=== PATIENT | male | born 1940 | race Caucasian/White ===

== ENCOUNTER 2020-01-03 16:10 | Emergency (ER) | payer MEDICARE, BC ==
[2020-01-03 16:23] VITALS: TEMP 98.8
[2020-01-03] MEDS ORDERED: ONDANSETRON 4 MG/2 ML VIAL IVP STA (17:09)
[2020-01-03] MEDS ORDERED: SODIUM CHLORIDE 0.9% 1,000 ML IV STA (17:09)
[2020-01-03 17:23] LABS: Basophils # (A) 0.1 k/uL (0-0.2); Basophils % (A) 1 %; Eosinophils # (A) 0.1 k/uL (0-0.7); Eosinophils % (A) 1 %; HCT 49.2 % (39.0-53.0); HGB 16.5 gm/dL (13.0-17.5); Lymphocytes # (A) 1.6 k/uL (1.0-4.8); Lymphocytes % (A) 14 %; MCH 30.2 pg (25.0-35.0); MCHC 33.6 g/dL (31.0-37.0); MCV 90.1 fL (80.0-100.0); Monocytes # (A) 0.6 k/uL (0-1.0); Monocytes % (A) 5 %; Neutrophils # (A) 8.5 k/uL (1.3-7.7); Neutrophils % (A) 78 %; Platelet Count 225 k/uL (150-450); RBC 5.46 m/uL (4.30-5.90); RDW 12.3 % (11.5-15.5)
[2020-01-03 17:34] LABS: Albumin 4.5 g/dL (3.5-5.0); Potassium 4.6 mmol/L (3.5-5.1); Total Bilirubin 0.8 mg/dL (0.2-1.3); Total Protein 7.2 g/dL (6.3-8.2)
[2020-01-03 18:02] LABS: Appearance,Urine Clear (Clear); Bilirubin,Urine Negative (Negative); Blood,Urine Large (Negative); Color,Urine Dark Yellow; Glucose,Urine (UA) Negative (Negative); Ketones,Urine Negative (Negative); Leukocyte Esterase,Urine Negative (Negative); Mucus,Urine Occasional /hpf; Nitrite,Urine Negative (Negative); PH, Urine 5.5 (5.0-8.0); Protein,Urine Trace (Negative); RBC,Urine 166 /hpf (0-5); Specific Gravity,Urine 1.029 (1.001-1.035); Squamous Epithelial Cell,Urine <1 /hpf (0-4); Urobilinogen,Urine <2.0 mg/dL (<2.0); WBC,Urine 6 /hpf (0-5)
--- NOTE | 2020-01-03 18:46 | CT ---
EXAMINATION TYPE: CT abdomen pelvis wo con DATE OF EXAM: 01/03/2020 COMPARISON: None HISTORY: Left sided flank pain CT DLP: 795.6 mGycm Automated exposure control for dose reduction was used. The lung bases are clear of infiltrate. There is no pleural effusion. Heart size is normal. There is no pericardial effusion. Liver spleen stomach pancreas gallbladder appear normal. Bile ducts are not dilated. There is no adrenal mass. Kidneys have normal size and contour. There is left-sided hydronephrosis. T here is obstructing 5 mm calculus in the proximal left ureter close to the ureteral pelvic junction. There is 1 cm high density cyst lateral right kidney. There is no retroperitoneal adenopathy. Bladder distends smoothly. There is no inguinal hernia. There is enlarged prostate gland with calcification. Prostate measures 6.3 cm. There is no free fluid in the pelvis. There are multiple sigmoid diverticula. There is no sign of diverticulitis. There are scattered diver ticula in the remainder of the colon. Appendix appears normal. There is no mesenteric edema. There is no ascites or free air. There is no sign of a bowel obstruction. There is a degenerative mild first- degree L4-5 spondylolisthesis. There is no lumbar compression fracture. There is mild lumbar disc spa ce narrowing. The bony pelvis is intact. Hip joints are intact. There are small degenerative cysts in the acetabula. IMPRESSION: Small obstructing calculus at the proximal left ureter. Left-sided hydronephrosis. No other calculus seen. Moderate colonic diverticulosis without diverticulitis.
[2020-01-03] MEDS ORDERED: ACET/COD 300 MG/30 MG STARTER PACK 6 TAB BTL PO STA (18:59)
--- NOTE | 2020-01-03 18:59 | ED ---
General Adult HPI - General Chief complaint: Abdominal Pain Stated complaint: left sided abd pain Time Seen by Provider: 01/03/20 16:26 Source: patient, RN notes reviewed, old records reviewed Mode of arrival: ambulatory Limitations: no limitations - History of Present Illness Initial comments: 79-year-old male patient presents to ED for evaluation of left mid flank pain which began today. Reports a little bit of nausea. No vomiting or diarrhea. No anterior abdominal pain chest pain shortness of breath. No other acute complaints. Systemic: Pt denies fatigue, fever/chills, rash. Pt denies weakness, night sweats, weight loss. Neuro: Pt denies headache, visual disturbances, syncope or pre-syncope. HEENT: Pt denies ocular discharge or irritation, otalgia, rhinorrhea, pharyngitis or notable lymphadenopathy. Cardiopulmonary: Pt denies chest pain, SOB, heart palpitations, dyspnea on exertion. Abdominal/GI: Pt denies abdominal pain, v/d. : Pt denies dysuria, burning w/ urination, frequency/urgency. Denies new onset urinary or bowel incontinence. MSK: Pt denies myalgia, loss of strength or function in extremities. Neuro: Pt denies new onset weakness, paresthesias. - Related Data Allergies Allergy/AdvReac Type Severity Reaction Status Date / Time No Known Allergies Allergy Verified 01/03/20 16:23 Review of Systems ROS Statement: Those systems with pertinent positive or pertinent negative responses have been documented in the HPI. ROS Other: All systems not noted in ROS Statement are negative. Past Medical History Past Medical History: No Reported History History of Any Multi-Drug Resistant Organisms: None Reported Past Surgical History: Orthopedic Surgery Past Psychological History: No Psychological Hx Reported Smoking Status: Former smoker Past Alcohol Use History: Occasional Past Drug Use History: None Reported General Exam - General Exam Comments Initial Comments: Constitutional: NAD, AOX3, Pt has pleasant affect. HEENT: NC/AT, trachea midline, neck supple, no lymphadenopathy. External ears appear normal, without discharge. Mucous membranes moist. Eyes PERRLA, EOM intact. There is no scleral icterus. No pallor noted. Cardiopulmonary: RRR, no murmurs, rubs or gallops, no JVD noted. Lungs CTAB in a nterior and posterior kline. No peripheral edema. Abdominal exam: Abdomen soft and non-distended. Abdomen non-tender to palpation in all 4 quadrants. Bowel sounds active in LLQ. No hepatosplenomegaly. No ecchymosis. Left flank mildly tender to palpation. Neuro: CN II-XII grossly intact. No nuchal rigidity. MSK: Full active ROM in upper and lower extremities, 5/5 stregnth. Limitations: no limitations Course Vital Signs 01/03/20 16:20 Temperature 98.8 F Pulse Rate 70 Respiratory 18 Rate Blood Pressure 168/91 O2 Sat by Pulse 98 Oximetry Medical Decision Making - Medical Decision Making 79-year-old male patient with CVG for left flank pain which began this morning. Patient vital signs stable, afebrile. Very mild tenderness to the left flank area. The investigations are remarkable for hematuria. CT abdomen and pelvis without contrast was obtained which did display a small obstructing left ureteral calculi. Patient's symptoms are well controlled. We'll be discharged with analgesia and outpatient urologic follow-up. Case discussed with Dr. Angelo. - Lab Data Result diagrams: 01/03/20 17:09 01/03/20 17:09 Lab Results 01/03/20 01/03/20 01/03/20 Range/Units 17:09 17:09 17:09 WBC 11.0 H (3.8-10.6) k/uL RBC 5.46 (4.30-5.90) m/uL Hgb 16.5 (13.0-17.5) gm/dL Hct 49.2 (39.0-53.0) % MCV 90.1 (80.0-100.0) fL MCH 30.2 (25.0-35.0) pg MCHC 33.6 (31.0-37.0) g/dL RDW 12.3 (11.5-15.5) % Plt Count 225 (150-450) k/uL Neutrophils % 78 % Lymphocytes % 14 % Monocytes % 5 % Eosinophils % 1 % Basophils % 1 % Neutrophils # 8.5 H (1.3-7.7) k/uL Lymphocytes # 1.6 (1.0-4.8) k/uL Monocytes # 0.6 (0-1.0) k/uL Eosinophils # 0.1 (0-0.7) k/uL Basophils # 0.1 (0-0.2) k/uL Sodium 137 (137-145) mmol/L Potassium 4.6 (3.5-5.1) mmol/L Chloride 106 (98-107) mmol/L Carbon Dioxide 26 (22-30) mmol/L Anion Gap 5 mmol/L BUN 21 H (9-20) mg/dL Creatinine 0.98 (0.66-1.25) mg/dL Est GFR (CKD-EPI)AfAm 86 (>60 ml/min/1.73 sqM) Est GFR (CKD-EPI)NonAf 75 (>60 ml/min/1.73 sqM) Glucose 117 H (74-99) mg/dL Calcium 9.0 (8.4-10.2) mg/dL Total Bilirubin 0.8 (0.2-1.3) mg/dL AST 35 (17-59) U/L ALT 27 (4-49) U/L Alkaline Phosphatase 73 (38-126) U/L Total Protein 7.2 (6.3-8.2) g/dL Albumin 4.5 (3.5-5.0) g/dL Lipase 167 (23-300) U/L Urine Color Dark Yellow Urine Appearance Clear (Clear) Urine pH 5.5 (5.0-8.0) Ur Specific Lee 1.029 (1.001-1.035) Urine Protein Trace H (Negative) Urine Glucose (UA) Negative (Negative) Urine Ketones Negative (Negative) Urine Blood Large H (Negative) Urine Nitrite Negative (Negative) Urine Bilirubin Negative (Negative) Urine Urobilinogen <2.0 (<2.0) mg/dL Ur Leukocyte Esterase Negative (Negative) Urine RBC 166 H (0-5) /hpf Urine WBC 6 H (0-5) /hpf Ur Squamous Epith Cells <1 (0-4) /hpf Urine Mucus Occasional H (None) /hpf Disposition Clinical Impression: Ureteral calculi Disposition: HOME SELF-CARE Condition: Stable Instructions (If sedation given, give patient instructions): Kidney Stones (ED) Additional Instructions: follow-up with primary care provider and urologist tomorrow. Drink a lot of water. Take pain medication as needed. Is patient prescribed a controlled substance at d/c from ED?: No Referrals: Harpreet Means DO [Primary Care Provider] - 1-2 days Jose Taylor MD [STAFF PHYSICIAN] - 1-2 days
[2020-01-03 19:13] VITALS: BP 141/86; PULSE 68; RESP 16
== END 2020-01-03 19:15 | disposition home or self-care (01) ==
LOC: EC 16:10
DX: N20.1 Calculus of ureter (principal); Z87.891 Personal history of nicotine dependence
CPT/HCPCS: 36415; 80053; 83690; 85025; 81001; 74176; 99284; 96374; 96361; J2405

== ENCOUNTER 2021-03-01 11:48 | Inpatient (IN) | payer MEDICARE, BC ==
[2021-03-01] MEDS ORDERED: SODIUM CHLORIDE 0.9% 1,000 ML IV STA (12:13)
[2021-03-01] MEDS ORDERED: guaiFENesin-Coden 100-10MG/5ML 10 ML CUP PO STA ×2 (12:14→23:47)
--- NOTE | 2021-03-01 12:31 | ED ---
General Adult HPI - General Chief complaint: Weakness Stated complaint: dehydration Time Seen by Provider: 03/01/21 12:05 Source: EMS Mode of arrival: EMS Limitations: no limitations - History of Present Illness Initial comments: Patient presents with a cough. 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 He received the IV monoclonal antibody therapy. He states that he was coughing a lot last night and feels like he may be dehydrated. He has no chest or belly or back pain. He is using home oxygen already for his Covid. He has no pain or swelling the legs. He has no palpitations. He has no focal weakness. He has no lightheadedness or dizziness. - Related Data Home Medications Medication Instructions Recorded Confirmed Budesonide/Formoterol Fumarate 2 puff INHALATION RT-BID 03/01/21 03/01/21 [Symbicort 80-4.5 Mcg Inhaler] Levofloxacin [Levaquin] 750 mg PO DAILY 03/01/21 03/01/21 guaiFENesin-Coden 100-10MG/5ML 10 ml PO Q6H PRN 03/01/21 03/01/21 [Robitussin AC] Allergies Allergy/AdvReac Type Severity Reaction Status Date / Time No Known Allergies Allergy Verified 03/01/21 12:50 Review of Systems ROS Statement: Those systems with pertinent positive or pertinent negative responses have been documented in the HPI. ROS Other: All systems not noted in ROS Statement are negative. Past Medical History Past Medical History: No Reported History History of Any Multi-Drug Resistant Organisms: None Reported Past Surgical History: Orthopedic Surgery Past Psychological History: No Psychological Hx Reported Smoking Status: Former smoker Past Alcohol Use History: Occasional Past Drug Use History: None Reported General Exam Limitations: no limitations General appearance: alert, in no apparent distress Head exam: Present: atraumatic, normocephalic, normal inspection Eye exam: Present: normal appearance, PERRL, EOMI. Absent: scleral icterus, conjunctival injection, periorbital swelling ENT exam: Present: normal exam, mucous membranes moist Neck exam: Present: normal inspection. Absent: tenderness, meningismus, lymphadenopathy Respiratory exam: Present: normal lung sounds bilaterally. Absent: respiratory distress, wheezes, rales, rhonchi, stridor Cardiovascular Exam: Present: regular rate, normal rhythm, normal heart sounds. Absent: systolic murmur, diastolic murmur, rubs, gallop, clicks GI/Abdominal exam: Present: soft, normal bowel sounds. Absent: distended, tenderness, guarding, rebound, rigid Extremities exam: Present: normal inspection, full ROM, normal capillary refill. Absent: tenderness, pedal edema, joint swelling, calf tenderness Back exam: Present: normal inspection Neurological exam: Present: alert, oriented X3, CN II-XII intact Psychiatric exam: Present: normal affect, normal mood Skin exam: Present: warm, dry, intact, normal color. Absent: rash Course Vital Signs 03/01/21 03/01/21 03/01/21 11:51 12:57 14:01 Temperature 98.9 F Pulse Rate 89 81 80 Respiratory 20 18 18 Rate Blood Pressure 110/72 123/75 116/66 O2 Sat by Pulse 93 L 95 91 L Oximetry EKG Findings - EKG Comments: EKG Findings:: Twelve-lead EKG shows ventricular rate 84 bpm, normal ME interval and QRS complexes, no ST elevation or depression, interpreted by me as normal sinus rhythm. Medical Decision Making - Medical Decision Making Patient presents with covert pneumonia. His chest x-ray is very bad. His condition has deteriorated slightly in the emerge department despite treatment. He is feeling more short of breath and is becoming more tachypnea. He will be admitted to the hospital. - Lab Data Result diagrams: 03/01/21 12:45 03/01/21 12:45 Lab Results 03/01/21 03/01/21 03/01/21 Range/Units 12:45 12:45 12:45 WBC 7.7 (3.8-10.6) k/uL RBC 5.47 (4.30-5.90) m/uL Hgb 17.0 (13.0-17.5) gm/dL Hct 47.9 (39.0-53.0) % MCV 87.6 (80.0-100.0) fL MCH 31.1 (25.0-35.0) pg MCHC 35.5 (31.0-37.0) g/dL RDW 12.1 (11.5-15.5) % Plt Count 218 (150-450) k/uL MPV 7.3 Neutrophils % 88 % Lymphocytes % 4 % Monocytes % 6 % Eosinophils % 0 % Basophils % 1 % Neutrophils # 6.8 (1.3-7.7) k/uL Lymphocytes # 0.3 L (1.0-4.8) k/uL Monocytes # 0.4 (0-1.0) k/uL Eosinophils # 0.0 (0-0.7) k/uL Basophils # 0.1 (0-0.2) k/uL PT 11.1 (9.0-12.0) sec INR 1.0 (<1.2) APTT 24.2 (22.0-30.0) sec Sodium 130 L (137-145) mmol/L Potassium 4.3 (3.5-5.1) mmol/L Chloride 98 (98-107) mmol/L Carbon Dioxide 24 (22-30) mmol/L Anion Gap 8 mmol/L BUN 25 H (9-20) mg/dL Creatinine 0.70 (0.66-1.25) mg/dL Est GFR (CKD-EPI)AfAm >90 (>60 ml/min/1.73 sqM) Est GFR (CKD-EPI)NonAf >90 (>60 ml/min/1.73 sqM) Glucose 104 H (74-99) mg/dL Plasma Lactic Acid Karan (0.7-2.0) mmol/L Calcium 8.5 (8.4-10.2) mg/dL Magnesium 1.9 (1.6-2.3) mg/dL Total Bilirubin 0.9 (0.2-1.3) mg/dL AST 58 (17-59) U/L ALT 65 H (4-49) U/L Alkaline Phosphatase 63 (38-126) U/L Troponin I (0.000-0.034) ng/mL Total Protein 6.2 L (6.3-8.2) g/dL Albumin 3.3 L (3.5-5.0) g/dL 03/01/21 03/01/21 Range/Units 12:45 12:45 WBC (3.8-10.6) k/uL RBC (4.30-5.90) m/uL Hgb (13.0-17.5) gm/dL Hct (39.0-53.0) % MCV (80.0-100.0) fL MCH (25.0-35.0) pg MCHC (31.0-37.0) g/dL RDW (11.5-15.5) % Plt Count (150-450) k/uL MPV Neutrophils % % Lymphocytes % % Monocytes % % Eosinophils % % Basophils % % Neutrophils # (1.3-7.7) k/uL Lymphocytes # (1.0-4.8) k/uL Monocytes # (0-1.0) k/uL Eosinophils # (0-0.7) k/uL Basophils # (0-0.2) k/uL PT (9.0-12.0) sec INR (<1.2) APTT (22.0-30.0) sec Sodium (137-145) mmol/L Potassium (3.5-5.1) mmol/L Chloride (98-107) mmol/L Carbon Dioxide (22-30) mmol/L Anion Gap mmol/L BUN (9-20) mg/dL Creatinine (0.66-1.25) mg/dL Est GFR (CKD-EPI)AfAm (>60 ml/min/1.73 sqM) Est GFR (CKD-EPI)NonAf (>60 ml/min/1.73 sqM) Glucose (74-99) mg/dL Plasma Lactic Acid Karan 1.1 (0.7-2.0) mmol/L Calcium (8.4-10.2) mg/dL Magnesium (1.6-2.3) mg/dL Total Bilirubin (0.2-1.3) mg/dL AST (17-59) U/L ALT (4-49) U/L Alkaline Phosphatase (38-126) U/L Troponin I <0.012 (0.000-0.034) ng/mL Total Protein (6.3-8.2) g/dL Albumin (3.5-5.0) g/dL Disposition Clinical Impression: COVID-19 Disposition: ADMITTED IP TO THIS HOSP Condition: Fair Is patient prescribed a controlled substance at d/c from ED?: No Referrals: Bonita Pelletier MD [Primary Care Provider] - 1-2 days
[2021-03-01 13:02] LABS: Basophils # (A) 0.1 k/uL (0-0.2); Basophils % (A) 1 %; Eosinophils % (A) 0 %; HCT 47.9 % (39.0-53.0); Lymphocytes # (A) 0.3 k/uL (1.0-4.8); Lymphocytes % (A) 4 %; MCH 31.1 pg (25.0-35.0); MCHC 35.5 g/dL (31.0-37.0); MCV 87.6 fL (80.0-100.0); Mean Platelet Volume 7.3; Monocytes # (A) 0.4 k/uL (0-1.0); Monocytes % (A) 6 %; Neutrophils # (A) 6.8 k/uL (1.3-7.7); Neutrophils % (A) 88 %; Platelet Count 218 k/uL (150-450); RBC 5.47 m/uL (4.30-5.90); RDW 12.1 % (11.5-15.5); WBC 7.7 k/uL (3.8-10.6)
--- NOTE | 2021-03-01 13:20 | XR ---
EXAMINATION TYPE: XR chest 1V portable DATE OF EXAM: 03/01/2021 COMPARISON: 02/27/2021 HISTORY: Shortness of breath TECHNIQUE: Single frontal view of the chest is obtained. FINDINGS: There are diffuse bilateral predominantly midlung and peripheral infiltrates. A tiny effus ion or pleural thickening. No pneumothorax. Heart size normal. Arthropathy of the shoulders. IMPRESSION: Diffuse bilateral multifocal infiltrates correlate for multifocal pneumonia or ARDS.
[2021-03-01 13:26] LABS: ALT 65 U/L (4-49); AST 58 U/L (17-59); African American GFR (CKD) >90 (>60 ml/min/1.73 sqM); Albumin 3.3 g/dL (3.5-5.0); Alkaline Phosphatase 63 U/L (38-126); Anion Gap 8 mmol/L; Blood Urea Nitrogen 25 mg/dL (9-20); Calcium 8.5 mg/dL (8.4-10.2); Carbon Dioxide 24 mmol/L (22-30); Chloride 98 mmol/L (98-107); Glucose 104 mg/dL (74-99); Magnesium 1.9 mg/dL (1.6-2.3); Non-African American GFR(CKD) >90 (>60 ml/min/1.73 sqM); Potassium 4.3 mmol/L (3.5-5.1); Sodium 130 mmol/L (137-145); Total Bilirubin 0.9 mg/dL (0.2-1.3); Total Protein 6.2 g/dL (6.3-8.2)
[2021-03-01 13:32] LABS: Partial Thromboplastin Time 24.2 sec (22.0-30.0); Prothrombin Time 11.1 sec (9.0-12.0)
[2021-03-01 14:28] LABS: Appearance,Urine Clear (Clear); Bacteria,Urine Rare /hpf; Bilirubin,Urine Negative (Negative); Blood,Urine Negative (Negative); Color,Urine Yellow; Glucose,Urine (UA) Negative (Negative); Hyaline Casts,Urine 1 /lpf (0-2); Ketones,Urine 1+ (Negative); Leukocyte Esterase,Urine Negative (Negative); Mucus,Urine Few /hpf; Nitrite,Urine Negative (Negative); Protein,Urine 2+ (Negative); RBC,Urine 1 /hpf (0-5); Specific Gravity,Urine 1.035 (1.001-1.035); Urobilinogen,Urine <2.0 mg/dL (<2.0); WBC,Urine 2 /hpf (0-5)
--- NOTE | 2021-03-01 15:51 | P.HPIM ---
History of Present Illness H&P Date: 03/01/21 History of Presenting Illness: Patient is a very pleasant 80-year-old male with history of COPD and previous tobacco use with no other known reported past medical history, he follows with primary care provider, Dr. Pelletier. Patient reports diagnosis with Covid 19 virus infection at [facility] 10 days ago and received monoclonal antibodies at that time and was prescribed an inhaler, steroids, cough medicine, and an antibiotic. He presented to the ER today with a chief complaint of increased cough, shortness of breath, and fatigue. He was seen and fully evaluated in the emergency department. He was found to be hypoxic with SpO2 in the 80s requiring oxygen supplementation. Patient currently 89-91% on 4 L O2 via nasal cannula. Chest x-ray completed showing diffuse bilateral multifocal infiltrates correlating with multifocal pneumonia vs ARDS. EKG showing normal sinus rhythm 84 beats a minute with no noted T-wave or ST abnormalities showing no signs of acute ischemia. Covid PCR was positive. CBC unremarkable. Troponin normal findings at less than 0.012. Coags unremarkable. BMP revealing mild hyponatremia with sodium of 130 and slight prerenal azotemia with BUN of 25. Urinalysis negative for infection. Patient is being admitted under our services with consultation to pulmonology. Patient seen and fully evaluated at the bedside. He reports shortness of breath, fatigue, and decreased appetite accompanied by dry cough and significant dyspnea with exertion as well as orthopnea. Patient reports due to the increased shortness of breath he has been unable to sleep for the past 2 nights. Patient denies having any fevers, chills, diaphoresis, headache, lightheadedness, dizziness, chest pain, palpitations, abdominal pain or GI complaints, or experiencing any numbness/tingling/weakness/swelling in his extremities. Patient is not vaccinated against Covid. Review of systems: Pertinent positives and negatives as discussed in HPI, a complete review of systems was performed and all other systems are negative. Physical exam: Vital signs reviewed and stable. General: Nontoxic, no distress and appears stated age. Derm: Skin warm and dry, normal coloration for ethnicity. Head: Atraumatic, normocephalic and symmetric. Eyes: EOMs intact, no lid lag, and anicteric sclera Mouth: no lip lesions, mucus membranes moist Cardiovascular: regular rate and rhythm with normal S1S2, no murmur, positive posterior tibial pulses bilaterally, and cap refill < 2 seconds. Lungs: Increased respiratory effort without accessory muscle use, noted conversational dyspnea with 3-4 word sentences, lungs diffuse coarse crackles bilaterally in the mid and lower lungs. Patient currently on 4 L O2 via nasal cannula. Abdominal: soft, nontender to palpation, no guarding, no appreciable organomega ly Ext: ROM intact. No gross muscle atrophy, no edema, no contractures Neuro: Speech clear, face symmetrical and CN II-XII grossly intact with no noted focal neuro deficits Psych: Alert and oriented to person, place, time, and situation. Appropriate and pleasant affect. Assessment and Plan of Care: Acute respiratory failure with hypoxia secondary to COVID 19 pneumonia -Oxygenation to be administered and titrated as needed to maintain SPO2 equal to or greater than 90% -Telemetry monitoring. -Continue trending inflammatory markers -Encourage Incentive Spirometry 10-15x hourly while awake -Steroids: Decadron 6 mg daily, day 1 of steroids -Continue vitamin C, Vitamin D, and Zinc. -Pulmonology following, appreciate further recommendations. -DVT prophylaxis with Lovenox. -Strict Droplet plus Contact precautions -Patient received monoclonal antibodies. Out of window for Remdesivir as patient reports symptoms began approximately 12 days ago. Hyponatremia Patient received 1 L bolus is 0.9% normal saline in the ED. We will reevaluate sodium levels with repeat a.m. labs. Prerenal azotemia with BUN of 25 Patient received 1 L bolus is 0.9% normal saline in the ED. We will reevaluate BMP with repeat a.m. labs. The patient is admitted with an anticipated greater than 2 midnight stay for evaluation of acute respiratory failure with hypoxia secondary to Covid 19 pneumonia. CODE STATUS: Full code DVT prophylaxis: Lovenox Discussed with: Patient and RN Anticipated discharge date: Clinical course to determine Anticipated discharge place: Home A total of 45 minutes was spent on the care of this complex patient more than 50% of the time was spent in counseling and care coordination. Past Medical History Past Medical History: No Reported History History of Any Multi-Drug Resistant Organisms: None Reported Past Surgical History: Orthopedic Surgery Past Psychological History: No Psychological Hx Reported Smoking Status: Former smoker Past Alcohol Use History: Occasional Past Drug Use History: None Reported Medications and Allergies Home Medications Medication Instructions Recorded Confirmed Type Budesonide/Formoterol Fumarate 2 puff INHALATION RT-BID 03/01/21 03/01/21 Histo ry [Symbicort 80-4.5 Mcg Inhaler] Levofloxacin [Levaquin] 750 mg PO DAILY 03/01/21 03/01/21 History guaiFENesin-Coden 100-10MG/5ML 10 ml PO Q6H PRN 03/01/21 03/01/21 History [Robitussin AC] Allergies Allergy/AdvReac Type Severity Reaction Status Date / Time No Known Allergies Allergy Verified 03/01/21 12:50 Physical Exam Vitals: Vital Signs Temp Pulse Resp BP Pulse Ox 03/01/21 14:01 80 18 116/66 91 L 03/01/21 14:00 20 03/01/21 12:57 81 18 123/75 95 03/01/21 11:51 98.9 F 89 20 110/72 93 L Intake and Output 03/01/21 03/01/21 03/01/21 06:59 14:59 22:59 Other: Weight 74.843 kg Results CBC & Chem 7: 03/01/21 12:45 03/01/21 12:45 Labs: Abnormal Lab Results - Last 24 Hours (Table) 03/01/21 03/01/21 03/01/21 Range/Units 12:45 12:45 13:58 Lymphocytes # 0.3 L (1.0-4.8) k/uL Sodium 130 L (137-145) mmol/L BUN 25 H (9-20) mg/dL Glucose 104 H (74-99) mg/dL ALT 65 H (4-49) U/L Total Protein 6.2 L (6.3-8.2) g/dL Albumin 3.3 L (3.5-5.0) g/dL Urine Protein 2+ H (Negative) Urine Ketones 1+ H (Negative) Urine Bacteria Rare H (None) /hpf Urine Mucus Few H (None) /hpf
[2021-03-01] MEDS ORDERED: NALOXONE 0.4 MG/ML 1 ML VIAL IV PRN (16:03)
[2021-03-01] MEDS ORDERED: MELATONIN 3 MG TABLET PO PRN (16:03)
[2021-03-01] MEDS ORDERED: HYDROcodone/APAP 5-325MG 1 EACH TAB PO PRN (16:03)
[2021-03-01] MEDS: ENOXAPARIN 40 MG/0.4 ML SYRINGE SQ SCH (16:52)
--- NOTE | 2021-03-01 18:00 | P.CNPUL ---
History of Present Illness Consult date: 03/01/21 Reason for consult: pneumonia History of present illness: 80-year-old male patient, known history of COPD, diagnosed having COVID 19 approximately 10 days ago and the patient received monoclonal antibodies and the patient was described inhalers, steroids and cough medication. Condition got worse and the patient came into the emergency department today with worsening shortness of breath and hypoxemia. Initial pulse ox was 80%. Currently is on 4 L of oxygen by nasal cannula and the patient developed diffuse bilateral pulmonary infiltrates. He is normally on no oxygen. Note that the patient has not received vaccination for COVID 19. His white cell count is at 7.7 with a hemoglobin of 17. Normal coagulation profile. Sodium level is at 130, LFTs are normal, troponins are negative, UA is essentially negative. Inflammatory markers have not been checked. D-dimer has not been checked. He is currently on Decadron. The chest x-ray showed diffuse breath and pulmonary infiltrates consistent with COVID 19 pneumonia. Review of Systems Constitutional: Reports fatigue, Reports weakness Eyes: denies as per HPI, denies blurred vision, denies bulging eye, denies decreased vision, denies diplopia, denies discharge, denies dry eye, denies irritation, denies itching, denies pain, denies photophobia, denies loss of peripheral vision, denies loss of vision, denies tunnel vision/blind spots Ears: deny: decreased hearing, ear discharge, earache, tinnitus Ears, nose, mouth and throat: Reports as per HPI Breasts: absent: as per HPI, gynecomastia Cardiovascular: Reports decreased exercise tolerance, Reports dyspnea on exertion Respiratory: Reports cough, Reports dyspnea Gastrointestinal: Reports as per HPI Genitourinary: Reports as per HPI Musculoskeletal: Reports as per HPI Musculoskeletal: absent: ankle pain, ankle stiffness, ankle swelling, as per HPI, elbow pain, elbow stiffness, elbow swelling, foot pain, foot stiffness, foot swelling, hand pain, hand stiffness, hand swelling, hip pain, hip stiffness, hip swelling, knee pain, knee stiffness, knee swelling, shoulder pain, shoulder stiffness, shoulder swelling, wrist pain, wrist stiffness, wrist swelling Integumentary: Reports as per HPI Neurological: Reports as per HPI Psychiatric: Reports as per HPI Endocrine: Reports as per HPI Hematologic/Lymphatic: Reports as per HPI Allergic/Immunologic: Reports as per HPI Past Medical History Past Medical History: No Reported History History of Any Multi-Drug Resistant Organisms: None Reported Past Surgical History: Orthopedic Surgery Past Psychological History: No Psychological Hx Reported Smoking Status: Former smoker Past Alcohol Use History: Occasional Past Drug Use History: None Reported Medications and Allergies Home Medications Medication Instructions Recorded Confirmed Type Budesonide/Formoterol Fumarate 2 puff INHALATION RT-BID 03/01/21 03/01/21 History [Symbicort 80-4.5 Mcg Inhaler] Levofloxacin [Levaquin] 750 mg PO DAILY 03/01/21 03/01/21 History guaiFENesin-Coden 100-10MG/5ML 10 ml PO Q6H PRN 03/01/21 03/01/21 History [Robitussin AC] Allergies Allergy/AdvReac Type Severity Reaction Status Date / Time No Known Allergies Allergy Verified 03/01/21 12:50 Physical Exam Vitals: Vital Signs Temp Pulse Resp BP Pulse Ox 03/01/21 14:01 80 18 116/66 91 L 03/01/21 14:00 20 03/01/21 12:57 81 18 123/75 95 03/01/21 11:51 98.9 F 89 20 110/72 93 L Intake and Output 03/01/21 03/01/21 03/01/21 06:59 14:59 22:59 Other: Weight 74.843 kg Vital signs reviewed and stable. Eating is labored and the patient is currently on 4 L by nasal cannula. The patient is also having frequent coughs specially when he takes a deep breath. He feels a bit lethargic and tired and weak. General: Nontoxic, no distress and appears stated age. Derm: Skin warm and dry, normal coloration for ethnicity. Head: Atraumatic, normocephalic and symmetric. Eyes: EOMs intact, no lid lag, and anicteric sclera Mouth: no lip lesions, mucus membranes moist Cardiovascular: regular rate and rhythm with normal S1S2, no murmur, positive posterior tibial pulses bilaterally, and cap refill < 2 seconds. Lungs: Increased respiratory effort without accessory muscle use, noted conversational dyspnea with 3-4 word sentences, lungs diffuse coarse crackles bilaterally in the mid and lower lungs. Patient currently on 4 L O2 via nasal cannula. Abdominal: soft, nontender to palpation, no guarding, no appreciable organomegaly Ext: ROM intact. No gross muscle atrophy, no edema, no contractures Neuro: Speech clear, face symmetrical and CN II-XII grossly intact with no noted focal neuro deficits Psych: Alert and oriented to person, place, time, and situation. Appropriate and pleasant affect. Results - Laboratory Findings CBC and BMP: 03/01/21 12:45 03/01/21 12:45 PT/INR, D-dimer PT 11.1 sec (9.0-12.0) 03/01/21 12:45 INR 1.0 (<1.2) 03/01/21 12:45 Abnormal lab findings: Abnormal Labs 03/01/21 12 12 12:45 12:45 13:58 Lymphocytes # 0.3 L Sodium 130 L BUN 25 H Glucose 104 H ALT 65 H Total Protein 6.2 L Albumin 3.3 L Urine Protein 2+ H Urine Ketones 1+ H Urine Bacteria Rare H Urine Mucus Few H Coronavirus (PCR) 03/01/21 15:55 Lymphocytes # Sodium BUN Glucose ALT Total Protein Albumin Urine Protein Urine Ketones Urine Bacteria Urine Mucus Coronavirus (PCR) Detected A - Diagnostic Findings Chest x-ray: image reviewed Assessment and Plan Plan: 1 acute COVID 19 related pneumonia with secondary shortness of breath. Diagnosis established approximately 10 days ago. The patient received monoclonal antibodies on outpatient basis. The patient was also treated with steroids and antibiotics. His presenting with worsening shortness of breath and a dry cough. 2 acute hypoxic respiratory failure secondary to above, currently on 4 L about 2 by nasal cannula. 3 shortness of breath and cough secondary to above. Plan Check inflammatory markers including LDH, CRP, pro-calcitonin level and d-dimer Put the patient on Decadron 6 L IV every 24 hours The patient is outside the window for Remdesivir Lovenox 40 mg subcu for DVT prophylaxis Cough medication including Robitussin-DM and Tessalon Perles Albuterol HFA 4 times a day as needed We'll continue to follow. We'll monitor electrolytes. He is receiving fluids and currently is on normal saline at the rate of 75 he is an hour and this will be continued He'll be admitted to the hospital I will continue to follow.
[2021-03-01] MEDS: SODIUM CHLORIDE 0.9% 1,000 ML IV SCH (18:51)
[2021-03-01] MEDS: ACETAMINOPHEN TAB 325 MG TAB PO PRN (18:55)
[2021-03-01] MEDS: guaiFENesin-Coden 100-10MG/5ML 10 ML CUP PO PRN (18:56)
[2021-03-01] MEDS: SYMBICORT 80-4.5 MCG INHALER INHALATION SCH (21:09)
[2021-03-02] MEDS: ACETAMINOPHEN TAB 325 MG TAB PO PRN (02:15)
[2021-03-02] MEDS: DEXAMETHASONE SOD PHOSPHATE 10 MG/ML 1 ML VIAL IVP SCH (07:56)
[2021-03-02] MEDS: CHOLECALCIFEROL 125 MCG (5000 IU) TABLET PO SCH (07:56)
[2021-03-02] MEDS: ASCORBIC ACID 500 MG TAB PO SCH (07:56)
[2021-03-02] MEDS: ZINC SULFATE 220 MG CAP PO SCH (07:56)
[2021-03-02] MEDS: guaiFENesin-Coden 100-10MG/5ML 10 ML CUP PO PRN ×3 (07:57→22:10)
[2021-03-02] MEDS: ENOXAPARIN 40 MG/0.4 ML SYRINGE SQ SCH (07:57)
[2021-03-02] MEDS: SYMBICORT 80-4.5 MCG INHALER INHALATION SCH ×2 (08:25→19:21)
[2021-03-02 09:23] LABS: HGB 15.4 g/dL (13.0-17.0); MCH 30.6 pg (27.0-32.0); MCHC 34.2 g/dL (32.0-37.0); MCV 89.5 fL (80.0-97.0); Mean Platelet Volume 8.9 fL (9.5-12.2); Platelet Count 234 X 10*3/uL (140-440); RBC 5.03 X 10*6/uL (4.40-5.60); RDW 12.6 % (11.5-14.5)
[2021-03-02 09:43] LABS: C Reactive Protein 18.6 mg/dL (0.00-0.80)
[2021-03-02 12:09] LABS: Basophils # (A) 0.02 X 10*3/uL (0.00-0.10); Basophils % (A) 0.2 %; Eosinophils # (A) 0.01 X 10*3/uL (0.04-0.35); Eosinophils % (A) 0.1 %; Lymphocytes # (A) 1.31 X 10*3/uL (0.90-5.00); Lymphocytes % (A) 15.8 %; Monocytes # (A) 0.39 X 10*3/uL (0.20-1.00); Monocytes % (A) 4.7 %; Neutrophils # (A) 6.54 X 10*3/uL (1.80-7.70); Neutrophils % (A) 78.8 %
[2021-03-02] MEDS: SODIUM CHLORIDE 0.9% 1,000 ML IV SCH (12:12)
[2021-03-02 12:48] LABS: African American GFR (CKD) 99.2 (60.0-200.0); Albumin 3.1 g/dL (3.8-4.9); Albumin/Globulin Ratio 1.35 (1.60-3.17); Anion Gap 10.2 mmol/L (10.00-18.00); BUN/Creat Ratio 21.5 Ratio (12.00-20.00); Blood Urea Nitrogen 17.2 mg/dL (9.0-27.0); Carbon Dioxide 22.8 mmol/L (20.0-27.5); Globulin 2.3 g/dL (1.6-3.3); Non-African American GFR(CKD) 85.6 (60.0-200.0); Potassium 4.2 mmol/L (3.5-5.5); Total Bilirubin 0.8 mg/dL (0.30-1.20); Total Protein 5.4 g/dL (6.2-8.2)
--- NOTE | 2021-03-02 13:38 | P.PN ---
Subjective Progress Note Date: 03/02/21 80-year-old male patient, known history of COPD, diagnosed having COVID 19 approximately 10 days ago and the patient received monoclonal antibodies and the patient was described inhalers, steroids and cough medication. Condition got worse and the patient came into the emergency department today with worsening shortness of breath and hypoxemia. Initial pulse ox was 80%. Currently is on 4 L of oxygen by nasal cannula and the patient developed diffuse bilateral pulmonary infiltrates. He is normally on no oxygen. Note that the patient has not received vaccination for COVID 19. His white cell count is at 7.7 with a hemoglobin of 17. Normal coagulation profile. Sodium level is at 130, LFTs are normal, troponins are negative, UA is essentially negative. Inflammatory markers have not been checked. D-dimer has not been checked. He is currently on Decadron. The chest x-ray showed diffuse breath and pulmonary infiltrates consistent with COVID 19 pneumonia. 03/02/2021, the patient continues to have episodes of fever. His oxygen requirements have gone up to 9 L per minute nasal cannula. Note that he yesterday was only on 4 L. His pro-calcitonin level is at 0.26, LDH level is at 418, CRP level is 82.6. He is otherwise doing well. Despite worsening in her oxygenation, the patient reports that his breathing is better. He has episodic cough for which is taken cough medication. No other significant events overnight. He is currently on Decadron 6 mg an Lovenox 40 mg subcu for DVT prophylaxis. Objective - Vital Signs Vital signs: Vital Signs Temp 99.8 F H 03/02/21 10:09 Pulse 84 03/02/21 10:09 Resp 18 03/02/21 10:09 BP 128/70 03/02/21 10:09 Pulse Ox 92 L 03/02/21 10:09 Intake & Output 03/01/21 03/02/21 03/02/21 18:59 06:59 18:59 Intake Total 350 Balance 350 Weight 74.843 kg Intake: Oral 350 Other: Voiding Method Urinal - Exam Vital signs reviewed and stable. Eating is labored and the patient is currently on 9 L by nasal cannula. The patient is also having frequent coughs specially when he takes a deep breath. He feels a bit lethargic and tired and weak. General: Nontoxic, no distress and appears stated age. Derm: Skin warm and dry, normal coloration for ethnicity. Head: Atraumatic, normocephalic and symmetric. Eyes: EOMs intact, no lid lag, and anicteric sclera Mouth: no lip lesions, mucus membranes moist Cardiovascular: regular rate and rhythm with normal S1S2, no murmur, positive po sterior tibial pulses bilaterally, and cap refill < 2 seconds. Lungs: Increased respiratory effort without accessory muscle use, noted conversational dyspnea with 3-4 word sentences, lungs diffuse coarse crackles bilaterally in the mid and lower lungs. Patient currently on 4 L O2 via nasal cannula. Abdominal: soft, nontender to palpation, no guarding, no appreciable organomegaly Ext: ROM intact. No gross muscle atrophy, no edema, no contractures Neuro: Speech clear, face symmetrical and CN II-XII grossly intact with no noted focal neuro deficits Psych: Alert and oriented to person, place, time, and situation. Appropriate and pleasant affect. - Labs CBC & Chem 7: 03/02/21 06:47 03/02/21 06:47 Labs: Abnormal Lab Results - Last 24 Hours (Table) 03/01/21 03/01/21 03/01/21 Range/Units 12:45 13:58 15:55 MPV (9.5-12.2) fL Eosinophils # (0.04-0.35) X 10*3/uL D-Dimer (<0.60) mg/L FEU Sodium (135-145) mmol/L BUN/Creatinine Ratio (12.00-20.00) Ratio Calcium (8.7-10.3) mg/dL AST (14-35) U/L ALT (10-49) U/L Lactate Dehydrogenase (120-246) U/L C-Reactive Protein (0.00-0.80) mg/dL Total Protein (6.2-8.2) g/dL Albumin (3.8-4.9) g/dL Albumin/Globulin Ratio (1.60-3.17) g/dL Procalcitonin 0.26 H (0.02-0.09) ng/mL Urine Protein 2+ H (Negative) Urine Ketones 1+ H (Negative) Urine Bacteria Rare H (None) /hpf Urine Mucus Few H (None) /hpf Coronavirus (PCR) Detected A (Not Detectd) 03/02/21 03/02/21 03/02/21 Range/Units 06:47 06:47 06:47 MPV 8.9 L (9.5-12.2) fL Eosinophils # 0.01 L (0.04-0.35) X 10*3/uL D-Dimer 1.09 H (<0.60) mg/L FEU Sodium 131 L (135-145) mmol/L BUN/Creatinine Ratio 21.50 H (12.00-20.00) Ratio Calcium 8.0 L (8.7-10.3) mg/dL AST 51 H (14-35) U/L ALT 51 H (10-49) U/L Lactate Dehydrogenase 418 H (120-246) U/L C-Reactive Protein 18.60 H (0.00-0.80) mg/dL Total Protein 5.4 L (6.2-8.2) g/dL Albumin 3.1 L (3.8-4.9) g/dL Albumin/Globulin Ratio 1.35 L (1.60-3.17) g/dL Procalcitonin (0.02-0.09) ng/mL Urine Protein (Negative) Urine Ketones (Negative) Urine Bacteria (None) /hpf Urine Mucus (None) /hpf Coronavirus (PCR) (Not Detectd) Assessment and Plan Plan: 1 acute COVID 19 related pneumonia with secondary shortness of breath. Diagnosis established approximately 10 days ago. The patient received monoclonal antibodies on outpatient basis. The patient was also treated with steroids and antibiotics. His presenting with worsening shortness of breath and a dry cough. 2 acute hypoxic respiratory failure secondary to above, currently on 9 L by nasal cannula. 3 shortness of breath and cough secondary to above. Plan Oxygen requirements got worse and the patient is currently on 9 L of oxygen by nasal cannula. Clinically feeling better. Put the patient on Decadron 6 L IV every 24 hours The patient is outside the window for Remdesivir Lovenox 40 mg subcu for DVT prophylaxis Cough medication including Robitussin-DM and Tessalon Perles Albuterol HFA 4 times a day as needed We'll continue to follow. We'll monitor electrolytes. He is receiving fluids and currently is on normal saline at the rate of 75 he is an hour and this will be continued We'll continue to follow.
--- NOTE | 2021-03-02 14:56 | P.PN ---
Subjective Progress Note Date: 03/02/21 Hospital course: Patient is a very pleasant 80-year-old male with history of COPD and previous tobacco use with no other known reported past medical history, he follows with primary care provider, Dr. Pelletier. Patient reports diagnosis with Covid 19 virus infection at [facility] 10 days ago and received monoclonal antibodies at that time and was prescribed an inhaler, steroids, cough medicine, and an antibiotic. He presented to the ER 03/01/21 with a chief complaint of increased cough, shortness of breath, and fatigue. He was seen and fully evaluated in the emergency department. He was found to be hypoxic with SpO2 in the 80s requiring oxygen supplementation. Patient currently 89-91% on 4 L O2 via nasal cannula. Chest x-ray completed showing diffuse bilateral multifocal infiltrates correlating with multifocal pneumonia vs ARDS. EKG showing normal sinus rhythm 84 beats a minute with no noted T-wave or ST abnormalities showing no signs of acute ischemia. Covid PCR was positive. CBC unremarkable. Troponin normal findings at less than 0.012. Coags unremarkable. BMP revealing mild hyponatremia with sodium of 130 and slight prerenal azotemia with BUN of 25. Urinalysis negative for infection. Patient was admitted under our services with consultation to pulmonology. Physical exam: Patient was seen and fully evaluated at the bedside. Overnight his oxygen needs continued to increase and he is now on 9 L O2 via nasal cannula. Patient lying left lateral recumbent upon assessment this morning. He reports continued fatigue and shortness of breath but denies having an actual increase in his shortness of breath. Patient also denies having any headache, lightheadedness, dizziness, chest pain, palpitations, nausea, vomiting, or diarrhea. Morning labs reviewed CBC unremarkable and BMP revealing mild hyponatremia with sodium of 131. Inflammatory markers elevated with d-dimer 1.09, LDH of 418, and CRP of 18.60. At this time patient to continue with vitamin C, vitamin D, zinc, Decadron, and Lovenox. Vital signs reviewed and stable. General: Nontoxic, no distress and appears stated age. Derm: Skin warm and dry, normal coloration for ethnicity. Head: Atraumatic, normocephalic and symmetric. Eyes: EOMs intact, no lid lag, and anicteric sclera Mouth: no lip lesions, mucus membranes moist Cardiovascular: regular rate and rhythm with normal S1S2, no murmur, positive posterior tibial pulses bilaterally, and cap refill < 2 seconds. Lungs: Increased respiratory effort without accessory muscle use, noted conversational dyspnea with 3-4 word sentences, lungs diffuse coarse crackles bilaterally in the mid and lower lungs. Patient currently on 9L O2 via nasal cannula. Abdominal: soft, nontender to palpation, no guarding, no appreciable organomegaly Ext: ROM intact. No gross muscle atrophy, no edema, no contractures Neuro: Speech clear, face symmetrical and CN II-XII grossly intact with no noted focal neuro deficits Psych: Alert and oriented to person, place, time, and situation. Appropriate and pleasant affect. Assessment and Plan of Care: Acute respiratory failure with hypoxia secondary to COVID 19 pneumonia -Oxygenation to be administered and titrated as needed to maintain SPO2 equal to or greater than 90% -Telemetry monitoring. -Continue trending inflammatory markers -Encourage Incentive Spirometry 10-15x hourly while awake -Steroids: Decadron 6 mg daily, day 1 of steroids -Continue vitamin C, Vitamin D, and Zinc. -Pulmonology following, appreciate further recommendations. -DVT prophylaxis with Lovenox. -Strict Droplet plus Contact precautions -Patient received monoclonal antibodies. Out of window for Remdesivir as patient reports symptoms began approximately 12 days ago. Hyponatremia We will provide gentle hydration with 0.9% normal saline at 75 mL's per hour. We will reevaluate sodium levels with repeat a.m. labs. Prerenal azotemia with BUN of 25 Patient received 1 L bolus is 0.9% normal saline in the ED. We will reevaluate BMP with repeat a.m. labs. The patient is admitted with an anticipated greater than 2 midnight stay for evaluation of acute respiratory failure with hypoxia secondary to Covid 19 pneumonia. CODE STATUS: Full code DVT prophylaxis: Lovenox Discussed with: Patient and RN Anticipated discharge date: Clinical course to determine Anticipated discharge place: Home A total of 45 minutes was spent on the care of this complex patient more than 50% of the time was spent in counseling and care coordination. Objective - Vital Signs Vital signs: Vital Signs Temp 98.7 F 03/02/21 06:37 Pulse 81 03/02/21 06:37 Resp 19 03/02/21 02:30 BP 128/74 03/02/21 06:37 Pulse Ox 91 L 03/02/21 06:37 Intake & Output 03/01/21 03/02/21 03/02/21 18:59 06:59 18:59 Intake Total 350 Balance 350 Weight 74.843 kg Intake: Oral 350 - Labs CBC & Chem 7: 03/02/21 06:47 03/02/21 06:47 Labs: Abnormal Lab Results - Last 24 Hours (Table) 03/01/21 03/01/21 03/01/21 Range/Units 12:45 12:45 12:45 Lymphocytes # 0.3 L (1.0-4.8) k/uL D-Dimer (<0.60) mg/L FEU Sodium 130 L (137-145) mmol/L BUN 25 H (9-20) mg/dL Glucose 104 H (74-99) mg/dL ALT 65 H (4-49) U/L Total Protein 6.2 L (6.3-8.2) g/dL Albumin 3.3 L (3.5-5.0) g/dL Procalcitonin 0.26 H (0.02-0.09) ng/mL Urine Protein (Negative) Urine Ketones (Negative) Urine Bacteria (None) /hpf Urine Mucus (None) /hpf Coronavirus (PCR) (Not Detectd) 03/01/21 03/01/21 03/02/21 Range/Units 13:58 15:55 06:47 Lymphocytes # (1.0-4.8) k/uL D-Dimer 1.09 H (<0.60) mg/L FEU Sodium (137-145) mmol/L BUN (9-20) mg/dL Glucose (74-99) mg/dL ALT (4-49) U/L Total Protein (6.3-8.2) g/dL Albumin (3.5-5.0) g/dL Procalcitonin (0.02-0.09) ng/mL Urine Protein 2+ H (Negative) Urine Ketones 1+ H (Negative) Urine Bacteria Rare H (None) /hpf Urine Mucus Few H (None) /hpf Coronavirus (PCR) Detected A (Not Detectd)
[2021-03-02] MEDS: BENZONATATE 100 MG CAP PO PRN (17:11)
[2021-03-03] MEDS: SODIUM CHLORIDE 0.9% 1,000 ML IV SCH ×2 (02:08→16:29)
[2021-03-03] MEDS: BENZONATATE 100 MG CAP PO PRN ×2 (02:53→10:55)
[2021-03-03] MEDS: ASCORBIC ACID 500 MG TAB PO SCH (07:02)
[2021-03-03] MEDS: ENOXAPARIN 40 MG/0.4 ML SYRINGE SQ SCH (07:02)
[2021-03-03] MEDS: CHOLECALCIFEROL 125 MCG (5000 IU) TABLET PO SCH (07:02)
[2021-03-03] MEDS: ZINC SULFATE 220 MG CAP PO SCH (07:02)
[2021-03-03] MEDS: guaiFENesin-Coden 100-10MG/5ML 10 ML CUP PO PRN (07:31)
[2021-03-03] MEDS: SYMBICORT 80-4.5 MCG INHALER INHALATION SCH ×2 (07:49→19:21)
[2021-03-03] MEDS: DEXAMETHASONE SOD PHOSPHATE 10 MG/ML 1 ML VIAL IVP SCH (09:19)
[2021-03-03 11:04] LABS: HCT 46.5 % (39.6-50.0); HGB 15.6 g/dL (13.0-17.0); MCH 30.4 pg (27.0-32.0); MCHC 33.5 g/dL (32.0-37.0); MCV 90.5 fL (80.0-97.0); Mean Platelet Volume 9.2 fL (9.5-12.2); Platelet Count 279 X 10*3/uL (140-440); RBC 5.14 X 10*6/uL (4.40-5.60); RDW 12.7 % (11.5-14.5); WBC 13.09 X 10*3/uL (4.50-10.00)
--- NOTE | 2021-03-03 11:07 | P.PN ---
Subjective Progress Note Date: 03/03/21 80-year-old male patient, known history of COPD, diagnosed having COVID 19 approximately 10 days ago and the patient received monoclonal antibodies and the patient was described inhalers, steroids and cough medication. Condition got worse and the patient came into the emergency department today with worsening shortness of breath and hypoxemia. Initial pulse ox was 80%. Currently is on 4 L of oxygen by nasal cannula and the patient developed diffuse bilateral pulmonary infiltrates. He is normally on no oxygen. Note that the patient has not received vaccination for COVID 19. His white cell count is at 7.7 with a hemoglobin of 17. Normal coagulation profile. Sodium level is at 130, LFTs are normal, troponins are negative, UA is essentially negative. Inflammatory markers have not been checked. D-dimer has not been checked. He is currently on Decadron. The chest x-ray showed diffuse breath and pulmonary infiltrates consistent with COVID 19 pneumonia. 03/02/2021, the patient continues to have episodes of fever. His oxygen requirements have gone up to 9 L per minute nasal cannula. Note that he yesterday was only on 4 L. His pro-calcitonin level is at 0.26, LDH level is at 418, CRP level is 82.6. He is otherwise doing well. Despite worsening in her oxygenation, the patient reports that his breathing is better. He has episodic cough for which is taken cough medication. No other significant events overnight. He is currently on Decadron 6 mg an Lovenox 40 mg subcu for DVT prophylaxis. On 03/03/2021 patient seen in follow-up on medical surgical floor. He is doing better, feeling better, however his cough is persistent, frequent, and dry. Currently on 13 L of oxygen pulse ox is 92%, his been afebrile, blood pressure has been stable. No complaints of chest discomfort, lung sounds reveal coarse bilateral coarse crackles. Patient was outside the window for Remdesivir, he is status post monoclonal antibody infusion on an outpatient basis, clinically is stable, with some improvement. He is requesting make his when necessary cough medication schedule. Today's labs are still pending for today, his LDH from yesterday was not significantly elevated at 418, and CT CRP was 18.6. No nausea or vomiting, abdomen is soft, nontender. Objective - Vital Signs Vital signs: Vital Signs Temp 97.0 F L 03/03/21 09:46 Pulse 68 03/03/21 09:46 Resp 19 03/03/21 09:46 BP 119/64 03/03/21 09:46 Pulse Ox 89 L 03/03/21 09:46 Intake & Output 03/02/21 03/03/21 03/03/21 18:59 06:59 18:59 Other: Voiding Method Urinal Urinal # Voids 4 - Exam GENERAL EXAM: Alert, pleasant, 80-year-old white male, currently on 13 L of oxygen pulse ox of 92%, comfortable in no apparent distress. HEAD: Normocephalic/atraumatic. EYES: Normal reaction of pupils, equal size. Conjunctiva pink, sclera white. NOSE: Clear with pink turbinates. THROAT: No erythema or exudates. NECK: No masses, no JVD, no thyroid enlargement, no adenopathy. CHEST: No chest wall deformity. Symmetrical expansion. LUNGS: Equal air entry with bibasilar crackles CVS: Regular rate and rhythm, normal S1 and S2, no gallops, no murmurs, no rubs ABDOMEN: Soft, nontender. No hepatosplenomegaly, normal bowel sounds, no guarding or rigidity. EXTREMITIES: No clubbing, no edema, no cyanosis, 2+ pulses and upper and lower extremities. MUSCULOSKELETAL: Muscle strength and tone normal. SPINE: No scoliosis or deformity SKIN: No rashes CENTRAL NERVOUS SYSTEM: Alert and oriented -3. No focal deficits, tone is normal in all 4 extremities. PSYCHIATRIC: Alert and oriented -3. Appropriate affect. Intact judgment and insight. - Labs CBC & Chem 7: 03/02/21 06:47 03/02/21 06:47 Labs: Abnormal Lab Results - Last 24 Hours (Table) 03/02/21 03/02/21 03/03/21 Range/Units 06:47 06:47 07:15 Eosinophils # 0.01 L (0.04-0.35) X 10*3/uL D-Dimer 1.93 H (<0.60) mg/L FEU Sodium 131 L (135-145) mmol/L BUN/Creatinine Ratio 21.50 H (12.00-20.00) Ratio Calcium 8.0 L (8.7-10.3) mg/dL AST 51 H (14-35) U/L ALT 51 H (10-49) U/L Total Protein 5.4 L (6.2-8.2) g/dL Albumin 3.1 L (3.8-4.9) g/dL Albumin/Globulin Ratio 1.35 L (1.60-3.17) g/dL Assessment and Plan Plan: Assessment: #1. acute COVID 19 related pneumonia with secondary shortness of breath. Diagnosis established approximately 10 days ago. The patient received monoclonal antibodies on outpatient basis. The patient was also treated with steroids and antibiotics. His presenting with worsening shortness of breath and a dry cough. #2. acute hypoxic respiratory failure secondary to above, currently on 13 L by nasal cannula. #3. shortness of breath and cough secondary to above. Plan: Continue current medical treatment On Decadron, prophylactic Lovenox, COVID-19 vitamins We'll obtain follow-up inflammatory markers tomorrow, Still has a dry nagging persistent cough Continue cough medicine, we'll make Tessalon Perlpete scheduled We'll continue to follow his clinical course I performed a history & physical examination of the patient and discussed their management with my nurse practitioner, Ashlie Jorge. I reviewed the nurse practitioner's note and agree with the documented findings and plan of care. Lung sounds are positive for diffuse crackles throughout the lung kline. The findings and the impression was discussed with the patient. I attest to the documentation by the nurse practitioner. Time with Patient: Less than 30
[2021-03-03 11:27] LABS: African American GFR (CKD) 111.7 (60.0-200.0); Albumin 3.1 g/dL (3.8-4.9); Albumin/Globulin Ratio 1.29 (1.60-3.17); Anion Gap 11.6 mmol/L (10.00-18.00); BUN/Creat Ratio 24.21 Ratio (12.00-20.00); Blood Urea Nitrogen 14.5 mg/dL (9.0-27.0); C Reactive Protein 14.8 mg/dL (0.00-0.80); Carbon Dioxide 23.4 mmol/L (20.0-27.5); Globulin 2.4 g/dL (1.6-3.3); Non-African American GFR(CKD) 96.4 (60.0-200.0); Potassium 4.4 mmol/L (3.5-5.5); Total Bilirubin 0.6 mg/dL (0.30-1.20); Total Protein 5.4 g/dL (6.2-8.2)
[2021-03-03 11:55] LABS: Magnesium 2.2 mg/dL (1.5-2.4)
[2021-03-03] MEDS: guaiFENesin-Coden 100-10MG/5ML 10 ML CUP PO SCH ×3 (12:14→23:14)
--- NOTE | 2021-03-03 12:25 | US ---
EXAMINATION TYPE: US venous doppler duplex LE DATE OF EXAM: 03/03/2021 12:19 PM COMPARISON: NONE CLINICAL HISTORY: elevated d-dimer. Elevated D-Dimer, Covid SIDE PERFORMED: Bilateral TECHNIQUE: The lower extremity deep venous system is examined utilizing real time linear array sonog twila with graded compression, doppler sonography and color-flow sonography. VESSELS IMAGED: Common Femoral Vein Deep Femoral Vein Greater Saphenous Vein * Femoral Vein Popliteal Vein Small Saphenous Vein * Proximal Calf Veins (* superficial vessels) Right Leg: Negative for DVT Left Leg: Negative for DVT IMPRESSION: Grayscale, color doppler, spectral doppler imaging performed of the deep veins of the lo wer extremities. There is normal flow, compressibility, vascular waveforms.
--- NOTE | 2021-03-03 13:10 | CT ---
CT CHEST FOR PULMONARY EMBOLISM. EXAMINATION TYPE: CT chest angio for PE DATE OF EXAM: 03/03/2021 INDICATION: COVID 19; Elevated d-dimer CT DLP: 315.5 mGycm, Automated exposure control for dose reduction was used. CONTRAST: Patient injected with 100 ml mL of Isovue 370. COMPARISON: None TECHNIQUE: CT of the chest is performed on a spiral scan at 2 mm thick sections. Study is performed with intravenous contrast timed for evaluation for pulmonary embolism. This will limit additional po rtions of the evaluation. 3-D MIP images reconstructed by the technologist are reviewed on the compu ter in the coronal and sagittal planes. FINDINGS: No persistent filling defects are evident to suggest an acute pulmonary embolism. No mediastinal or hilar adenopathy enlarged by CT criteria is evident. The ascending aorta diameter at the level of the main pulmonary artery is 3.6 cm. The main pulmonary artery diameter at the bifur cation is 2.8 cm. Few scattered infiltrates and groundglass opacities are present in the peripheries of the lungs. Find ings are nonspecific and are compatible with atypical pneumonia. Limited CT section through the upper abdomen a small hiatal hernia is present. IMPRESSIONS: 1. No acute pulmonary. 2. Diffuse scattered infiltrates in the periphery can be compatible with atypical pneumonia.
[2021-03-03] MEDS: BENZONATATE 100 MG CAP PO SCH ×2 (16:29→22:16)
--- NOTE | 2021-03-03 17:52 | P.PN ---
Subjective Progress Note Date: 03/03/21 Hospital course: Patient is a very pleasant 80-year-old male with history of COPD and previous tobacco use with no other known reported past medical history, he follows with primary care provider, Dr. Pelletier. Patient reports diagnosis with Covid 19 virus infection at [facility] 10 days ago and received monoclonal antibodies at that time and was prescribed an inhaler, steroids, cough medicine, and an antibiotic. He presented to the ER 03/01/21 with a chief complaint of increased cough, shortness of breath, and fatigue. He was seen and fully evaluated in the emergency department. He was found to be hypoxic with SpO2 in the 80s requiring oxygen supplementation. Patient currently 89-91% on 4 L O2 via nasal cannula. Chest x-ray completed showing diffuse bilateral multifocal infiltrates correlating with multifocal pneumonia vs ARDS. EKG showing normal sinus rhythm 84 beats a minute with no noted T-wave or ST abnormalities showing no signs of acute ischemia. Covid PCR was positive. CBC unremarkable. Troponin normal findings at less than 0.012. Coags unremarkable. BMP revealing mild hyponatremia with sodium of 130 and slight prerenal azotemia with BUN of 25. Urinalysis negative for infection. Patient was admitted under our services with consultation to pulmonology. Physical exam: Patient was seen and fully evaluated at the bedside. Overnight his oxygen needs continued to increase. He is currently on 15 L high flow nasal cannula with SpO2 of 92%. Patient currently lying left lateral recumbent we have encouraged Proning positioning. Patient does report feeling improved shortness of breath and does report that he is finally coughing up some phlegm. Patient does report decreased appetite, but is drinking ensure. He denies having any headache, lightheadedness, dizziness, chest pain, palpitations, nausea, vomiting, or diarrhea. Morning labs reviewed WBC count 13.9 and inflammatory markers slightly increasing with d-dimer 1.93, CRP 14.8, and LDH of 488. Hyponatremia resolved after gentle fluid hydration. IV fluids discontinued per patient's request at this time. At this time patient to continue with vitamin C, vitamin D, zinc, Decadron, and Lovenox. Vital signs reviewed and stable. General: Nontoxic, no distress and appears stated age. Derm: Skin warm and dry, normal coloration for ethnicity. Head: Atraumatic, normocephalic and symmetric. Eyes: EOMs intact, no lid lag, and anicteric sclera Mouth: no lip lesions, mucus membranes moist Cardiovascular: regular rate and rhythm with normal S1S2, no murmur, positive posterior tibial pulses bilaterally, and cap refill < 2 seconds. Lungs: Increased respiratory effort without accessory muscle use, noted conversational dyspnea with 4-5 word sentences, lungs diffuse coarse crackles bilaterally in the mid and lower lungs. Patient currently on 15L O2 via nasal cannula. Abdominal: soft, nontender to palpation, no guarding, no appreciable organomegaly Ext: ROM intact. No gross muscle atrophy, no edema, no contractures Neuro: Speech clear, face symmetrical and CN II-XII grossly intact with no noted focal neuro deficits Psych: Alert and oriented to person, place, time, and situation. Appropriate and pleasant affect. Assessment and Plan of Care: Acute respiratory failure with hypoxia secondary to COVID 19 pneumonia -Oxygenation to be administered and titrated as needed to maintain SPO2 equal to or greater than 90% -Telemetry monitoring. -Continue trending inflammatory markers -Encourage Incentive Spirometry 10-15x hourly while awake -Steroids: Decadron 6 mg daily, day 2 of steroids -Continue vitamin C, Vitamin D, and Zinc. -Pulmonology following, appreciate further recommendations. -DVT prophylaxis with Lovenox. -Strict Droplet plus Contact precautions -Patient received monoclonal antibodies. Out of window for Remdesivir as patient reports symptoms began approximately 12 days ago. Hyponatremia, resolved with gentle IV hydration Prerenal azotemia, resolved with gentle IV hydration CODE STATUS: Full code DVT prophylaxis: Lovenox Discussed with: Patient and RN and Patient's daughter, Alison Zendejas. Anticipated discharge date: Clinical course to determine Anticipated discharge place: Home A total of 45 minutes was spent on the care of this complex patient more than 50% of the time was spent in counseling and care coordination. Daughter Alison Zendejas: Objective - Vital Signs Vital signs: Vital Signs Temp 97.0 F L 03/03/21 09:46 Pulse 68 03/03/21 09:46 Resp 19 03/03/21 09:46 BP 119/64 03/03/21 09:46 Pulse Ox 89 L 03/03/21 09:46 Intake & Output 03/02/21 03/03/21 03/03/21 18:59 06:59 18:59 Other: Voiding Method Urinal Urinal # Voids 4 - Labs CBC & Chem 7: 03/03/21 07:15 03/03/21 07:15 Labs: Abnormal Lab Results - Last 24 Hours (Table) 03/02/21 03/02/21 03/03/21 Range/Units 06:47 06:47 07:15 WBC 13.09 H (4.50-10.00) X 10*3/uL MPV 9.2 L (9.5-12.2) fL Eosinophils # 0.01 L (0.04-0.35) X 10*3/uL D-Dimer (<0.60) mg/L FEU Sodium 131 L (135-145) mmol/L BUN/Creatinine Ratio 21.50 H (12.00-20.00) Ratio Glucose (70-110) mg/dL Calcium 8.0 L (8.7-10.3) mg/dL AST 51 H (14-35) U/L ALT 51 H (10-49) U/L C-Reactive Protein (0.00-0.80) mg/dL Total Protein 5.4 L (6.2-8.2) g/dL Albumin 3.1 L (3.8-4.9) g/dL Albumin/Globulin Ratio 1.35 L (1.60-3.17) g/dL 03/03/21 03/03/21 Range/Units 07:15 07:15 WBC (4.50-10.00) X 10*3/uL MPV (9.5-12.2) fL Eosinophils # (0.04-0.35) X 10*3/uL D-Dimer 1.93 H (<0.60) mg/L FEU Sodium (135-145) mmol/L BUN/Creatinine Ratio 24.21 H (12.00-20.00) Ratio Glucose 118 H (70-110) mg/dL Calcium 8.0 L (8.7-10.3) mg/dL AST 55 H (14-35) U/L ALT 64 H (10-49) U/L C-Reactive Protein 14.80 H (0.00-0.80) mg/dL Total Protein 5.4 L (6.2-8.2) g/dL Albumin 3.1 L (3.8-4.9) g/dL Albumin/Globulin Ratio 1.29 L (1.60-3.17) g/dL
[2021-03-04] MEDS: guaiFENesin-Coden 100-10MG/5ML 10 ML CUP PO SCH ×4 (05:32→22:36)
[2021-03-04] MEDS: CHOLECALCIFEROL 125 MCG (5000 IU) TABLET PO SCH (07:51)
[2021-03-04] MEDS: ASCORBIC ACID 500 MG TAB PO SCH (07:51)
[2021-03-04] MEDS: ZINC SULFATE 220 MG CAP PO SCH (07:51)
[2021-03-04] MEDS: BENZONATATE 100 MG CAP PO SCH ×3 (07:51→22:36)
[2021-03-04] MEDS: ENOXAPARIN 40 MG/0.4 ML SYRINGE SQ SCH (07:51)
[2021-03-04] MEDS: SYMBICORT 80-4.5 MCG INHALER INHALATION SCH ×2 (08:14→20:16)
[2021-03-04] MEDS: DEXAMETHASONE SOD PHOSPHATE 10 MG/ML 1 ML VIAL IVP SCH (08:44)
--- NOTE | 2021-03-04 11:19 | P.PN ---
Subjective Progress Note Date: 03/04/21 Hospital course: Patient is a very pleasant 80-year-old male with history of COPD and previous tobacco use with no other known reported past medical history, he follows with primary care provider, Dr. Pelletier. Patient reports diagnosis with Covid 19 virus infection at [facility] 10 days ago and received monoclonal antibodies at that time and was prescribed an inhaler, steroids, cough medicine, and an antibiotic. He presented to the ER 03/01/21 with a chief complaint of increased cough, shortness of breath, and fatigue. He was seen and fully evaluated in the emergency department. He was found to be hypoxic with SpO2 in the 80s requiring oxygen supplementation. Patient currently 89-91% on 4 L O2 via nasal cannula. Chest x-ray completed showing diffuse bilateral multifocal infiltrates correlating with multifocal pneumonia vs ARDS. EKG showing normal sinus rhythm 84 beats a minute with no noted T-wave or ST abnormalities showing no signs of acute ischemia. Covid PCR was positive. CBC unremarkable. Troponin normal findings at less than 0.012. Coags unremarkable. BMP revealing mild hyponatremia with sodium of 130 and slight prerenal azotemia with BUN of 25. Urinalysis negative for infection. Patient was admitted under our services with consultation to pulmonology. Physical exam: Patient was seen and fully evaluated at the bedside. Patient remains on 15 L high flow nasal cannula with SpO2 of 95% this morning. D-dimer is significantly elevated at 15.65. CTA negative for acute PE showing diffuse scattered infiltrates compatible with atypical pneumonia. Bilateral lower extremity Dopplers negative for DVTs. Patient appears to be resting comfortably at this time he is lying ready lateral recumbent and states he is unable to prone position at this time. He reports shortness of breath unchanged from yesterday. He continues to deny having any headache, lightheadedness, dizziness, chest pain, palpitations, nausea, vomiting, or diarrhea. Patient continues to have poor appetite. Awaiting morning labs to result, we will continue with vitamin C, vitamin D, zinc, Decadron, and Lovenox. Vital signs reviewed and stable. General: Nontoxic, no distress and appears stated age. Derm: Skin warm and dry, normal coloration for ethnicity. Head: Atraumatic, normocephalic and symmetric. Eyes: EOMs intact, no lid lag, and anicteric sclera Mouth: no lip lesions, mucus membranes moist Cardiovascular: regular rate and rhythm with normal S1S2, no murmur, positive posterior tibial pulses bilaterally, and cap refill < 2 seconds. Lungs: Increased respiratory effort without accessory muscle use, noted conversational dyspnea with 4-5 word sentences, lungs diffuse coarse crackles bilaterally in the mid and lower lungs. Patient currently on 15L O2 via nasal cannula. Abdominal: soft, nontender to palpation, no guarding, no appreciable organomegaly Ext: ROM intact. No gross muscle atrophy, no edema, no contractures Neuro: Speech clear, face symmetrical and CN II-XII grossly intact with no noted focal neuro deficits Psych: Alert and oriented to person, place, time, and situation. Appropriate and pleasant affect. Assessment and Plan of Care: Acute respiratory failure with hypoxia secondary to COVID 19 pneumonia -Oxygenation to be administered and titrated as needed to maintain SPO2 equal to or greater than 90% -Telemetry monitoring. -Continue trending inflammatory markers -Encourage Incentive Spirometry 10-15x hourly while awake -Steroids: Decadron 6 mg daily, day 3 of steroids -Continue vitamin C, Vitamin D, and Zinc. -Pulmonology following, appreciate further recommendations. -DVT prophylaxis with Lovenox. -Strict Droplet plus Contact precautions -Patient received monoclonal antibodies. Out of window for Remdesivir as patient reports symptoms began approximately 12 days ago. Hyponatremia, resolved with gentle IV hydration Prerenal azotemia, resolved with gentle IV hydration CODE STATUS: Full code DVT prophylaxis: Lovenox Discussed with: Patient and RN and Patient's daughter, Alisno Zendejas. Anticipated discharge date: Clinical course to determine Anticipated discharge place: Home A total of 45 minutes was spent on the care of this complex patient more than 50% of the time was spent in counseling and care coordination. Daughter Alison Zendejas: Objective - Vital Signs Vital signs: Vital Signs Temp 98.6 F 03/04/21 08:00 Pulse 79 03/04/21 08:00 Resp 20 03/04/21 08:15 BP 118/67 03/04/21 08:00 Pulse Ox 89 L 03/04/21 08:16 Intake & Output 03/03/21 03/04/21 03/04/21 18:59 06:59 18:59 Intake Total 2680 300 Output Total 250 400 200 Balance 2430 -100 -200 Intake: Intake, IV Titration 900 Amount Sodium Chloride 0.9% 1, 900 000 ml @ 75 mls/hr IV . [id number] [facility] Rx#:[id number] Oral 1780 300 Output: Urine 250 400 200 Other: Voiding Method Urinal # Voids 6 2 1 # Bowel Movements 2 - Labs CBC & Chem 7: 03/03/21 07:15 03/03/21 07:15 Labs: Abnormal Lab Results - Last 24 Hours (Table) 03/03/21 03/04/21 Range/Units 07:15 08:45 D-Dimer 15.65 H (<0.60) mg/L FEU BUN/Creatinine Ratio 24.21 H (12.00-20.00) Ratio Glucose 118 H (70-110) mg/dL Calcium 8.0 L (8.7-10.3) mg/dL AST 55 H (14-35) U/L ALT 64 H (10-49) U/L Lactate Dehydrogenase 488 H (120-246) U/L C-Reactive Protein 14.80 H (0.00-0.80) mg/dL Total Protein 5.4 L (6.2-8.2) g/dL Albumin 3.1 L (3.8-4.9) g/dL Albumin/Globulin Ratio 1.29 L (1.60-3.17) g/dL
[2021-03-04 12:01] LABS: African American GFR (CKD) 104.8 (60.0-200.0); Anion Gap 11.8 mmol/L (10.00-18.00); BUN/Creat Ratio 21.71 Ratio (12.00-20.00); Blood Urea Nitrogen 15.2 mg/dL (9.0-27.0); C Reactive Protein 7.3 mg/dL (0.00-0.80); Calcium 8.3 mg/dL (8.7-10.3); Carbon Dioxide 24.2 mmol/L (20.0-27.5); Non-African American GFR(CKD) 90.4 (60.0-200.0); Potassium 4.1 mmol/L (3.5-5.5)
--- NOTE | 2021-03-04 15:04 | P.PN ---
Subjective Progress Note Date: 03/04/21 03/04/2021, the patient is being seen for a follow-up. Is a 80-year-old male patient with known history of COPD and COVID 19 infection/pneumonia. For now, the patient remains on oxygen and he is currently on oxygen at 11 L per minute nasal cannula. Note that yesterday with an 15 L and he were able to wean it down to 11 L and current pulse ox 93%. He is afebrile. He is hemodynamically stable. He is feeling well. Appetite is good. On the blood work, the patient's LDH level is around 519 with a CPAP level of 7.3. Electrodes are all within normal limits. D-dimer is on the rise at 15.6. Based on this, a CT angiogram was obtained yesterday that showed no evidence of any pulmonary embolism and was consistent with codeine integrated pneumonia. Doppler of the lower extremity was also negative. Meanwhile, the patient remains on Decadron 6 mg IV every 24 hours. The patient on Lovenox 40 mg subcu 40 prophylaxis. He feels well. He is feeling that he is improving. This patient has not received COVID 19 vaccination. Objective - Vital Signs Vital signs: Vital Signs Temp 98.1 F 03/04/21 14:00 Pulse 74 03/04/21 14:00 Resp 20 03/04/21 14:00 BP 151/80 03/04/21 14:00 Pulse Ox 93 L 03/04/21 14:00 Intake & Output 03/03/21 03/04/21 03/04/21 18:59 06:59 18:59 Intake Total 2680 300 Output Total 250 400 200 Balance 2430 -100 -200 Intake: Intake, IV Titration 900 Amount Sodium Chloride 0.9% 1, 900 000 ml @ 75 mls/hr IV . [id number] [facility] Rx#:[id number] Oral 1780 300 Output: Urine 250 400 200 Other: Voiding Method Urinal # Voids 6 2 1 # Bowel Movements 2 - Exam Vital signs reviewed and stable. Eating is labored and the patient is currently on 11 L by nasal cannula. The patient is also having frequent coughs specially when he takes a deep breath. He feels a bit lethargic and tired and weak. General: Nontoxic, no distress and appears stated age. Derm: Skin warm and dry, normal coloration for ethnicity. Head: Atraumatic, normocephalic and symmetric. Eyes: EOMs intact, no lid lag, and anicteric sclera Mouth: no lip lesions, mucus membranes moist Cardiovascular: regular rate and rhythm with normal S1S2, no murmur, positive posterior tibial pulses bilaterally, and cap refill < 2 seconds. Lungs: Increased respiratory effort without accessory muscle use, noted conversational dyspnea with 3-4 word sentences, lungs diffuse coarse crackles bilaterally in the mid and lower lungs. Patient currently on 4 L O2 via nasal cannula. Abdominal: soft, nontender to palpation, no guarding, no appreciable organomegaly Ext: ROM intact. No gross muscle atrophy, no edema, no contractures Neuro: Speech clear, face symmetrical and CN II-XII grossly intact with no noted focal neuro deficits Psych: Alert and oriented to person, place, time, and situation. Appropriate and pleasant affect. - Labs CBC & Chem 7: 03/03/21 07:15 03/04/21 08:45 Labs: Abnormal Lab Results - Last 24 Hours (Table) 03/04/21 03/04/21 Range/Units 08:45 08:45 D-Dimer 15.65 H (<0.60) mg/L FEU BUN/Creatinine Ratio 21.71 H (12.00-20.00) Ratio Glucose 147 H (70-110) mg/dL Calcium 8.3 L (8.7-10.3) mg/dL Lactate Dehydrogenase 519 H (120-246) U/L C-Reactive Protein 7.30 H (0.00-0.80) mg/dL Assessment and Plan Plan: 1 acute COVID 19 related pneumonia with secondary shortness of breath. Diagnosis established approximately 10 days ago. The patient received monoclonal antibodies on outpatient basis. The patient was also treated with steroids and antibiotics. His presenting with worsening shortness of breath and a dry cough. Inflammatory markers on the lower side. Again intervention was no evidence of any pulmonary embolism. Doppler lower extremity has been negative. D-dimer is elevated. 2 acute hypoxic respiratory failure secondary to above, currently on 11L by nasal cannula. 3 shortness of breath and cough secondary to above. Plan Oxygen requirements got worse and the patient is currently on 11 L of oxygen by nasal cannula. Clinically feeling better. D-dimer is elevated. Doppler of lower extremity and a CT angiogram shows no evidence of any DVT and pulmonary embolism respectively. Put the patient on Decadron 6 L IV every 24 hours The patient is outside the window for Remdesivir Lovenox 40 mg subcu for DVT prophylaxis Cough medication including Robitussin-DM and Tessalon Perles Albuterol HFA 4 times a day as needed The patient's cough has subsided. We'll continue to follow. We'll monitor electrolytes. IV fluids to KVO We'll continue to follow.
[2021-03-05] MEDS: guaiFENesin-Coden 100-10MG/5ML 10 ML CUP PO SCH ×3 (04:39→17:13)
[2021-03-05] MEDS: ENOXAPARIN 40 MG/0.4 ML SYRINGE SQ SCH (07:45)
[2021-03-05] MEDS: CHOLECALCIFEROL 125 MCG (5000 IU) TABLET PO SCH (07:45)
[2021-03-05] MEDS: ASCORBIC ACID 500 MG TAB PO SCH (07:45)
[2021-03-05] MEDS: ZINC SULFATE 220 MG CAP PO SCH (07:45)
[2021-03-05] MEDS: BENZONATATE 100 MG CAP PO SCH ×3 (07:45→23:08)
[2021-03-05] MEDS: DEXAMETHASONE SOD PHOSPHATE 10 MG/ML 1 ML VIAL IVP SCH (08:38)
[2021-03-05] MEDS: SYMBICORT 80-4.5 MCG INHALER INHALATION SCH ×2 (08:41→19:50)
--- NOTE | 2021-03-05 13:45 | P.PN ---
Subjective Progress Note Date: 03/05/21 Hospital course: Patient is a very pleasant 80-year-old male with history of COPD and previous tobacco use with no other known reported past medical history, he follows with primary care provider, Dr. Pelletier. Patient reports diagnosis with Covid 19 virus infection at [facility] 10 days ago and received monoclonal antibodies at that time and was prescribed an inhaler, steroids, cough medicine, and an antibiotic. He presented to the ER 03/01/21 with a chief complaint of increased cough, shortness of breath, and fatigue. He was seen and fully evaluated in the emergency department. He was found to be hypoxic with SpO2 in the 80s requiring oxygen supplementation. Patient currently 89-91% on 4 L O2 via nasal cannula. Chest x-ray completed showing diffuse bilateral multifocal infiltrates correlating with multifocal pneumonia vs ARDS. EKG showing normal sinus rhythm 84 beats a minute with no noted T-wave or ST abnormalities showing no signs of acute ischemia. Covid PCR was positive. CBC unremarkable. Troponin normal findings at less than 0.012. Coags unremarkable. BMP revealing mild hyponatremia with sodium of 130 and slight prerenal azotemia with BUN of 25. Urinalysis negative for infection. Patient was admitted under our services with consultation to pulmonology. CTA negative for acute PE showing diffuse scattered infiltrates compatible with atypical pneumonia. Bilateral lower extremity Dopplers negative for DVTs. Physical exam: Patient was seen and fully evaluated at the bedside. Patient's oxygen needs have continued to increase and he is currently on 15 L high flow nasal cannula along with 100% nonrebreather mask and maintaining oxygen saturations at 92-93%. Patient states that upon awakening this morning and sitting up in bed he became significantly short of breath and was unable to catch his breath or get oxygen saturations up and this is when RN placed additional mask on which does seem to help with some of his shortness of breath. Patient does have significant increased work of breathing and tachypnea 26 breaths per minute upon assessment, patient encouraged to take slower deeper breaths and try to relax. We will attempt to wean patient down from oxygen as his condition improves. Patient otherwise continues to deny having any headache, lightheadedness, dizziness, chest pain, palpitations, nausea, vomiting, or diarrhea. He does continue home to have poor appetite, but does report eating an apple and some clementines for breakfast. Awaiting morning labs to result, we will continue with vitamin C, vitamin D, zinc, Decadron, and Lovenox. Vital signs reviewed and stable. General: Nontoxic, no distress and appears stated age. Derm: Skin warm and dry, normal coloration for ethnicity. Head: Atraumatic, normocephalic and symmetric. Eyes: EOMs intact, no lid lag, and anicteric sclera Mouth: no lip lesions, mucus membranes moist Cardiovascular: regular rate and rhythm with normal S1S2, no murmur, positive posterior tibial pulses bilaterally, and cap refill < 2 seconds. Lungs: Increased respiratory effort without accessory muscle use, noted conversational dyspnea with 2-3 word sentences, lungs diffuse coarse crackles bilaterally in the mid and lower lungs. Patient currently on 15L O2 HFNC along with 100% NRB. Abdominal: soft, nontender to palpation, no guarding, no appreciable organ omegaly Ext: ROM intact. No gross muscle atrophy, no edema, no contractures Neuro: Speech clear, face symmetrical and CN II-XII grossly intact with no noted focal neuro deficits Psych: Alert and oriented to person, place, time, and situation. Appropriate and pleasant affect. Assessment and Plan of Care: Acute respiratory failure with hypoxia secondary to COVID 19 pneumonia -Oxygenation to be administered and titrated as needed to maintain SPO2 equal to or greater than 90% -Telemetry monitoring. -Continue trending inflammatory markers -Encourage Incentive Spirometry 10-15x hourly while awake -Steroids: Decadron 6 mg daily, day 4 of steroids -Continue vitamin C, Vitamin D, and Zinc. -Pulmonology following, appreciate further recommendations. -DVT prophylaxis with Lovenox. -Strict Droplet plus Contact precautions -Patient received monoclonal antibodies. Out of window for Remdesivir as patient reports symptoms began approximately 12 days ago. Hyponatremia, resolved with gentle IV hydration Prerenal azotemia, resolved with gentle IV hydration CODE STATUS: Full code DVT prophylaxis: Lovenox Discussed with: Patient and RN and Patient's daughter, Alison Zendejas updated as well. Anticipated discharge date: Clinical course to determine Anticipated discharge place: Home A total of 45 minutes was spent on the care of this complex patient more than 50% of the time was spent in counseling and care coordination. Daughter Alison Zendejas: Objective - Vital Signs Vital signs: Vital Signs Temp 97.4 F L 03/05/21 05:43 Pulse 63 03/05/21 05:43 Resp 18 03/05/21 02:22 BP 118/68 03/05/21 05:43 Pulse Ox 88 L 03/05/21 05:43 Intake & Output 03/04/21 03/05/21 03/05/21 18:59 06:59 18:59 Output Total 200 Balance -200 Output: Urine 200 Other: Voiding Method Urinal # Voids 3 5 - Labs CBC & Chem 7: 03/03/21 07:15 03/04/21 08:45 Labs: Abnormal Lab Results - Last 24 Hours (Table) 03/04/21 03/04/21 Range/Units 08:45 08:45 D-Dimer 15.65 H (<0.60) mg/L FEU BUN/Creatinine Ratio 21.71 H (12.00-20.00) Ratio Glucose 147 H (70-110) mg/dL Calcium 8.3 L (8.7-10.3) mg/dL Lactate Dehydrogenase 519 H (120-246) U/L C-Reactive Protein 7.30 H (0.00-0.80) mg/dL
[2021-03-05 15:08] LABS: ALT 127 U/L (4-49); AST 94 U/L (17-59); African American GFR (CKD) >90 (>60 ml/min/1.73 sqM); Alkaline Phosphatase 87 U/L (38-126); Anion Gap 5 mmol/L; Blood Urea Nitrogen 17 mg/dL (9-20); C Reactive Protein 6.8 mg/dL (<1.0); Calcium 8.1 mg/dL (8.4-10.2); Carbon Dioxide 29 mmol/L (22-30); Chloride 98 mmol/L (98-107); Glucose 126 mg/dL (74-99); LDH 1554 U/L (313-618); Magnesium 2.3 mg/dL (1.6-2.3); Non-African American GFR(CKD) >90 (>60 ml/min/1.73 sqM); Potassium 4.3 mmol/L (3.5-5.1); Sodium 132 mmol/L (137-145); Total Bilirubin 0.9 mg/dL (0.2-1.3)
[2021-03-05 15:25] LABS: HCT 47.8 % (39.0-53.0); HGB 16.2 gm/dL (13.0-17.5); MCH 31.2 pg (25.0-35.0); MCHC 33.8 g/dL (31.0-37.0); MCV 92.4 fL (80.0-100.0); Mean Platelet Volume 7.3; Platelet Count 254 k/uL (150-450); RBC 5.18 m/uL (4.30-5.90); WBC 17.1 k/uL (3.8-10.6)
[2021-03-05] MEDS: BARICITINIB 2 MG TABLET PO SCH (15:42)
--- NOTE | 2021-03-05 16:06 | P.PN ---
Subjective Progress Note Date: 03/05/21 03/05/2031, seeing the patient for a follow-up. He was seen in follow-up yesterday and the patient was on 11 L of oxygen by nasal cannula. Note that his oxygen requirements have been fluctuating from 15 L down to 11 L and subsequently, earlier this morning the patient got more short of breath. The patient became hypoxic. Based on that, the patient was placed on 15 L of oxygen by nasal cannula and 100% nonrebreather facemask we'll also provide to bring the saturation up to 95%. He feels weak. He feel tired and fatigued. He is afebrile for now. His breathing is labored and the patient is having frequent cough and spells. He remains on Decadron 6 mg IV every 24 hours. On today's evaluation, I also decided to start the patient on Baricitinib physical specially with a worsening and oxygenation. Noted the patient had a negative Doppler of the lower extremity. The patient also has a negative CT angiogram for pulmonary embolism. The patient remains on Lovenox 40 mg subcu on a daily basis. The blood work from today shows a white cell, 70.4 with a hemoglobin of 16, d-dimer is above 34, creatinine is at 0.6 with a BUN of 17, LDH level is up to 1554 and CRP level is at 6.8. LFTs are slightly abnormal with an AST of 127, AST of 87. His condition decompensated compared to yesterday. Objective - Vital Signs Vital signs: Vital Signs Temp 97.5 F L 03/05/21 13:41 Pulse 71 03/05/21 13:41 Resp 20 03/05/21 13:41 BP 141/77 03/05/21 13:41 Pulse Ox 95 03/05/21 13:41 Intake & Output 03/04/21 03/05/21 03/05/21 18:59 06:59 18:59 Output Total 200 Balance -200 Output: Urine 200 Other: Voiding Method Urinal Urinal # Voids 3 5 - Exam Vital signs reviewed and stable. Eating is labored and the patient is currently on 15 L of oxygen nasal cannula in addition to 100% nonrebreather facemask. He looks lethargic and weak and short of breath and breathing is labored on today's evaluation. General: Nontoxic, no distress and appears stated age. Derm: Skin warm and dry, normal coloration for ethnicity. Head: Atraumatic, normocephalic and symmetric. Eyes: EOMs intact, no lid lag, and anicteric sclera Mouth: no lip lesions, mucus membranes moist Cardiovascular: regular rate and rhythm with normal S1S2, no murmur, positive posterior tibial pulses bilaterally, and cap refill < 2 seconds. Lungs: Increased respiratory effort without accessory muscle use, noted conversational dyspnea with 3-4 word sentences, lungs diffuse coarse crackles bilaterally in the mid and lower lungs. Abdominal: soft, nontender to palpation, no guarding, no appreciable organomegaly Ext: ROM intact. No gross muscle atrophy, no edema, no contractures Neuro: Speech clear, face symmetrical and CN II-XII grossly intact with no noted focal neuro deficits Psych: Alert and oriented to person, place, time, and situation. Appropriate and pleasant affect. - Labs CBC & Chem 7: 03/05/21 14:24 03/05/21 14:24 Labs: Abnormal Lab Results - Last 24 Hours (Table) 03/05/21 03/05/21 03/05/21 Range/Units 14:24 14:24 14:24 WBC 17.1 H (3.8-10.6) k/uL D-Dimer >34.10 H (<0.60) mg/L FEU Sodium 132 L (137-145) mmol/L Creatinine 0.60 L (0.66-1.25) mg/dL Glucose 126 H (74-99) mg/dL Calcium 8.1 L (8.4-10.2) mg/dL AST 94 H (17-59) U/L ALT 127 H (4-49) U/L Lactate Dehydrogenase 1554 H (313-618) U/L C-Reactive Protein 6.8 H (<1.0) mg/dL Total Protein 6.0 L (6.3-8.2) g/dL Albumin 3.0 L (3.5-5.0) g/dL Assessment and Plan Plan: 1 acute COVID 19 related pneumonia with secondary shortness of breath. Diagnosis established approximately 10 days ago. The patient received monoclonal antibodies on outpatient basis. The patient was also treated with steroids and antibiotics. His presenting with worsening shortness of breath and a dry cough. Inflammatory markers on the lower side. Again intervention was no evidence of any pulmonary embolism. Doppler lower extremity has been negative. D-dimer is elevated. On today's evaluation, the patient's condition has decompensated. The patient became more hypoxic. Noted the previous workup for DVT and pulmonary embolism was negative. Nevertheless, the inflammatory markers including the d-dimer and the LDH are both on the rise. 2 acute hypoxic respiratory failure secondary to above, currently on 15 L nasal cannula along with 100% nonrebreather facemask. 3 shortness of breath and cough secondary to above. Plan Oxygen requirements got worse and the patient is currently on 15 L of oxygen of oxygen by nasal cannula in addition to 100% nonrebreather facemask.. D-dimer is elevated. Doppler of lower extremity and a CT angiogram shows no evidence of any DVT and pulmonary embolism respectively. I would suggest repeating a Doppler of the lower extremity tomorrow. D-dimer is quite elevated above 34. LDH is also quite high at this point in time. Continue Decadron 6 L IV every 24 hours and start the patient on Baricitinib per protocol. Lovenox 40 mg subcu for DVT prophylaxis Cough medication including Robitussin-DM and Tessalon Perles Albuterol HFA 4 times a day as needed The patient's cough has subsided. We'll continue to follow. We'll monitor electrolytes. The chest x-ray and inflammatory markers are to be repeated tomorrow. We'll transfer the patient to the intensive care unit if there is any further worsening his condition.
--- NOTE | 2021-03-05 19:57 | US ---
EXAMINATION TYPE: US venous doppler duplex LE DATE OF EXAM: 03/05/2021 7:10 PM COMPARISON: NONE CLINICAL HISTORY: Increase in d-dimer, rule out DVT. elevated D-Dimer. COVID SIDE PERFORMED: Bilateral TECHNIQUE: The lower extremity deep venous system is examined utilizing real time linear array sonog twila with graded compression, doppler sonography and color-flow sonography. VESSELS IMAGED: Common Femoral Vein Deep Femoral Vein Greater Saphenous Vein * Femoral Vein Popliteal Vein Small Saphenous Vein * Proximal Calf Veins (* superficial vessels) Right Leg: no evidence of DVT Left Leg: no evidence of DVT IMPRESSION: No evidence of deep vein thrombosis in both legs.
[2021-03-06] MEDS: guaiFENesin-Coden 100-10MG/5ML 10 ML CUP PO SCH ×5 (01:11→22:20)
[2021-03-06] MEDS: ENOXAPARIN 40 MG/0.4 ML SYRINGE SQ SCH ×2 (08:50→21:05)
[2021-03-06] MEDS: BARICITINIB 2 MG TABLET PO SCH (08:51)
[2021-03-06] MEDS: ZINC SULFATE 220 MG CAP PO SCH (08:51)
[2021-03-06] MEDS: ASCORBIC ACID 500 MG TAB PO SCH (08:51)
[2021-03-06] MEDS: CHOLECALCIFEROL 125 MCG (5000 IU) TABLET PO SCH (08:51)
[2021-03-06] MEDS: BENZONATATE 100 MG CAP PO SCH ×3 (08:51→21:05)
[2021-03-06] MEDS: DEXAMETHASONE SOD PHOSPHATE 10 MG/ML 1 ML VIAL IVP SCH (08:52)
--- NOTE | 2021-03-06 08:56 | XR ---
EXAMINATION TYPE: XR chest 1V DATE OF EXAM: 03/06/2021 COMPARISON: Chest x-ray 03/01/2021 HISTORY: Covid 19 pneumonia TECHNIQUE: Single frontal view of the chest is obtained. FINDINGS: Bilateral airspace disease is again noted. Lung volumes are low. Right hemidiaphragm is el evated. Cardiomediastinal silhouette is stable. No evident pneumothorax or pleural effusion. There ar e overlying artifacts. IMPRESSION: Correlate for pneumonia, follow-up suggested
[2021-03-06] MEDS: SYMBICORT 80-4.5 MCG INHALER INHALATION SCH ×2 (09:50→19:53)
--- NOTE | 2021-03-06 15:26 | P.PN ---
Subjective Progress Note Date: 03/06/21 Hospital course: Patient is a very pleasant 80-year-old male with history of COPD and previous tobacco use with no other known reported past medical history, he follows with primary care provider, Dr. Pelletier. Patient reports diagnosis with Covid 19 virus infection at [facility] 10 days ago and received monoclonal antibodies at that time and was prescribed an inhaler, steroids, cough medicine, and an antibiotic. He presented to the ER 03/01/21 with a chief complaint of increased cough, shortness of breath, and fatigue. He was seen and fully evaluated in the emergency department. He was found to be hypoxic with SpO2 in the 80s requiring oxygen supplementation. Patient currently 89-91% on 4 L O2 via nasal cannula. Chest x-ray completed showing diffuse bilateral multifocal infiltrates correlating with multifocal pneumonia vs ARDS. EKG showing normal sinus rhythm 84 beats a minute with no noted T-wave or ST abnormalities showing no signs of acute ischemia. Covid PCR was positive. CBC unremarkable. Troponin normal findings at less than 0.012. Coags unremarkable. BMP revealing mild hyponatremia with sodium of 130 and slight prerenal azotemia with BUN of 25. Urinalysis negative for infection. Patient was admitted under our services with consultation to pulmonology. CTA negative for acute PE showing diffuse scattered infiltrates compatible with atypical pneumonia. Bilateral lower extremity Dopplers negative for DVTs. Physical exam: Patient was seen and fully evaluated at the bedside. His oxygen needs remain unchanged from yesterday and patient continues to be on 15 L high flow nasal cannula along with 100% nonrebreather. Patient was lying right lateral recumbent in bed at time of assessment. Reports attempt to wean patient off of mass, however patient desaturated down into the low 80s.. Patient currently reports feeling "much much better than I felt yesterday morning." Patient's respirations were even and unlabored this morning, and he appeared much more comfortable.. Repeat venous Dopplers completed yesterday afternoon were negative for DVT bilaterally. Repeat chest x-ray completed this morning continues to show diffuse bilateral multifocal pneumonia. Inflammatory markers remain elevated with a d-dimer greater than 34.10, LDH 515, and CRP of 8.00. Dietitian was consulted for assistance with nutritional support secondary to decreased oral intake. secondary to increased oxygenation needs patient developed yesterday patient was started on baricitininib by pulmonology, today is day 2. At this time we will continue with vitamin C, vitamin D, zinc, Decadron, Baricitinib and Lovenox. Called and updated pt's daughter, Alison Zendejas via telephone. Pt's primary care provider, Bonita Smith NP called hospital requesting update and was updated on pt's condition and plan of care at this time. Vital signs reviewed and stable. General: Nontoxic, no distress and appears stated age. Derm: Skin warm and dry, normal coloration for ethnicity. Head: Atraumatic, normocephalic and symmetric. Eyes: EOMs intact, no lid lag, and anicteric sclera Mouth: no lip lesions, mucus membranes moist Cardiovascular: regular rate and rhythm with normal S1S2, no murmur, positive posterior tibial pulses bilaterally, and cap refill < 2 seconds. Lungs: Increased respiratory effort without accessory muscle use, noted conversational dyspnea with 2-3 word sentences, lungs diffuse coarse crackles bilaterally in the mid and lower lungs. Patient currently on 15L O2 HFNC along with 100% NRB. Abdominal: soft, nontender to palpation, no guarding, no appreciable organomegaly Ext: ROM intact. No gross muscle atrophy, no edema, no contractures Neuro: Speech clear, face symmetrical and CN II-XII grossly intact with no noted focal neuro deficits Psych: Alert and oriented to person, place, time, and situation. Appropriate and pleasant affect. Assessment and Plan of Care: Acute respiratory failure with hypoxia secondary to COVID 19 pneumonia -Oxygenation to be administered and titrated as needed to maintain SPO2 equal to or greater than 90% -Telemetry monitoring. -Continue trending inflammatory markers -Encourage Incentive Spirometry 10-15x hourly while awake -Steroids: Decadron 6 mg daily, day 4 of steroids -Continue vitamin C, Vitamin D, and Zinc. -Pulmonology following, appreciate further recommendations. -DVT prophylaxis with Lovenox. -Strict Droplet plus Contact precautions -Patient received monoclonal antibodies. Out of window for Remdesivir as patient reports symptoms began approximately 12 days ago. Hyponatremia, resolved with gentle IV hydration Prerenal azotemia, resolved with gentle IV hydration CODE STATUS: Full code DVT prophylaxis: Lovenox Discussed with: Patient and RN as well as Patient's daughter, Alison Zendejas via telephone and pt's PCP Bonita Smith NP. Anticipated discharge date: Clinical course to determine Anticipated discharge place: Home A total of 45 minutes was spent on the care of this complex patient more than 50% of the time was spent in counseling and care coordination. Rashi Zendejas: Objective - Vital Signs Vital signs: Vital Signs Temp 97.8 F 03/06/21 05:34 Pulse 64 03/06/21 05:34 Resp 17 03/06/21 08:00 BP 153/82 03/06/21 05:34 Pulse Ox 93 L 03/06/21 05:34 Intake & Output 03/05/21 03/06/21 03/06/21 18:59 06:59 18:59 Other: Voiding Method Urinal Urinal # Voids 5 4 - Labs CBC & Chem 7: 03/05/21 14:24 03/05/21 14:24 Labs: Abnormal Lab Results - Last 24 Hours (Table) 03/05/21 03/05/21 03/05/21 Range/Units 14:24 14:24 14:24 WBC 17.1 H (3.8-10.6) k/uL D-Dimer >34.10 H (<0.60) mg/L FEU Sodium 132 L (137-145) mmol/L Creatinine 0.60 L (0.66-1.25) mg/dL Glucose 126 H (74-99) mg/dL Calcium 8.1 L (8.4-10.2) mg/dL AST 94 H (17-59) U/L ALT 127 H (4-49) U/L Lactate Dehydrogenase 1554 H (313-618) U/L C-Reactive Protein 6.8 H (<1.0) mg/dL Total Protein 6.0 L (6.3-8.2) g/dL Albumin 3.0 L (3.5-5.0) g/dL 03/06/21 Range/Units 04:59 WBC (3.8-10.6) k/uL D-Dimer >34.10 H (<0.60) mg/L FEU Sodium (137-145) mmol/L Creatinine (0.66-1.25) mg/dL Glucose (74-99) mg/dL Calcium (8.4-10.2) mg/dL AST (17-59) U/L ALT (4-49) U/L Lactate Dehydrogenase (313-618) U/L C-Reactive Protein (<1.0) mg/dL Total Protein (6.3-8.2) g/dL Albumin (3.5-5.0) g/dL
--- NOTE | 2021-03-06 18:39 | P.PN ---
Subjective Progress Note Date: 03/06/21 Principal diagnosis: Acute hypoxic respiratory failure secondary to COVID-19 pneumonia 03/05/2031, seeing the patient for a follow-up. He was seen in follow-up yesterday and the patient was on 11 L of oxygen by nasal cannula. Note that his oxygen requirements have been fluctuating from 15 L down to 11 L and subsequently, earlier this morning the patient got more short of breath. The patient became hypoxic. Based on that, the patient was placed on 15 L of oxygen by nasal cannula and 100% nonrebreather facemask we'll also provide to bring the saturation up to 95%. He feels weak. He feel tired and fatigued. He is afebrile for now. His breathing is labored and the patient is having frequent cough and spells. He remains on Decadron 6 mg IV every 24 hours. On today's evaluation, I also decided to start the patient on Baricitinib physical specially with a worsening and oxygenation. Noted the patient had a negative Doppler of the lower extremity. The patient also has a negative CT angiogram for pulmonary embolism. The patient remains on Lovenox 40 mg subcu on a daily basis. The blood work from today shows a white cell, 70.4 with a hemoglobin of 16, d-dimer is above 34, creatinine is at 0.6 with a BUN of 17, LDH level is up to 1554 and CRP level is at 6.8. LFTs are slightly abnormal with an AST of 127, AST of 87. His condition decompensated compared to yesterday. Reevaluated today on 03/06/2021, and remains on high flow nasal cannula and nonrebreather mask at 15 L/m, O2 saturation is in the low 90s. Continues to have shortness of breath with activity, but overall the patient is doing better than expected. Patient continues stated that he is feeling much better compared to how he felt yesterday. Workup for DVT and from embolic disease/pulmonary embolism was negative. D-dimer is quite elevated over 54. WBC count is 17.1 hemoglobin 16.2. LDH is down to 515 and his C-reactive protein is 8. Objective - Vital Signs Vital signs: Vital Signs Temp 97.9 F 03/06/21 17:48 Pulse 89 03/06/21 17:48 Resp 16 03/06/21 17:48 BP 140/79 03/06/21 17:48 Pulse Ox 90 L 03/06/21 17:48 Intake & Output 03/05/21 03/06/21 03/06/21 18:59 06:59 18:59 Intake Total 354 Output Total 275 Balance 79 Weight 74.843 kg Intake: Oral 354 Output: Urine 275 Other: Voiding Method Urinal Urinal # Voids 5 4 - Exam Physical Exam revealed a 80-year-old white male on 15 L flow and nonrebreather mask, seems generally weak, in no distress. HEENT:[Neck is supple.] [No neck masses.] [No thyromegaly.] [No JVD.] Chest: [Crackles at the bases bilaterally. Cardiac Exam: [Normal S1 and S2, no S3 gallop, no murmur.] Abdomen: [Soft, nontender, no megaly, no rebound, no guarding, normal bowel sounds.] Extremities: [No clubbing, no edema, no cyanosis.] Neurological Exam: [No focal neurologic deficit.] Alert oriented 3 focal deficits. Psychiatric: Normal mood affect and normal mental status examination. Skin: No rashes - Labs CBC & Chem 7: 03/05/21 14:24 03/05/21 14:24 Labs: Abnormal Lab Results - Last 24 Hours (Table) 03/06/21 03/06/21 Range/Units 04:59 04:59 D-Dimer >34.10 H (<0.60) mg/L FEU Lactate Dehydrogenase 515 H (120-246) U/L C-Reactive Protein 8.00 H (0.00-0.80) mg/dL Assessment and Plan Assessment: Impression: Acute hypoxic respiratory failure secondary to COVID-19 pneumonia, patient received monoclonal antibodies on outpatient basis. Presently on the COVID-19 cocktail, workup for pulmonary embolism has been negative. Recommendation: Continue oxygen and titrate accordingly Reviewed the CT angiogram of the chest and reviewed his venous Doppler all negative. Continue Lovenox especially with elevated d-dimer I will increase the Lovenox to 40 mg subcu twice a day Continue bronchodilators. Continue Decadron. And continue baricitinib Continue multivitamins and continue melatonin as well as zinc We will continue to follow. Prognosis remains relatively guarded Time with Patient: Less than 30
[2021-03-07] MEDS: guaiFENesin-Coden 100-10MG/5ML 10 ML CUP PO SCH ×4 (04:42→21:14)
[2021-03-07] MEDS: ENOXAPARIN 40 MG/0.4 ML SYRINGE SQ SCH ×2 (08:09→21:14)
[2021-03-07] MEDS: BARICITINIB 2 MG TABLET PO SCH (08:09)
[2021-03-07] MEDS: CHOLECALCIFEROL 125 MCG (5000 IU) TABLET PO SCH (08:09)
[2021-03-07] MEDS: BENZONATATE 100 MG CAP PO SCH ×3 (08:09→21:14)
[2021-03-07] MEDS: ASCORBIC ACID 500 MG TAB PO SCH (08:09)
[2021-03-07] MEDS: ZINC SULFATE 220 MG CAP PO SCH (08:09)
--- NOTE | 2021-03-07 08:24 | P.PN ---
Subjective Progress Note Date: 03/07/21 80-year-old male patient, known history of COPD, diagnosed having COVID 19 approximately 10 days ago and the patient received monoclonal antibodies and the patient was described inhalers, steroids and cough medication. Condition got worse and the patient came into the emergency department today with worsening shortness of breath and hypoxemia. Initial pulse ox was 80%. Currently is on 4 L of oxygen by nasal cannula and the patient developed diffuse bilateral pulmonary infiltrates. He is normally on no oxygen. Note that the patient has not received vaccination for COVID 19. His white cell count is at 7.7 with a hemoglobin of 17. Normal coagulation profile. Sodium level is at 130, LFTs are normal, troponins are negative, UA is essentially negative. Inflammatory markers have not been checked. D-dimer has not been checked. He is currently on Decadron. The chest x-ray showed diffuse breath and pulmonary infiltrates consistent with COVID 19 pneumonia. 03/02/2021, the patient continues to have episodes of fever. His oxygen requirements have gone up to 9 L per minute nasal cannula. Note that he yesterday was only on 4 L. His pro-calcitonin level is at 0.26, LDH level is at 418, CRP level is 82.6. He is otherwise doing well. Despite worsening in her oxygenation, the patient reports that his breathing is better. He has episodic cough for which is taken cough medication. No other significant events overnight. He is currently on Decadron 6 mg an Lovenox 40 mg subcu for DVT prophylaxis. On 03/03/2021 patient seen in follow-up on medical surgical floor. He is doing better, feeling better, however his cough is persistent, frequent, and dry. Currently on 13 L of oxygen pulse ox is 92%, his been afebrile, blood pressure has been stable. No complaints of chest discomfort, lung sounds reveal coarse bilateral coarse crackles. Patient was outside the window for Remdesivir, he is status post monoclonal antibody infusion on an outpatient basis, clinically is stable, with some improvement. He is requesting make his when necessary cough medication schedule. Today's labs are still pending for today, his LDH from yesterday was not significantly elevated at 418, and CT CRP was 18.6. No nausea or vomiting, abdomen is soft, nontender. On 03/07/2021 patient seen in follow-up on medical surgical floor, he remains on high flow oxygen at 15 L per high flow nasal cannula and 100% nonrebreather mask, patient desaturates with any activity, and it takes him quite a while to recover his pulse ox above 90% range. He has been very compliant with self repositioning, still coughing quite a bit. Patient is afebrile, blood pressure stable. Showing bilateral airspace disease, low lung volumes, no pneumothorax or pleural effusion. Today's labs show persistently elevated d-dimer in the Lovenox dose was increased yesterday to 40 mg twice daily, LDH on yesterday's labs was improving today's level is pending, CRP was 87 yesterday's labs, improved since admission, current treatment consists of Baricitinib, Decadron, Lovenox 40 mg twice daily and COVID-19 vitamins. Objective - Vital Signs Vital signs: Vital Signs Temp 97.5 F L 03/07/21 05:49 Pulse 68 03/07/21 05:49 Resp 19 03/07/21 05:49 BP 134/73 03/07/21 05:49 Pulse Ox 94 L 03/07/21 05:49 Intake & Output 03/06/21 03/07/21 03/07/21 18:59 06:59 18:59 Intake Total 354 Output Total 275 Balance 79 Weight 74.843 kg Intake: Oral 354 Output: Urine 275 Other: # Voids 3 - Exam GENERAL EXAM: Alert, pleasant, 80-year-old white male, currently on 15 L on high flow nasal cannula and 100% nonrebreather mask of oxygen pulse ox of 92%, one dry nonproductive cough HEAD: Normocephalic/atraumatic. EYES: Normal reaction of pupils, equal size. Conjunctiva pink, sclera white. NOSE: Clear with pink turbinates. THROAT: No erythema or exudates. NECK: No masses, no JVD, no thyroid enlargement, no adenopathy. CHEST: No chest wall deformity. Symmetrical expansion. LUNGS: Equal air entry with bibasilar crackles CVS: Regular rate and rhythm, normal S1 and S2, no gallops, no murmurs, no rubs ABDOMEN: Soft, nontender. No hepatosplenomegaly, normal bowel sounds, no guarding or rigidity. EXTREMITIES: No clubbing, no edema, no cyanosis, 2+ pulses and upper and lower extremities. MUSCULOSKELETAL: Muscle strength and tone normal. SPINE: No scoliosis or deformity SKIN: No rashes CENTRAL NERVOUS SYSTEM: Alert and oriented -3. No focal deficits, tone is normal in all 4 extremities. PSYCHIATRIC: Alert and oriented -3. Appropriate affect. Intact judgment and insight. - Labs CBC & Chem 7: 03/05/21 14:24 03/05/21 14:24 Labs: Abnormal Lab Results - Last 24 Hours (Table) 03/06/21 03/06/21 03/07/21 Range/Units 04:59 04:59 04:13 D-Dimer >34.10 H >34.10 H (<0.60) mg/L FEU Lactate Dehydrogenase 515 H (120-246) U/L C-Reactive Protein 8.00 H (0.00-0.80) mg/dL Assessment and Plan Plan: Assessment: #1. Acute COVID 19 related pneumonia with secondary shortness of breath. Diagnosis established approximately 10 days prior to presentation. Patient is a non-vaccinated individual The patient received monoclonal antibodies on outpatient basis. The patient was also treated with steroids and antibiotics. He is presenting with worsening shortness of breath and a dry cough. #2. Acute hypoxic respiratory failure secondary to above, currently on 15 L high flow and 100% nonrebreather mask #3. Shortness of breath and cough secondary to above. #4. Persistently elevated d-dimer, with no CTA evidence of pulmonary embolism, or DVT on lower extremity Dopplers currently on Lovenox 40 mg twice daily Plan: Continue current medical treatment Continue Decadron, Lovenox 40 mg BID, COVID-19 vitamins, Baricitinib Still has a dry nagging persistent cough Continue cough medicine, we'll make Petty Ramirez scheduled Inflammatory markers improving on yesterday's labs However his overall clinical condition and his hypoxia remain persistent requiring high oxygen concentration Encourage the patient to do awake self pronating position if able We'll continue to follow his clinical course Prognosis is guarded I performed a history & physical examination of the patient and discussed their management with my nurse practitioner, Ashlie Jorge. I reviewed the nurse practitioner's note and agree with the documented findings and plan of care. Lung sounds are positive for diffuse crackles throughout the lung kline. The findings and the impression was discussed with the patient. I attest to the documentation by the nurse practitioner. Time with Patient: Less than 30
[2021-03-07] MEDS: DEXAMETHASONE SOD PHOSPHATE 10 MG/ML 1 ML VIAL IVP SCH (08:35)
[2021-03-07] MEDS: SYMBICORT 80-4.5 MCG INHALER INHALATION SCH ×2 (08:58→19:22)
[2021-03-07 09:33] LABS: Basophils # (A) 0.03 X 10*3/uL (0.00-0.10); Basophils % (A) 0.2 %; Eosinophils # (A) 0.03 X 10*3/uL (0.04-0.35); Eosinophils % (A) 0.2 %; HCT 47.1 % (39.6-50.0); HGB 15.8 g/dL (13.0-17.0); Lymphocytes % (A) 8.6 %; MCH 30.4 pg (27.0-32.0); MCHC 33.5 g/dL (32.0-37.0); MCV 90.6 fL (80.0-97.0); Mean Platelet Volume 9.7 fL (9.5-12.2); Monocytes # (A) 0.79 X 10*3/uL (0.20-1.00); Monocytes % (A) 4.8 %; Neutrophils # (A) 13.98 X 10*3/uL (1.80-7.70); Neutrophils % (A) 85.5 %; Platelet Count 216 X 10*3/uL (140-440); RDW 12.4 % (11.5-14.5); WBC 16.35 X 10*3/uL (4.50-10.00)
[2021-03-07 11:45] LABS: C Reactive Protein 5.6 mg/dL (0.00-0.80); Magnesium 2.4 mg/dL (1.5-2.4)
[2021-03-07 11:48] LABS: African American GFR (CKD) 104.9 (60.0-200.0); Albumin 3.1 g/dL (3.8-4.9); Albumin/Globulin Ratio 1.11 (1.60-3.17); Anion Gap 10.7 mmol/L (10.00-18.00); BUN/Creat Ratio 25.79 Ratio (12.00-20.00); Calcium 8.4 mg/dL (8.7-10.3); Carbon Dioxide 28.8 mmol/L (20.0-27.5); Globulin 2.8 g/dL (1.6-3.3); Non-African American GFR(CKD) 90.5 (60.0-200.0); Potassium 4.7 mmol/L (3.5-5.5); Total Bilirubin 0.8 mg/dL (0.30-1.20); Total Protein 5.9 g/dL (6.2-8.2)
--- NOTE | 2021-03-07 13:18 | P.PN ---
Subjective Progress Note Date: 03/07/21 Hospital course: Patient is a very pleasant 80-year-old male with history of COPD and previous tobacco use with no other known reported past medical history, he follows with primary care provider, Dr. Pelletier. Patient reports diagnosis with Covid 19 virus infection at [facility] 10 days ago and received monoclonal antibodies at that time and was prescribed an inhaler, steroids, cough medicine, and an antibiotic. He presented to the ER 03/01/21 with a chief complaint of increased cough, shortness of breath, and fatigue. He was seen and fully evaluated in the emergency department. He was found to be hypoxic with SpO2 in the 80s requiring oxygen supplementation. Patient currently 89-91% on 4 L O2 via nasal cannula. Chest x-ray completed showing diffuse bilateral multifocal infiltrates correlating with multifocal pneumonia vs ARDS. EKG showing normal sinus rhythm 84 beats a minute with no noted T-wave or ST abnormalities showing no signs of acute ischemia. Covid PCR was positive. CBC unremarkable. Troponin normal findings at less than 0.012. Coags unremarkable. BMP revealing mild hyponatremia with sodium of 130 and slight prerenal azotemia with BUN of 25. Urinalysis negative for infection. Patient was admitted under our services with consultation to pulmonology. CTA negative for acute PE showing diffuse scattered infiltrates compatible with atypical pneumonia. Bilateral lower extremity Dopplers negative for DVTs. Physical exam: Patient was seen and fully evaluated at the bedside. His oxygen needs remain unchanged from yesterday and patient continues to be on 15 L high flow nasal cannula along with 100% nonrebreather. Nonrebreather mask was removed and patient desaturated down to 87-89% but reported significant increase in shortness of breath so nonrebreather was placed back on. Patient overall reports feeling slightly better and he was eating a Cherelle and an apple this morning. He continues to deny any dizziness, lightheadedness, chest pain, palpitations, abdominal pain, nausea, vomiting, or any other complaints at this time. His d-dimer remains greater than 34.10 and his Lovenox was increased to twice daily by pulmonology yesterday evening. Patient is now on day 3 of Baricitinib and continues to receive Decadron, vitamin C, vitamin D, and zinc. Labs otherwise show continued leukocytosis with WBC count of 16.35 and elevated LDH of 472 and CRP of 5.60. Liver enzymes continue to be slightly elevated but stable with AST of 52 and ALT of 120. Vital signs reviewed and stable. General: Nontoxic, no distress and appears stated age. Derm: Skin warm and dry, normal coloration for ethnicity. Head: Atraumatic, normocephalic and symmetric. Eyes: EOMs intact, no lid lag, and anicteric sclera Mouth: no lip lesions, mucus membranes moist Cardiovascular: regular rate and rhythm with normal S1S2, no murmur, positive posterior tibial pulses bilaterally, and cap refill < 2 seconds. Lungs: Increased respiratory effort without accessory muscle use, noted conversational dyspnea with 2-3 word sentences, lungs diffuse coarse crackles bilaterally in the mid and lower lungs. Patient currently on 15L O2 HFNC along with 100% NRB. Abdominal: soft, nontender to palpation, no guarding, no appreciable org anomegaly Ext: ROM intact. No gross muscle atrophy, no edema, no contractures Neuro: Speech clear, face symmetrical and CN II-XII grossly intact with no noted focal neuro deficits Psych: Alert and oriented to person, place, time, and situation. Appropriate and pleasant affect. Assessment and Plan of Care: Acute respiratory failure with hypoxia secondary to COVID 19 pneumonia -Oxygenation to be administered and titrated as needed to maintain SPO2 equal to or greater than 90% -Telemetry monitoring. -Continue trending inflammatory markers -Encourage Incentive Spirometry 10-15x hourly while awake -Steroids: Decadron 6 mg daily, day 6 of steroids. -Continue vitamin C, Vitamin D, and Zinc. -Pulmonology following, appreciate further recommendations. -DVT prophylaxis with Lovenox. -Strict Droplet plus Contact precautions -Patient received monoclonal antibodies. Out of window for Remdesivir, -Baricitinib dose 3 of 14. Hyponatremia, resolved with gentle IV hydration Prerenal azotemia, resolved with gentle IV hydration CODE STATUS: Full code DVT prophylaxis: Lovenox Discussed with: Patient and RN Anticipated discharge date: Clinical course to determine Anticipated discharge place: Home A total of 40 minutes was spent on the care of this complex patient more than 50% of the time was spent in counseling and care coordination. Daughter Alison Zendejas: Objective - Vital Signs Vital signs: Vital Signs Temp 97.5 F L 03/07/21 05:49 Pulse 68 03/07/21 05:49 Resp 19 03/07/21 05:49 BP 134/73 03/07/21 05:49 Pulse Ox 91 L 03/07/21 09:05 Intake & Output 03/06/21 03/07/21 03/07/21 18:59 06:59 18:59 Intake Total 354 Output Total 275 Balance 79 Weight 74.843 kg Intake: Oral 354 Output: Urine 275 Other: # Voids 3 - Labs CBC & Chem 7: 03/07/21 04:13 03/07/21 04:13 Labs: Abnormal Lab Results - Last 24 Hours (Table) 03/06/21 03/07/21 Range/Units 04:59 04:13 D-Dimer >34.10 H (<0.60) mg/L FEU Lactate Dehydrogenase 515 H (120-246) U/L C-Reactive Protein 8.00 H (0.00-0.80) mg/dL
[2021-03-08] MEDS: guaiFENesin-Coden 100-10MG/5ML 10 ML CUP PO SCH ×3 (05:22→16:43)
[2021-03-08] MEDS: DEXAMETHASONE SOD PHOSPHATE 10 MG/ML 1 ML VIAL IVP SCH (07:44)
[2021-03-08] MEDS: BARICITINIB 2 MG TABLET PO SCH (07:45)
[2021-03-08] MEDS: ENOXAPARIN 40 MG/0.4 ML SYRINGE SQ SCH ×2 (07:45→21:42)
[2021-03-08] MEDS: CHOLECALCIFEROL 125 MCG (5000 IU) TABLET PO SCH (07:45)
[2021-03-08] MEDS: BENZONATATE 100 MG CAP PO SCH ×3 (07:45→21:42)
[2021-03-08] MEDS: ASCORBIC ACID 500 MG TAB PO SCH (07:46)
[2021-03-08] MEDS: ZINC SULFATE 220 MG CAP PO SCH (07:46)
--- NOTE | 2021-03-08 08:29 | P.PN ---
Subjective Progress Note Date: 03/08/21 80-year-old male patient, known history of COPD, diagnosed having COVID 19 approximately 10 days ago and the patient received monoclonal antibodies and the patient was described inhalers, steroids and cough medication. Condition got worse and the patient came into the emergency department today with worsening shortness of breath and hypoxemia. Initial pulse ox was 80%. Currently is on 4 L of oxygen by nasal cannula and the patient developed diffuse bilateral pulmonary infiltrates. He is normally on no oxygen. Note that the patient has not received vaccination for COVID 19. His white cell count is at 7.7 with a hemoglobin of 17. Normal coagulation profile. Sodium level is at 130, LFTs are normal, troponins are negative, UA is essentially negative. Inflammatory markers have not been checked. D-dimer has not been checked. He is currently on Decadron. The chest x-ray showed diffuse breath and pulmonary infiltrates consistent with COVID 19 pneumonia. 03/02/2021, the patient continues to have episodes of fever. His oxygen requirements have gone up to 9 L per minute nasal cannula. Note that he yesterday was only on 4 L. His pro-calcitonin level is at 0.26, LDH level is at 418, CRP level is 82.6. He is otherwise doing well. Despite worsening in her oxygenation, the patient reports that his breathing is better. He has episodic cough for which is taken cough medication. No other significant events overnight. He is currently on Decadron 6 mg an Lovenox 40 mg subcu for DVT prophylaxis. On 03/03/2021 patient seen in follow-up on medical surgical floor. He is doing better, feeling better, however his cough is persistent, frequent, and dry. Currently on 13 L of oxygen pulse ox is 92%, his been afebrile, blood pressure has been stable. No complaints of chest discomfort, lung sounds reveal coarse bilateral coarse crackles. Patient was outside the window for Remdesivir, he is status post monoclonal antibody infusion on an outpatient basis, clinically is stable, with some improvement. He is requesting make his when necessary cough medication schedule. Today's labs are still pending for today, his LDH from yesterday was not significantly elevated at 418, and CT CRP was 18.6. No nausea or vomiting, abdomen is soft, nontender. On 03/07/2021 patient seen in follow-up on medical surgical floor, he remains on high flow oxygen at 15 L per high flow nasal cannula and 100% nonrebreather mask, patient desaturates with any activity, and it takes him quite a while to recover his pulse ox above 90% range. He has been very compliant with self repositioning, still coughing quite a bit. Patient is afebrile, blood pressure stable. Showing bilateral airspace disease, low lung volumes, no pneumothorax or pleural effusion. Today's labs show persistently elevated d-dimer in the Lovenox dose was increased yesterday to 40 mg twice daily, LDH on yesterday's labs was improving today's level is pending, CRP was 87 yesterday's labs, improved since admission, current treatment consists of Baricitinib, Decadron, Lovenox 40 mg twice daily and COVID-19 vitamins. On 03/08/2021 patient seen in follow-up on medical surgical floor, she is awake and alert, he sitting up in bed, does not appear to be in any distress, she remains on high flow oxygen at 15 L per high flow nasal cannula in the 100% nonrebreather mask, his pulse ox is 93%, he states his cough has improved, still has a cough at times, which is dry, nonproductive, lung sounds are positive for mild crackles at bilateral bases, no fever or chills, vital signs of stable overnight, today's labs are pending. Chest x-ray is pending. Overall clinical condition has remained stable in the last 24 hours, appetite is fair, denies any nausea vomiting or diarrhea. Objective - Vital Signs Vital signs: Vital Signs Temp 98.0 F 03/08/21 05:55 Pulse 72 03/08/21 05:55 Resp 18 03/08/21 05:55 BP 116/73 03/08/21 05:55 Pulse Ox 93 L 03/08/21 05:55 Intake & Output 03/07/21 03/08/21 03/08/21 18:59 06:59 18:59 Intake Total 480 350 Output Total 450 Balance 30 350 Intake: Oral 480 350 Output: Urine 450 Other: Voiding Method Urinal # Voids 1 2 - Exam GENERAL EXAM: Alert, pleasant, 80-year-old white male, currently on 15 L on high flow nasal cannula and 100% nonrebreather mask of oxygen pulse ox of 93%, one dry nonproductive cough HEAD: Normocephalic/atraumatic. EYES: Normal reaction of pupils, equal size. Conjunctiva pink, sclera white. NOSE: Clear with pink turbinates. THROAT: No erythema or exudates. NECK: No masses, no JVD, no thyroid enlargement, no adenopathy. CHEST: No chest wall deformity. Symmetrical expansion. LUNGS: Equal air entry with bibasilar crackles CVS: Regular rate and rhythm, normal S1 and S2, no gallops, no murmurs, no rubs ABDOMEN: Soft, nontender. No hepatosplenomegaly, normal bowel sounds, no guar ding or rigidity. EXTREMITIES: No clubbing, no edema, no cyanosis, 2+ pulses and upper and lower extremities. MUSCULOSKELETAL: Muscle strength and tone normal. SPINE: No scoliosis or deformity SKIN: No rashes CENTRAL NERVOUS SYSTEM: Alert and oriented -3. No focal deficits, tone is normal in all 4 extremities. PSYCHIATRIC: Alert and oriented -3. Appropriate affect. Intact judgment and insight. - Labs CBC & Chem 7: 03/07/21 04:13 03/07/21 04:13 Labs: Abnormal Lab Results - Last 24 Hours (Table) 03/07/21 03/07/21 Range/Units 04:13 04:13 WBC 16.35 H (4.50-10.00) X 10*3/uL Immature Gran # 0.12 H (0.00-0.04) X 10*3/uL Neutrophils # 13.98 H (1.80-7.70) X 10*3/uL Eosinophils # 0.03 L (0.04-0.35) X 10*3/uL Carbon Dioxide 28.8 H (20.0-27.5) mmol/L BUN/Creatinine Ratio 25.79 H (12.00-20.00) Ratio Calcium 8.4 L (8.7-10.3) mg/dL AST 52 H (14-35) U/L ALT 120 H (10-49) U/L Lactate Dehydrogenase 472 H (120-246) U/L C-Reactive Protein 5.60 H (0.00-0.80) mg/dL Total Protein 5.9 L (6.2-8.2) g/dL Albumin 3.1 L (3.8-4.9) g/dL Albumin/Globulin Ratio 1.11 L (1.60-3.17) g/dL Assessment and Plan Plan: Assessment: #1. Acute COVID 19 related pneumonia with secondary shortness of breath. [place]ita gnosis established approximately 10 days prior to presentation. Patient is a non-vaccinated individual The patient received monoclonal antibodies on outpatient basis. The patient was also treated with steroids and antibiotics. He is presenting with worsening shortness of breath and a dry cough. #2. Acute hypoxic respiratory failure secondary to above, currently on 15 L high flow and 100% nonrebreather mask #3. Shortness of breath and cough secondary to above. #4. Persistently elevated d-dimer, with no CTA evidence of pulmonary embolism, or DVT on lower extremity Dopplers currently on Lovenox 40 mg twice daily Plan: No change in his condition overnight, vital signs are stable Still requiring high flow oxygen at 15 L on hard percent nonrebreather mask We'll continue current medical treatment Continue Decadron, Lovenox 40 mg BID, COVID-19 vitamins, Baricitinib Encourage the patient to do awake self pronating position if able We'll continue to follow his clinical course Prognosis is guarded I performed a history & physical examination of the patient and discussed their management with my nurse practitioner, Ashlie Jorge. I reviewed the nurse practitioner's note and agree with the documented findings and plan of care. Lung sounds are positive for diffuse crackles throughout the lung kline. The findings and the impression was discussed with the patient. I attest to the documentation by the nurse practitioner. Time with Patient: Less than 30
[2021-03-08 09:13] LABS: C Reactive Protein 6.6 mg/dL (<1.0)
[2021-03-08] MEDS: SYMBICORT 80-4.5 MCG INHALER INHALATION SCH ×2 (09:17→20:40)
[2021-03-08 09:46] LABS: Basophils # (A) 0.03 X 10*3/uL (0.00-0.10); Basophils % (A) 0.2 %; Eosinophils % (A) 0.6 %; HCT 50.2 % (39.6-50.0); HGB 16.4 g/dL (13.0-17.0); Lymphocytes # (A) 1.63 X 10*3/uL (0.90-5.00); MCHC 32.7 g/dL (32.0-37.0); MCV 91.8 fL (80.0-97.0); Mean Platelet Volume 9.6 fL (9.5-12.2); Monocytes # (A) 1.17 X 10*3/uL (0.20-1.00); Monocytes % (A) 7.2 %; Neutrophils # (A) 13.23 X 10*3/uL (1.80-7.70); Platelet Count 270 X 10*3/uL (140-440); RBC 5.47 X 10*6/uL (4.40-5.60); RDW 12.3 % (11.5-14.5); WBC 16.33 X 10*3/uL (4.50-10.00)
[2021-03-08 10:40] LABS: African American GFR (CKD) 100.4 (60.0-200.0); Albumin 3.1 g/dL (3.8-4.9); Albumin/Globulin Ratio 1.1 (1.60-3.17); Anion Gap 12.8 mmol/L (10.00-18.00); BUN/Creat Ratio 25.9 Ratio (12.00-20.00); Blood Urea Nitrogen 20.1 mg/dL (9.0-27.0); Calcium 8.5 mg/dL (8.7-10.3); Carbon Dioxide 27.7 mmol/L (20.0-27.5); Globulin 2.8 g/dL (1.6-3.3); Non-African American GFR(CKD) 86.6 (60.0-200.0); Potassium 4.4 mmol/L (3.5-5.5); Total Bilirubin 0.9 mg/dL (0.30-1.20)
--- NOTE | 2021-03-08 14:17 | P.PN ---
Subjective Progress Note Date: 03/08/21 Hospital course: Patient is a very pleasant 80-year-old male with history of COPD and previous tobacco use with no other known reported past medical history, he follows with primary care provider, Dr. Pelletier. Patient reports diagnosis with Covid 19 virus infection at [facility] 10 days ago and received monoclonal antibodies at that time and was prescribed an inhaler, steroids, cough medicine, and an antibiotic. He presented to the ER 03/01/21 with a chief complaint of increased cough, shortness of breath, and fatigue. He was seen and fully evaluated in the emergency department. He was found to be hypoxic with SpO2 in the 80s requiring oxygen supplementation. Patient currently 89-91% on 4 L O2 via nasal cannula. Chest x-ray completed showing diffuse bilateral multifocal infiltrates correlating with multifocal pneumonia vs ARDS. EKG showing normal sinus rhythm 84 beats a minute with no noted T-wave or ST abnormalities showing no signs of acute ischemia. Covid PCR was positive. CBC unremarkable. Troponin normal findings at less than 0.012. Coags unremarkable. BMP revealing mild hyponatremia with sodium of 130 and slight prerenal azotemia with BUN of 25. Urinalysis negative for infection. Patient was admitted under our services with consultation to pulmonology. CTA negative for acute PE showing diffuse scattered infiltrates compatible with atypical pneumonia. Bilateral lower extremity Dopplers negative for DVTs. Physical exam: Patient was seen and fully evaluated at the bedside. His oxygen needs improved overnight. Upon entering room patient 99% on 15 L high flow nasal cannula and 15 L nonrebreather. Nonrebreather removed at this time and patient left on 15 L high flow nasal cannula and tolerated well maintaining SpO2 between 90 and 94%. Patient denied having increased shortness of breath upon removal of nonrebreather mask. He reports improvement in cough and that he continues to feel weak and fatigued. Patient continues to deny any dizziness/lightheaded ness, chest pain, palpitations, nausea, vomiting, or any other complaints. Patient's appetite has improved. He is now on day 4 of Baricitinib and continues to receive Decadron, vitamin C, vitamin D, zinc, and Lovenox BID. Morning labs revealed continued leukocytosis with WBC count of 16.33, mild hyponatremia with sodium of 134, hypochloremia with chloride of 94, elevated carbon dioxide of 27.7, and stable elevation of liver enzymes with AST of 49 and ALT 125. Inflammatory markers remain elevated with d-dimer > 34.10, LDH 1229, and CRP of 6.6. Vital signs reviewed and stable. General: Nontoxic, no distress and appears stated age. Derm: Skin warm and dry, normal coloration for ethnicity. Head: Atraumatic, normocephalic and symmetric. Eyes: EOMs intact, no lid lag, and anicteric sclera Mouth: no lip lesions, mucus membranes moist Cardiovascular: regular rate and rhythm with normal S1S2, no murmur, positive posterior tibial pulses bilaterally, and cap refill < 2 seconds. Lungs: Respirations even, regular, and unlabored on 15 L O2 via high flow nasal cannula, lungs diffuse coarse crackles bilaterally in the mid and lower lungs. Patient currently on 15L O2 HFNC. Abdominal: soft, nontender to palpation, no guarding, no appreciable or ganomegaly Ext: ROM intact. No gross muscle atrophy, no edema, no contractures Neuro: Speech clear, face symmetrical and CN II-XII grossly intact with no noted focal neuro deficits Psych: Alert and oriented to person, place, time, and situation. Appropriate and pleasant affect. Assessment and Plan of Care: Acute respiratory failure with hypoxia secondary to COVID 19 pneumonia -Oxygenation to be administered and titrated as needed to maintain SPO2 equal to or greater than 90% -Telemetry monitoring. -Continue trending inflammatory markers -Encourage Incentive Spirometry 10-15x hourly while awake -Steroids: Decadron 6 mg daily, day 7 of steroids. -Continue vitamin C, Vitamin D, and Zinc. -Pulmonology following, appreciate further recommendations. -DVT prophylaxis with Lovenox. -Strict Droplet plus Contact precautions -Patient received monoclonal antibodies. Out of window for Remdesivir, -Baricitinib dose 4 of 14. Hyponatremia, resolved with gentle IV hydration Prerenal azotemia, resolved with gentle IV hydration CODE STATUS: Full code DVT prophylaxis: Lovenox Discussed with: Patient, RN, and patient's daughter Alison Zendejas Anticipated discharge date: Clinical course to determine Anticipated discharge place: Home A total of 40 minutes was spent on the care of this complex patient more than 50% of the time was spent in counseling and care coordination. Daughter Alison Zendejas: Objective - Vital Signs Vital signs: Vital Signs Temp 98.0 F 03/08/21 05:55 Pulse 72 03/08/21 05:55 Resp 18 03/08/21 05:55 BP 116/73 03/08/21 05:55 Pulse Ox 93 L 03/08/21 05:55 Intake & Output 03/07/21 03/08/21 03/08/21 18:59 06:59 18:59 Intake Total 480 350 Output Total 450 Balance 30 350 Intake: Oral 480 350 Output: Urine 450 Other: Voiding Method Urinal Urinal # Voids 1 2 - Labs CBC & Chem 7: 03/08/21 05:28 03/08/21 05:28 Labs: Abnormal Lab Results - Last 24 Hours (Table) 03/07/21 03/08/21 03/08/21 Range/Units 04:13 05:28 08:28 WBC 16.33 H (4.50-10.00) X 10*3/uL Hct 50.2 H (39.6-50.0) % Immature Gran # 0.17 H (0.00-0.04) X 10*3/uL Neutrophils # 13.23 H (1.80-7.70) X 10*3/uL Monocytes # 1.17 H (0.20-1.00) X 10*3/uL D-Dimer >34.10 H (<0.60) mg/L FEU Carbon Dioxide 28.8 H (20.0-27.5) mmol/L BUN/Creatinine Ratio 25.79 H (12.00-20.00) Ratio Calcium 8.4 L (8.7-10.3) mg/dL AST 52 H (14-35) U/L ALT 120 H (10-49) U/L Lactate Dehydrogenase 472 H (120-246) U/L C-Reactive Protein 5.60 H (0.00-0.80) mg/dL Total Protein 5.9 L (6.2-8.2) g/dL Albumin 3.1 L (3.8-4.9) g/dL Albumin/Globulin Ratio 1.11 L (1.60-3.17) g/dL 03/08/21 Range/Units 08:28 WBC (4.50-10.00) X 10*3/uL Hct (39.6-50.0) % Immature Gran # (0.00-0.04) X 10*3/uL Neutrophils # (1.80-7.70) X 10*3/uL Monocytes # (0.20-1.00) X 10*3/uL D-Dimer (<0.60) mg/L FEU Carbon Dioxide (20.0-27.5) mmol/L BUN/Creatinine Ratio (12.00-20.00) Ratio Calcium (8.7-10.3) mg/dL AST (14-35) U/L ALT (10-49) U/L Lactate Dehydrogenase 1229 H (120-246) U/L C-Reactive Protein 6.6 H (0.00-0.80) mg/dL Total Protein (6.2-8.2) g/dL Albumin (3.8-4.9) g/dL Albumin/Globulin Ratio (1.60-3.17) g/dL
[2021-03-09] MEDS: guaiFENesin-Coden 100-10MG/5ML 10 ML CUP PO SCH ×5 (00:44→22:20)
[2021-03-09 06:33] LABS: ALT 108 U/L (4-49); AST 52 U/L (17-59); African American GFR (CKD) >90 (>60 ml/min/1.73 sqM); Albumin/Globulin Ratio 0.9; Alkaline Phosphatase 103 U/L (38-126); Anion Gap 6 mmol/L; Blood Urea Nitrogen 23 mg/dL (9-20); Calcium 8.3 mg/dL (8.4-10.2); Carbon Dioxide 31 mmol/L (22-30); Chloride 92 mmol/L (98-107); Globulin 3.4 g/dL; Glucose 121 mg/dL (74-99); LDH 1741 U/L (313-618); Non-African American GFR(CKD) 87 (>60 ml/min/1.73 sqM); Potassium 4.6 mmol/L (3.5-5.1); Sodium 129 mmol/L (137-145); Total Bilirubin 1.8 mg/dL (0.2-1.3); Total Protein 6.4 g/dL (6.3-8.2)
[2021-03-09 06:48] LABS: C Reactive Protein 20.4 mg/dL (<1.0)
[2021-03-09] MEDS ORDERED: MORPHINE SULFATE 4 MG/ML SYRINGE IVP PRN (08:09)
[2021-03-09] MEDS: SYMBICORT 80-4.5 MCG INHALER INHALATION SCH ×2 (08:16→20:32)
[2021-03-09] MEDS: BENZONATATE 100 MG CAP PO SCH ×3 (08:30→21:02)
[2021-03-09 09:01] LABS: HGB 16.8 g/dL (13.0-17.0); MCH 29.8 pg (27.0-32.0); MCHC 32.9 g/dL (32.0-37.0); MCV 90.6 fL (80.0-97.0); Mean Platelet Volume 9.6 fL (9.5-12.2); Platelet Count 270 X 10*3/uL (140-440); RBC 5.63 X 10*6/uL (4.40-5.60); RDW 12.4 % (11.5-14.5); WBC 19.57 X 10*3/uL (4.50-10.00)
[2021-03-09] MEDS: IOPAMIDOL CONTRAST (ORAL USE) VIAL PO PRN ×2 (09:15→10:07)
--- NOTE | 2021-03-09 09:19 | P.PN ---
Subjective Progress Note Date: 03/09/21 80-year-old male patient, known history of COPD, diagnosed having COVID 19 approximately 10 days ago and the patient received monoclonal antibodies and the patient was described inhalers, steroids and cough medication. Condition got worse and the patient came into the emergency department today with worsening shortness of breath and hypoxemia. Initial pulse ox was 80%. Currently is on 4 L of oxygen by nasal cannula and the patient developed diffuse bilateral pulmonary infiltrates. He is normally on no oxygen. Note that the patient has not received vaccination for COVID 19. His white cell count is at 7.7 with a hemoglobin of 17. Normal coagulation profile. Sodium level is at 130, LFTs are normal, troponins are negative, UA is essentially negative. Inflammatory markers have not been checked. D-dimer has not been checked. He is currently on Decadron. The chest x-ray showed diffuse breath and pulmonary infiltrates consistent with COVID 19 pneumonia. 03/02/2021, the patient continues to have episodes of fever. His oxygen requirements have gone up to 9 L per minute nasal cannula. Note that he yesterday was only on 4 L. His pro-calcitonin level is at 0.26, LDH level is at 418, CRP level is 82.6. He is otherwise doing well. Despite worsening in her oxygenation, the patient reports that his breathing is better. He has episodic cough for which is taken cough medication. No other significant events overnight. He is currently on Decadron 6 mg an Lovenox 40 mg subcu for DVT prophylaxis. On 03/03/2021 patient seen in follow-up on medical surgical floor. He is doing better, feeling better, however his cough is persistent, frequent, and dry. Currently on 13 L of oxygen pulse ox is 92%, his been afebrile, blood pressure has been stable. No complaints of chest discomfort, lung sounds reveal coarse bilateral coarse crackles. Patient was outside the window for Remdesivir, he is status post monoclonal antibody infusion on an outpatient basis, clinically is stable, with some improvement. He is requesting make his when necessary cough medication schedule. Today's labs are still pending for today, his LDH from yesterday was not significantly elevated at 418, and CT CRP was 18.6. No nausea or vomiting, abdomen is soft, nontender. On 03/07/2021 patient seen in follow-up on medical surgical floor, he remains on high flow oxygen at 15 L per high flow nasal cannula and 100% nonrebreather mask, patient desaturates with any activity, and it takes him quite a while to recover his pulse ox above 90% range. He has been very compliant with self repositioning, still coughing quite a bit. Patient is afebrile, blood pressure stable. Showing bilateral airspace disease, low lung volumes, no pneumothorax or pleural effusion. Today's labs show persistently elevated d-dimer in the Lovenox dose was increased yesterday to 40 mg twice daily, LDH on yesterday's labs was improving today's level is pending, CRP was 87 yesterday's labs, improved since admission, current treatment consists of Baricitinib, Decadron, Lovenox 40 mg twice daily and COVID-19 vitamins. On 03/08/2021 patient seen in follow-up on medical surgical floor, he is awake and alert, he sitting up in bed, does not appear to be in any distress, she remains on high flow oxygen at 15 L per high flow nasal cannula in the 100% nonrebreather mask, his pulse ox is 93%, he states his cough has improved, still has a cough at times, which is dry, nonproductive, lung sounds are positive for mild crackles at bilateral bases, no fever or chills, vital signs of stable overnight, today's labs are pending. Chest x-ray is pending. Overall clinical condition has remained stable in the last 24 hours, appetite is fair, denies any nausea vomiting or diarrhea. On 03/09/2021 patient seen in follow-up on medical surgical floor, he remains on same amount of oxygen, 15 L per high flow and 100% nonrebreather mask, his breathing has been fairly stable however today he developed acute abdominal pain, across his lower abdomen. His abdomen is distended, is slightly tympanic, it is tender to palpation, he is slightly nauseous, and he states he hasn't had a bowel movement in several days. He states he had passed some gas, his bowel sounds are hypoactive. He has been eating very little in the last few days. Today's vitals revealed temperature of 98.3, heart rate of 90, regular, sinus mechanism, blood pressure 92/56. His pulse ox on the 15th liters high flow and nonrebreather mask are 92-95%, lung sounds reveal scattered crackles, unchanged from previous pulmonary exams. CT of the abdomen with oral contrast is currently pending, patient is currently nothing by mouth. Today's labs have been reviewed, his white count has increased and is up to 19.5, hemoglobin is 16.8, his d-dimer is currently 11.8, his sodium has decreased and is down to 129 on today's labs, potassium is 4.6, chloride is 92, CO2 31, B1 is 23 creatinine 0.78, his AST is 52, ALT is 108, alk phos is 103, his LDH has further increased and is up to 1741, CRP is 20.4. Patient remains on Baricitinib, Lovenox twice daily, Decadron 6 mg twice daily. Objective - Vital Signs Vital signs: Vital Signs Temp 98.3 F 03/09/21 05:48 Pulse 97 03/09/21 08:07 Resp 24 03/09/21 08:07 BP 92/66 03/09/21 08:07 Pulse Ox 94 L 03/09/21 08:16 Intake & Output 03/08/21 03/09/21 03/09/21 18:59 06:59 18:59 Intake Total 236 Output Total 200 Balance 36 Intake: Oral 236 Output: Urine 200 Other: Voiding Method Urinal # Voids 3 - Exam GENERAL EXAM: Alert, pleasant, 80-year-old white male, currently on 15 L on high flow nasal cannula and 100% nonrebreather mask of oxygen pulse ox of 93%, one dry nonproductive cough, mild distress from abd pain HEAD: Normocephalic/atraumatic. EYES: Normal reaction of pupils, equal size. Conjunctiva pink, sclera white. NOSE: Clear with pink turbinates. THROAT: No erythema or exudates. NECK: No masses, no JVD, no thyroid enlargement, no adenopathy. CHEST: No chest wall deformity. Symmetrical expansion. LUNGS: Equal air entry with bibasilar crackles CVS: Regular rate and rhythm, normal S1 and S2, no gallops, no murmurs, no rubs ABDOMEN: Soft, tympanic, tender across lower quadrants No hepatosplenomegaly, normal bowel sounds, no guarding or rigidity. EXTREMITIES: No clubbing, no edema, no cyanosis, 2+ pulses and upper and lower extremities. MUSCULOSKELETAL: Muscle strength and tone normal. SPINE: No scoliosis or deformity SKIN: No rashes CENTRAL NERVOUS SYSTEM: Alert and oriented -3. No focal deficits, tone is normal in all 4 extremities. PSYCHIATRIC: Alert and oriented -3. Appropriate affect. Intact judgment and insight. - Labs CBC & Chem 7: 03/09/21 05:19 03/09/21 05:19 Labs: Abnormal Lab Results - Last 24 Hours (Table) 03/08/21 03/08/21 03/08/21 Range/Units 05:28 05:28 08:28 WBC 16.33 H (4.50-10.00) X 10*3/uL RBC (4.40-5.60) X 10*6/uL Hct 50.2 H (39.6-50.0) % Immature Gran # 0.17 H (0.00-0.04) X 10*3/uL Neutrophils # 13.23 H (1.80-7.70) X 10*3/uL Monocytes # 1.17 H (0.20-1.00) X 10*3/uL D-Dimer >34.10 H (<0.60) mg/L FEU Sodium 134 L (135-145) mmol/L Chloride 94 L (96-109) mmol/L Carbon Dioxide 27.7 H (20.0-27.5) mmol/L BUN (9-20) mg/dL BUN/Creatinine Ratio 25.90 H (12.00-20.00) Ratio Glucose (74-99) mg/dL Calcium 8.5 L (8.7-10.3) mg/dL Total Bilirubin (0.2-1.3) mg/dL AST 49 H (14-35) U/L ALT 125 H (10-49) U/L Lactate Dehydrogenase (313-618) U/L C-Reactive Protein (<1.0) mg/dL Total Protein 6.0 L (6.2-8.2) g/dL Albumin 3.1 L (3.8-4.9) g/dL Albumin/Globulin Ratio 1.10 L (1.60-3.17) g/dL 03/09/21 03/09/21 03/09/21 Range/Units 05:19 05:19 05:19 WBC 19.57 H (4.50-10.00) X 10*3/uL RBC 5.63 H (4.40-5.60) X 10*6/uL Hct 51.0 H (39.6-50.0) % Immature Gran # (0.00-0.04) X 10*3/uL Neutrophils # (1.80-7.70) X 10*3/uL Monocytes # (0.20-1.00) X 10*3/uL D-Dimer 11.80 H (<0.60) mg/L FEU Sodium 129 L (135-145) mmol/L Chloride 92 L (96-109) mmol/L Carbon Dioxide 31 H (20.0-27.5) mmol/L BUN 23 H (9-20) mg/dL BUN/Creatinine Ratio (12.00-20.00) Ratio Glucose 121 H (74-99) mg/dL Calcium 8.3 L (8.7-10.3) mg/dL Total Bilirubin 1.8 H (0.2-1.3) mg/dL AST (14-35) U/L ALT 108 H (10-49) U/L Lactate Dehydrogenase 1741 H (313-618) U/L C-Reactive Protein 20.4 H (<1.0) mg/dL Total Protein (6.2-8.2) g/dL Albumin 3.0 L (3.8-4.9) g/dL Albumin/Globulin Ratio (1.60-3.17) g/dL Assessment and Plan Plan: Assessment: #1. Acute COVID 19 related pneumonia with secondary shortness of breath. Diagnosis established approximately 10 days prior to presentation. Patient is a non-vaccinated individual The patient received monoclonal antibodies on outpatient basis. The patient was also treated with steroids and antibiotics. He is presenting with worsening shortness of breath and a dry cough. Remains on 15 l/min and 100% NRB mask today on 03/09/2021 #2. Acute abdominal pain, CT of abd pending #3. Acute hypoxic respiratory failure secondary to above, currently on 15 L high flow and 100% nonrebreather mask #4. Shortness of breath and cough secondary to above. #5. Persistently elevated d-dimer, with no CTA evidence of pulmonary embolism, or DVT on lower extremity Dopplers currently on Lovenox 40 mg twice daily Plan: Developed acute abd pain CT of abd pending NPO until results of abd CT available Will start IV fluids at 75 ml/hr Still requiring high flow oxygen at 15 L on hard percent nonrebreather mask We'll continue current medical treatment Continue Decadron, Lovenox 40 mg BID, COVID-19 vitamins, Baricitinib We'll continue to follow his clinical course Prognosis is guarded I performed a history & physical examination of the patient and discussed their management with my nurse practitioner, Ashlie Jorge. I reviewed the nurse practitioner's note and agree with the documented findings and plan of care. Lung sounds are positive for diffuse crackles throughout the lung kline. The findings and the impression was discussed with the patient. I attest to the documentation by the nurse practitioner. Time with Patient: Less than 30
[2021-03-09] MEDS: DEXAMETHASONE SOD PHOSPHATE 10 MG/ML 1 ML VIAL IVP SCH (10:45)
[2021-03-09] MEDS: SODIUM CHLORIDE 0.9% 1,000 ML IV SCH ×2 (10:46→23:39)
[2021-03-09] MEDS: ENOXAPARIN 40 MG/0.4 ML SYRINGE SQ SCH ×2 (10:47→21:01)
[2021-03-09] MEDS: CHOLECALCIFEROL 125 MCG (5000 IU) TABLET PO SCH (12:23)
[2021-03-09] MEDS: ZINC SULFATE 220 MG CAP PO SCH (12:23)
[2021-03-09] MEDS: BARICITINIB 2 MG TABLET PO SCH (12:24)
[2021-03-09] MEDS: ASCORBIC ACID 500 MG TAB PO SCH (12:24)
[2021-03-09] MEDS ORDERED: VANCOMYCIN IV PER PHARMACY 1 EACH MISC MISCELLANE PRN (12:44)
--- NOTE | 2021-03-09 12:44 | CT ---
EXAMINATION TYPE: CT abdomen pelvis w con DATE OF EXAM: 03/09/2021 COMPARISON: CT 01/03/2020 HISTORY: Acute onset abdominal pain CT DLP: 1126 mGycm Automated exposure control for dose reduction was used. TECHNIQUE: Helical acquisition of images from the lung bases through the pelvis have been completed. CONTRAST: Performed with Oral Contrast and with IV Contrast, patient injected with 100 ml mL of Isovue 300. FINDINGS: There is an abscess present adherent to the wall of the small bowel, focal collection of ga s with abnormal soft tissue at mid abdominal small bowel loop with mass effect on the lumen of the lo op of bowel, axial images #25 through 37. Overall the area measures approximately 10 cm x 5.1 cm x 8 cm in cephalad to caudal dimension. Some local lymph nodes are present. LUNG BASES: There are patchy areas of increased attenuation bilaterally, air bronchograms are noted, no pleural or pericardial effusion AORTA: No significant abnormality is appreciated. LIVER/GB: No significant abnormality is appreciated. . PANCREAS: No significant abnormality is seen. SPLEEN: No significant abnormality is seen. ADRENALS: No significant abnormality is seen. KIDNEYS: No significant abnormality is seen. REPRODUCTIVE ORGANS: No significant abnormality is seen BOWEL: There is thickening of some small bowel loops likely due to secondary inflammatory change, ax ial image #42. Extensive diverticular changes noted within the sigmoid colon which is redundant. FREE AIR: No Free Air visible. ASCITES: None visible. PELVIC ADENOPATHY: None visualized. RETROPERITONEAL ADENOPATHY: No Retroperitoneal Adenopathy visible. URINARY BLADDER: No significant abnormality is seen. OSSEOUS STRUCTURES: No significant abnormality is seen. IMPRESSION: THERE IS AN ABSCESS WITHIN THE ABDOMEN CAUSING MASS EFFECT ON THE SMALL BOWEL LOOP IN THE UPPER ABDOM EN. ABSCESS APPEARS BETWEEN LOOPS OF BOWEL AND MAY NOT BE ACCESSIBLE PERCUTANEOUSLY. Correlate for pn eumonia. Results relayed via perfect serve to the referring clinician, results relayed to the referri ng nurse at the time of interpretation to
[2021-03-09] MEDS: VANCOMYCIN 1,250 MG in SODIUM CHLORIDE 0.9% 250 ML IVPB SCH (13:18)
--- NOTE | 2021-03-09 13:44 | P.PN ---
Subjective Progress Note Date: 03/09/21 Patient began complaining of acute abdominal pain today, no nausea/vomiting, is passing flatus. Saturating 90-95% on 15 L of high flow nasal cannula. Has had poor nutrition, less than 45% of meals for the past 8 days. Objective - Vital Signs Vital signs: Vital Signs Temp 97.8 F 03/09/21 09:19 Pulse 105 H 03/09/21 09:19 Resp 18 03/09/21 09:19 BP 89/66 03/09/21 09:19 Pulse Ox 91 L 03/09/21 09:19 Intake & Output 03/08/21 03/09/21 03/09/21 18:59 06:59 18:59 Intake Total 236 Output Total 200 200 Balance 36 -200 Intake: Oral 236 Output: Urine 200 200 Other: Voiding Method Urinal Urinal # Voids 3 3 - Exam Gen: awake, alert HEENT: normocephalic, atraumatic, good hearing acuity, moist mucous membranes Resp: good air exchange, breathing comfortably with no accessory muscle use CVS: good distal perfusion x 4, GI: Exquisitely tender to palpation the left lower quadrant with voluntary guarding : no SPT, no CVAT, tenorio catheter not present MSK: no pitting edema, no clubbing Neuro: non-focal, moving all extremities Psych: cooperative, euthymic mood - Labs CBC & Chem 7: 03/09/21 05:19 03/09/21 05:19 Labs: Abnormal Lab Results - Last 24 Hours (Table) 03/09/21 03/09/21 03/09/21 Range/Units 05:19 05:19 05:19 WBC 19.57 H (4.50-10.00) X 10*3/uL RBC 5.63 H (4.40-5.60) X 10*6/uL Hct 51.0 H (39.6-50.0) % D-Dimer 11.80 H (<0.60) mg/L FEU Sodium 129 L (137-145) mmol/L Chloride 92 L (98-107) mmol/L Carbon Dioxide 31 H (22-30) mmol/L BUN 23 H (9-20) mg/dL Glucose 121 H (74-99) mg/dL Calcium 8.3 L (8.4-10.2) mg/dL Total Bilirubin 1.8 H (0.2-1.3) mg/dL ALT 108 H (4-49) U/L Lactate Dehydrogenase 1741 H (313-618) U/L C-Reactive Protein 20.4 H (<1.0) mg/dL Albumin 3.0 L (3.5-5.0) g/dL Assessment and Plan Assessment: Sepsis with abdominal abscess -Surgery consult -Nothing by mouth -Vancomycin, Zosyn -Follow up cultures from operating room -Likely will require TPN -Morphine when necessary for pain control Acute respiratory failure with hypoxia secondary to COVID 19 pneumonia -Oxygenation to be administered and titrated as needed to maintain SPO2 equal to or greater than 90% -Telemetry monitoring. -Continue trending inflammatory markers -Encourage Incentive Spirometry 10-15x hourly while awake -Steroids: Decadron 6 mg daily, day 7 of steroids. -Continue vitamin C, Vitamin D, and Zinc. -Pulmonology following, appreciate further recommendations. -DVT prophylaxis with Lovenox. -Strict Droplet plus Contact precautions -Patient received monoclonal antibodies. Out of window for Remdesivir, -Baricitinib dose 4 of , discontinued secondary to sepsis with abdominal abscess Hyponatremia, resolved with gentle IV hydration Prerenal azotemia, resolved with gentle IV hydration CODE STATUS: Full code DVT prophylaxis: Lovenox Discussed with: Patient, RN, and patient's daughter Alison Zendejas Anticipated discharge date: Clinical course to determine Anticipated discharge place: Home A total of 40 minutes was spent on the care of this complex patient more than 50% of the time was spent in counseling and care coordination. Daughter Tala: Updated on 03/09
[2021-03-09 15:33] LABS: INR 1.2 (<1.2); Partial Thromboplastin Time 23.1 sec (22.0-30.0); Prothrombin Time 12.9 sec (9.0-12.0)
[2021-03-09 15:44] LABS: African American GFR (CKD) >90 (>60 ml/min/1.73 sqM); Anion Gap 6 mmol/L; Blood Urea Nitrogen 26 mg/dL (9-20); Calcium 7.9 mg/dL (8.4-10.2); Carbon Dioxide 28 mmol/L (22-30); Chloride 92 mmol/L (98-107); Glucose 238 mg/dL (74-99); Non-African American GFR(CKD) 87 (>60 ml/min/1.73 sqM); Potassium 4.8 mmol/L (3.5-5.1); Sodium 126 mmol/L (137-145)
--- NOTE | 2021-03-09 16:50 | P.GSCN ---
History of Present Illness Consult date: 03/09/21 Reason for Consult: Abdominal abscess History of present illness: 80-year-old male hospitalized with Covid pneumonia. From a pulmonary point of view the patient has been relatively stable over the last day or 2. Remains however on 100% nonrebreather. Denies shortness of breath today. This morning patient was seen by the pulmonary team and was noted to have acute onset abdominal pain. This is mostly in the upper abdomen slightly to the left of midline. Pain became slightly improved during the day. A CAT scan was ordered which demonstrates a 10 x 8 cm abscess collection adjacent to loops of small bowel. 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 The abscess itself contains air and liquid and appears to be loculated. No easy window for percutaneous drainage noted. No history of previous GI issues. Patient did rec eive baricitinib which does have a slight risk of GI perforation reportedly. Review of Systems The patient denies any acute changes in vision or hearing, no dysphagia or od ynophagia, no dysuria or hematuria, no headache, no runny nose, no rectal bleeding or melena, no unexplained weight loss Past Medical History Past Medical History: No Reported History History of Any Multi-Drug Resistant Organisms: None Reported Past Surgical History: Orthopedic Surgery Past Psychological History: No Psychological Hx Reported Smoking Status: Former smoker Past Alcohol Use History: Occasional Past Drug Use History: None Reported Medications and Allergies Home Medications Medication Instructions Recorded Confirmed Type Budesonide/Formoterol Fumarate 2 puff INHALATION RT-BID 03/01/21 03/01/21 History [Symbicort 80-4.5 Mcg Inhaler] Levofloxacin [Levaquin] 750 mg PO DAILY 03/01/21 03/01/21 History guaiFENesin-Coden 100-10MG/5ML 10 ml PO Q6H PRN 03/01/21 03/01/21 History [Robitussin AC] Allergies Allergy/AdvReac Type Severity Reaction Status Date / Time No Known Allergies Allergy Verified 03/01/21 12:50 Surgical - Exam Vital Signs Temp Pulse Resp BP Pulse Ox 98.9 F 89 20 110/72 93 L 03/01/21 11:51 03/01/21 11:51 03/01/21 11:51 03/01/21 11:51 03/01/21 11:51 Physical exam: General: Well-developed, well-nourished, mildly dyspneic HEENT: Normocephalic, sclerae nonicteric Abdomen: Slightly distended, significant left upper quadrant tenderness with rebound and guarding present Extremities: Mild bilateral lower extremity edema Neuro: Alert and oriented Results - Labs 03/09/21 05:19 03/09/21 15:10 Abnormal Lab Results - Last 24 Hours (Table) 03/09/21 03/09/21 03/09/21 Range/Units 05:19 05:19 05:19 WBC 19.57 H (4.50-10.00) X 10*3/uL RBC 5.63 H (4.40-5.60) X 10*6/uL Hct 51.0 H (39.6-50.0) % PT (9.0-12.0) sec INR (<1.2) D-Dimer 11.80 H (<0.60) mg/L FEU Sodium 129 L (137-145) mmol/L Chloride 92 L (98-107) mmol/L Carbon Dioxide 31 H (22-30) mmol/L BUN 23 H (9-20) mg/dL Glucose 121 H (74-99) mg/dL Calcium 8.3 L (8.4-10.2) mg/dL Total Bilirubin 1.8 H (0.2-1.3) mg/dL ALT 108 H (4-49) U/L Lactate Dehydrogenase 1741 H (313-618) U/L C-Reactive Protein 20.4 H (<1.0) mg/dL Albumin 3.0 L (3.5-5.0) g/dL 03/09/21 03/09/21 Range/Units 15:10 15:10 WBC (4.50-10.00) X 10*3/uL RBC (4.40-5.60) X 10*6/uL Hct (39.6-50.0) % PT 12.9 H (9.0-12.0) sec INR 1.2 H (<1.2) D-Dimer (<0.60) mg/L FEU Sodium 126 L (137-145) mmol/L Chloride 92 L (98-107) mmol/L Carbon Dioxide (22-30) mmol/L BUN 26 H (9-20) mg/dL Glucose 238 H (74-99) mg/dL Calcium 7.9 L (8.4-10.2) mg/dL Total Bilirubin (0.2-1.3) mg/dL ALT (4-49) U/L Lactate Dehydrogenase (313-618) U/L C-Reactive Protein (<1.0) mg/dL Albumin (3.5-5.0) g/dL Diabetes panel 03/09/21 03/09/21 Range/Units 05:19 15:10 Sodium 129 L 126 L (137-145) mmol/L Potassium 4.6 4.8 (3.5-5.1) mmol/L Chloride 92 L 92 L (98-107) mmol/L Carbon Dioxide 31 H 28 (22-30) mmol/L BUN 23 H 26 H (9-20) mg/dL Creatinine 0.78 0.77 (0.66-1.25) mg/dL Glucose 121 H 238 H (74-99) mg/dL Calcium 8.3 L 7.9 L (8.4-10.2) mg/dL AST 52 (17-59) U/L ALT 108 H (4-49) U/L Alkaline Phosphatase 103 (38-126) U/L Total Protein 6.4 (6.3-8.2) g/dL Albumin 3.0 L (3.5-5.0) g/dL Calcium panel 03/09/21 03/09/21 Range/Units 05:19 15:10 Calcium 8.3 L 7.9 L (8.4-10.2) mg/dL Albumin 3.0 L (3.5-5.0) g/dL Pituitary panel 03/09/21 03/09/21 Range/Units 05:19 15:10 Sodium 129 L 126 L (137-145) mmol/L Potassium 4.6 4.8 (3.5-5.1) mmol/L Chloride 92 L 92 L (98-107) mmol/L Carbon Dioxide 31 H 28 (22-30) mmol/L BUN 23 H 26 H (9-20) mg/dL Creatinine 0.78 0.77 (0.66-1.25) mg/dL Glucose 121 H 238 H (74-99) mg/dL Calcium 8.3 L 7.9 L (8.4-10.2) mg/dL Adrenal panel 03/09/21 03/09/21 Range/Units 05:19 15:10 Sodium 129 L 126 L (137-145) mmol/L Potassium 4.6 4.8 (3.5-5.1) mmol/L Chloride 92 L 92 L (98-107) mmol/L Carbon Dioxide 31 H 28 (22-30) mmol/L BUN 23 H 26 H (9-20) mg/dL Creatinine 0.78 0.77 (0.66-1.25) mg/dL Glucose 121 H 238 H (74-99) mg/dL Calcium 8.3 L 7.9 L (8.4-10.2) mg/dL Total Bilirubin 1.8 H (0.2-1.3) mg/dL AST 52 (17-59) U/L ALT 108 H (4-49) U/L Alkaline Phosphatase 103 (38-126) U/L Total Protein 6.4 (6.3-8.2) g/dL Albumin 3.0 L (3.5-5.0) g/dL Assessment and Plan (1) Abdominal abscess Narrative/Plan: 80-year-old male with Covid pneumonia and findings of abdominal abscess on today's CAT scan. I do not believe this is amenable to percutaneous drainage both given the location and the patient's abdominal examination. Some of his current symptoms could be on the basis of progressive sepsis. Options discussed with patient and also his daughter Alison Zendejas. I also spoke with the patient's daughters physician that she works with Dr. Flowers. Recommend that we proceed with exploratory laparotomy and drainage of abdominal abscess with possible small bowel resection. Potential intraoperative findings of perforation from the colon and possible need for ostomy was also discussed although felt to be unlikely. We'll obtain cultures intraoperatively. Patient will require general anesthesia and intubation. Patient will likely had to the intensive care unit postoperatively on the ventilator. Reviewed risks with the patient and his daughter. Risks noted to include but not limited to bleeding, infection, persistent abscess, leak, hernia, need for ostomy, respiratory and cardiac complications including . They understand and wish to proceed. Current Visit: Yes Status: Acute Code(s): [id number] - SNOMED Code(s): 01868768
[2021-03-09] MEDS: PIPERACILLIN-TAZOBACTAM 3.375 GM in SODIUM CHLORIDE 0.9% 100 ML IVPB SCH ×2 (17:44→23:00)
[2021-03-09] MEDS ORDERED: PROPOFOL 10 MG/ML 20 ML VIAL IV ONE (18:56)
[2021-03-09] MEDS ORDERED: ePHEDrine 50 MG/ML 1 ML AMP ONE (18:56)
[2021-03-09] MEDS ORDERED: .fentaNYL (PF) 50 MCG/ML 2 ML AMP ONE (18:56)
[2021-03-09] MEDS ORDERED: HYDROmorphone (PF) 1 MG/ML ONE (18:56)
[2021-03-09] MEDS ORDERED: SUCCINYLCHOLINE CHLORIDE 100 MG/5 ML SYR IV ONE (18:56)
[2021-03-09] MEDS ORDERED: LIDOCAINE 1% INJ 10MG/ML (20 ML MDV) ONE (18:56)
[2021-03-09] MEDS ORDERED: PHENYLEPHRINE-0.9% NACL SYG 1,000 MCG/10 ML SYRINGE ONE (18:56)
[2021-03-09] MEDS ORDERED: ROCURONIUM 10 MG/ML (5 ML VIAL) IV ONE (18:56)
[2021-03-09] MEDS ORDERED: IV FLUID CONTINUATION 1,000 ML IV ONE (19:01)
[2021-03-09] MEDS ORDERED: LACTATED RINGERS 1,000 ML IV ONE (20:02)
--- NOTE | 2021-03-09 20:57 | P.OP ---
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 The patient was placed under general anesthesia. The abdomen was prepped and draped sterilely. A vertical incision was made in the supra umbilical location. Dissection through the subcutaneous fat and fascia took place using electrocautery. The peritoneum was entered bluntly. The incision was lengthened using electrocautery. There was purulent fluid within the abdomen. The Clari retractor was utilized. The small bowel was inspected. The patient had a fibrinous peel as we approached the proximal small bowel. There was a mass like area involving the mesentery of the proximal small bowel. Blunt dissection allowed us to enter into the abscess cavity itself. Cultures were taken. As the bowel was mobilized through the incision we quickly identified a perforation along the mesenteric border of the proximal jejunum at the site of a diverticulum. There was actually what appeared to be feculent material within the diverticulum. This was evacuated. The abscess involved a portion of the small bowel mesentery. There was significant small bowel mesentery edema present. The bowel was divided proximal and distal to the inflamed segment. I would estimate approximately 8-10 inches of small bowel was removed. The bowel was divided using a linear 75 stapler. A green load was used on the thicker segment and a blue load on the less edematous segment. The mesentery was divided using a combination of the LigaSure device and 0 silk ties. A single area of bleeding along the mesentery was controlled using a [id number] 2-0 Vicryl suture. No further bleeding was seen. The abdomen was copiously irrigated with 4 L of saline. At that point a [id number]-[id number] anastomosis took place between the port options of bowel. The antimesenteric portion of the staple line was removed. The stapler was fired along the antimesenteric border. The remaining defect was closed transversely using a TX 60 device. The TX 60 stapler and was indicated using interrupted 3-0 GI silk sutures. A 3-0 GI silk crotch stitch was also placed. The mesentery was left open given the significant inflammatory changes. No further bleeding or purulence was seen. Gastric tube was difficult to place during the procedure. They were finally able to have the gastric tube placed after closure of the fascia. The fascia was closed using 2 separate running double-stranded #1 PDS sutures. Skin was closed loosely with sunil leaving 3 openings. In those openings Aquacel silver rope was placed. Sterile dressings were then applied. Patient will be taken to the ICU in guarded condition on the ventilator. I discussed the case at length with the patient's daughter Shantell.
[2021-03-09 21:04] LABS: Glucose,Whole Blood 152 mg/dL (75-99)
[2021-03-09 21:28] LABS: ABG Base Excess 3.6 mmol/L; ABG HCO3 29 mmol/L (21-25); ABG Oxygen Saturation 97.8 % (94-97); ABG PCO2 47 mmHg (35-45); ABG PH 7.39 (7.35-7.45); ABG PO2 106 mmHg (83-108); ABG TCO2 30 mmol/L (19-24); Allen Test Performed? Yes
[2021-03-09] MEDS ORDERED: fentaNYL (PF). 1,000 MCG in SODIUM CHLORIDE 0.9% 80 ML IV SCH (22:00)
--- NOTE | 2021-03-09 22:17 | XR ---
INDICATION: Patient age:Male; 80 years old; Reason for study: ET placement; [facility]. COMPARISON: Multiple radiographs, with the most recent on 03/06/2021. TECHNIQUE: Frontal view of the chest. FINDINGS: Lungs/Pleura: Interval improved aeration of the lungs with persistent multifocal airspace opacities. No evidence of pneumothorax or pleural effusion. Pulmonary vascularity: Unremarkable. Heart/mediastinum: Cardiomediastinal silhouette is unremarkable. Musculoskeletal: No acute osseous pathology. Lines/Tubes: Endotracheal tube with distal tip 1.7 cm above the lino Nasogastric tube with its distal tip and side-port projecting under the diaphragm. IMPRESSION: 1. Improved aeration of lungs with persistent multifocal pneumonia. 2. Consider retraction of enteric tube 2 to 3 cm for optimal placement. 3. Enteric tube in appropriate position.
[2021-03-09 22:57] LABS: Basophils % (A) 0 %; Eosinophils % (A) 0 %; HCT 47.1 % (39.0-53.0); HGB 15.7 gm/dL (13.0-17.5); Lymphocytes # (A) 0.9 k/uL (1.0-4.8); Lymphocytes % (A) 8 %; MCH 31.2 pg (25.0-35.0); MCHC 33.3 g/dL (31.0-37.0); MCV 93.7 fL (80.0-100.0); Mean Platelet Volume 7.4; Monocytes # (A) 0.4 k/uL (0-1.0); Monocytes % (A) 3 %; Neutrophils # (A) 10.2 k/uL (1.3-7.7); Neutrophils % (A) 88 %; Platelet Count 269 k/uL (150-450); RBC 5.03 m/uL (4.30-5.90); RDW 12.8 % (11.5-15.5); WBC 11.6 k/uL (3.8-10.6)
[2021-03-09 23:29] LABS: Glucose,Whole Blood 161 mg/dL (75-99)
[2021-03-10] MEDS: guaiFENesin-Coden 100-10MG/5ML 10 ML CUP PO SCH ×5 (04:42→20:29)
[2021-03-10] MEDS: VANCOMYCIN 1,250 MG in SODIUM CHLORIDE 0.9% 250 ML IVPB SCH ×2 (05:32→20:11)
[2021-03-10 05:35] LABS: Basophils % (A) 0 %; Eosinophils % (A) 0 %; HCT 44.9 % (39.0-53.0); Lymphocytes # (A) 0.9 k/uL (1.0-4.8); Lymphocytes % (A) 6 %; MCH 31.3 pg (25.0-35.0); MCHC 33.4 g/dL (31.0-37.0); MCV 93.6 fL (80.0-100.0); Mean Platelet Volume 7.3; Monocytes # (A) 0.6 k/uL (0-1.0); Monocytes % (A) 4 %; Neutrophils # (A) 12.9 k/uL (1.3-7.7); Neutrophils % (A) 88 %; Platelet Count 242 k/uL (150-450); RDW 12.8 % (11.5-15.5); WBC 14.6 k/uL (3.8-10.6)
[2021-03-10 06:22] LABS: ALT 88 U/L (4-49); AST 33 U/L (17-59); African American GFR (CKD) >90 (>60 ml/min/1.73 sqM); Albumin 2.2 g/dL (3.5-5.0); Alkaline Phosphatase 65 U/L (38-126); Anion Gap 5 mmol/L; Blood Urea Nitrogen 20 mg/dL (9-20); Calcium 7.3 mg/dL (8.4-10.2); Carbon Dioxide 26 mmol/L (22-30); Chloride 98 mmol/L (98-107); Glucose 135 mg/dL (74-99); LDH 776 U/L (313-618); Non-African American GFR(CKD) 89 (>60 ml/min/1.73 sqM); Potassium 4.7 mmol/L (3.5-5.1); Sodium 129 mmol/L (137-145); Total Bilirubin 1.7 mg/dL (0.2-1.3); Total Protein 5.1 g/dL (6.3-8.2)
[2021-03-10 06:31] LABS: ABG Base Excess 6.1 mmol/L; ABG HCO3 30 mmol/L (21-25); ABG Oxygen Saturation 99.8 % (94-97); ABG PCO2 41 mmHg (35-45); ABG PH 7.47 (7.35-7.45); ABG PO2 161 mmHg (83-108); ABG TCO2 31 mmol/L (19-24); Allen Test Performed? Yes
[2021-03-10 06:58] LABS: Glucose,Whole Blood 119 mg/dL (75-99)
[2021-03-10] MEDS: BENZONATATE 100 MG CAP PO SCH ×3 (08:42→19:57)
[2021-03-10] MEDS: PIPERACILLIN-TAZOBACTAM 3.375 GM in SODIUM CHLORIDE 0.9% 100 ML IVPB SCH ×3 (08:49→23:22)
[2021-03-10] MEDS: DEXAMETHASONE SOD PHOSPHATE 10 MG/ML 1 ML VIAL IVP SCH (08:50)
[2021-03-10 08:51] LABS: C Reactive Protein 32.4 mg/dL (<1.0)
[2021-03-10] MEDS ORDERED: CHLORHEXIDINE GLUCONATE 15 ML CUP MUCOUS MEM SCH (09:00)
[2021-03-10] MEDS: ENOXAPARIN 40 MG/0.4 ML SYRINGE SQ SCH ×2 (09:23→20:10)
[2021-03-10] MEDS: SYMBICORT 80-4.5 MCG INHALER INHALATION SCH ×2 (09:24→20:28)
[2021-03-10] MEDS: CHOLECALCIFEROL 125 MCG (5000 IU) TABLET PO SCH (11:36)
[2021-03-10] MEDS: ZINC SULFATE 220 MG CAP PO SCH (11:36)
[2021-03-10] MEDS: ASCORBIC ACID 500 MG TAB PO SCH (11:36)
--- NOTE | 2021-03-10 11:54 | P.PN ---
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 Patient currently in the ICU and intubated. NG tube 100 ml greenish output through the night. Afebrile. Heart rate 76 BP 87/66 WBC is up from 11.6-14.6 hemoglobin 15 sodium 129 potassium 4.7 and creatinine 0.72 PHYSICAL EXAM: VITAL SIGNS: Reviewed. GENERAL: Well-developed in no acute distress. HEENT: No sclera icterus. Extraocular movements grossly intact. Moist buccal mucosa. Head is atraumatic, normocephalic. ABDOMEN: Soft. Nondistended. Nontender. NEUROLOGIC: Intubated ASSESSMENT: 1. 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 COVID-19 pneumonia PLAN: -Continue NG tube for decompression -Keep patient nothing by mouth -Continue antibiotics -Continue IV fluids -Continue ICU management -Continue supportive care -DVT prophylaxis Lovenox Physician Regasification Plant Operator note has been reviewed by physician. Signing provider agrees with the documented findings, assessment, and plan of care. Objective - Vital Signs Vital signs: Vital Signs Temp 98.2 F 03/10/21 08:00 Pulse 76 03/10/21 11:00 Resp 22 03/10/21 11:00 BP 87/66 03/10/21 11:00 Pulse Ox 99 03/10/21 11:00 Intake & Output 03/09/21 03/10/21 03/10/21 18:59 06:59 18:59 Intake Total 1891.766 316.306 Output Total 200 680 70 Balance -200 1211.766 246.306 Weight 74.843 kg 86 kg Intake: IV 1875 150 Piperacillin-Tazobactam 3 125 .375 gm In Sodium Chloride 0.9% 100 ml @ 25 mls/hr IVPB Q8HR [facility] Rx# :[id number] Sodium Chloride 0.9% 1, 750 150 000 ml @ 75 mls/hr IV . [id number] [facility] Rx#:[id number] Intake, IV Titration 16.766 166.306 Amount propofoL 1,000 mg In 16.766 166.306 Empty Bag 1 bag @ Titrate IV .Q0M [facility] Rx#: [id number] Output: Urine 200 630 70 Estimated Blood Loss 50 Other: Voiding Method Urinal Indwelling Catheter Indwelling Catheter # Voids 3 - Labs CBC & Chem 7: 03/10/21 05:18 03/10/21 05:18 Labs: Abnormal Lab Results - Last 24 Hours (Table) 03/09/21 03/09/21 03/09/21 Range/Units 15:10 15:10 21:02 WBC (3.8-10.6) k/uL Neutrophils # (1.3-7.7) k/uL Lymphocytes # (1.0-4.8) k/uL PT 12.9 H (9.0-12.0) sec INR 1.2 H (<1.2) D-Dimer (<0.60) mg/L FEU ABG pH (7.35-7.45) ABG pCO2 (35-45) mmHg ABG pO2 (83-108) mmHg ABG HCO3 (21-25) mmol/L ABG Total CO2 (19-24) mmol/L ABG O2 Saturation (94-97) % Sodium 126 L (137-145) mmol/L Chloride 92 L (98-107) mmol/L BUN 26 H (9-20) mg/dL Glucose 238 H (74-99) mg/dL POC Glucose (mg/dL) 152 H (75-99) mg/dL Calcium 7.9 L (8.4-10.2) mg/dL Total Bilirubin (0.2-1.3) mg/dL ALT (4-49) U/L Lactate Dehydrogenase (313-618) U/L C-Reactive Protein (<1.0) mg/dL Total Protein (6.3-8.2) g/dL Albumin (3.5-5.0) g/dL 03/09/21 03/09/21 03/09/21 Range/Units 21:25 22:50 23:28 WBC 11.6 H (3.8-10.6) k/uL Neutrophils # 10.2 H (1.3-7.7) k/uL Lymphocytes # 0.9 L (1.0-4.8) k/uL PT (9.0-12.0) sec INR (<1.2) D-Dimer (<0.60) mg/L FEU ABG pH (7.35-7.45) ABG pCO2 47 H (35-45) mmHg ABG pO2 (83-108) mmHg ABG HCO3 29 H (21-25) mmol/L ABG Total CO2 30 H (19-24) mmol/L ABG O2 Saturation 97.8 H (94-97) % Sodium (137-145) mmol/L Chloride (98-107) mmol/L BUN (9-20) mg/dL Glucose (74-99) mg/dL POC Glucose (mg/dL) 161 H (75-99) mg/dL Calcium (8.4-10.2) mg/dL Total Bilirubin (0.2-1.3) mg/dL ALT (4-49) U/L Lactate Dehydrogenase (313-618) U/L C-Reactive Protein (<1.0) mg/dL Total Protein (6.3-8.2) g/dL Albumin (3.5-5.0) g/dL 03/10/21 03/10/21 03/10/21 Range/Units 05:18 05:18 05:18 WBC 14.6 H (3.8-10.6) k/uL Neutrophils # 12.9 H (1.3-7.7) k/uL Lymphocytes # 0.9 L (1.0-4.8) k/uL PT (9.0-12.0) sec INR (<1.2) D-Dimer 14.11 H (<0.60) mg/L FEU ABG pH (7.35-7.45) ABG pCO2 (35-45) mmHg ABG pO2 (83-108) mmHg ABG HCO3 (21-25) mmol/L ABG Total CO2 (19-24) mmol/L ABG O2 Saturation (94-97) % Sodium 129 L (137-145) mmol/L Chloride (98-107) mmol/L BUN (9-20) mg/dL Glucose 135 H (74-99) mg/dL POC Glucose (mg/dL) (75-99) mg/dL Calcium 7.3 L (8.4-10.2) mg/dL Total Bilirubin 1.7 H (0.2-1.3) mg/dL ALT 88 H (4-49) U/L Lactate Dehydrogenase 776 H (313-618) U/L C-Reactive Protein 32.4 H (<1.0) mg/dL Total Protein 5.1 L (6.3-8.2) g/dL Albumin 2.2 L (3.5-5.0) g/dL 03/10/21 03/10/21 Range/Units 06:25 06:57 WBC (3.8-10.6) k/uL Neutrophils # (1.3-7.7) k/uL Lymphocytes # (1.0-4.8) k/uL PT (9.0-12.0) sec INR (<1.2) D-Dimer (<0.60) mg/L FEU ABG pH 7.47 H (7.35-7.45) ABG pCO2 (35-45) mmHg ABG pO2 161 H (83-108) mmHg ABG HCO3 30 H (21-25) mmol/L ABG Total CO2 31 H (19-24) mmol/L ABG O2 Saturation 99.8 H (94-97) % Sodium (137-145) mmol/L Chloride (98-107) mmol/L BUN (9-20) mg/dL Glucose (74-99) mg/dL POC Glucose (mg/dL) 119 H (75-99) mg/dL Calcium (8.4-10.2) mg/dL Total Bilirubin (0.2-1.3) mg/dL ALT (4-49) U/L Lactate Dehydrogenase (313-618) U/L C-Reactive Protein (<1.0) mg/dL Total Protein (6.3-8.2) g/dL Albumin (3.5-5.0) g/dL Microbiology - Last 24 Hours (Table) 03/09/21 20:32 Gram Stain - Preliminary Abdomen Wound Culture - Preliminary 03/09/21 20:32 Anaerobic Culture - Preliminary Abdomen <Andrew Vásquez - Last Filed: 03/10/21 16:52> Subjective As above. Patient was extubated earlier this morning. Appears comfortable. Is on BiPAP. Oral gastric tube was removed at the time of extubation. NG tube was not replaced given the difficulties placing this yesterday and the BiPAP in place. Keep nothing by mouth with no medications orally for now. Continue ICU supportive care. Continue antibiotics. Objective - Vital Signs Vital signs: Vital Signs Temp 98.4 F 03/10/21 16:00 Pulse 70 03/10/21 16:00 Resp 22 03/10/21 16:00 BP 110/73 03/10/21 16:00 Pulse Ox 99 03/10/21 16:00 Intake & Output 03/09/21 03/10/21 03/10/21 18:59 06:59 18:59 Intake Total 1891.766 816.558 Output Total 200 680 390 Balance -200 1211.766 426.558 Weight 74.843 kg 86 kg 86 kg Intake: IV 1875 600 Piperacillin-Tazobactam 3 125 .375 gm In Sodium Chloride 0.9% 100 ml @ 25 mls/hr IVPB Q8HR [facility] Rx# :[id number] Sodium Chloride 0.9% 1, 750 600 000 ml @ 75 mls/hr IV . [id number] [facility] Rx#:[id number] Intake, IV Titration 16.766 216.558 Amount fentaNYL (PF). 1,000 mcg 47.242 In Sodium Chloride 0.9% 80 ml @ 0.5 MCG/KG/HR 3. 742 mls/hr IV .Q24H [facility] Rx#:[id number] propofoL 1,000 mg In 16.766 169.316 Empty Bag 1 bag @ Titrate IV .Q0M [facility] Rx#: [id number] Output: Gastric Drainage 100 Urine 200 630 290 Estimated Blood Loss 50 Other: Voiding Method Urinal Indwelling Catheter Indwelling Catheter # Voids 3 - Labs CBC & Chem 7: 03/10/21 05:18 03/10/21 05:18 Labs: Abnormal Lab Results - Last 24 Hours (Table) 03/09/21 03/09/21 03/09/21 Range/Units 21:02 21:25 22:50 WBC 11.6 H (3.8-10.6) k/uL Neutrophils # 10.2 H (1.3-7.7) k/uL Lymphocytes # 0.9 L (1.0-4.8) k/uL D-Dimer (<0.60) mg/L FEU ABG pH (7.35-7.45) ABG pCO2 47 H (35-45) mmHg ABG pO2 (83-108) mmHg ABG HCO3 29 H (21-25) mmol/L ABG Total CO2 30 H (19-24) mmol/L ABG O2 Saturation 97.8 H (94-97) % Sodium (137-145) mmol/L Glucose (74-99) mg/dL POC Glucose (mg/dL) 152 H (75-99) mg/dL Calcium (8.4-10.2) mg/dL Total Bilirubin (0.2-1.3) mg/dL ALT (4-49) U/L Lactate Dehydrogenase (313-618) U/L C-Reactive Protein (<1.0) mg/dL Total Protein (6.3-8.2) g/dL Albumin (3.5-5.0) g/dL 03/09/21 03/10/21 03/10/21 Range/Units 23:28 05:18 05:18 WBC 14.6 H (3.8-10.6) k/uL Neutrophils # 12.9 H (1.3-7.7) k/uL Lymphocytes # 0.9 L (1.0-4.8) k/uL D-Dimer (<0.60) mg/L FEU ABG pH (7.35-7.45) ABG pCO2 (35-45) mmHg ABG pO2 (83-108) mmHg ABG HCO3 (21-25) mmol/L ABG Total CO2 (19-24) mmol/L ABG O2 Saturation (94-97) % Sodium 129 L (137-145) mmol/L Glucose 135 H (74-99) mg/dL POC Glucose (mg/dL) 161 H (75-99) mg/dL Calcium 7.3 L (8.4-10.2) mg/dL Total Bilirubin 1.7 H (0.2-1.3) mg/dL ALT 88 H (4-49) U/L Lactate Dehydrogenase 776 H (313-618) U/L C-Reactive Protein 32.4 H (<1.0) mg/dL Total Protein 5.1 L (6.3-8.2) g/dL Albumin 2.2 L (3.5-5.0) g/dL 1203/10/21 03/10/21 Range/Units 05:18 06:25 06:57 WBC (3.8-10.6) k/uL Neutrophils # (1.3-7.7) k/uL Lymphocytes # (1.0-4.8) k/uL D-Dimer 14.11 H (<0.60) mg/L FEU ABG pH 7.47 H (7.35-7.45) ABG pCO2 (35-45) mmHg ABG pO2 161 H (83-108) mmHg ABG HCO3 30 H (21-25) mmol/L ABG Total CO2 31 H (19-24) mmol/L ABG O2 Saturation 99.8 H (94-97) % Sodium (137-145) mmol/L Glucose (74-99) mg/dL POC Glucose (mg/dL) 119 H (75-99) mg/dL Calcium (8.4-10.2) mg/dL Total Bilirubin (0.2-1.3) mg/dL ALT (4-49) U/L Lactate Dehydrogenase (313-618) U/L C-Reactive Protein (<1.0) mg/dL Total Protein (6.3-8.2) g/dL Albumin (3.5-5.0) g/dL 03/10/21 03/10/21 Range/Units 12:14 13:05 WBC (3.8-10.6) k/uL Neutrophils # (1.3-7.7) k/uL Lymphocytes # (1.0-4.8) k/uL D-Dimer (<0.60) mg/L FEU ABG pH 7.47 H (7.35-7.45) ABG pCO2 (35-45) mmHg ABG pO2 76 L (83-108) mmHg ABG HCO3 30 H (21-25) mmol/L ABG Total CO2 31 H (19-24) mmol/L ABG O2 Saturation (94-97) % Sodium (137-145) mmol/L Glucose (74-99) mg/dL POC Glucose (mg/dL) 122 H (75-99) mg/dL Calcium (8.4-10.2) mg/dL Total Bilirubin (0.2-1.3) mg/dL ALT (4-49) U/L Lactate Dehydrogenase (313-618) U/L C-Reactive Protein (<1.0) mg/dL Total Protein (6.3-8.2) g/dL Albumin (3.5-5.0) g/dL Microbiology - Last 24 Hours (Table) 03/09/21 20:32 Gram Stain - Preliminary Abdomen Wound Culture - Preliminary 03/09/21 20:32 Anaerobic Culture - Preliminary Abdomen Assessment and Plan (1) Abdominal abscess Current Visit: Yes Status: Acute Code(s): QPX9289 - SNOMED Code(s): 27645288
[2021-03-10 12:18] LABS: Glucose,Whole Blood 122 mg/dL (75-99)
--- NOTE | 2021-03-10 12:52 | P.PN ---
Subjective Progress Note Date: 03/10/21 Pt is intubated, sedated. 25 mcg propofol, 0.5mcg of fentanyl, 75cc/hr NS. On vanc/zosyn, OR cx pending. PEEP 12, FiO2 40% AC 400, saturating 100%, pO2 161. Objective - Vital Signs Vital signs: Vital Signs Temp 98.2 F 03/10/21 08:00 Pulse 76 03/10/21 11:00 Resp 22 03/10/21 11:00 BP 87/66 03/10/21 11:00 Pulse Ox 99 03/10/21 11:00 Intake & Output 03/09/21 03/10/21 03/10/21 18:59 06:59 18:59 Intake Total 1891.766 316.306 Output Total 200 680 70 Balance -200 1211.766 246.306 Weight 74.843 kg 86 kg Intake: IV 1875 150 Piperacillin-Tazobactam 3 125 .375 gm In Sodium Chloride 0.9% 100 ml @ 25 mls/hr IVPB Q8HR [facility] Rx# :[id number] Sodium Chloride 0.9% 1, 750 150 000 ml @ 75 mls/hr IV . [id number] [facility] Rx#:[id number] Intake, IV Titration 16.766 166.306 Amount propofoL 1,000 mg In 16.766 166.306 Empty Bag 1 bag @ Titrate IV .Q0M [facility] Rx#: [id number] Output: Urine 200 630 70 Estimated Blood Loss 50 Other: Voiding Method Urinal Indwelling Catheter Indwelling Catheter # Voids 3 - Exam Gen: intubated, sedated HEENT: normocephalic, atraumatic, good hearing acuity, moist mucous membranes Resp: ventilator AC 400, FiO2 40%, PEEP 12 CVS: good distal perfusion x 4, GI: Exquisitely tender to palpation the left lower quadrant with voluntary guarding : no SPT, no CVAT, tenorio catheter not present MSK: no pitting edema, no clubbing Neuro: non-focal, - Labs CBC & Chem 7: 03/10/21 05:18 03/10/21 05:18 Labs: Abnormal Lab Results - Last 24 Hours (Table) 03/09/21 03/09/21 03/09/21 Range/Units 15:10 15:10 21:02 WBC (3.8-10.6) k/uL Neutrophils # (1.3-7.7) k/uL Lymphocytes # (1.0-4.8) k/uL PT 12.9 H (9.0-12.0) sec INR 1.2 H (<1.2) D-Dimer (<0.60) mg/L FEU ABG pH (7.35-7.45) ABG pCO2 (35-45) mmHg ABG pO2 (83-108) mmHg ABG HCO3 (21-25) mmol/L ABG Total CO2 (19-24) mmol/L ABG O2 Saturation (94-97) % Sodium 126 L (137-145) mmol/L Chloride 92 L (98-107) mmol/L BUN 26 H (9-20) mg/dL Glucose 238 H (74-99) mg/dL POC Glucose (mg/dL) 152 H (75-99) mg/dL Calcium 7.9 L (8.4-10.2) mg/dL Total Bilirubin (0.2-1.3) mg/dL ALT (4-49) U/L Lactate Dehydrogenase (313-618) U/L C-Reactive Protein (<1.0) mg/dL Total Protein (6.3-8.2) g/dL Albumin (3.5-5.0) g/dL 03/09/21 03/09/21 03/09/21 Range/Units 21:25 22:50 23:28 WBC 11.6 H (3.8-10.6) k/uL Neutrophils # 10.2 H (1.3-7.7) k/uL Lymphocytes # 0.9 L (1.0-4.8) k/uL PT (9.0-12.0) sec INR (<1.2) D-Dimer (<0.60) mg/L FEU ABG pH (7.35-7.45) ABG pCO2 47 H (35-45) mmHg ABG pO2 (83-108) mmHg ABG HCO3 29 H (21-25) mmol/L ABG Total CO2 30 H (19-24) mmol/L ABG O2 Saturation 97.8 H (94-97) % Sodium (137-145) mmol/L Chloride (98-107) mmol/L BUN (9-20) mg/dL Glucose (74-99) mg/dL POC Glucose (mg/dL) 161 H (75-99) mg/dL Calcium (8.4-10.2) mg/dL Total Bilirubin (0.2-1.3) mg/dL ALT (4-49) U/L Lactate Dehydrogenase (313-618) U/L C-Reactive Protein (<1.0) mg/dL Total Protein (6.3-8.2) g/dL Albumin (3.5-5.0) g/dL 03/10/21 03/10/21 03/10/21 Range/Units 05:18 05:18 05:18 WBC 14.6 H (3.8-10.6) k/uL Neutrophils # 12.9 H (1.3-7.7) k/uL Lymphocytes # 0.9 L (1.0-4.8) k/uL PT (9.0-12.0) sec INR (<1.2) D-Dimer 14.11 H (<0.60) mg/L FEU ABG pH (7.35-7.45) ABG pCO2 (35-45) mmHg ABG pO2 (83-108) mmHg ABG HCO3 (21-25) mmol/L ABG Total CO2 (19-24) mmol/L ABG O2 Saturation (94-97) % Sodium 129 L (137-145) mmol/L Chloride (98-107) mmol/L BUN (9-20) mg/dL Glucose 135 H (74-99) mg/dL POC Glucose (mg/dL) (75-99) mg/dL Calcium 7.3 L (8.4-10.2) mg/dL Total Bilirubin 1.7 H (0.2-1.3) mg/dL ALT 88 H (4-49) U/L Lactate Dehydrogenase 776 H (313-618) U/L C-Reactive Protein 32.4 H (<1.0) mg/dL Total Protein 5.1 L (6.3-8.2) g/dL Albumin 2.2 L (3.5-5.0) g/dL 03/10/21 03/10/21 03/10/21 Range/Units 06:25 06:57 12:14 WBC (3.8-10.6) k/uL Neutrophils # (1.3-7.7) k/uL Lymphocytes # (1.0-4.8) k/uL PT (9.0-12.0) sec INR (<1.2) D-Dimer (<0.60) mg/L FEU ABG pH 7.47 H (7.35-7.45) ABG pCO2 (35-45) mmHg ABG pO2 161 H (83-108) mmHg ABG HCO3 30 H (21-25) mmol/L ABG Total CO2 31 H (19-24) mmol/L ABG O2 Saturation 99.8 H (94-97) % Sodium (137-145) mmol/L Chloride (98-107) mmol/L BUN (9-20) mg/dL Glucose (74-99) mg/dL POC Glucose (mg/dL) 119 H 122 H (75-99) mg/dL Calcium (8.4-10.2) mg/dL Total Bilirubin (0.2-1.3) mg/dL ALT (4-49) U/L Lactate Dehydrogenase (313-618) U/L C-Reactive Protein (<1.0) mg/dL Total Protein (6.3-8.2) g/dL Albumin (3.5-5.0) g/dL Microbiology - Last 24 Hours (Table) 03/09/21 20:32 Gram Stain - Preliminary Abdomen Wound Culture - Preliminary 03/09/21 20:32 Anaerobic Culture - Preliminary Abdomen Assessment and Plan Assessment: Sepsis with abdominal abscess -Surgery consult, s/p OR washout on 03/09 -Nothing by mouth, enteral feeding vs TPN per surgery -Vancomycin, Zosyn -Follow up cultures from operating room -Morphine when necessary for pain control, fentanyl gtt Acute respiratory failure with hypoxia secondary to COVID 19 pneumonia -Oxygenation to be administered and titrated as needed to maintain SPO2 equal to or greater than 90% -Telemetry monitoring. -Continue trending inflammatory markers -Encourage Incentive Spirometry 10-15x hourly while awake -Steroids: Decadron 6 mg daily, day 9 of steroids. -Continue vitamin C, Vitamin D, and Zinc. -Pulmonology following, appreciate further recommendations. -DVT prophylaxis with Lovenox. -Strict Droplet plus Contact precautions -Patient received monoclonal antibodies. Out of window for Remdesivir, -Baricitinib dose 5 of 14, discontinued secondary to sepsis with abdominal abscess CODE STATUS: Full code DVT prophylaxis: Lovenox Discussed with: Patient, RN, and patient's daughter Alison Zendejas Anticipated discharge date: Clinical course to determine Anticipated discharge place: Home A total of 40 minutes was spent on the care of this complex patient more than 50% of the time was spent in counseling and care coordination. Daughter Alison Zendejas: Updated on 03/09
[2021-03-10 13:08] LABS: ABG Base Excess 6.4 mmol/L; ABG HCO3 30 mmol/L (21-25); ABG Oxygen Saturation 96.6 % (94-97); ABG PCO2 42 mmHg (35-45); ABG PH 7.47 (7.35-7.45); ABG PO2 76 mmHg (83-108); ABG TCO2 31 mmol/L (19-24); Allen Test Performed? Yes
--- NOTE | 2021-03-10 13:08 | P.PN ---
Subjective Progress Note Date: 03/10/21 Principal diagnosis: Acute hypoxic respiratory failure secondary to COVID-19 pneumonia 03/05/2031, seeing the patient for a follow-up. He was seen in follow-up yesterday and the patient was on 11 L of oxygen by nasal cannula. Note that his oxygen requirements have been fluctuating from 15 L down to 11 L and subsequently, earlier this morning the patient got more short of breath. The patient became hypoxic. Based on that, the patient was placed on 15 L of oxygen by nasal cannula and 100% nonrebreather facemask we'll also provide to bring the saturation up to 95%. He feels weak. He feel tired and fatigued. He is afebrile for now. His breathing is labored and the patient is having frequent cough and spells. He remains on Decadron 6 mg IV every 24 hours. On today's evaluation, I also decided to start the patient on Baricitinib physical specially with a worsening and oxygenation. Noted the patient had a negative Doppler of the lower extremity. The patient also has a negative CT angiogram for pulmonary embolism. The patient remains on Lovenox 40 mg subcu on a daily basis. The blood work from today shows a white cell, 70.4 with a hemoglobin of 16, d-dimer is above 34, creatinine is at 0.6 with a BUN of 17, LDH level is up to 1554 and CRP level is at 6.8. LFTs are slightly abnormal with an AST of 127, AST of 87. His condition decompensated compared to yesterday. Reevaluated today on 03/06/2021, and remains on high flow nasal cannula and nonrebreather mask at 15 L/m, O2 saturation is in the low 90s. Continues to have shortness of breath with activity, but overall the patient is doing better than expected. Patient continues stated that he is feeling much better compared to how he felt yesterday. Workup for DVT and from embolic disease/pulmonary embolism was negative. D-dimer is quite elevated over 54. WBC count is 17.1 hemoglobin 16.2. LDH is down to 515 and his C-reactive protein is 8. On 03/07/2021 patient seen in follow-up on medical surgical floor, he remains on high flow oxygen at 15 L per high flow nasal cannula and 100% nonrebreather mask, patient desaturates with any activity, and it takes him quite a while to recover his pulse ox above 90% range. He has been very compliant with self repositioning, still coughing quite a bit. Patient is afebrile, blood pressure stable. Showing bilateral airspace disease, low lung volumes, no pneumothorax or pleural effusion. Today's labs show persistently elevated d-dimer in the Lovenox dose was increased yesterday to 40 mg twice daily, LDH on yesterday's labs was improving today's level is pending, CRP was 87 yesterday's labs, improved since admission, current treatment consists of Baricitinib, Decadron, Lovenox 40 mg twice daily and COVID-19 vitamins. On 03/08/2021 patient seen in follow-up on medical surgical floor, he is awake and alert, he sitting up in bed, does not appear to be in any distress, she remains on high flow oxygen at 15 L per high flow nasal cannula in the 100% nonrebreather mask, his pulse ox is 93%, he states his cough has improved, still has a cough at times, which is dry, nonproductive, lung sounds are positive for mild crackles at bilateral bases, no fever or chills, vital signs of stable overnight, today's labs are pending. Chest x-ray is pending. Overall clinical condition has remained stable in the last 24 hours, appetite is fair, denies any nausea vomiting or diarrhea. On 03/09/2021 patient seen in follow-up on medical surgical floor, he remains on same amount of oxygen, 15 L per high flow and 100% nonrebreather mask, his br eathing has been fairly stable however today he developed acute abdominal pain, across his lower abdomen. His abdomen is distended, is slightly tympanic, it is tender to palpation, he is slightly nauseous, and he states he hasn't had a bowel movement in several days. He states he had passed some gas, his bowel sounds are hypoactive. He has been eating very little in the last few days. Today's vitals revealed temperature of 98.3, heart rate of 90, regular, sinus mechanism, blood pressure 92/56. His pulse ox on the 15th liters high flow and nonrebreather mask are 92-95%, lung sounds reveal scattered crackles, unchanged from previous pulmonary exams. CT of the abdomen with oral contrast is currently pending, patient is currently nothing by mouth. Today's labs have been reviewed, his white count has increased and is up to 19.5, hemoglobin is 16.8, his d-dimer is currently 11.8, his sodium has decreased and is down to 129 on today's labs, potassium is 4.6, chloride is 92, CO2 31, B1 is 23 creatinine 0.78, his AST is 52, ALT is 108, alk phos is 103, his LDH has further increased and is up to 1741, CRP is 20.4. Patient remains on Baricitinib, Lovenox twice daily, Decadron 6 mg twice daily. Reevaluated today on 03/10/2021, patient was readmitted back to the ICU last night on mechanical ventilation. Patient underwent exploratory laparotomy yesterday, drainage of abdominal abscess, and small bowel resection. 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 Hence he required drainage of abdominal abscess and small bowel resection by Dr. duncan. He is in the ICU right now, he is on assist control rate of 22 tidal volume 400 FiO2 45% and PEEP of 12. ABG showed a pO2 of 161 pCO2 41 pH of 7.47. His chest x-ray shows bilateral infiltrates consistent with COVID-19 pneumonia. Patient is on propofol at 25 sentinel at 0.9, and I have recommended stopping both, possibly transition to Precedex, and may even give the patient today a weaning trial. His d-dimer is 14.1 but he had a negative CT angiogram on admission LDH is not that significantly elevated 776 C-reactive protein is 32. WBC count is 14.6 hemogl obin is 15.0 electrolytes are normal except for low sodium of 129 BUN is 20 creatinine 0.72. Patient remains on the COVID-19 cocktail including vitamin D, Decadron 6 mg IV push daily, Lovenox 40 mg subcu twice a day, and he is on zinc, patient was started on antibiotics yesterday in the form of vancomycin and Zosyn, to be seen by infectious disease on consultation Objective - Vital Signs Vital signs: Vital Signs Temp 98.2 F 03/10/21 08:00 Pulse 76 03/10/21 11:00 Resp 22 03/10/21 11:00 BP 87/66 03/10/21 11:00 Pulse Ox 99 03/10/21 11:00 Intake & Output 03/09/21 03/10/21 03/10/21 18:59 06:59 18:59 Intake Total 1891.766 619.316 Output Total 200 680 330 Balance -200 1211.766 289.316 Weight 74.843 kg 86 kg 86 kg Intake: IV 1875 450 Piperacillin-Tazobactam 3 125 .375 gm In Sodium Chloride 0.9% 100 ml @ 25 mls/hr IVPB Q8HR [facility] Rx# :[id number] Sodium Chloride 0.9% 1, 750 450 000 ml @ 75 mls/hr IV . [id number] [facility] Rx#:[id number] Intake, IV Titration 16.766 169.316 Amount propofoL 1,000 mg In 16.766 169.316 Empty Bag 1 bag @ Titrate IV .Q0M [facility] Rx#: [id number] Output: Gastric Drainage 100 Urine 200 630 230 Estimated Blood Loss 50 Other: Voiding Method Urinal Indwelling Catheter Indwelling Catheter # Voids 3 - Exam Physical Exam revealed a 80-year-old white male on mechanical ventilation, sedated, arousable, follows simple instructions. Head: Atraumatic normocephalic. HEENT:[Neck is supple.] [No neck masses.] [No thyromegaly.] [No JVD.] Chest: [Crackles at the bases bilaterally. No rhonchi and no wheezes. Cardiac Exam: [Normal S1 and S2, no S3 gallop, no murmur.] Abdomen: Postsurgical soft nontender no megaly, no bowel sounds. Extremities: [No clubbing, no edema, no cyanosis.] Neurological Exam: Not fully assessed, however the patient is arousable, and follows simple instructions like wiggling toes and squeezing hands. Patient is on fentanyl and propofol. Psychiatric: Not fully assessed Skin: No rashes - Labs CBC & Chem 7: 03/10/21 05:18 03/10/21 05:18 Labs: Abnormal Lab Results - Last 24 Hours (Table) 03/09/21 03/09/21 03/09/21 Range/Units 15:10 15:10 21:02 WBC (3.8-10.6) k/uL Neutrophils # (1.3-7.7) k/uL Lymphocytes # (1.0-4.8) k/uL PT 12.9 H (9.0-12.0) sec INR 1.2 H (<1.2) D-Dimer (<0.60) mg/L FEU ABG pH (7.35-7.45) ABG pCO2 (35-45) mmHg ABG pO2 (83-108) mmHg ABG HCO3 (21-25) mmol/L ABG Total CO2 (19-24) mmol/L ABG O2 Saturation (94-97) % Sodium 126 L (137-145) mmol/L Chloride 92 L (98-107) mmol/L BUN 26 H (9-20) mg/dL Glucose 238 H (74-99) mg/dL POC Glucose (mg/dL) 152 H (75-99) mg/dL Calcium 7.9 L (8.4-10.2) mg/dL Total Bilirubin (0.2-1.3) mg/dL ALT (4-49) U/L Lactate Dehydrogenase (313-618) U/L C-Reactive Protein (<1.0) mg/dL Total Protein (6.3-8.2) g/dL Albumin (3.5-5.0) g/dL 03/09/21 03/09/21 03/09/21 Range/Units 21:25 22:50 23:28 WBC 11.6 H (3.8-10.6) k/uL Neutrophils # 10.2 H (1.3-7.7) k/uL Lymphocytes # 0.9 L (1.0-4.8) k/uL PT (9.0-12.0) sec INR (<1.2) D-Dimer (<0.60) mg/L FEU ABG pH (7.35-7.45) ABG pCO2 47 H (35-45) mmHg ABG pO2 (83-108) mmHg ABG HCO3 29 H (21-25) mmol/L ABG Total CO2 30 H (19-24) mmol/L ABG O2 Saturation 97.8 H (94-97) % Sodium (137-145) mmol/L Chloride (98-107) mmol/L BUN (9-20) mg/dL Glucose (74-99) mg/dL POC Glucose (mg/dL) 161 H (75-99) mg/dL Calcium (8.4-10.2) mg/dL Total Bilirubin (0.2-1.3) mg/dL ALT (4-49) U/L Lactate Dehydrogenase (313-618) U/L C-Reactive Protein (<1.0) mg/dL Total Protein (6.3-8.2) g/dL Albumin (3.5-5.0) g/dL 03/10/21 03/10/21 03/10/21 Range/Units 05:18 05:18 05:18 WBC 14.6 H (3.8-10.6) k/uL Neutrophils # 12.9 H (1.3-7.7) k/uL Lymphocytes # 0.9 L (1.0-4.8) k/uL PT (9.0-12.0) sec INR (<1.2) D-Dimer 14.11 H (<0.60) mg/L FEU ABG pH (7.35-7.45) ABG pCO2 (35-45) mmHg ABG pO2 (83-108) mmHg ABG HCO3 (21-25) mmol/L ABG Total CO2 (19-24) mmol/L ABG O2 Saturation (94-97) % Sodium 129 L (137-145) mmol/L Chloride (98-107) mmol/L BUN (9-20) mg/dL Glucose 135 H (74-99) mg/dL POC Glucose (mg/dL) (75-99) mg/dL Calcium 7.3 L (8.4-10.2) mg/dL Total Bilirubin 1.7 H (0.2-1.3) mg/dL ALT 88 H (4-49) U/L Lactate Dehydrogenase 776 H (313-618) U/L C-Reactive Protein 32.4 H (<1.0) mg/dL Total Protein 5.1 L (6.3-8.2) g/dL Albumin 2.2 L (3.5-5.0) g/dL 03/10/21 03/10/21 03/10/21 Range/Units 06:25 06:57 12:14 WBC (3.8-10.6) k/uL Neutrophils # (1.3-7.7) k/uL Lymphocytes # (1.0-4.8) k/uL PT (9.0-12.0) sec INR (<1.2) D-Dimer (<0.60) mg/L FEU ABG pH 7.47 H (7.35-7.45) ABG pCO2 (35-45) mmHg ABG pO2 161 H (83-108) mmHg ABG HCO3 30 H (21-25) mmol/L ABG Total CO2 31 H (19-24) mmol/L ABG O2 Saturation 99.8 H (94-97) % Sodium (137-145) mmol/L Chloride (98-107) mmol/L BUN (9-20) mg/dL Glucose (74-99) mg/dL POC Glucose (mg/dL) 119 H 122 H (75-99) mg/dL Calcium (8.4-10.2) mg/dL Total Bilirubin (0.2-1.3) mg/dL ALT (4-49) U/L Lactate Dehydrogenase (313-618) U/L C-Reactive Protein (<1.0) mg/dL Total Protein (6.3-8.2) g/dL Albumin (3.5-5.0) g/dL Microbiology - Last 24 Hours (Table) 03/09/21 20:32 Gram Stain - Preliminary Abdomen Wound Culture - Preliminary 03/09/21 20:32 Anaerobic Culture - Preliminary Abdomen Assessment and Plan Assessment: Impression: Acute hypoxic respiratory failure secondary to COVID-19 pneumonia, patient is not vaccinated. However he did receive monoclonal antibodies on outpatient basis. Acute bowel perforation with abdominal abscess, requiring exploratory laparotomy, small bowel resection, drainage of abdominal abscess, this was done on 02/07/2021. Patient came back on mechanical ventilation post surgery. Elevated inflammatory markers secondary to COVID-19 infection and abdominal sepsis. Acute abdominal sepsis Recommendation: Continue ventilatory support, Continue antibiotics Sedation holiday and assess for possible weaning, may use Precedex in the meantime. Continue COVID-19 cocktail. I'll see the patient cannot be on baricitinib, cause of his ongoing abdominal sepsis. Continue Lovenox and Decadron. As well as multivitamins. Prognosis is poor and guarded. Discussed his status with the daughter yesterday before he went to surgery. And she was made aware that he may require a prolonged course of mechanical ventilation unless we noticed significant improvement after his surgery. Critical care time is over 30 minutes. We will continue to follow. Time with Patient: Greater than 30
[2021-03-10 15:32] LABS: Magnesium 2.3 mg/dL (1.6-2.3); Phosphorus 3.5 mg/dL (2.5-4.5)
[2021-03-10] MEDS: SODIUM CHLORIDE 0.9% 1,000 ML IV SCH ×2 (16:11→23:22)
[2021-03-10] MEDS: PANTOPRAZOLE 40 MG/10 ML VIAL IVP SCH (17:12)
[2021-03-10 18:08] LABS: Glucose,Whole Blood 135 mg/dL (75-99)
[2021-03-10] MEDS: HYDROmorphone 1 MG/ML 1 ML SYRINGE IVP PRN ×2 (19:03→23:20)
[2021-03-11 01:34] LABS: Glucose,Whole Blood 132 mg/dL (75-99)
[2021-03-11] MEDS: HYDROmorphone 1 MG/ML 1 ML SYRINGE IVP PRN ×2 (04:40→20:51)
[2021-03-11 05:49] LABS: Basophils % (A) 0 %; Eosinophils % (A) 0 %; HCT 39.7 % (39.0-53.0); HGB 13.1 gm/dL (13.0-17.5); Lymphocytes # (A) 0.6 k/uL (1.0-4.8); Lymphocytes % (A) 5 %; MCH 31.1 pg (25.0-35.0); MCV 94.3 fL (80.0-100.0); Mean Platelet Volume 7.4; Monocytes # (A) 0.6 k/uL (0-1.0); Monocytes % (A) 5 %; Neutrophils # (A) 10.9 k/uL (1.3-7.7); Neutrophils % (A) 89 %; Platelet Count 233 k/uL (150-450); RBC 4.21 m/uL (4.30-5.90); RDW 12.7 % (11.5-15.5); WBC 12.3 k/uL (3.8-10.6)
[2021-03-11 05:55] LABS: Ionized Calcium 4.4 mg/dL (4.5-5.3)
[2021-03-11 06:14] LABS: Magnesium 2.5 mg/dL (1.6-2.3); Phosphorus 2.9 mg/dL (2.5-4.5)
[2021-03-11 06:19] LABS: ALT 72 U/L (4-49); AST 66 U/L (17-59); African American GFR (CKD) >90 (>60 ml/min/1.73 sqM); Albumin 2.1 g/dL (3.5-5.0); Alkaline Phosphatase 70 U/L (38-126); Anion Gap 6 mmol/L; Blood Urea Nitrogen 20 mg/dL (9-20); Carbon Dioxide 27 mmol/L (22-30); Chloride 102 mmol/L (98-107); Glucose 111 mg/dL (74-99); LDH 1011 U/L (313-618); Non-African American GFR(CKD) >90 (>60 ml/min/1.73 sqM); Potassium 4.4 mmol/L (3.5-5.1); Sodium 135 mmol/L (137-145); Total Bilirubin 0.8 mg/dL (0.2-1.3); Total Protein 4.8 g/dL (6.3-8.2)
[2021-03-11 06:32] LABS: C Reactive Protein 24.6 mg/dL (<1.0)
--- NOTE | 2021-03-11 07:23 | XR ---
EXAMINATION TYPE: XR chest 1V portable DATE OF EXAM: 03/11/2021 COMPARISON: Chest x-ray 03/09/2021 HISTORY: Extubated, abnormal chest x-ray TECHNIQUE: Single frontal view of the chest is obtained. FINDINGS: Endotracheal tube and NG tube have been removed. Bilateral airspace disease persists. Card iac mediastinal silhouette is stable. There is contrast material within the colon. No evident pneumot horax or pleural effusion. There are overlying artifacts. Lung volumes are low. IMPRESSION: Correlate for pneumonia
[2021-03-11] MEDS: PIPERACILLIN-TAZOBACTAM 3.375 GM in SODIUM CHLORIDE 0.9% 100 ML IVPB SCH ×2 (08:46→15:58)
[2021-03-11] MEDS: ENOXAPARIN 40 MG/0.4 ML SYRINGE SQ SCH ×2 (08:46→22:10)
[2021-03-11] MEDS: DEXAMETHASONE SOD PHOSPHATE 10 MG/ML 1 ML VIAL IVP SCH (08:46)
[2021-03-11] MEDS: CHOLECALCIFEROL 125 MCG (5000 IU) TABLET PO SCH (08:47)
[2021-03-11] MEDS: ASCORBIC ACID 500 MG TAB PO SCH (08:47)
[2021-03-11] MEDS: BENZONATATE 100 MG CAP PO SCH ×3 (08:47→20:57)
[2021-03-11] MEDS: ZINC SULFATE 220 MG CAP PO SCH (08:48)
[2021-03-11] MEDS: VANCOMYCIN 1,250 MG in SODIUM CHLORIDE 0.9% 250 ML IVPB SCH (09:11)
[2021-03-11] MEDS: SYMBICORT 80-4.5 MCG INHALER INHALATION SCH ×2 (09:23→21:06)
--- NOTE | 2021-03-11 10:12 | P.PN ---
Subjective Progress Note Date: 03/11/21 Pt extubated last night, and is doing very well on 4L of NC. Markers of inflammation are downtrending. Continues on vancomycin and zosyn, micro growing GNRs and group D enterococcus; ID consulted, and they will adjust abx as needed as well as add fungal coverage if needed. Objective - Vital Signs Vital signs: Vital Signs Temp 97.8 F 03/11/21 08:00 Pulse 70 03/11/21 08:00 Resp 25 H 03/11/21 08:00 BP 104/68 03/11/21 08:00 Pulse Ox 96 03/11/21 08:00 Intake & Output 03/10/21 03/11/21 03/11/21 18:59 06:59 18:59 Intake Total 5959.216 1164 150 Output Total 660 560 115 Balance 531.558 565 35 Weight 86 kg 80 kg Intake: IV 975 1125 150 Piperacillin-Tazobactam 3 100 .375 gm In Sodium Chloride 0.9% 100 ml @ 25 mls/hr IVPB Q8HR [facility] Rx# :[id number] Sodium Chloride 0.9% 1, 975 775 150 000 ml @ 75 mls/hr IV . [id number] [facility] Rx#:[id number] Vancomycin 1,250 mg In 250 Sodium Chloride 0.9% 250 ml @ 125 mls/hr IVPB Q16H [facility] Rx#:[id number] Intake, IV Titration 216.558 Amount fentaNYL (PF). 1,000 mcg 47.242 In Sodium Chloride 0.9% 80 ml @ 0.5 MCG/KG/HR 3. 742 mls/hr IV .Q24H [facility] Rx#:[id number] propofoL 1,000 mg In 169.316 Empty Bag 1 bag @ Titrate IV .Q0M [facility] Rx#: [id number] Output: Gastric Drainage 100 Urine 560 560 115 Other: Voiding Method Indwelling Catheter Indwelling Catheter - Exam Gen: awake, alert HEENT: normocephalic, atraumatic, good hearing acuity, moist mucous membranes Resp: ventilator AC 400, FiO2 40%, PEEP 12 CVS: good distal perfusion x 4, GI: midline abdominal incision with c/d/i dressing, mild ttp : no SPT, no CVAT, tenorio catheter not present MSK: no pitting edema, no clubbing Neuro: non-focal, [place] - Labs CBC & Chem 7: 03/11/21 05:06 03/11/21 05:06 Labs: Abnormal Lab Results - Last 24 Hours (Table) 03/10/21 03/10/21 03/10/21 Range/Units 12:14 13:05 18:07 WBC (3.8-10.6) k/uL RBC (4.30-5.90) m/uL Neutrophils # (1.3-7.7) k/uL Lymphocytes # (1.0-4.8) k/uL ABG pH 7.47 H (7.35-7.45) ABG pO2 76 L (83-108) mmHg ABG HCO3 30 H (21-25) mmol/L ABG Total CO2 31 H (19-24) mmol/L Sodium (137-145) mmol/L Glucose (74-99) mg/dL POC Glucose (mg/dL) 122 H 135 H (75-99) mg/dL Calcium (8.4-10.2) mg/dL Ionized Calcium Ernesto (4.5-5.3) mg/dL Magnesium (1.6-2.3) mg/dL AST (17-59) U/L ALT (4-49) U/L Lactate Dehydrogenase (313-618) U/L C-Reactive Protein (<1.0) mg/dL Total Protein (6.3-8.2) g/dL Albumin (3.5-5.0) g/dL 03/11/21 03/11/21 03/11/21 Range/Units 01:32 05:06 05:06 WBC 12.3 H (3.8-10.6) k/uL RBC 4.21 L (4.30-5.90) m/uL Neutrophils # 10.9 H (1.3-7.7) k/uL Lymphocytes # 0.6 L (1.0-4.8) k/uL ABG pH (7.35-7.45) ABG pO2 (83-108) mmHg ABG HCO3 (21-25) mmol/L ABG Total CO2 (19-24) mmol/L Sodium 135 L (137-145) mmol/L Glucose 111 H (74-99) mg/dL POC Glucose (mg/dL) 132 H (75-99) mg/dL Calcium 7.0 L (8.4-10.2) mg/dL Ionized Calcium Ernesto 4.4 L (4.5-5.3) mg/dL Magnesium (1.6-2.3) mg/dL AST 66 H (17-59) U/L ALT 72 H (4-49) U/L Lactate Dehydrogenase 1011 H (313-618) U/L C-Reactive Protein 24.6 H (<1.0) mg/dL Total Protein 4.8 L (6.3-8.2) g/dL Albumin 2.1 L (3.5-5.0) g/dL 03/11/21 Range/Units 05:06 WBC (3.8-10.6) k/uL RBC (4.30-5.90) m/uL Neutrophils # (1.3-7.7) k/uL Lymphocytes # (1.0-4.8) k/uL ABG pH (7.35-7.45) ABG pO2 (83-108) mmHg ABG HCO3 (21-25) mmol/L ABG Total CO2 (19-24) mmol/L Sodium (137-145) mmol/L Glucose (74-99) mg/dL POC Glucose (mg/dL) (75-99) mg/dL Calcium (8.4-10.2) mg/dL Ionized Calcium Ernesto (4.5-5.3) mg/dL Magnesium 2.5 H (1.6-2.3) mg/dL AST (17-59) U/L ALT (4-49) U/L Lactate Dehydrogenase (313-618) U/L C-Reactive Protein (<1.0) mg/dL Total Protein (6.3-8.2) g/dL Albumin (3.5-5.0) g/dL Microbiology - Last 24 Hours (Table) 03/10/21 09:45 Gram Stain - Preliminary Sputum Sputum Culture - Preliminary 03/09/21 20:32 Gram Stain - Preliminary Abdomen Wound Culture - Preliminary Gram Neg Bacilli Group D Enterococcus Assessment and Plan Assessment: Sepsis with abdominal abscess -Surgery consult, s/p OR washout on 03/09 -Nothing by mouth, enteral feeding vs TPN per surgery -Vancomycin, Zosyn -Follow up cultures from operating room = GNRs and group D enterococcus -Morphine when necessary for pain control, fentanyl gtt Acute respiratory failure with hypoxia secondary to COVID 19 pneumonia -Oxygenation to be administered and titrated as needed to maintain SPO2 equal to or greater than 90% -Telemetry monitoring. -Continue trending inflammatory markers -Encourage Incentive Spirometry 10-15x hourly while awake -Steroids: Decadron 6 mg daily, day 9 of steroids. -Continue vitamin C, Vitamin D, and Zinc. -Pulmonology following, appreciate further recommendations. -DVT prophylaxis with Lovenox. -Strict Droplet plus Contact precautions -Patient received monoclonal antibodies. Out of window for Remdesivir, -Baricitinib dose 5 of 14, discontinued secondary to sepsis with abdominal abscess CODE STATUS: Full code DVT prophylaxis: Lovenox Discussed with: Patient, RN, and patient's daughter Alison Zendejas Anticipated discharge date: Clinical course to determine Anticipated discharge place: Home A total of 40 minutes was spent on the care of this complex patient more than 50% of the time was spent in counseling and care coordination. Daughter Tala: Updated on 03/09
[2021-03-11] MEDS: PANTOPRAZOLE 40 MG/10 ML VIAL IVP SCH (10:48)
[2021-03-11] MEDS: guaiFENesin-Coden 100-10MG/5ML 10 ML CUP PO SCH ×3 (10:48→20:57)
--- NOTE | 2021-03-11 11:11 | P.CONS ---
History of Present Illness - Reason for Consult Consult date: 03/10/21 intraabdominal abscess Requesting physician: Alonso Smith - Chief Complaint abd pain x few days - History of Present Illness History of present illness : Patient is 80-year-old male presented to hospital about 10 days ago for evaluation of increasing shortness of breath and cough in this patient who was diagnosed with a Covid about 10 days before presentation to the hospital patient was admitted to hospital and has been treated for his underlying Covid pneumonia patient still having abdominal pain for the patient did have a CT of abdominal pelvis completed on 03/09/2021 with evidence of abscess within the abdomen causing mass-effect on the small bowel loop in the upper abdominal patient was subsequently taken to the OR last evening patient noticed to have 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 status post exploratory laparotomy drainage of the abscess small bowel resection patient is currently in the ICU on the vent patient did not have any fever except on presentation to the hospital and has been afebrile for the last few days patient did have a white count of 19.57 is down to 14.6 today patient is currently being treated with vancomycin and Zosyn infectious disease was consulted for further management of antibiotic therapy most information has been obtained from review the chart of the nursing staff a nd the patient is currently intubated on the vent is unable to provide any history Review of system: Positive point has been mentioned in HPI complete review could not be obtained because of underlying mental status Past medical history : Reviewed, documented below Past surgical history : Reviewed, documented below Social history: Reviewed, documented below Medications: Reviewed, as documented below EXAMINATION: Vital sigans= Reviewed and documented below GENERAL DESCRIPTION: Elderly male intubated on the vent, no distress. No tachypnea or accessory muscle of respiration use. HEENT: Shows Pallor , no scleral icterus. Oral mucous membrane is dry. NECK: Trachea central, no thyromegaly. LUNGS: Unlabored breathing. Decrease intensity of breath sounds. No wheeze or crackle. HEART: S1, S2, regular rate and rhythm. ABDOMEN: Soft, no tenderness , guarding or rigidity EXTREMITIES: No edema of feet. SKIN: No rash, no masses palpable. NEUROLOGICAL: The patient is sedated on the vent LABS AND RADIOLOGY: Reviewed results see below Assessment : 1-patient with abdominal abscess from jejunal perforation in this patient who is status post laparotomy drainage of the abscess and small bowel resection in this patient abdominal culture now showing Enterococcus and gram- negative bacilli with ID and sensitivities are currently pending Plan: 1-we will continue patient on vancomycin and Zosyn while waiting for the ID and sensitivity of this pathogen however we will have to monitor his kidney function very closely with this antibiotic combination 2-gentle IV fluid We will follow on clinical condition and cultures to further adjust medication if needed Thank you for this consultation we will follow the patient along with you Past Medical History Past Medical History: No Reported History History of Any Multi-Drug Resistant Organisms: None Reported Past Surgical History: Orthopedic Surgery Past Psychological History: No Psychological Hx Reported Smoking Status: Former smoker Past Alcohol Use History: Occasional Past Drug Use History: None Reported Medications and Allergies Home Medications Medication Instructions Recorded Confirmed Type Budesonide/Formoterol Fumarate 2 puff INHALATION RT-BID 03/01/21 03/01/21 History [Symbicort 80-4.5 Mcg Inhaler] Levofloxacin [Levaquin] 750 mg PO DAILY 03/01/21 03/01/21 History guaiFENesin-Coden 100-10MG/5ML 10 ml PO Q6H PRN 03/01/21 03/01/21 History [Robitussin AC] Allergies Allergy/AdvReac Type Severity Reaction Status Date / Time No Known Allergies Allergy Verified 03/01/21 12:50 Physical Exam Vitals: Vital Signs Temp Pulse Pulse Resp BP BP Pulse Ox 03/10/21 11:00 76 22 87/66 99 03/10/21 10:00 76 22 92/66 100 03/10/21 09:00 73 22 94/68 100 03/10/21 08:00 98.2 F 77 25 H 86/69 100 03/10/21 07:00 76 18 88/65 100 03/10/21 06:00 74 24 97/66 100 03/10/21 05:00 77 23 85/66 100 03/10/21 04:00 98.1 F 77 23 93/67 100 03/10/21 03:00 79 27 H 91/65 100 03/09/21 16:34 90 L 03/09/21 16:26 97.6 F 107 H 17 171/93 90 L 03/09/21 14:24 98.8 F 103 H 17 112/67 92 L Intake and Output 03/09/21 03/10/21 03/10/21 22:59 06:59 14:59 Intake Total 1150 741.766 316.306 Output Total 320 360 70 Balance 830 381.766 246.306 Intake: IV 1150 725 150 Piperacillin-Tazobactam 3 0 125 .375 gm In Sodium Chloride 0.9% 100 ml @ 25 mls/hr IVPB Q8HR [facility] Rx# :[id number] Sodium Chloride 0.9% 1, 150 600 150 000 ml @ 75 mls/hr IV . [id number] [facility] Rx#:[id number] Intake, IV Titration 16.766 166.306 Amount propofoL 1,000 mg In 16.766 166.306 Empty Bag 1 bag @ Titrate IV .Q0M [facility] Rx#: [id number] Output: Urine 270 360 70 Estimated Blood Loss 50 Other: Voiding Method Indwelling Catheter Indwelling Catheter Weight 86 kg Results CBC & Chem 7: 03/11/21 05:06 03/11/21 05:06 Labs: Abnormal Lab Results - Last 24 Hours (Table) 03/09/21 03/09/21 03/09/21 Range/Units 15:10 15:10 21:02 WBC (3.8-10.6) k/uL Neutrophils # (1.3-7.7) k/uL Lymphocytes # (1.0-4.8) k/uL PT 12.9 H (9.0-12.0) sec INR 1.2 H (<1.2) D-Dimer (<0.60) mg/L FEU ABG pH (7.35-7.45) ABG pCO2 (35-45) mmHg ABG pO2 (83-108) mmHg ABG HCO3 (21-25) mmol/L ABG Total CO2 (19-24) mmol/L ABG O2 Saturation (94-97) % Sodium 126 L (137-145) mmol/L Chloride 92 L (98-107) mmol/L BUN 26 H (9-20) mg/dL Glucose 238 H (74-99) mg/dL POC Glucose (mg/dL) 152 H (75-99) mg/dL Calcium 7.9 L (8.4-10.2) mg/dL Total Bilirubin (0.2-1.3) mg/dL ALT (4-49) U/L Lactate Dehydrogenase (313-618) U/L C-Reactive Protein (<1.0) mg/dL Total Protein (6.3-8.2) g/dL Albumin (3.5-5.0) g/dL 03/09/21 03/09/21 03/09/21 Range/Units 21:25 22:50 23:28 WBC 11.6 H (3.8-10.6) k/uL Neutrophils # 10.2 H (1.3-7.7) k/uL Lymphocytes # 0.9 L (1.0-4.8) k/uL PT (9.0-12.0) sec INR (<1.2) D-Dimer (<0.60) mg/L FEU ABG pH (7.35-7.45) ABG pCO2 47 H (35-45) mmHg ABG pO2 (83-108) mmHg ABG HCO3 29 H (21-25) mmol/L ABG Total CO2 30 H (19-24) mmol/L ABG O2 Saturation 97.8 H (94-97) % Sodium (137-145) mmol/L Chloride (98-107) mmol/L BUN (9-20) mg/dL Glucose (74-99) mg/dL POC Glucose (mg/dL) 161 H (75-99) mg/dL Calcium (8.4-10.2) mg/dL Total Bilirubin (0.2-1.3) mg/dL ALT (4-49) U/L Lactate Dehydrogenase (313-618) U/L C-Reactive Protein (<1.0) mg/dL Total Protein (6.3-8.2) g/dL Albumin (3.5-5.0) g/dL 03/10/21 03/10/21 03/10/21 Range/Units 05:18 05:18 05:18 WBC 14.6 H (3.8-10.6) k/uL Neutrophils # 12.9 H (1.3-7.7) k/uL Lymphocytes # 0.9 L (1.0-4.8) k/uL PT (9.0-12.0) sec INR (<1.2) D-Dimer 14.11 H (<0.60) mg/L FEU ABG pH (7.35-7.45) ABG pCO2 (35-45) mmHg ABG pO2 (83-108) mmHg ABG HCO3 (21-25) mmol/L ABG Total CO2 (19-24) mmol/L ABG O2 Saturation (94-97) % Sodium 129 L (137-145) mmol/L Chloride (98-107) mmol/L BUN (9-20) mg/dL Glucose 135 H (74-99) mg/dL POC Glucose (mg/dL) (75-99) mg/dL Calcium 7.3 L (8.4-10.2) mg/dL Total Bilirubin 1.7 H (0.2-1.3) mg/dL ALT 88 H (4-49) U/L Lactate Dehydrogenase 776 H (313-618) U/L C-Reactive Protein 32.4 H (<1.0) mg/dL Total Protein 5.1 L (6.3-8.2) g/dL Albumin 2.2 L (3.5-5.0) g/dL 03/10/21 03/10/21 03/10/21 Range/Units 06:25 06:57 12:14 WBC (3.8-10.6) k/uL Neutrophils # (1.3-7.7) k/uL Lymphocytes # (1.0-4.8) k/uL PT (9.0-12.0) sec INR (<1.2) D-Dimer (<0.60) mg/L FEU ABG pH 7.47 H (7.35-7.45) ABG pCO2 (35-45) mmHg ABG pO2 161 H (83-108) mmHg ABG HCO3 30 H (21-25) mmol/L ABG Total CO2 31 H (19-24) mmol/L ABG O2 Saturation 99.8 H (94-97) % Sodium (137-145) mmol/L Chloride (98-107) mmol/L BUN (9-20) mg/dL Glucose (74-99) mg/dL POC Glucose (mg/dL) 119 H 122 H (75-99) mg/dL Calcium (8.4-10.2) mg/dL Total Bilirubin (0.2-1.3) mg/dL ALT (4-49) U/L Lactate Dehydrogenase (313-618) U/L C-Reactive Protein (<1.0) mg/dL Total Protein (6.3-8.2) g/dL Albumin (3.5-5.0) g/dL Microbiology - Last 24 Hours (Table) 03/09/21 20:32 Gram Stain - Preliminary Abdomen Wound Culture - Preliminary 03/09/21 20:32 Anaerobic Culture - Preliminary Abdomen
--- NOTE | 2021-03-11 12:01 | P.PN ---
Subjective Progress Note Date: 03/11/21 Principal diagnosis: Small bowel perforation Patient doing much better today. Oxygen requirements are improved. Says he has mild pain with movement. White blood cell count 12.3. Denies nausea or vomiting. Objective - Vital Signs Vital signs: Vital Signs Temp 97.8 F 03/11/21 08:00 Pulse 67 03/11/21 11:00 Resp 28 H 03/11/21 11:00 BP 114/71 03/11/21 11:00 Pulse Ox 97 03/11/21 11:00 Intake & Output 03/10/21 03/11/21 03/11/21 18:59 06:59 18:59 Intake Total 0818.992 7630 700 Output Total 660 560 255 Balance 531.558 565 445 Weight 86 kg 80 kg Intake: IV 975 1125 700 Piperacillin-Tazobactam 3 100 75 .375 gm In Sodium Chloride 0.9% 100 ml @ 25 mls/hr IVPB Q8HR [facility] Rx# :[id number] Sodium Chloride 0.9% 1, 975 775 375 000 ml @ 75 mls/hr IV . [id number] [facility] Rx#:[id number] Vancomycin 1,250 mg In 250 250 Sodium Chloride 0.9% 250 ml @ 125 mls/hr IVPB Q16H [facility] Rx#:[id number] Intake, IV Titration 216.558 Amount fentaNYL (PF). 1,000 mcg 47.242 In Sodium Chloride 0.9% 80 ml @ 0.5 MCG/KG/HR 3. 742 mls/hr IV .Q24H [facility] Rx#:[id number] propofoL 1,000 mg In 169.316 Empty Bag 1 bag @ Titrate IV .Q0M [facility] Rx#: [id number] Output: Gastric Drainage 100 Urine 560 560 255 Other: Voiding Method Indwelling Catheter Indwelling Catheter Indwelling Catheter - Exam Abdomen: Soft, mild distention, mild tenderness, dressing clean and dry - Labs CBC & Chem 7: 03/11/21 05:06 03/11/21 05:06 Labs: Abnormal Lab Results - Last 24 Hours (Table) 03/10/21 03/10/21 03/10/21 Range/Units 12:14 13:05 18:07 WBC (3.8-10.6) k/uL RBC (4.30-5.90) m/uL Neutrophils # (1.3-7.7) k/uL Lymphocytes # (1.0-4.8) k/uL ABG pH 7.47 H (7.35-7.45) ABG pO2 76 L (83-108) mmHg ABG HCO3 30 H (21-25) mmol/L ABG Total CO2 31 H (19-24) mmol/L Sodium (137-145) mmol/L Glucose (74-99) mg/dL POC Glucose (mg/dL) 122 H 135 H (75-99) mg/dL Calcium (8.4-10.2) mg/dL Ionized Calcium Ernesto (4.5-5.3) mg/dL Magnesium (1.6-2.3) mg/dL AST (17-59) U/L ALT (4-49) U/L Lactate Dehydrogenase (313-618) U/L C-Reactive Protein (<1.0) mg/dL Total Protein (6.3-8.2) g/dL Albumin (3.5-5.0) g/dL 03/11/21 03/11/21 03/11/21 Range/Units 01:32 05:06 05:06 WBC 12.3 H (3.8-10.6) k/uL RBC 4.21 L (4.30-5.90) m/uL Neutrophils # 10.9 H (1.3-7.7) k/uL Lymphocytes # 0.6 L (1.0-4.8) k/uL ABG pH (7.35-7.45) ABG pO2 (83-108) mmHg ABG HCO3 (21-25) mmol/L ABG Total CO2 (19-24) mmol/L Sodium 135 L (137-145) mmol/L Glucose 111 H (74-99) mg/dL POC Glucose (mg/dL) 132 H (75-99) mg/dL Calcium 7.0 L (8.4-10.2) mg/dL Ionized Calcium Ernesto 4.4 L (4.5-5.3) mg/dL Magnesium (1.6-2.3) mg/dL AST 66 H (17-59) U/L ALT 72 H (4-49) U/L Lactate Dehydrogenase 1011 H (313-618) U/L C-Reactive Protein 24.6 H (<1.0) mg/dL Total Protein 4.8 L (6.3-8.2) g/dL Albumin 2.1 L (3.5-5.0) g/dL 03/11/21 Range/Units 05:06 WBC (3.8-10.6) k/uL RBC (4.30-5.90) m/uL Neutrophils # (1.3-7.7) k/uL Lymphocytes # (1.0-4.8) k/uL ABG pH (7.35-7.45) ABG pO2 (83-108) mmHg ABG HCO3 (21-25) mmol/L ABG Total CO2 (19-24) mmol/L Sodium (137-145) mmol/L Glucose (74-99) mg/dL POC Glucose (mg/dL) (75-99) mg/dL Calcium (8.4-10.2) mg/dL Ionized Calcium Ernesto (4.5-5.3) mg/dL Magnesium 2.5 H (1.6-2.3) mg/dL AST (17-59) U/L ALT (4-49) U/L Lactate Dehydrogenase (313-618) U/L C-Reactive Protein (<1.0) mg/dL Total Protein (6.3-8.2) g/dL Albumin (3.5-5.0) g/dL Microbiology - Last 24 Hours (Table) 03/10/21 09:45 Gram Stain - Preliminary Sputum Sputum Culture - Preliminary 03/09/21 20:32 Gram Stain - Preliminary Abdomen Wound Culture - Preliminary Gram Neg Bacilli Group D Enterococcus Assessment and Plan (1) Abdominal abscess Narrative/Plan: Patient doing much better than expected at this time. Continue ICU observation. Keep nothing by mouth. Continue broad-spectrum antibiotics. Current Visit: Yes Status: Acute Code(s): [id number] - SNOMED Code(s): 86491937
--- NOTE | 2021-03-11 12:07 | P.PN ---
Subjective Progress Note Date: 03/11/21 Principal diagnosis: Acute hypoxic respiratory failure secondary to COVID-19 pneumonia, acute bowel perforation and abdominal abscess and abdominal sepsis 03/05/2031, seeing the patient for a follow-up. He was seen in follow-up yesterday and the patient was on 11 L of oxygen by nasal cannula. Note that his oxygen requirements have been fluctuating from 15 L down to 11 L and subsequently, earlier this morning the patient got more short of breath. The patient became hypoxic. Based on that, the patient was placed on 15 L of oxygen by nasal cannula and 100% nonrebreather facemask we'll also provide to bring the saturation up to 95%. He feels weak. He feel tired and fatigued. He is afebrile for now. His breathing is labored and the patient is having frequent cough and spells. He remains on Decadron 6 mg IV every 24 hours. On today's evaluation, I also decided to start the patient on Baricitinib physical specially with a worsening and oxygenation. Noted the patient had a negative Doppler of the lower extremity. The patient also has a negative CT angiogram f or pulmonary embolism. The patient remains on Lovenox 40 mg subcu on a daily basis. The blood work from today shows a white cell, 70.4 with a hemoglobin of 16, d-dimer is above 34, creatinine is at 0.6 with a BUN of 17, LDH level is up to 1554 and CRP level is at 6.8. LFTs are slightly abnormal with an AST of 127, AST of 87. His condition decompensated compared to yesterday. Reevaluated today on 03/06/2021, and remains on high flow nasal cannula and nonrebreather mask at 15 L/m, O2 saturation is in the low 90s. Continues to have shortness of breath with activity, but overall the patient is doing better than expected. Patient continues stated that he is feeling much better compared to how he felt yesterday. Workup for DVT and from embolic disease/pulmonary embolism was negative. D-dimer is quite elevated over 54. WBC count is 17.1 hemoglobin 16.2. LDH is down to 515 and his C-reactive protein is 8. On 03/07/2021 patient seen in follow-up on medical surgical floor, he remains on high flow oxygen at 15 L per high flow nasal cannula and 100% nonrebreather mask, patient desaturates with any activity, and it takes him quite a while to recover his pulse ox above 90% range. He has been very compliant with self repositioning, still coughing quite a bit. Patient is afebrile, blood pressure stable. Showing bilateral airspace disease, low lung volumes, no pneumothorax or pleural effusion. Today's labs show persistently elevated d-dimer in the Lovenox dose was increased yesterday to 40 mg twice daily, LDH on yesterday's labs was improving today's level is pending, CRP was 87 yesterday's labs, improved since admission, current treatment consists of Baricitinib, Decadron, Lovenox 40 mg twice daily and COVID-19 vitamins. On 03/08/2021 patient seen in follow-up on medical surgical floor, he is awake and alert, he sitting up in bed, does not appear to be in any distress, she remains on high flow oxygen at 15 L per high flow nasal cannula in the 100% nonrebreather mask, his pulse ox is 93%, he states his cough has improved, still has a cough at times, which is dry, nonproductive, lung sounds are positive for mild crackles at bilateral bases, no fever or chills, vital signs of stable overnight, today's labs are pending. Chest x-ray is pending. Overall clinical c ondition has remained stable in the last 24 hours, appetite is fair, denies any nausea vomiting or diarrhea. On 03/09/2021 patient seen in follow-up on medical surgical floor, he remains on same amount of oxygen, 15 L per high flow and 100% nonrebreather mask, his breathing has been fairly stable however today he developed acute abdominal pain, across his lower abdomen. His abdomen is distended, is slightly tympanic, it is tender to palpation, he is slightly nauseous, and he states he hasn't had a bowel movement in several days. He states he had passed some gas, his bowel sounds are hypoactive. He has been eating very little in the last few days. Today's vitals revealed temperature of 98.3, heart rate of 90, regular, sinus mechanism, blood pressure 92/56. His pulse ox on the 15th liters high flow and nonrebreather mask are 92-95%, lung sounds reveal scattered crackles, unchanged from previous pulmonary exams. CT of the abdomen with oral contrast is currently pending, patient is currently nothing by mouth. Today's labs have been reviewed, his white count has increased and is up to 19.5, hemoglobin is 16.8, his d-dimer is currently 11.8, his sodium has decreased and is down to 129 on today's labs, potassium is 4.6, chloride is 92, CO2 31, B1 is 23 creatinine 0.78, his AST is 52, ALT is 108, alk phos is 103, his LDH has further increased and is up to 1741, CRP is 20.4. Patient remains on Baricitinib, Lovenox twice daily, Decadron 6 mg twice daily. Reevaluated today on 03/10/2021, patient was readmitted back to the ICU last night on mechanical ventilation. Patient underwent exploratory laparotomy yesterday, drainage of abdominal abscess, and small bowel resection. 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 Hence he required drainage of abdominal abscess and small bowel resection by Dr. duncan. He is in the ICU right now, he is on assist control rate of 22 tidal volume 400 FiO2 45% and PEEP of 12. ABG showed a pO2 of 161 pCO2 41 pH of 7.47. His chest x-ray shows bilateral infiltrates consistent with COVID-19 pneumonia. Patient is on propofol at 25 sentinel at 0.9, and I have recommended stopping both, possibly transition to Precedex, and may even give the patient today a weaning trial. His d-dimer is 14.1 but he had a negative CT angiogram on admission LDH is not that significan tly elevated 776 C-reactive protein is 32. WBC count is 14.6 hemoglobin is 15.0 electrolytes are normal except for low sodium of 129 BUN is 20 creatinine 0.72. Patient remains on the COVID-19 cocktail including vitamin D, Decadron 6 mg IV push daily, Lovenox 40 mg subcu twice a day, and he is on zinc, patient was started on antibiotics yesterday in the form of vancomycin and Zosyn, to be seen by infectious disease on consultation Reevaluated today on 03/11/2021, patient remains in the ICU he is off mechanical ventilation, I was able to extubate the patient yesterday. Patient is on 4 L nasal cannula, initially I extubated the patient to BiPAP because of his underlying COVID-19 pneumonia. Patient tolerated BiPAP well, and we were able to transition the patient to 4 L. Patient is comfortable, not in distress, remains on antibiotics in the form of Zosyn and vancomycin. His IV fluid is 0.9 at 100 mL per hour. WBC count today is 12.3 hemoglobin 13.1. Basic metabolic profile is normal. LDH is 1011. C-reactive protein is 24.6. Chest x-ray continues to show bilateral arms. Disease consistent with COVID-19 pneumonia. Objective - Vital Signs Vital signs: Vital Signs Temp 97.8 F 03/11/21 08:00 Pulse 67 03/11/21 11:00 Resp 28 H 03/11/21 11:00 BP 114/71 03/11/21 11:00 Pulse Ox 97 03/11/21 11:00 Intake & Output 03/10/21 03/11/21 03/11/21 18:59 06:59 18:59 Intake Total 2651.074 2302 700 Output Total 660 560 255 Balance 531.558 565 445 Weight 86 kg 80 kg Intake: IV 975 1125 700 Piperacillin-Tazobactam 3 100 75 .375 gm In Sodium Chloride 0.9% 100 ml @ 25 mls/hr IVPB Q8HR [facility] Rx# :[id number] Sodium Chloride 0.9% 1, 975 775 375 000 ml @ 75 mls/hr IV . [id number] [facility] Rx#:[id number] Vancomycin 1,250 mg In 250 250 Sodium Chloride 0.9% 250 ml @ 125 mls/hr IVPB Q16H [facility] Rx#:[id number] Intake, IV Titration 216.558 Amount fentaNYL (PF). 1,000 mcg 47.242 In Sodium Chloride 0.9% 80 ml @ 0.5 MCG/KG/HR 3. 742 mls/hr IV .Q24H [facility] Rx#:[id number] propofoL 1,000 mg In 169.316 Empty Bag 1 bag @ Titrate IV .Q0M [facility] Rx#: [id number] Output: Gastric Drainage 100 Urine 560 560 255 Other: Voiding Method Indwelling Catheter Indwelling Catheter Indwelling Catheter - Exam Physical Exam revealed a 80-year-old white male on few liters nasal cannula, in no distress. Head: Atraumatic normocephalic. HEENT:[Neck is supple.] [No neck masses.] [No thyromegaly.] [No JVD.] Chest: [Crackles at the bases bilaterally. No rhonchi and no wheezes. Cardiac Exam: [Normal S1 and S2, no S3 gallop, no murmur.] Abdomen: Postsurgical soft nontender no megaly, no bowel sounds. Extremities: [No clubbing, no edema, no cyanosis.] Neurological Exam: Alert and oriented 3, no gross focal deficits.. Psychiatric: Normal mood, affect and normal mental status examination. Skin: No rashes - Labs CBC & Chem 7: 03/11/21 05:06 03/11/21 05:06 Labs: Abnormal Lab Results - Last 24 Hours (Table) 03/10/21 03/10/21 03/10/21 Range/Units 12:14 13:05 18:07 WBC (3.8-10.6) k/uL RBC (4.30-5.90) m/uL Neutrophils # (1.3-7.7) k/uL Lymphocytes # (1.0-4.8) k/uL ABG pH 7.47 H (7.35-7.45) ABG pO2 76 L (83-108) mmHg ABG HCO3 30 H (21-25) mmol/L ABG Total CO2 31 H (19-24) mmol/L Sodium (137-145) mmol/L Glucose (74-99) mg/dL POC Glucose (mg/dL) 122 H 135 H (75-99) mg/dL Calcium (8.4-10.2) mg/dL Ionized Calcium Ernesto (4.5-5.3) mg/dL Magnesium (1.6-2.3) mg/dL AST (17-59) U/L ALT (4-49) U/L Lactate Dehydrogenase (313-618) U/L C-Reactive Protein (<1.0) mg/dL Total Protein (6.3-8.2) g/dL Albumin (3.5-5.0) g/dL 03/11/21 03/11/21 03/11/21 Range/Units 01:32 05:06 05:06 WBC 12.3 H (3.8-10.6) k/uL RBC 4.21 L (4.30-5.90) m/uL Neutrophils # 10.9 H (1.3-7.7) k/uL Lymphocytes # 0.6 L (1.0-4.8) k/uL ABG pH (7.35-7.45) ABG pO2 (83-108) mmHg ABG HCO3 (21-25) mmol/L ABG Total CO2 (19-24) mmol/L Sodium 135 L (137-145) mmol/L Glucose 111 H (74-99) mg/dL POC Glucose (mg/dL) 132 H (75-99) mg/dL Calcium 7.0 L (8.4-10.2) mg/dL Ionized Calcium Ernesto 4.4 L (4.5-5.3) mg/dL Magnesium (1.6-2.3) mg/dL AST 66 H (17-59) U/L ALT 72 H (4-49) U/L Lactate Dehydrogenase 1011 H (313-618) U/L C-Reactive Protein 24.6 H (<1.0) mg/dL Total Protein 4.8 L (6.3-8.2) g/dL Albumin 2.1 L (3.5-5.0) g/dL 03/11/21 Range/Units 05:06 WBC (3.8-10.6) k/uL RBC (4.30-5.90) m/uL Neutrophils # (1.3-7.7) k/uL Lymphocytes # (1.0-4.8) k/uL ABG pH (7.35-7.45) ABG pO2 (83-108) mmHg ABG HCO3 (21-25) mmol/L ABG Total CO2 (19-24) mmol/L Sodium (137-145) mmol/L Glucose (74-99) mg/dL POC Glucose (mg/dL) (75-99) mg/dL Calcium (8.4-10.2) mg/dL Ionized Calcium Ernesto (4.5-5.3) mg/dL Magnesium 2.5 H (1.6-2.3) mg/dL AST (17-59) U/L ALT (4-49) U/L Lactate Dehydrogenase (313-618) U/L C-Reactive Protein (<1.0) mg/dL Total Protein (6.3-8.2) g/dL Albumin (3.5-5.0) g/dL Microbiology - Last 24 Hours (Table) 03/10/21 09:45 Gram Stain - Preliminary Sputum Sputum Culture - Preliminary 03/09/21 20:32 Gram Stain - Preliminary Abdomen Wound Culture - Preliminary Gram Neg Bacilli Group D Enterococcus Assessment and Plan Assessment: Impression: Acute hypoxic respiratory failure secondary to COVID-19 pneumonia, patient is not vaccinated. However he did receive monoclonal antibodies on outpatient basis. Acute bowel perforation with abdominal abscess, requiring exploratory laparotomy, small bowel resection, drainage of abdominal abscess, this was done on 02/07/2021.patient was on mechanical ventilation, post surgery, however I was able to extubate the patient on 02/08/2021. And he tolerated the extubation well, however I'm still concerned that the patient had underlying COVID-19 pneumonia, and if that progresses down the line and does not improve, patient m ay have to be reintubated again. At this point in time he seems to be tolerating the extubation well, and will continue with nasal cannula. Elevated inflammatory markers secondary to COVID-19 infection and abdominal sepsis. Acute abdominal sepsis, on antibiotics in the form of Zosyn and vancomycin. Recommendation: Continue oxygen via nasal cannula and titrate accordingly. Continue antibiotics Continue COVID-19 cocktail. I'll see the patient cannot be on baricitinib, cause of his ongoing abdominal sepsis. Continue Lovenox and Decadron. As well as multivitamins. Prognosis is poor and guarded. Consider patient for TPN early next week. We will arrange for PICC line placement. Critical care time is over 30 minutes. We will continue to follow. Time with Patient: Greater than 30
[2021-03-11] MEDS: SODIUM CHLORIDE 0.9% 1,000 ML IV SCH (15:58)
[2021-03-11] MEDS ORDERED: VANCOMYCIN TROUGH DUE 1 EACH MISC MISCELLANE ONE (19:00)
[2021-03-11 19:10] LABS: Glucose,Whole Blood 110 mg/dL (75-99)
[2021-03-11] MEDS ORDERED: VANCOMYCIN 1,500 MG in SODIUM CHLORIDE 0.9% 250 ML IVPB SCH (21:00)
[2021-03-12] MEDS: guaiFENesin-Coden 100-10MG/5ML 10 ML CUP PO SCH ×4 (00:19→22:52)
--- NOTE | 2021-03-12 00:33 | PN ---
PROGRESS NOTE DATE OF SERVICE: 03/11/2021 REASON FOR FOLLOWUP: Intraabdominal abscess. INTERVAL HISTORY: Patient is afebrile. The patient is breathing comfortably the patient denies having any chest pain. Abdominal pain is currently controlled. No nausea, vomiting. PHYSICAL EXAMINATION: Blood pressure 132/73 with a pulse of 73, temperature is 97.6. He is 92% on 2 L nasal cannula. General description is an elderly male lying in bed in no distress. Respiratory system: Unlabored breathing, decreased intensity of breath sounds. No wheeze. Heart S1, S2. Regular rate and rhythm. Abdomen: Soft. Mildly tender. No guarding. No rigidity. LABS: Hemoglobin is 13.1, white count 12.3, creatinine 0.69. Vancomycin trough low at 8.2. Abdominal culture with E coli sensitive to Unasyn as well as an Enterococcus, PATIENT MIGHT BE SENSITIVE TO AMPICILLIN. 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 Culture positive for E coli Enterococcus faecium. The patient sensitive to Unasyn. Antibiotic will be adjusted to Unasyn 3 g q.6 hours. We will discontinue vancomycin and Zosyn and monitor course closely. MMODL / IJN: [id number] /
[2021-03-12] MEDS: AMPICILLIN-SULBACTAM 3 GM in SODIUM CHLORIDE 0.9% 100 ML IVPB SCH ×3 (00:40→11:26)
[2021-03-12 01:32] LABS: Glucose,Whole Blood 112 mg/dL (75-99)
[2021-03-12 03:38] LABS: Magnesium 2.7 mg/dL (1.6-2.3); Phosphorus 2.6 mg/dL (2.5-4.5)
[2021-03-12 03:44] LABS: Chloride 104 mmol/L (98-107)
[2021-03-12 03:49] LABS: ALT 109 U/L (4-49); AST 105 U/L (17-59); African American GFR (CKD) >90 (>60 ml/min/1.73 sqM); Albumin 2.2 g/dL (3.5-5.0); Alkaline Phosphatase 59 U/L (38-126); Anion Gap 2 mmol/L; Blood Urea Nitrogen 23 mg/dL (9-20); Calcium 7.2 mg/dL (8.4-10.2); Carbon Dioxide 27 mmol/L (22-30); Glucose 101 mg/dL (74-99); LDH 965 U/L (313-618); Non-African American GFR(CKD) >90 (>60 ml/min/1.73 sqM); Potassium 4.5 mmol/L (3.5-5.1); Sodium 133 mmol/L (137-145); Total Bilirubin 0.7 mg/dL (0.2-1.3); Total Protein 4.9 g/dL (6.3-8.2)
[2021-03-12 04:01] LABS: C Reactive Protein 14.5 mg/dL (<1.0)
[2021-03-12] MEDS: SODIUM CHLORIDE 0.9% 1,000 ML IV SCH ×2 (04:48→15:43)
[2021-03-12 06:20] LABS: Glucose,Whole Blood 100 mg/dL (75-99)
--- NOTE | 2021-03-12 07:07 | XR ---
EXAMINATION TYPE: XR chest 1V portable DATE OF EXAM: 03/12/2021 5:47 AM COMPARISON:Chest radiograph from one day prior. CLINICAL INDICATION:Male, 80 years old with history of Tube placement; TECHNIQUE: Portable AP radiograph of the chest.. FINDINGS: Lungs/Pleura: Similar multifocal airspace opacities. No evidence of pneumothorax or pleural effusion. Pulmonary vascularity: Unremarkable. Heart/mediastinum: Cardiomediastinal silhouette is unremarkable. Musculoskeletal: No acute osseous pathology. IMPRESSION: Similar multifocal pneumonia.
[2021-03-12] MEDS: HYDROmorphone 1 MG/ML 1 ML SYRINGE IVP PRN ×3 (07:09→21:48)
[2021-03-12] MEDS: CHOLECALCIFEROL 125 MCG (5000 IU) TABLET PO SCH (07:38)
[2021-03-12] MEDS: ZINC SULFATE 220 MG CAP PO SCH (07:38)
[2021-03-12] MEDS: BENZONATATE 100 MG CAP PO SCH ×3 (07:38→22:52)
[2021-03-12] MEDS: ASCORBIC ACID 500 MG TAB PO SCH (07:38)
[2021-03-12] MEDS: PANTOPRAZOLE 40 MG/10 ML VIAL IVP SCH (08:24)
[2021-03-12] MEDS: DEXAMETHASONE SOD PHOSPHATE 10 MG/ML 1 ML VIAL IVP SCH (08:24)
[2021-03-12] MEDS: ENOXAPARIN 40 MG/0.4 ML SYRINGE SQ SCH ×2 (08:25→20:27)
--- NOTE | 2021-03-12 10:16 | P.PN ---
Subjective Progress Note Date: 03/12/21 Principal diagnosis: Small bowel perforation Patient doing well today. Says his pain is improved. Respiratory status seems improved as well. No nausea or vomiting. He is passing flatus. Objective - Vital Signs Vital signs: Vital Signs Temp 97.9 F 03/12/21 08:00 Pulse 66 03/12/21 10:00 Resp 26 H 03/12/21 10:00 BP 123/62 03/12/21 10:00 Pulse Ox 90 L 03/12/21 10:00 Intake & Output 03/11/21 03/12/21 03/12/21 18:59 06:59 18:59 Intake Total 1175 1350 300 Output Total 675 925 305 Balance 500 425 -5 Weight 80 kg Intake: IV 1175 1350 300 Ampicillin-Sulbactam 3 gm 100 In Sodium Chloride 0.9% 100 ml @ 200 mls/hr IVPB Q6HR [facility] Rx#:[id number] Piperacillin-Tazobactam 3 100 100 .375 gm In Sodium Chloride 0.9% 100 ml @ 25 mls/hr IVPB Q8HR [facility] Rx# :[id number] Sodium Chloride 0.9% 1, 825 900 300 000 ml @ 75 mls/hr IV . [id number] [facility] Rx#:[id number] Vancomycin 1,250 mg In 250 250 Sodium Chloride 0.9% 250 ml @ 125 mls/hr IVPB Q16H [facility] Rx#:[id number] Output: Urine 675 925 305 Other: Voiding Method Indwelling Catheter Indwelling Catheter Indwelling Catheter - Exam Abdomen: Soft, minimal distention, mild tenderness, incision clean and dry with minimal drainage at wick sites - Labs CBC & Chem 7: 03/11/21 05:06 03/12/21 03:05 Labs: Abnormal Lab Results - Last 24 Hours (Table) 03/11/21 03/12/21 03/12/21 Range/Units 19:09 01:31 03:05 Sodium 133 L (137-145) mmol/L BUN 23 H (9-20) mg/dL Creatinine 0.65 L (0.66-1.25) mg/dL Glucose 101 H (74-99) mg/dL POC Glucose (mg/dL) 110 H 112 H (75-99) mg/dL Calcium 7.2 L (8.4-10.2) mg/dL Magnesium (1.6-2.3) mg/dL AST 105 H (17-59) U/L ALT 109 H (4-49) U/L Lactate Dehydrogenase 965 H (313-618) U/L C-Reactive Protein 14.5 H (<1.0) mg/dL Total Protein 4.9 L (6.3-8.2) g/dL Albumin 2.2 L (3.5-5.0) g/dL 03/12/21 03/12/21 Range/Units 03:05 06:18 Sodium (137-145) mmol/L BUN (9-20) mg/dL Creatinine (0.66-1.25) mg/dL Glucose (74-99) mg/dL POC Glucose (mg/dL) 100 H (75-99) mg/dL Calcium (8.4-10.2) mg/dL Magnesium 2.7 H (1.6-2.3) mg/dL AST (17-59) U/L ALT (4-49) U/L Lactate Dehydrogenase (313-618) U/L C-Reactive Protein (<1.0) mg/dL Total Protein (6.3-8.2) g/dL Albumin (3.5-5.0) g/dL Microbiology - Last 24 Hours (Table) 03/09/21 20:32 Gram Stain - Final Abdomen Wound Culture - Final Escherichia coli Enterococcus faecium 03/10/21 09:45 Gram Stain - Preliminary Sputum Sputum Culture - Preliminary Assessment and Plan (1) Abdominal abscess Narrative/Plan: Patient doing well at this time. Agree with downgrading from ICU. Begin sips of liquids. Abdominal binder. Continue antibiotics. Current Visit: Yes Status: Acute Code(s): [id number] - SNOMED Code(s): 77047061
[2021-03-12] MEDS: SYMBICORT 80-4.5 MCG INHALER INHALATION SCH ×2 (10:37→20:12)
[2021-03-12] MEDS: FLUCONAZOLE IN NACL,ISO-OSM 100 MG in SALINE 1 50ML.BAG IVPB SCH (11:24)
[2021-03-12 12:07] LABS: Glucose,Whole Blood 92 mg/dL (75-99)
--- NOTE | 2021-03-12 13:02 | P.PN ---
Subjective Progress Note Date: 03/12/21 Principal diagnosis: Acute hypoxic respiratory failure secondary to COVID-19 pneumonia, acute bowel perforation and abdominal abscess and abdominal sepsis 03/05/2031, seeing the patient for a follow-up. He was seen in follow-up yesterday and the patient was on 11 L of oxygen by nasal cannula. Note that his oxygen requirements have been fluctuating from 15 L down to 11 L and subsequently, earlier this morning the patient got more short of breath. The patient became hypoxic. Based on that, the patient was placed on 15 L of oxygen by nasal cannula and 100% nonrebreather facemask we'll also provide to bring the saturation up to 95%. He feels weak. He feel tired and fatigued. He is afebrile for now. His breathing is labored and the patient is having frequent cough and spells. He remains on Decadron 6 mg IV every 24 hours. On today's evaluation, I also decided to start the patient on Baricitinib physical specially with a worsening and oxygenation. Noted the patient had a negative Doppler of the lower extremity. The patient also has a negative CT angiogram f or pulmonary embolism. The patient remains on Lovenox 40 mg subcu on a daily basis. The blood work from today shows a white cell, 70.4 with a hemoglobin of 16, d-dimer is above 34, creatinine is at 0.6 with a BUN of 17, LDH level is up to 1554 and CRP level is at 6.8. LFTs are slightly abnormal with an AST of 127, AST of 87. His condition decompensated compared to yesterday. Reevaluated today on 03/06/2021, and remains on high flow nasal cannula and nonrebreather mask at 15 L/m, O2 saturation is in the low 90s. Continues to have shortness of breath with activity, but overall the patient is doing better than expected. Patient continues stated that he is feeling much better compared to how he felt yesterday. Workup for DVT and from embolic disease/pulmonary embolism was negative. D-dimer is quite elevated over 54. WBC count is 17.1 hemoglobin 16.2. LDH is down to 515 and his C-reactive protein is 8. On 03/07/2021 patient seen in follow-up on medical surgical floor, he remains on high flow oxygen at 15 L per high flow nasal cannula and 100% nonrebreather mask, patient desaturates with any activity, and it takes him quite a while to recover his pulse ox above 90% range. He has been very compliant with self repositioning, still coughing quite a bit. Patient is afebrile, blood pressure stable. Showing bilateral airspace disease, low lung volumes, no pneumothorax or pleural effusion. Today's labs show persistently elevated d-dimer in the Lovenox dose was increased yesterday to 40 mg twice daily, LDH on yesterday's labs was improving today's level is pending, CRP was 87 yesterday's labs, improved since admission, current treatment consists of Baricitinib, Decadron, Lovenox 40 mg twice daily and COVID-19 vitamins. On 03/08/2021 patient seen in follow-up on medical surgical floor, he is awake and alert, he sitting up in bed, does not appear to be in any distress, she remains on high flow oxygen at 15 L per high flow nasal cannula in the 100% nonrebreather mask, his pulse ox is 93%, he states his cough has improved, still has a cough at times, which is dry, nonproductive, lung sounds are positive for mild crackles at bilateral bases, no fever or chills, vital signs of stable overnight, today's labs are pending. Chest x-ray is pending. Overall clinical c ondition has remained stable in the last 24 hours, appetite is fair, denies any nausea vomiting or diarrhea. On 03/09/2021 patient seen in follow-up on medical surgical floor, he remains on same amount of oxygen, 15 L per high flow and 100% nonrebreather mask, his breathing has been fairly stable however today he developed acute abdominal pain, across his lower abdomen. His abdomen is distended, is slightly tympanic, it is tender to palpation, he is slightly nauseous, and he states he hasn't had a bowel movement in several days. He states he had passed some gas, his bowel sounds are hypoactive. He has been eating very little in the last few days. Today's vitals revealed temperature of 98.3, heart rate of 90, regular, sinus mechanism, blood pressure 92/56. His pulse ox on the 15th liters high flow and nonrebreather mask are 92-95%, lung sounds reveal scattered crackles, unchanged from previous pulmonary exams. CT of the abdomen with oral contrast is currently pending, patient is currently nothing by mouth. Today's labs have been reviewed, his white count has increased and is up to 19.5, hemoglobin is 16.8, his d-dimer is currently 11.8, his sodium has decreased and is down to 129 on today's labs, potassium is 4.6, chloride is 92, CO2 31, B1 is 23 creatinine 0.78, his AST is 52, ALT is 108, alk phos is 103, his LDH has further increased and is up to 1741, CRP is 20.4. Patient remains on Baricitinib, Lovenox twice daily, Decadron 6 mg twice daily. Reevaluated today on 03/10/2021, patient was readmitted back to the ICU last night on mechanical ventilation. Patient underwent exploratory laparotomy yesterday, drainage of abdominal abscess, and small bowel resection. 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 Hence he required drainage of abdominal abscess and small bowel resection by Dr. duncan. He is in the ICU right now, he is on assist control rate of 22 tidal volume 400 FiO2 45% and PEEP of 12. ABG showed a pO2 of 161 pCO2 41 pH of 7.47. His chest x-ray shows bilateral infiltrates consistent with COVID-19 pneumonia. Patient is on propofol at 25 sentinel at 0.9, and I have recommended stopping both, possibly transition to Precedex, and may even give the patient today a weaning trial. His d-dimer is 14.1 but he had a negative CT angiogram on admission LDH is not that significan tly elevated 776 C-reactive protein is 32. WBC count is 14.6 hemoglobin is 15.0 electrolytes are normal except for low sodium of 129 BUN is 20 creatinine 0.72. Patient remains on the COVID-19 cocktail including vitamin D, Decadron 6 mg IV push daily, Lovenox 40 mg subcu twice a day, and he is on zinc, patient was started on antibiotics yesterday in the form of vancomycin and Zosyn, to be seen by infectious disease on consultation Reevaluated today on 03/11/2021, patient remains in the ICU he is off mechanical ventilation, I was able to extubate the patient yesterday. Patient is on 4 L nasal cannula, initially I extubated the patient to BiPAP because of his underlying COVID-19 pneumonia. Patient tolerated BiPAP well, and we were able to transition the patient to 4 L. Patient is comfortable, not in distress, remains on antibiotics in the form of Zosyn and vancomycin. His IV fluid is 0.9 at 100 mL per hour. WBC count today is 12.3 hemoglobin 13.1. Basic metabolic profile is normal. LDH is 1011. C-reactive protein is 24.6. Chest x-ray continues to show bilateral arms. Disease consistent with COVID-19 pneumonia. Reevaluated today on 03/12/2021, remains in the ICU, patient tolerated his extubation well since yesterday, he is still on 4 L nasal cannula, does have BiPAP at bedside but not needed. Chest x-ray continues show bilateral diffuse infiltrates consistent with COVID-19 pneumonia. Patient remains on fluconazole and on Zosyn. His electrolytes are normal with sodium of 133 potassium 4.5 chloride 104 bicarb 27 BUN 23 creatinine 0.69. LDH is 986 CRP is 14.5. Clinically the patient seems to be doing extremely well. Remains on the COVID- 19 cocktail. Remains on antibiotics and antifungals and I have discussed his condition with the surgeon/Dr. duncan, and we both agree that the patient could be transferred out of the ICU to a regular medical floor and continue treatment for his COVID-19 pneumonia. Again the patient is only on 4 L nasal cannula. Medication list was reviewed patient is on Zosyn, vitamin C, Symbicort, Decadron 6 mg IV push daily, fluconazole, Robitussin-AC, Dilaudid, melatonin, Protonix, and zinc. Objective - Vital Signs Vital signs: Vital Signs Temp 97.9 F 03/12/21 08:00 Pulse 66 03/12/21 10:00 Resp 26 H 03/12/21 10:00 BP 123/62 03/12/21 10:00 Pulse Ox 90 L 03/12/21 10:00 Intake & Output 03/11/21 03/12/21 03/12/21 18:59 06:59 18:59 Intake Total 1175 1350 300 Output Total 675 925 305 Balance 500 425 -5 Weight 80 kg Intake: IV 1175 1350 300 Ampicillin-Sulbactam 3 gm 100 In Sodium Chloride 0.9% 100 ml @ 200 mls/hr IVPB Q6HR [facility] Rx#:[id number] Piperacillin-Tazobactam 3 100 100 .375 gm In Sodium Chloride 0.9% 100 ml @ 25 mls/hr IVPB Q8HR [facility] Rx# :[id number] Sodium Chloride 0.9% 1, 825 900 300 000 ml @ 75 mls/hr IV . [id number] [facility] Rx#:[id number] Vancomycin 1,250 mg In 250 250 Sodium Chloride 0.9% 250 ml @ 125 mls/hr IVPB Q16H [facility] Rx#:[id number] Output: Urine 675 925 305 Other: Voiding Method Indwelling Catheter Indwelling Catheter Indwelling Catheter - Exam Physical Exam revealed a 80-year-old white male on4 liters nasal cannula, in no distress. Head: Atraumatic normocephalic. HEENT:[Neck is supple.] [No neck masses.] [No thyromegaly.] [No JVD.] Chest: [Crackles at the bases bilaterally. No rhonchi and no wheezes. Cardiac Exam: [Normal S1 and S2, no S3 gallop, no murmur.] Abdomen: Postsurgical soft nontender no megaly, no bowel sounds. Extremities: [No clubbing, no edema, no cyanosis.] Neurological Exam: Alert and oriented 3, no gross focal deficits.. Psychiatric: Normal mood, affect and normal mental status examination. Skin: No rashes - Labs CBC & Chem 7: 03/11/21 05:06 03/12/21 03:05 Labs: Abnormal Lab Results - Last 24 Hours (Table) 03/11/21 03/12/21 03/12/21 Range/Units 19:09 01:31 03:05 Sodium 133 L (137-145) mmol/L BUN 23 H (9-20) mg/dL Creatinine 0.65 L (0.66-1.25) mg/dL Glucose 101 H (74-99) mg/dL POC Glucose (mg/dL) 110 H 112 H (75-99) mg/dL Calcium 7.2 L (8.4-10.2) mg/dL Magnesium (1.6-2.3) mg/dL AST 105 H (17-59) U/L ALT 109 H (4-49) U/L Lactate Dehydrogenase 965 H (313-618) U/L C-Reactive Protein 14.5 H (<1.0) mg/dL Total Protein 4.9 L (6.3-8.2) g/dL Albumin 2.2 L (3.5-5.0) g/dL 03/12/21 03/12/21 Range/Units 03:05 06:18 Sodium (137-145) mmol/L BUN (9-20) mg/dL Creatinine (0.66-1.25) mg/dL Glucose (74-99) mg/dL POC Glucose (mg/dL) 100 H (75-99) mg/dL Calcium (8.4-10.2) mg/dL Magnesium 2.7 H (1.6-2.3) mg/dL AST (17-59) U/L ALT (4-49) U/L Lactate Dehydrogenase (313-618) U/L C-Reactive Protein (<1.0) mg/dL Total Protein (6.3-8.2) g/dL Albumin (3.5-5.0) g/dL Microbiology - Last 24 Hours (Table) 03/10/21 09:45 Gram Stain - Final Sputum Sputum Culture - Final 03/09/21 20:32 Gram Stain - Final Abdomen Wound Culture - Final Escherichia coli Enterococcus faecium Assessment and Plan Assessment: Impression: Acute hypoxic respiratory failure secondary to COVID-19 pneumonia, patient is not vaccinated. However he did receive monoclonal antibodies on outpatient basis. Acute bowel perforation with abdominal abscess, requiring exploratory laparot roland, small bowel resection, drainage of abdominal abscess, this was done on 02/07/2021.patient was on mechanical ventilation, post surgery, however I was able to extubate the patient on 02/08/2021. And he tolerated the extubation well, presently on 4 L nasal cannula. And he does not seem to be in any distress. 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 Elevated inflammatory markers secondary to COVID-19 infection and abdominal sepsis. Acute abdominal sepsis, on antibiotics in the form of Zosyn and fluconazole. Recommendation: Continue oxygen via nasal cannula and titrate accordingly. Continue antibiotics, infectious disease is on the case. Continue fluconazole. Continue COVID-19 cocktail. Continue Lovenox and Decadron. As well as multivitamins. Doses remains relatively guarded considering his COVID-19 infection. Possible TPN in the next 24 hours Transfer the patient to a medical surgical floor today. Discussed his status with the surgeon on the case. We will continue to follow. Time with Patient: Less than 30
--- NOTE | 2021-03-12 14:01 | P.PN ---
Subjective Progress Note Date: 03/12/21 Patient is doing well on 4 L nasal cannula. Patient's microbiology returned positive for Enterococcus faecium serum as well as E. coli, the E. coli is positive for ESBL, the enterococcus is sensitive to penicillin. Patient is presently on Unasyn and fluconazole. Has been passing flatus. Surgery okayed patient to be advanced to clears. Objective - Vital Signs Vital signs: Vital Signs Temp 97.9 F 03/12/21 08:00 Pulse 66 03/12/21 10:00 Resp 26 H 03/12/21 10:00 BP 123/62 03/12/21 10:00 Pulse Ox 90 L 03/12/21 10:00 Intake & Output 03/11/21 03/12/21 03/12/21 18:59 06:59 18:59 Intake Total 1175 1350 300 Output Total 675 925 305 Balance 500 425 -5 Weight 80 kg Intake: IV 1175 1350 300 Ampicillin-Sulbactam 3 gm 100 In Sodium Chloride 0.9% 100 ml @ 200 mls/hr IVPB Q6HR [facility] Rx#:[id number] Piperacillin-Tazobactam 3 100 100 .375 gm In Sodium Chloride 0.9% 100 ml @ 25 mls/hr IVPB Q8HR [facility] Rx# :[id number] Sodium Chloride 0.9% 1, 825 900 300 000 ml @ 75 mls/hr IV . [id number] [facility] Rx#:[id number] Vancomycin 1,250 mg In 250 250 Sodium Chloride 0.9% 250 ml @ 125 mls/hr IVPB Q16H [facility] Rx#:[id number] Output: Urine 675 925 305 Other: Voiding Method Indwelling Catheter Indwelling Catheter Indwelling Catheter - Exam Gen: awake, alert HEENT: normocephalic, atraumatic, good hearing acuity, moist mucous membranes Resp: Breathing comfortably without accessory muscle use CVS: good distal perfusion x 4, GI: midline abdominal incision with c/d/i dressing, mild ttp : no SPT, no CVAT, tenorio catheter not present MSK: no pitting edema, no clubbing Neuro: non-focal, BRAX[place] - Labs CBC & Chem 7: 03/11/21 05:06 03/12/21 03:05 Labs: Abnormal Lab Results - Last 24 Hours (Table) 03/11/21 03/12/21 03/12/21 Range/Units 19:09 01:31 03:05 Sodium 133 L (137-145) mmol/L BUN 23 H (9-20) mg/dL Creatinine 0.65 L (0.66-1.25) mg/dL Glucose 101 H (74-99) mg/dL POC Glucose (mg/dL) 110 H 112 H (75-99) mg/dL Calcium 7.2 L (8.4-10.2) mg/dL Magnesium (1.6-2.3) mg/dL AST 105 H (17-59) U/L ALT 109 H (4-49) U/L Lactate Dehydrogenase 965 H (313-618) U/L C-Reactive Protein 14.5 H (<1.0) mg/dL Total Protein 4.9 L (6.3-8.2) g/dL Albumin 2.2 L (3.5-5.0) g/dL 03/12/21 03/12/21 Range/Units 03:05 06:18 Sodium (137-145) mmol/L BUN (9-20) mg/dL Creatinine (0.66-1.25) mg/dL Glucose (74-99) mg/dL POC Glucose (mg/dL) 100 H (75-99) mg/dL Calcium (8.4-10.2) mg/dL Magnesium 2.7 H (1.6-2.3) mg/dL AST (17-59) U/L ALT (4-49) U/L Lactate Dehydrogenase (313-618) U/L C-Reactive Protein (<1.0) mg/dL Total Protein (6.3-8.2) g/dL Albumin (3.5-5.0) g/dL Microbiology - Last 24 Hours (Table) 03/10/21 09:45 Gram Stain - Final Sputum Sputum Culture - Final 03/09/21 20:32 Gram Stain - Final Abdomen Wound Culture - Final Escherichia coli Enterococcus faecium Assessment and Plan Assessment: Sepsis with abdominal abscess -Surgery consult, s/p OR washout on 03/09 -Clear liquid diet, advance per surgery recommendations -Vancomycin, Zosyn, presently on Unasyn and fluconazole -Follow up cultures from operating room = E. coli with ESBL and enterococcus faecium sensitive to penicillin -Morphine when necessary for pain control Acute respiratory failure with hypoxia secondary to COVID 19 pneumonia -Oxygenation to be administered and titrated as needed to maintain SPO2 equal to or greater than 90% -Telemetry monitoring. -Continue trending inflammatory markers -Encourage Incentive Spirometry 10-15x hourly while awake -Steroids: Decadron 6 mg daily, day 10 of steroids. -Continue vitamin C, Vitamin D, and Zinc. -Pulmonology following, appreciate further recommendations. -DVT prophylaxis with Lovenox. -Strict Droplet plus Contact precautions -Patient received monoclonal antibodies. Out of window for Remdesivir, -Baricitinib dose 5 of 14, discontinued secondary to sepsis with abdominal abscess CODE STATUS: Full code DVT prophylaxis: Lovenox Discussed with: Patient, RN, and patient's daughter Tala Anticipated discharge date: Clinical course to determine Anticipated discharge place: Home A total of 40 minutes was spent on the care of this complex patient more than 50% of the time was spent in counseling and care coordination. Daughter Alison Zendejas: Updated on 03/11
[2021-03-12] MEDS: MEROPENEM 1 GM in SODIUM CHLORIDE 0.9% 100 ML IVPB SCH ×2 (15:43→22:55)
--- NOTE | 2021-03-12 22:25 | PN ---
PROGRESS NOTE DATE OF SERVICE: 03/12/2021 REASON FOR FOLLOWUP: 1. Secondary peritonitis from perforated peptic ulcer disease. 2. COVID-19 infection. INTERVAL HISTORY: The patient is afebrile. The patient is breathing more comfortably. The patient denies having any chest pain, shortness of breath. No worsening cough. Abdominal pain is currently controlled. No vomiting or diarrhea. PHYSICAL EXAMINATION: Blood pressure 158/81, pulse of 60, temperature 97.8. He is 95% on 2 L nasal cannula. General description is an elderly male lying in bed in no distress. Respiratory system: Unlabored breathing, decreased intensity of breath sounds. No wheeze. Heart S1, S2. Regular rate and rhythm. Abdomen soft, no tenderness. LABS: Creatinine 0.65. Abdominal culture with anaerobes, Enterococcus faecium, ESBL E coli. DIAGNOSTIC IMPRESSION AND PLAN: Patient with secondary peritonitis from perforated peptic ulcer disease, status post . Patient's abdominal culture with multiple pathogens, including ESBL E coli, Enterococcus faecium. Antibiotic adjusted to meropenem 1 gram q.8 and monitor his clinical course closely. MMODL / IJN: [id number] /
[2021-03-12 23:02] LABS: Glucose,Whole Blood 88 mg/dL (75-99)
[2021-03-13 04:26] LABS: Basophils % (A) 0 %; Eosinophils % (A) 0 %; HCT 34.5 % (39.0-53.0); HGB 11.6 gm/dL (13.0-17.5); Lymphocytes # (A) 0.9 k/uL (1.0-4.8); Lymphocytes % (A) 8 %; MCH 31.6 pg (25.0-35.0); MCHC 33.7 g/dL (31.0-37.0); MCV 93.9 fL (80.0-100.0); Mean Platelet Volume 7.5; Monocytes # (A) 0.7 k/uL (0-1.0); Monocytes % (A) 6 %; Neutrophils # (A) 8.9 k/uL (1.3-7.7); Neutrophils % (A) 84 %; Platelet Count 317 k/uL (150-450); RBC 3.68 m/uL (4.30-5.90); RDW 12.6 % (11.5-15.5); WBC 10.7 k/uL (3.8-10.6)
[2021-03-13 04:33] LABS: ALT 106 U/L (4-49); AST 73 U/L (17-59); African American GFR (CKD) >90 (>60 ml/min/1.73 sqM); Albumin 2.2 g/dL (3.5-5.0); Alkaline Phosphatase 59 U/L (38-126); Anion Gap 4 mmol/L; Bilirubin, Delta 0.3 mg/dL (0.0-0.2); Bilirubin,Unconjugated 0.4 mg/dL (0.0-1.1); Blood Urea Nitrogen 22 mg/dL (9-20); C Reactive Protein 5.9 mg/dL (<1.0); Calcium 6.9 mg/dL (8.4-10.2); Carbon Dioxide 26 mmol/L (22-30); Chloride 104 mmol/L (98-107); Glucose 78 mg/dL (74-99); LDH 899 U/L (313-618); Magnesium 2.3 mg/dL (1.6-2.3); Non-African American GFR(CKD) >90 (>60 ml/min/1.73 sqM); Phosphorus 2.9 mg/dL (2.5-4.5); Potassium 4.2 mmol/L (3.5-5.1); Sodium 134 mmol/L (137-145); Total Bilirubin 0.7 mg/dL (0.2-1.3); Total Protein 4.8 g/dL (6.3-8.2)
[2021-03-13] MEDS: guaiFENesin-Coden 100-10MG/5ML 10 ML CUP PO SCH ×5 (05:37→21:14)
[2021-03-13 07:43] LABS: Glucose,Whole Blood 80 mg/dL (75-99)
[2021-03-13] MEDS: SYMBICORT 80-4.5 MCG INHALER INHALATION SCH ×2 (08:31→20:13)
[2021-03-13] MEDS: SODIUM CHLORIDE 0.9% 1,000 ML IV SCH ×2 (09:49→20:11)
[2021-03-13] MEDS: MEROPENEM 1 GM in SODIUM CHLORIDE 0.9% 100 ML IVPB SCH ×3 (09:50→23:40)
[2021-03-13] MEDS: BENZONATATE 100 MG CAP PO SCH ×3 (09:50→20:12)
[2021-03-13] MEDS: ASCORBIC ACID 500 MG TAB PO SCH (09:50)
[2021-03-13] MEDS: CHOLECALCIFEROL 125 MCG (5000 IU) TABLET PO SCH (09:50)
[2021-03-13] MEDS: ZINC SULFATE 220 MG CAP PO SCH (09:50)
[2021-03-13] MEDS: DEXAMETHASONE SOD PHOSPHATE 10 MG/ML 1 ML VIAL IVP SCH (09:50)
[2021-03-13] MEDS: PANTOPRAZOLE 40 MG/10 ML VIAL IVP SCH (09:50)
[2021-03-13] MEDS: ENOXAPARIN 40 MG/0.4 ML SYRINGE SQ SCH ×2 (09:51→20:11)
[2021-03-13] MEDS: HYDROmorphone 1 MG/ML 1 ML SYRINGE IVP PRN ×2 (09:53→20:13)
--- NOTE | 2021-03-13 10:32 | P.PN ---
Subjective Progress Note Date: 03/13/21 Patient is doing well on 4 L nasal cannula. Patient's microbiology returned positive for Enterococcus faecium serum as well as E. coli, the E. coli is positive for ESBL, the enterococcus is sensitive to penicillin. Patient is presently on meropenem and fluconazole. Has been passing flatus. Tolerating water, ice chips, surgery to advance diet when appropriate. Objective - Vital Signs Vital signs: Vital Signs Temp 97.8 F 03/13/21 07:25 Pulse 70 03/13/21 07:25 Resp 18 03/13/21 07:25 BP 163/79 03/13/21 07:25 Pulse Ox 96 03/13/21 07:25 Intake & Output 03/12/21 03/13/21 03/13/21 18:59 06:59 18:59 Intake Total 900 100 Output Total 955 200 Balance -55 -100 Intake: IV 900 Sodium Chloride 0.9% 1, 900 000 ml @ 75 mls/hr IV . [id number] [facility] Rx#:[id number] Intake, IV Titration 100 Amount Meropenem 1 gm In Sodium 100 Chloride 0.9% 100 ml @ 33 .3 mls/hr IVPB Q8HR [facility] Rx#:[id number] Output: Urine 955 200 Other: Voiding Method Indwelling Catheter Urinal # Voids 0 - Exam Gen: awake, alert HEENT: normocephalic, atraumatic, good hearing acuity, moist mucous membranes Resp: Breathing comfortably without accessory muscle use CVS: good distal perfusion x 4, GI: midline abdominal incision with c/d/i dressing, mild ttp : no SPT, no CVAT, tenorio catheter not present MSK: no pitting edema, no clubbing Neuro: non-focal, [place] - Labs CBC & Chem 7: 03/13/21 03:26 03/13/21 03:26 Labs: Abnormal Lab Results - Last 24 Hours (Table) 03/13/21 03/13/21 03/13/21 Range/Units 03:26 03:26 03:26 WBC 10.7 H (3.8-10.6) k/uL RBC 3.68 L (4.30-5.90) m/uL Hgb 11.6 L (13.0-17.5) gm/dL Hct 34.5 L (39.0-53.0) % Neutrophils # 8.9 H (1.3-7.7) k/uL Lymphocytes # 0.9 L (1.0-4.8) k/uL D-Dimer 9.59 H (<0.60) mg/L FEU Sodium 134 L (137-145) mmol/L BUN 22 H (9-20) mg/dL Creatinine 0.60 L (0.66-1.25) mg/dL Calcium 6.9 L (8.4-10.2) mg/dL Delta Bilirubin 0.3 H (0.0-0.2) mg/dL AST 73 H (17-59) U/L ALT 106 H (4-49) U/L Lactate Dehydrogenase 899 H (313-618) U/L C-Reactive Protein 5.9 H (<1.0) mg/dL Total Protein 4.8 L (6.3-8.2) g/dL Albumin 2.2 L (3.5-5.0) g/dL Microbiology - Last 24 Hours (Table) 03/09/21 20:32 Anaerobic Culture - Final Abdomen Anaerobic Gm Negative Bacilli Anaerobic Gm Negative Bacilli#2 03/10/21 09:45 Gram Stain - Final Sputum Sputum Culture - Final Assessment and Plan Assessment: Sepsis with abdominal abscess -Surgery consult, s/p OR washout on 03/09 -Clear liquid diet, advance per surgery recommendations -meropenem and fluconazole -Follow up cultures from operating room = E. coli with ESBL and enterococcus faecium sensitive to penicillin -Morphine when necessary for pain control -ID following Acute respiratory failure with hypoxia secondary to COVID 19 pneumonia -Oxygenation to be administered and titrated as needed to maintain SPO2 equal to or greater than 90% -Telemetry monitoring. -Continue trending inflammatory markers -Encourage Incentive Spirometry 10-15x hourly while awake -Steroids: Decadron 6 mg daily, day 10 of steroids. -Continue vitamin C, Vitamin D, and Zinc. -Pulmonology following, appreciate further recommendations. -DVT prophylaxis with Lovenox. -Strict Droplet plus Contact precautions -Patient received monoclonal antibodies. Out of window for Remdesivir, -Baricitinib dose 5 of 14, discontinued secondary to sepsis with abdominal abscess CODE STATUS: Full code DVT prophylaxis: Lovenox Discussed with: Patient, RN, and patient's daughter Alison Zendejas Anticipated discharge date: Clinical course to determine Anticipated discharge place: Home A total of 40 minutes was spent on the care of this complex patient more than 50% of the time was spent in counseling and care coordination. Rashi Zendejas: Updated on 03/11
[2021-03-13] MEDS ORDERED: LIDOCAINE 1% INJ 10MG/ML (20 ML MDV) SQ ONE (10:40)
[2021-03-13] MEDS: FLUCONAZOLE IN NACL,ISO-OSM 100 MG in SALINE 1 50ML.BAG IVPB SCH (11:12)
--- NOTE | 2021-03-13 11:19 | XR ---
EXAMINATION TYPE: XR chest 1V confirm line [facility] DATE OF EXAM: 03/13/2021 COMPARISON: Chest x-ray same dated earlier time HISTORY: Status post PICC line placement TECHNIQUE: Single frontal view of the chest is obtained. FINDINGS: There is been interval repositioning of the left-sided PICC line which is coiled in the le ft innominate vein. No other interval change. IMPRESSION: PICC line as described
--- NOTE | 2021-03-13 11:20 | P.PN ---
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 Patient transferred out of the ICU the weekend to regular medical floor. He is lying comfortably. He is having flatus. He is having abdominal pain but reports that it is getting better each day. Denies any nausea or vomiting. Afebrile. WBC is down from 12.3-10.7 hemoglobin 13.1 down to 11.6. PHYSICAL EXAM: VITAL SIGNS: Reviewed. GENERAL: Well-developed in no acute distress. HEENT: No sclera icterus. Extraocular movements grossly intact. Moist buccal mucosa. Head is atraumatic, normocephalic. ABDOMEN: Soft. Nondistended. Abdominal binder in place NEUROLOGIC: Intubated ASSESSMENT: 1. 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 COVID-19 pneumonia PLAN: -Advance diet to clear liquids -Consult PT OT -Increase activity level -Continue antibiotics -Continue supportive care -DVT prophylaxis Lovenox [facility] Manager note has been reviewed by physician. Signing provider agrees with the documented findings, assessment, and plan of care. Objective - Vital Signs Vital signs: Vital Signs Temp 97.8 F 03/13/21 07:25 Pulse 70 03/13/21 07:25 Resp 18 03/13/21 07:25 BP 163/79 03/13/21 07:25 Pulse Ox 96 03/13/21 07:25 Intake & Output 03/12/21 03/13/21 03/13/21 18:59 06:59 18:59 Intake Total 900 100 Output Total 955 200 Balance -55 -100 Intake: IV 900 Sodium Chloride 0.9% 1, 900 000 ml @ 75 mls/hr IV . [id number] [facility] Rx#:[id number] Intake, IV Titration 100 Amount Meropenem 1 gm In Sodium 100 Chloride 0.9% 100 ml @ 33 .3 mls/hr IVPB Q8HR [facility] Rx#:[id number] Output: Urine 955 200 Other: Voiding Method Indwelling Catheter Urinal # Voids 0 - Labs CBC & Chem 7: 03/13/21 03:26 03/13/21 03:26 Labs: Abnormal Lab Results - Last 24 Hours (Table) 03/13/21 03/13/21 03/13/21 Range/Units 03:26 03:26 03:26 WBC 10.7 H (3.8-10.6) k/uL RBC 3.68 L (4.30-5.90) m/uL Hgb 11.6 L (13.0-17.5) gm/dL Hct 34.5 L (39.0-53.0) % Neutrophils # 8.9 H (1.3-7.7) k/uL Lymphocytes # 0.9 L (1.0-4.8) k/uL D-Dimer 9.59 H (<0.60) mg/L FEU Sodium 134 L (137-145) mmol/L BUN 22 H (9-20) mg/dL Creatinine 0.60 L (0.66-1.25) mg/dL Calcium 6.9 L (8.4-10.2) mg/dL Delta Bilirubin 0.3 H (0.0-0.2) mg/dL AST 73 H (17-59) U/L ALT 106 H (4-49) U/L Lactate Dehydrogenase 899 H (313-618) U/L C-Reactive Protein 5.9 H (<1.0) mg/dL Total Protein 4.8 L (6.3-8.2) g/dL Albumin 2.2 L (3.5-5.0) g/dL Microbiology - Last 24 Hours (Table) 03/09/21 20:32 Anaerobic Culture - Final Abdomen Anaerobic Gm Negative Bacilli Anaerobic Gm Negative Bacilli#2 03/10/21 09:45 Gram Stain - Final Sputum Sputum Culture - Final <Andrew Vásquez - Last Filed: 03/13/21 18:04> Subjective As above. Patient planning of fatigue. Otherwise he is doing well. Abdominal pain is minimal unless he is moving around. He is passing flatus. No bowel movement. Tolerating liquid diet. Anticipate advancing diet tomorrow. Hold off on TPN given the advancing diet. Continue physical therapy. I called the patient's daughter Shantell. A message was left as she didn't answer the phone. Objective - Vital Signs Vital signs: Vital Signs Temp 97.5 F L 03/13/21 14:00 Pulse 86 03/13/21 14:00 Resp 18 03/13/21 14:00 BP 103/65 03/13/21 14:00 Pulse Ox 91 L 03/13/21 14:00 Intake & Output 03/12/21 03/13/21 03/13/21 18:59 06:59 18:59 Intake Total 900 100 90 Output Total 955 200 650 Balance -55 -100 -560 Weight 80 kg Intake: IV 900 Sodium Chloride 0.9% 1, 900 000 ml @ 75 mls/hr IV . [id number] [facility] Rx#:[id number] Intake, IV Titration 100 Amount Meropenem 1 gm In Sodium 100 Chloride 0.9% 100 ml @ 33 .3 mls/hr IVPB Q8HR [facility] Rx#:[id number] Oral 90 Output: Urine 955 200 650 Other: Voiding Method Indwelling Catheter Urinal # Voids 0 - Labs CBC & Chem 7: 03/13/21 03:26 03/13/21 03:26 Labs: Abnormal Lab Results - Last 24 Hours (Table) 03/13/21 03/13/21 03/13/21 Range/Units 03:26 03:26 03:26 WBC 10.7 H (3.8-10.6) k/uL RBC 3.68 L (4.30-5.90) m/uL Hgb 11.6 L (13.0-17.5) gm/dL Hct 34.5 L (39.0-53.0) % Neutrophils # 8.9 H (1.3-7.7) k/uL Lymphocytes # 0.9 L (1.0-4.8) k/uL D-Dimer 9.59 H (<0.60) mg/L FEU Sodium 134 L (137-145) mmol/L BUN 22 H (9-20) mg/dL Creatinine 0.60 L (0.66-1.25) mg/dL POC Glucose (mg/dL) (75-99) mg/dL Calcium 6.9 L (8.4-10.2) mg/dL Delta Bilirubin 0.3 H (0.0-0.2) mg/dL AST 73 H (17-59) U/L ALT 106 H (4-49) U/L Lactate Dehydrogenase 899 H (313-618) U/L C-Reactive Protein 5.9 H (<1.0) mg/dL Total Protein 4.8 L (6.3-8.2) g/dL Albumin 2.2 L (3.5-5.0) g/dL 03/13/21 Range/Units 17:24 WBC (3.8-10.6) k/uL RBC (4.30-5.90) m/uL Hgb (13.0-17.5) gm/dL Hct (39.0-53.0) % Neutrophils # (1.3-7.7) k/uL Lymphocytes # (1.0-4.8) k/uL D-Dimer (<0.60) mg/L FEU Sodium (137-145) mmol/L BUN (9-20) mg/dL Creatinine (0.66-1.25) mg/dL POC Glucose (mg/dL) 157 H (75-99) mg/dL Calcium (8.4-10.2) mg/dL Delta Bilirubin (0.0-0.2) mg/dL AST (17-59) U/L ALT (4-49) U/L Lactate Dehydrogenase (313-618) U/L C-Reactive Protein (<1.0) mg/dL Total Protein (6.3-8.2) g/dL Albumin (3.5-5.0) g/dL Microbiology - Last 24 Hours (Table) 03/09/21 20:32 Anaerobic Culture - Final Abdomen Anaerobic Gm Negative Bacilli Anaerobic Gm Negative Bacilli#2 Assessment and Plan (1) Abdominal abscess Current Visit: Yes Status: Acute Code(s): [id number] - SNOMED Code(s): 20256945
--- NOTE | 2021-03-13 11:20 | XR ---
EXAMINATION TYPE: XR chest 1V confirm line [facility] DATE OF EXAM: 03/13/2021 COMPARISON: Prior chest x-ray same dated earlier time HISTORY: PICC line reposition TECHNIQUE: Single frontal view of the chest is obtained. FINDINGS: There is been interval repositioning of PICC line, distal tip the PICC line is near the ca voatrial junction level. No other interval change. IMPRESSION: PICC line is overlying appropriate position.
--- NOTE | 2021-03-13 11:21 | XR ---
EXAMINATION TYPE: XR chest 1V confirm line [facility] DATE OF EXAM: 03/13/2021 COMPARISON: Prior chest x-ray same dated earlier time HISTORY: Status post PICC line placement TECHNIQUE: Single frontal view of the chest is obtained. FINDINGS: Left-sided PICC line shows the distal tip coursing cephalad. No other interval change. IMPRESSION: As described
--- NOTE | 2021-03-13 11:22 | XR ---
EXAMINATION TYPE: XR chest 1V portable DATE OF EXAM: 03/13/2021 COMPARISON: Chest x-ray same dated earlier time HISTORY: Status post PICC line repositioning TECHNIQUE: Single frontal view of the chest is obtained. FINDINGS: There is interval straightening of the PICC line, distal tip is likely within the azygos v ein. No other interval change. IMPRESSION: PICC line as described
[2021-03-13 12:17] LABS: Glucose,Whole Blood 86 mg/dL (75-99)
--- NOTE | 2021-03-13 13:13 | IR ---
EXAMINATION TYPE: IR cvc insert >=5 years DATE OF EXAM: 03/13/2021 COMPARISON: NONE HISTORY: Covid pneumonia, needs long-term intravenous access for therapy FINDINGS: Maximal barrier technique was utilized. Hand hygiene obtained with soap and water and alco hol-based hand rub. The skin overlying the left basilic vein was localized with ultrasound and noted to be compressible and patent by ultrasound. An [facility]. Sterile technique utilized with the ultrasound machine. The skin overlying was prepped an d draped and Lidocaine used for local anesthesia. A skin ana was made with a scalpel. Access was g ained to the vein under direct ultrasound guidance with a 21-gauge needle and a 0.018 inch wire was a dvanced. Access site was dilated with a peel-away sheath and the catheter tailored to length. Meagan ter advanced centrally and a post procedure chest x-ray verified placement with tip at the superior v shashi cava. Catheter was fixed to the skin and a sterile dressing placed. Hemostasis achieved and the catheter was aspirated and flushed with sterile saline. The patient remained in stable condition. IMPRESSION: STATUS POST ULTRASOUND GUIDED PICC LINE PLACEMENT, READY FOR USE. THIS PROCEDURE WAS PER FORMED BY THE UNDERSIGNED.
[2021-03-13] MEDS ORDERED: FAT EMULSION 20% 500 ML in EMPTY BAG 1 BAG IV SCH (14:00)
--- NOTE | 2021-03-13 14:25 | P.PN ---
Subjective Progress Note Date: 03/13/21 80-year-old male patient, known history of COPD, diagnosed having COVID 19 approximately 10 days ago and the patient received monoclonal antibodies and the patient was described inhalers, steroids and cough medication. Condition got worse and the patient came into the emergency department today with worsening shortness of breath and hypoxemia. Initial pulse ox was 80%. Currently is on 4 L of oxygen by nasal cannula and the patient developed diffuse bilateral pulmonary infiltrates. He is normally on no oxygen. Note that the patient has not received vaccination for COVID 19. His white cell count is at 7.7 with a hemoglobin of 17. Normal coagulation profile. Sodium level is at 130, LFTs are normal, troponins are negative, UA is essentially negative. Inflammatory markers have not been checked. D-dimer has not been checked. He is currently on Decadron. The chest x-ray showed diffuse breath and pulmonary infiltrates consistent with COVID 19 pneumonia. 03/02/2021, the patient continues to have episodes of fever. His oxygen requirements have gone up to 9 L per minute nasal cannula. Note that he yesterday was only on 4 L. His pro-calcitonin level is at 0.26, LDH level is at 418, CRP level is 82.6. He is otherwise doing well. Despite worsening in her oxygenation, the patient reports that his breathing is better. He has episodic cough for which is taken cough medication. No other significant events overnight. He is currently on Decadron 6 mg an Lovenox 40 mg subcu for DVT prophylaxis. On 03/03/2021 patient seen in follow-up on medical surgical floor. He is doing better, feeling better, however his cough is persistent, frequent, and dry. Currently on 13 L of oxygen pulse ox is 92%, his been afebrile, blood pressure has been stable. No complaints of chest discomfort, lung sounds reveal coarse bilateral coarse crackles. Patient was outside the window for Remdesivir, he is status post monoclonal antibody infusion on an outpatient basis, clinically is stable, with some improvement. He is requesting make his when necessary cough medication schedule. Today's labs are still pending for today, his LDH from yesterday was not significantly elevated at 418, and CT CRP was 18.6. No nausea or vomiting, abdomen is soft, nontender. On 03/07/2021 patient seen in follow-up on medical surgical floor, he remains on high flow oxygen at 15 L per high flow nasal cannula and 100% nonrebreather mask, patient desaturates with any activity, and it takes him quite a while to recover his pulse ox above 90% range. He has been very compliant with self repositioning, still coughing quite a bit. Patient is afebrile, blood pressure stable. Showing bilateral airspace disease, low lung volumes, no pneumothorax or pleural effusion. Today's labs show persistently elevated d-dimer in the Lovenox dose was increased yesterday to 40 mg twice daily, LDH on yesterday's labs was improving today's level is pending, CRP was 87 yesterday's labs, improved since admission, current treatment consists of Baricitinib, Decadron, Lovenox 40 mg twice daily and COVID-19 vitamins. On 03/08/2021 patient seen in follow-up on medical surgical floor, he is awake and alert, he sitting up in bed, does not appear to be in any distress, she remains on high flow oxygen at 15 L per high flow nasal cannula in the 100% nonrebreather mask, his pulse ox is 93%, he states his cough has improved, still has a cough at times, which is dry, nonproductive, lung sounds are positive for mild crackles at bilateral bases, no fever or chills, vital signs of stable overnight, today's labs are pending. Chest x-ray is pending. Overall clinical condition has remained stable in the last 24 hours, appetite is fair, denies any nausea vomiting or diarrhea. On 03/09/2021 patient seen in follow-up on medical surgical floor, he remains on same amount of oxygen, 15 L per high flow and 100% nonrebreather mask, his breathing has been fairly stable however today he developed acute abdominal pain, across his lower abdomen. His abdomen is distended, is slightly tympanic, it is tender to palpation, he is slightly nauseous, and he states he hasn't had a bowel movement in several days. He states he had passed some gas, his bowel sounds are hypoactive. He has been eating very little in the last few days. Today's vitals revealed temperature of 98.3, heart rate of 90, regular, sinus mechanism, blood pressure 92/56. His pulse ox on the 15th liters high flow and nonrebreather mask are 92-95%, lung sounds reveal scattered crackles, unchanged from previous pulmonary exams. CT of the abdomen with oral contrast is currently pending, patient is currently nothing by mouth. Today's labs have been reviewed, his white count has increased and is up to 19.5, hemoglobin is 16.8, his d-dimer is currently 11.8, his sodium has decreased and is down to 129 on today's labs, potassium is 4.6, chloride is 92, CO2 31, B1 is 23 creatinine 0.78, his AST is 52, ALT is 108, alk phos is 103, his LDH has further increased and is up to 1741, CRP is 20.4. Patient remains on Baricitinib, Lovenox twice daily, Decadron 6 mg twice daily. On 03/13/2021 patient seen in follow-up on the medical surgical floor. He was transferred out of intensive care unit yesterday on 03/12/2021 after successfully weaning and extubated from mechanical ventilator. He is currently on 4 L of oxygen, he is breathing comfortably, has not utilized BiPAP support. Remains on antibiotics, with fluconazole and Zosyn for intra-abdominal abscess. His abdominal wound cultures are showing E. coli, enterococcus CCM, and anaerobic gram-negative bacilli sputum cultures have been negative. No fever or chills, vitals have been stable. His chest x-ray still shows bilateral airspace disease, without significant change, but clinically his hypoxia has improved. Patient remains on Decadron 6 mg IV push daily, he is on COVID-19 vitamins, he is on Lovenox 40 mg twice daily, he will be started on TPN after the PICC line insertion. Patient is status post exploratory laparotomy, drainage of abdominal abscess and small bowel resection. His abdomen is soft, nondistended, abdominal binder is in place. His incisions have not been inspected as they are covered by sterile drape. He denies any acute distress, his passing flatus, no nausea or vomiting. His leukocytosis is improving. Objective - Vital Signs Vital signs: Vital Signs Temp 97.8 F 03/13/21 07:25 Pulse 70 03/13/21 07:25 Resp 18 03/13/21 07:25 BP 163/79 03/13/21 07:25 Pulse Ox 96 03/13/21 07:25 Intake & Output 12/03/2103/13/21 03/13/21 18:59 06:59 18:59 Intake Total 900 100 90 Output Total 955 200 400 Balance -55 -100 -310 Weight 80 kg Intake: IV 900 Sodium Chloride 0.9% 1, 900 000 ml @ 75 mls/hr IV . [id number] [facility] Rx#:[id number] Intake, IV Titration 100 Amount Meropenem 1 gm In Sodium 100 Chloride 0.9% 100 ml @ 33 .3 mls/hr IVPB Q8HR [facility] Rx#:[id number] Oral 90 Output: Urine 955 200 400 Other: Voiding Method Indwelling Catheter Urinal # Voids 0 - Exam GENERAL EXAM: Alert, pleasant, 80-year-old white male, currently on 4 L with a pulse ox of 96% HEAD: Normocephalic/atraumatic. EYES: Normal reaction of pupils, equal size. Conjunctiva pink, sclera white. NOSE: Clear with pink turbinates. THROAT: No erythema or exudates. NECK: No masses, no JVD, no thyroid enlargement, no adenopathy. CHEST: No chest wall deformity. Symmetrical expansion. LUNGS: Equal air entry with bibasilar crackles CVS: Regular rate and rhythm, normal S1 and S2, no gallops, no murmurs, no rubs ABDOMEN: Soft, tympanic, tender across lower quadrants No hepatosplenomegaly, normal bowel sounds, no guarding or rigidity. EXTREMITIES: No clubbing, no edema, no cyanosis, 2+ pulses and upper and lower extremities. MUSCULOSKELETAL: Muscle strength and tone normal. SPINE: No scoliosis or deformity SKIN: No rashes CENTRAL NERVOUS SYSTEM: Alert and oriented -3. No focal deficits, tone is normal in all 4 extremities. PSYCHIATRIC: Alert and oriented -3. Appropriate affect. Intact judgment and insight. - Labs CBC & Chem 7: 03/13/21 03:26 03/13/21 03:26 Labs: Abnormal Lab Results - Last 24 Hours (Table) 03/13/21 03/13/21 03/13/21 Range/Units 03:26 03:26 03:26 WBC 10.7 H (3.8-10.6) k/uL RBC 3.68 L (4.30-5.90) m/uL Hgb 11.6 L (13.0-17.5) gm/dL Hct 34.5 L (39.0-53.0) % Neutrophils # 8.9 H (1.3-7.7) k/uL Lymphocytes # 0.9 L (1.0-4.8) k/uL D-Dimer 9.59 H (<0.60) mg/L FEU Sodium 134 L (137-145) mmol/L BUN 22 H (9-20) mg/dL Creatinine 0.60 L (0.66-1.25) mg/dL Calcium 6.9 L (8.4-10.2) mg/dL Delta Bilirubin 0.3 H (0.0-0.2) mg/dL AST 73 H (17-59) U/L ALT 106 H (4-49) U/L Lactate Dehydrogenase 899 H (313-618) U/L C-Reactive Protein 5.9 H (<1.0) mg/dL Total Protein 4.8 L (6.3-8.2) g/dL Albumin 2.2 L (3.5-5.0) g/dL Microbiology - Last 24 Hours (Table) 03/09/21 20:32 Anaerobic Culture - Final Abdomen Anaerobic Gm Negative Bacilli Anaerobic Gm Negative Bacilli#2 03/10/21 09:45 Gram Stain - Final Sputum Sputum Culture - Final Assessment and Plan Plan: Assessment: #1. Acute COVID 19 related pneumonia with secondary shortness of breath. Patient tested positive for COVID 10 days prior to presentation to the emergency department. Patient is a non-vaccinated individual The patient received monoclonal antibodies on outpatient basis. The patient was also treated with steroids and antibiotics. Patient was intubated and placed on mechanical ventilator on 03/09/2021 related to exploratory laparotomy secondary to small bowel perforation and drainage of abdominal abscess and small bowel resection #2. Small bowel perforation, at the site of jejunal diverticulum with adjacent abscess status post exploratory laparotomy, drainage of abdominal abscess, and small bowel resection on 03/09/2021. #3. Intra-abdominal abscess/peritonitis, patient is on a combination of Diflucan and Zosyn, with abdominal wound cultures positive for E. coli, enterococcus ECM, and anaerobic gram-negative bacilli #4. Acute hypoxic respiratory failure secondary to above, currently on 15 L high flow and 100% nonrebreather mask #5. Shortness of breath and cough secondary to above. #6. Elevated d-dimer, with no CTA evidence of pulmonary embolism, or DVT on lower extremity Dopplers currently on Lovenox 40 mg twice daily Plan: Provide incentive spirometer Encourage deep breathing and coughing FiO2 is currently at 4 L, patient is breathing comfortably, Chest x-ray has been reviewed showing stable bilateral airspace disease Clinically patient is doing very well regarding his COVID-19 pneumonia especially in view of his recent surgical intervention Vital signs are stable Continue Decadron Continue current dose Lovenox PICC line has been inserted TPN has been started We'll continue to follow his clinical course I performed a history & physical examination of the patient and discussed their management with my nurse practitioner, Ashlie Jorge. I reviewed the nurse practitioner's note and agree with the documented findings and plan of care. Lung sounds are positive for diffuse crackles throughout the lung kline. The findings and the impression was discussed with the patient. I attest to the documentation by the nurse practitioner. Time with Patient: Less than 30
[2021-03-13] MEDS: FAT EMULSION 20% 250 ML in EMPTY BAG 1 BAG IV SCH (14:40)
[2021-03-13] MEDS: 1: MVI, ADULT NO.4 WITH VIT K 10 ML, TRACE (CONC-1ML/DOSE) 1 ML in AMINO ACID 5%-D20W+LY IV SCH ×3 (14:41)
[2021-03-13 17:32] LABS: Glucose,Whole Blood 157 mg/dL (75-99)
[2021-03-13] MEDS: INSULIN ASPART (NovoLOG) 100 UNIT/ML VIAL SQ SCH ×2 (17:44→20:27)
[2021-03-13 20:36] LABS: Glucose,Whole Blood 139 mg/dL (75-99)
--- NOTE | 2021-03-13 22:38 | PN ---
PROGRESS NOTE DATE OF SERVICE: 03/13/2021 REASON FOR FOLLOWUP: Secondary peritonitis and abdominal abscess. INTERVAL HISTORY: The patient is afebrile. The patient has been moved out of the ICU. The patient is currently breathing comfortably. Denies any chest pain, shortness of breath or cough. Abdominal pain is currently controlled. Tolerating his ice chips. No vomiting or diarrhea. PHYSICAL EXAMINATION: Blood pressure 128/81 with a pulse of 77, temperature 97.9. He is 95% on 4 L nasal cannula. General description is an elderly male lying in bed in no distress. Respiratory system: Unlabored breathing, decreased intensity of breath sounds. No wheeze. Heart S1, S2. Regular rate and rhythm. Abdomen soft, no tenderness. Extremities no edema of the feet. LABS: Hemoglobin is 11.6, white count 10.7, creatinine 0.60. DIAGNOSTIC IMPRESSION AND PLAN: Patient with intraabdominal abscess from a perforated jejunal diverticulum. Abdominal culture with ESBL E coli, Enterococcus faecium, anaerobes. Patient is covered with meropenem; to continue while monitoring his clinical course closely. Continue supportive care. MMODL / IJN: [id number] /
[2021-03-14 01:34] LABS: Glucose,Whole Blood 116 mg/dL (75-99)
[2021-03-14 06:00] LABS: African American GFR (CKD) >90 (>60 ml/min/1.73 sqM); Anion Gap 3 mmol/L; Blood Urea Nitrogen 16 mg/dL (9-20); Calcium 7.4 mg/dL (8.4-10.2); Carbon Dioxide 29 mmol/L (22-30); Chloride 98 mmol/L (98-107); Glucose 125 mg/dL (74-99); Magnesium 2.3 mg/dL (1.6-2.3); Non-African American GFR(CKD) >90 (>60 ml/min/1.73 sqM); Phosphorus 2.3 mg/dL (2.5-4.5); Potassium 4.2 mmol/L (3.5-5.1); Sodium 130 mmol/L (137-145)
[2021-03-14 07:18] LABS: Glucose,Whole Blood 119 mg/dL (75-99)
[2021-03-14 08:27] LABS: Basophils % (A) 0 %; Eosinophils % (A) 0 %; HCT 41.8 % (39.0-53.0); HGB 13.8 gm/dL (13.0-17.5); Lymphocytes # (A) 1.2 k/uL (1.0-4.8); Lymphocytes % (A) 9 %; MCH 30.7 pg (25.0-35.0); MCHC 33.1 g/dL (31.0-37.0); MCV 92.9 fL (80.0-100.0); Mean Platelet Volume 8.2; Monocytes # (A) 0.8 k/uL (0-1.0); Monocytes % (A) 5 %; Neutrophils % (A) 85 %; Platelet Count 356 k/uL (150-450); RDW 12.4 % (11.5-15.5); WBC 14.2 k/uL (3.8-10.6)
[2021-03-14] MEDS: SYMBICORT 80-4.5 MCG INHALER INHALATION SCH ×2 (08:53→20:04)
[2021-03-14] MEDS ORDERED: SODIUM PHOSPHATE 10 MMOL in SODIUM CHLORIDE 0.9% 100 ML IVPB ONE (09:30)
--- NOTE | 2021-03-14 09:42 | P.PN ---
Subjective Progress Note Date: 03/14/21 Patient feels okay no chest pain no shortness of breath no vomiting Constitutional: No acute distress, conversant, pleasant Eyes: Anicteric sclerae, moist conjunctiva, no lid-lag PERRLA ENMT: NC/AT Oropharynx clear, no erythema, exudates Neck: Supple, FROM, no masses, or JVD No carotid bruits No thyromegaly Lungs: Clear to auscultation Clear to percussion Normal respiratory effort, no accessory muscle use Cardiovascular: Heart regular in rate and rhythm, No murmurs, gallops, or rubs No peripheral edema Abdominal: Soft Nontender, no guarding, rebound or rigidity Abdomen moving with respiration Normoactive bowel sounds No hepatomegaly, No splenomegaly No palpable mass No abdominal wall hernia noted Skin: Normal temperature, tone, texture, turgor No induration No subcutaneous nodules No rash, lesions No ulcers Extremities: No digital cyanosis No clubbing Pedal pulses intact and symmetrical Radial pulses intact and symmetrical Normal gait and station No calf tenderness Psychiatric:Alert and oriented to person, place and time Appropriate affect Intact judgement Neuro: Muscles Strength 5/5 in all 4 extremities Sensation to light touch grossly present throughout Cranial nerves II-XII grossly intact No focal sensory deficits Sepsis with abdominal abscess -Surgery consult, s/p OR washout on 03/09 -Clear liquid diet, advance per surgery recommendations -meropenem and fluconazole -Follow up cultures from operating room = E. coli with ESBL and enterococcus faecium sensitive to penicillin -Morphine when necessary for pain control -ID following Acute respiratory failure with hypoxia secondary to COVID 19 pneumonia -Oxygenation to be administered and titrated as needed to maintain SPO2 equal to or greater than 90% -Telemetry monitoring. -Continue trending inflammatory markers -Encourage Incentive Spirometry 10-15x hourly while awake -Steroids: Decadron 6 mg daily, day 10 of steroids. -Continue vitamin C, Vitamin D, and Zinc. -Pulmonology following, appreciate further recommendations. -DVT prophylaxis with Lovenox. -Strict Droplet plus Contact precautions -Patient received monoclonal antibodies. Out of window for Remdesivir, -Baricitinib dose 5 of , discontinued secondary to sepsis with abdominal abscess CODE STATUS: Full code DVT prophylaxis: Lovenox Discussed with: Patient, RN, and patient's daughter Alison Zendejas Anticipated discharge date: Clinical course to determine Anticipated discharge place: Home Overall the condition of the patient is stable continue management as per surgery Objective - Vital Signs Vital signs: Vital Signs Temp 97.9 F 03/14/21 07:39 Pulse 60 03/14/21 07:39 Resp 18 03/14/21 07:39 BP 151/83 03/14/21 07:39 Pulse Ox 96 03/14/21 07:39 Intake & Output 03/13/21 03/14/21 03/14/21 18:59 06:59 18:59 Intake Total 210 Output Total 850 535 200 Balance -640 -535 -200 Weight 80 kg 73.4 kg Intake: Oral 210 Output: Urine 850 535 200 Other: Voiding Method Urinal # Voids 1 - Labs CBC & Chem 7: 03/14/21 04:51 03/14/21 04:51 Labs: Abnormal Lab Results - Last 24 Hours (Table) 03/13/21 03/13/21 03/14/21 Range/Units 17:24 20:35 01:32 WBC (3.8-10.6) k/uL Neutrophils # (1.3-7.7) k/uL Sodium (137-145) mmol/L Creatinine (0.66-1.25) mg/dL Glucose (74-99) mg/dL POC Glucose (mg/dL) 157 H 139 H 116 H (75-99) mg/dL Calcium (8.4-10.2) mg/dL Phosphorus (2.5-4.5) mg/dL 03/14/21 03/14/21 03/14/21 Range/Units 04:51 04:51 06:58 WBC 14.2 H (3.8-10.6) k/uL Neutrophils # 12.0 H (1.3-7.7) k/uL Sodium 130 L (137-145) mmol/L Creatinine 0.59 L (0.66-1.25) mg/dL Glucose 125 H (74-99) mg/dL POC Glucose (mg/dL) 119 H (75-99) mg/dL Calcium 7.4 L (8.4-10.2) mg/dL Phosphorus 2.3 L (2.5-4.5) mg/dL
[2021-03-14] MEDS: INSULIN ASPART (NovoLOG) 100 UNIT/ML VIAL SQ SCH ×4 (09:45→20:55)
[2021-03-14] MEDS: PANTOPRAZOLE 40 MG/10 ML VIAL IVP SCH (09:59)
[2021-03-14] MEDS: ENOXAPARIN 40 MG/0.4 ML SYRINGE SQ SCH ×2 (09:59→21:02)
[2021-03-14] MEDS: ASCORBIC ACID 500 MG TAB PO SCH (09:59)
[2021-03-14] MEDS: DEXAMETHASONE SOD PHOSPHATE 10 MG/ML 1 ML VIAL IVP SCH (09:59)
[2021-03-14] MEDS: MEROPENEM 1 GM in SODIUM CHLORIDE 0.9% 100 ML IVPB SCH ×3 (10:00→23:00)
[2021-03-14] MEDS: BENZONATATE 100 MG CAP PO SCH ×3 (10:00→23:00)
[2021-03-14] MEDS: ZINC SULFATE 220 MG CAP PO SCH (10:00)
[2021-03-14] MEDS: CHOLECALCIFEROL 125 MCG (5000 IU) TABLET PO SCH (10:01)
[2021-03-14 11:48] LABS: Glucose,Whole Blood 123 mg/dL (75-99)
--- NOTE | 2021-03-14 11:59 | P.PN ---
Subjective Progress Note Date: 03/14/21 On 03/13/2021 patient seen in follow-up on the medical surgical floor. He was transferred out of intensive care unit yesterday on 03/12/2021 after successfully weaning and extubated from mechanical ventilator. He is currently on 4 L of oxygen, he is breathing comfortably, has not utilized BiPAP support. Remains on antibiotics, with fluconazole and Zosyn for intra-abdominal abscess. His abdominal wound cultures are showing E. coli, enterococcus CCM, and anaerobic gram-negative bacilli sputum cultures have been negative. No fever or chills, vitals have been stable. His chest x-ray still shows bilateral airspace disease, without significant change, but clinically his hypoxia has improved. Patient remains on Decadron 6 mg IV push daily, he is on COVID-19 vitamins, he is on Lovenox 40 mg twice daily, he will be started on TPN after the PICC line insertion. Patient is status post exploratory laparotomy, drainage of abdominal abscess and small bowel resection. His abdomen is soft, nondistended, abdominal binder is in place. His incisions have not been inspected as they are covered by sterile drape. He denies any acute distress, his passing flatus, no nausea or vomiting. His leukocytosis is improving. The patient is seen today 03/14/2021 in follow-up on the regular medical floor. He is awake and alert in no acute distress. He is down to 4 L high flow nasal cannula to maintain O2 saturations in the mid 90s. He's been afebrile. Hemodynamically stable. He is currently up ambulating with assistance 2. He did have a PICC line placed yesterday. Abdominal wound cultures were positive for E. coli and enterococcus faecium. White count 14.2. Hemoglobin 13.8. Sodium 130. Potassium 4.2. Creatinine 0.59. Glucose 125. He is being nourished with TPN and lipids. He is on antibiotics in the form of meropenem. Continued on fluconazole. He remains on Decadron, Lovenox, vitamin supplements. Continue on Symbicort and Tessalon Perles. Objective - Vital Signs Vital signs: Vital Signs Temp 97.9 F 03/14/21 07:39 Pulse 60 03/14/21 08:00 Resp 18 03/14/21 08:00 BP 151/83 03/14/21 07:39 Pulse Ox 96 03/14/21 07:39 Intake & Output 03/13/21 03/14/21 03/14/21 18:59 06:59 18:59 Intake Total 210 120 Output Total 850 535 200 Balance -640 -535 -80 Weight 80 kg 73.4 kg Intake: Oral 210 120 Output: Urine 850 535 200 Other: Voiding Method Urinal Urinal # Voids 1 - Exam GENERAL EXAM: Alert, pleasant, 80-year-old male patient, currently on 4 L with a pulse ox of 97% HEAD: Normocephalic/atraumatic. EYES: Normal reaction of pupils, equal size. Conjunctiva pink, sclera white. NOSE: Clear with pink turbinates. THROAT: No erythema or exudates. NECK: No masses, no JVD, no thyroid enlargement, no adenopathy. CHEST: No chest wall deformity. Symmetrical expansion. LUNGS: Equal air entry with bibasilar crackles CVS: Regular rate and rhythm, normal S1 and S2, no gallops, no murmurs, no rubs ABDOMEN: Soft, tympanic, tender across lower quadrants. Genital binder in place. No hepatosplenomegaly, normal bowel sounds, no guarding or rigidity. EXTREMITIES: No clubbing, no edema, no cyanosis, 2+ pulses and upper and lower extremities. MUSCULOSKELETAL: Muscle strength and tone normal. SPINE: No scoliosis or deformity SKIN: No rashes CENTRAL NERVOUS SYSTEM: Alert and oriented -3. No focal deficits, tone is normal in all 4 extremities. PSYCHIATRIC: Alert and oriented -3. Appropriate affect. Intact judgment and insight. - Labs CBC & Chem 7: 03/14/21 04:51 03/14/21 04:51 Labs: Abnormal Lab Results - Last 24 Hours (Table) 03/13/21 03/13/21 03/14/21 Range/Units 17:24 20:35 01:32 WBC (3.8-10.6) k/uL Neutrophils # (1.3-7.7) k/uL Sodium (137-145) mmol/L Creatinine (0.66-1.25) mg/dL Glucose (74-99) mg/dL POC Glucose (mg/dL) 157 H 139 H 116 H (75-99) mg/dL Calcium (8.4-10.2) mg/dL Phosphorus (2.5-4.5) mg/dL 03/14/21 03/14/21 03/14/21 Range/Units 04:51 04:51 06:58 WBC 14.2 H (3.8-10.6) k/uL Neutrophils # 12.0 H (1.3-7.7) k/uL Sodium 130 L (137-145) mmol/L Creatinine 0.59 L (0.66-1.25) mg/dL Glucose 125 H (74-99) mg/dL POC Glucose (mg/dL) 119 H (75-99) mg/dL Calcium 7.4 L (8.4-10.2) mg/dL Phosphorus 2.3 L (2.5-4.5) mg/dL 03/14/21 Range/Units 11:44 WBC (3.8-10.6) k/uL Neutrophils # (1.3-7.7) k/uL Sodium (137-145) mmol/L Creatinine (0.66-1.25) mg/dL Glucose (74-99) mg/dL POC Glucose (mg/dL) 123 H (75-99) mg/dL Calcium (8.4-10.2) mg/dL Phosphorus (2.5-4.5) mg/dL Assessment and Plan Assessment: 1 Acute COVID 19 related pneumonia with secondary shortness of breath. Patient tested positive for COVID 10 days prior to presentation to the emergency department. Patient is a non-vaccinated individual The patient received monoclonal antibodies on outpatient basis. The patient was also treated with steroids and antibiotics. Patient was intubated and placed on mechanical ventilator on 03/09/2021 related to exploratory laparotomy secondary to small bowel perforation and drainage of abdominal abscess and small bowel resection and subsequently extubated. Currently on 4 L nasal cannula. 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 3 Intra-abdominal abscess/peritonitis, patient is on a combination of Diflucan and Zosyn, with abdominal wound cultures positive for E. coli, enterococcus ECM, and anaerobic gram-negative bacilli 4 Acute hypoxic respiratory failure secondary to above, currently down to 4 L nasal cannula 5 Shortness of breath and cough secondary to above. Improving 6 Elevated d-dimer, with no CTA evidence of pulmonary embolism, or DVT on lower extremity Dopplers currently on Lovenox 40 mg twice daily Plan: The patient was seen and evaluated Currently stable from the pulmonary and critical care standpoint Titrate the FiO2 as tolerated Increase his activity as tolerated Continue Decadron, Lovenox, vitamin supplements Encouraged increased use the incentive spirometer Working well with physical therapy Remains on TPN/lipids, diet per surgical services We will continue to follow I, the cosigning physician, performed a history & physical examination of the patient. Lungs sounds bibasilar crackles. Maintaining good O2 saturations in the 90s on 4 L high flow nasal cannula. I discussed the assessment and plan of care with my nurse practitioner, Reyna Hall. I attest to the above note as dictated by her.
--- NOTE | 2021-03-14 12:12 | P.PN ---
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 Patient sitting up in bed. He is tolerating clear liquid diet. He is currently on TPN. He is having flatus. No bowel movement. He reports abdominal pain only with coughing. Denies any nausea or vomiting. Afebrile. WBC 10.7 up to 14.2 HGB 13.8 sodium 130 PHYSICAL EXAM: VITAL SIGNS: Reviewed. GENERAL: Well-developed in no acute distress. HEENT: No sclera icterus. Extraocular movements grossly intact. Moist buccal mucosa. Head is atraumatic, normocephalic. ABDOMEN: Soft. Nondistended. Abdominal binder in place NEUROLOGIC: Awake and alert orientated x 3 ASSESSMENT: 1. 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 COVID-19 pneumonia PLAN: -continue clear liquids -Change Aquacel incisional ngoc every 2 days -Increase activity level -Continue antibiotics -Continue supportive care -DVT prophylaxis Lovenox Physician [employer] Classification Counselor note has been reviewed by physician. Signing provider agrees with the documented findings, assessment, and plan of care. Objective - Vital Signs Vital signs: Vital Signs Temp 97.9 F 03/14/21 07:39 Pulse 60 03/14/21 08:00 Resp 18 03/14/21 08:00 BP 151/83 03/14/21 07:39 Pulse Ox 96 03/14/21 07:39 Intake & Output 03/13/21 03/14/21 03/14/21 18:59 06:59 18:59 Intake Total 210 120 Output Total 850 535 200 Balance -640 -535 -80 Weight 80 kg 73.4 kg Intake: Oral 210 120 Output: Urine 850 535 200 Other: Voiding Method Urinal Urinal # Voids 1 - Labs CBC & Chem 7: 03/14/21 04:51 03/14/21 04:51 Labs: Abnormal Lab Results - Last 24 Hours (Table) 03/13/21 03/13/21 03/14/21 Range/Units 17:24 20:35 01:32 WBC (3.8-10.6) k/uL Neutrophils # (1.3-7.7) k/uL Sodium (137-145) mmol/L Creatinine (0.66-1.25) mg/dL Glucose (74-99) mg/dL POC Glucose (mg/dL) 157 H 139 H 116 H (75-99) mg/dL Calcium (8.4-10.2) mg/dL Phosphorus (2.5-4.5) mg/dL 03/14/21 03/14/21 03/14/21 Range/Units 04:51 04:51 06:58 WBC 14.2 H (3.8-10.6) k/uL Neutrophils # 12.0 H (1.3-7.7) k/uL Sodium 130 L (137-145) mmol/L Creatinine 0.59 L (0.66-1.25) mg/dL Glucose 125 H (74-99) mg/dL POC Glucose (mg/dL) 119 H (75-99) mg/dL Calcium 7.4 L (8.4-10.2) mg/dL Phosphorus 2.3 L (2.5-4.5) mg/dL 03/14/21 Range/Units 11:44 WBC (3.8-10.6) k/uL Neutrophils # (1.3-7.7) k/uL Sodium (137-145) mmol/L Creatinine (0.66-1.25) mg/dL Glucose (74-99) mg/dL POC Glucose (mg/dL) 123 H (75-99) mg/dL Calcium (8.4-10.2) mg/dL Phosphorus (2.5-4.5) mg/dL <Andrew Vásquez - Last Filed: 03/14/21 16:13> Subjective as above. Patient tolerating liquid diet. TPN was initiated. No bowel movement yet. Denies nausea or vomiting. Pain is well-controlled. Continue increasing activity. Anticipate advancing diet tomorrow. Objective - Vital Signs Vital signs: Vital Signs Temp 97.9 F 03/14/21 07:39 Pulse 60 03/14/21 08:00 Resp 18 03/14/21 08:00 BP 151/83 03/14/21 07:39 Pulse Ox 96 03/14/21 07:39 Intake & Output 03/13/21 03/14/21 03/14/21 18:59 06:59 18:59 Intake Total 210 120 Output Total 850 535 200 Balance -640 -535 -80 Weight 80 kg 73.4 kg Intake: Oral 210 120 Output: Urine 850 535 200 Other: Voiding Method Urinal Urinal # Voids 1 - Labs CBC & Chem 7: 03/14/21 04:51 03/14/21 04:51 Labs: Abnormal Lab Results - Last 24 Hours (Table) 03/13/21 03/13/21 03/14/21 Range/Units 17:24 20:35 01:32 WBC (3.8-10.6) k/uL Neutrophils # (1.3-7.7) k/uL Sodium (137-145) mmol/L Creatinine (0.66-1.25) mg/dL Glucose (74-99) mg/dL POC Glucose (mg/dL) 157 H 139 H 116 H (75-99) mg/dL Calcium (8.4-10.2) mg/dL Phosphorus (2.5-4.5) mg/dL 03/14/21 03/14/21 03/14/21 Range/Units 04:51 04:51 06:58 WBC 14.2 H (3.8-10.6) k/uL Neutrophils # 12.0 H (1.3-7.7) k/uL Sodium 130 L (137-145) mmol/L Creatinine 0.59 L (0.66-1.25) mg/dL Glucose 125 H (74-99) mg/dL POC Glucose (mg/dL) 119 H (75-99) mg/dL Calcium 7.4 L (8.4-10.2) mg/dL Phosphorus 2.3 L (2.5-4.5) mg/dL 03/14/21 Range/Units 11:44 WBC (3.8-10.6) k/uL Neutrophils # (1.3-7.7) k/uL Sodium (137-145) mmol/L Creatinine (0.66-1.25) mg/dL Glucose (74-99) mg/dL POC Glucose (mg/dL) 123 H (75-99) mg/dL Calcium (8.4-10.2) mg/dL Phosphorus (2.5-4.5) mg/dL Assessment and Plan (1) Abdominal abscess Current Visit: Yes Status: Acute Code(s): HBS6272 - SNOMED Code(s): 751 02044
[2021-03-14] MEDS: guaiFENesin-Coden 100-10MG/5ML 10 ML CUP PO SCH ×3 (12:28→21:09)
[2021-03-14] MEDS: DOCUSATE 100 MG CAP PO SCH ×2 (12:34→21:01)
[2021-03-14] MEDS: SODIUM CHLORIDE 0.9% 1,000 ML IV SCH (12:37)
--- NOTE | 2021-03-14 14:58 | PN ---
PROGRESS NOTE DATE OF SERVICE: 03/14/2021 REASON FOR FOLLOWUP: Secondary peritonitis from perforated peptic ulcer disease. INTERVAL HISTORY: Patient is afebrile. The patient is currently breathing comfortably. The patient denies having any chest pain. Complains of some nausea and some urinary burning, but no vomiting. PHYSICAL EXAMINATION: Blood pressure 151/83 with a pulse of 70, temperature 97.9, he is 97% on room air. General description is an elderly male up in the chair in no distress. Respiratory system: Unlabored breathing. Decreased intensity of breath sounds in the base, no wheeze. Heart S1, S2. Regular rate and rhythm. Abdomen: Soft. Mildly distended. No guarding. No rigidity. LABS: Hemoglobin is 13.1, creatinine 14.2, creatinine 0.59. DIAGNOSTIC IMPRESSION AND PLAN: Patient with secondary peritonitis from perforated peptic ulcer status post surgery. Abdominal culture with ESBL E coli, Enterococcus faecium, anaerobes. Patient is covered with meropenem, could be related to steroids additional course of IV antibiotic on discharge. Continue supportive care. MMODL / IJN: [id number] /
[2021-03-14] MEDS: FLUCONAZOLE IN NACL,ISO-OSM 100 MG in SALINE 1 50ML.BAG IVPB SCH (15:54)
[2021-03-14 17:07] LABS: Glucose,Whole Blood 130 mg/dL (75-99)
[2021-03-14 20:48] LABS: Glucose,Whole Blood 158 mg/dL (75-99)
[2021-03-14] MEDS: HYDROmorphone 1 MG/ML 1 ML SYRINGE IVP PRN (21:02)
[2021-03-15] MEDS: VANCOMYCIN 1,250 MG in SODIUM CHLORIDE 0.9% 250 ML IVPB SCH (00:36)
[2021-03-15] MEDS: SODIUM CHLORIDE 0.9% 1,000 ML IV SCH ×2 (00:44→16:15)
[2021-03-15] MEDS: 1: MVI, ADULT NO.4 WITH VIT K 10 ML, TRACE (CONC-1ML/DOSE) 1 ML in AMINO ACID 5%-D20W+LY IV SCH ×3 (01:38)
[2021-03-15 02:00] LABS: Glucose,Whole Blood 119 mg/dL (75-99)
[2021-03-15] MEDS: guaiFENesin-Coden 100-10MG/5ML 10 ML CUP PO SCH ×4 (03:55→22:04)
--- NOTE | 2021-03-15 06:03 | P.CONS ---
History of Present Illness - Chief Complaint Medical debility - History of Present Illness I had the opportunity to see patient for inpatient rehab consultation with regard to medical debility. Patient admitted to [facility] March 01 with hypoxic respiratory failure, Covid positive, cough. Seen by Dr. Gaby Gallego for same. Seen by Dr. duncan for abdominal abscess and perforation, did undergo repair. Patient is undergoing TPN. Chest x-rays followed for PICC line and pneumonia. CT of abdomen and pelvis demonstrated small bowel abscess and gas. CT chest negative for PE right or left. Venous Doppler negative for DVT right or left leg. Has started therapies. PT reports minimal assistance functional mobility, transfers, gait 25 feet with roller walker. OT reports minimal assistance for bathing, dressing, toileting and functional mobility. Previous functional history as elicited from patient: 80-year-old right-handed white male who is lives in one floor home with granddaughter appeared granddaughter does the laundry. Patient describes independent with driving and standing shower. Gait without device. PCP Dr. Vickers. Denies tobacco or alcohol. Review of Systems Review of systems: ENT: Denies sneezes or discharge. Eyes: Denies discharge or photophobia. Cardiac: Denies chest pain or palpitation. Pulmonary: Mild shortness of breath. Gastrointestinal: Denies nausea, emesis, constipation, diarrhea. Genitourinary: Denies discharge or frequency. Musculoskeletal: Denies muscle or bone aches. Neurologic: Generalized weakness. Endocrine: Denies shakes or sweats. Oncology: Denies cancers. Dermatologic: Denies rash, itching, pruritus. ALLERGY/immunology: Denies sneezes, rashes. Past Medical History Past Medical History: No Reported History History of Any Multi-Drug Resistant Organisms: None Reported Past Surgical History: Orthopedic Surgery Past Psychological History: No Psychological Hx Reported Smoking Status: Former smoker Past Alcohol Use History: Occasional Past Drug Use History: None Reported Medications and Allergies Home Medications Medication Instructions Recorded Confirmed Type Budesonide/Formoterol Fumarate 2 puff INHALATION RT-BID 03/01/21 03/01/21 History [Symbicort 80-4.5 Mcg Inhaler] Levofloxacin [Levaquin] 750 mg PO DAILY 03/01/21 03/01/21 History guaiFENesin-Coden 100-10MG/5ML 10 ml PO Q6H PRN 03/01/21 03/01/21 History [Robitussin AC] Allergies Allergy/AdvReac Type Severity Reaction Status Date / Time No Known Allergies Allergy Verified 03/01/21 12:50 Physical Exam Vitals: Vital Signs Temp Pulse Resp BP Pulse Ox 03/15/21 02:00 97.9 F 66 17 147/84 96 03/14/21 20:00 97.6 F 77 16 126/78 98 03/14/21 17:10 97.5 F L 67 18 106/63 98 03/14/21 08:00 60 18 03/14/21 07:39 97.9 F 60 18 151/83 96 Intake and Output 03/14/21 03/14/21 03/15/21 14:59 22:59 06:59 Intake Total 360 240 Output Total 200 1100 Balance 160 -860 Intake: Oral 360 240 Output: Urine 200 1100 Other: Voiding Method Urinal # Voids 2 2 # Bowel Movements 2 Weight 76.2 kg Skin: Atrophic, intact. General: Medium build and comfortable appearance. Head: Normocephalic, atraumatic. Eyes: Symmetric. Pupils equal round. Ears: Symmetric. Hearing within normal limits. Mouth: Clear. Neck: Supple. Carotid without bruit. Cardiac: Regular rate and rhythm. Lungs: Clear anteriorly and posteriorly. Abdomen: Soft active nontender. Extremities: Normal tone. Neurological: Mental status: Alert, cooperative, pleasant. Cranial nerves: Symmetric facial tone and trapezius. Motor: Active movement all 4 limbs of at least antigravity. Sensation: Intact throughout. DTRs: Symmetric and equal throughout. Mobility: Sits with minimal assistance. Results CBC & Chem 7: 03/14/21 04:51 03/14/21 04:51 Labs: Abnormal Lab Results - Last 24 Hours (Table) 03/14/21 03/14/21 03/14/21 Range/Units 04:51 04:51 06:58 WBC 14.2 H (3.8-10.6) k/uL Neutrophils # 12.0 H (1.3-7.7) k/uL Sodium 130 L (137-145) mmol/L Creatinine 0.59 L (0.66-1.25) mg/dL Glucose 125 H (74-99) mg/dL POC Glucose (mg/dL) 119 H (75-99) mg/dL Calcium 7.4 L (8.4-10.2) mg/dL Phosphorus 2.3 L (2.5-4.5) mg/dL 03/14/21 03/14/21 03/14/21 Range/Units 11:44 17:05 20:47 WBC (3.8-10.6) k/uL Neutrophils # (1.3-7.7) k/uL Sodium (137-145) mmol/L Creatinine (0.66-1.25) mg/dL Glucose (74-99) mg/dL POC Glucose (mg/dL) 123 H 130 H 158 H (75-99) mg/dL Calcium (8.4-10.2) mg/dL Phosphorus (2.5-4.5) mg/dL 03/15/21 Range/Units 01:59 WBC (3.8-10.6) k/uL Neutrophils # (1.3-7.7) k/uL Sodium (137-145) mmol/L Creatinine (0.66-1.25) mg/dL Glucose (74-99) mg/dL POC Glucose (mg/dL) 119 H (75-99) mg/dL Calcium (8.4-10.2) mg/dL Phosphorus (2.5-4.5) mg/dL Assessment and Plan (1) Abdominal abscess Current Visit: Yes Status: Acute Code(s): UFM0370 - SNOMED Code(s): 30824345 (2) COVID-19 Current Visit: Yes Status: Acute Code(s): U07.1 - COVID-19 SNOMED Code(s): 303513372 Plan: Comments and plan: At this time patient is started therapies. Safety concerns noted as demonstrated ability tolerate and benefit from therapies. Have discussed inpatient rehab with patient and he seems agreeable. Note he is past the 2 week timeframe for the Covid pneumonia.
[2021-03-15 06:41] LABS: ALT 157 U/L (4-49); AST 83 U/L (17-59); African American GFR (CKD) >90 (>60 ml/min/1.73 sqM); Albumin 2.3 g/dL (3.5-5.0); Albumin/Globulin Ratio 0.9; Alkaline Phosphatase 56 U/L (38-126); Anion Gap 4 mmol/L; Blood Urea Nitrogen 12 mg/dL (9-20); Calcium 7.5 mg/dL (8.4-10.2); Carbon Dioxide 30 mmol/L (22-30); Chloride 98 mmol/L (98-107); Globulin 2.7 g/dL; Glucose 113 mg/dL (74-99); Magnesium 2.3 mg/dL (1.6-2.3); Non-African American GFR(CKD) >90 (>60 ml/min/1.73 sqM); Phosphorus 2.4 mg/dL (2.5-4.5); Sodium 132 mmol/L (137-145); Total Bilirubin 0.7 mg/dL (0.2-1.3)
[2021-03-15 07:20] LABS: Glucose,Whole Blood 103 mg/dL (75-99)
[2021-03-15] MEDS: INSULIN ASPART (NovoLOG) 100 UNIT/ML VIAL SQ SCH ×4 (07:29→20:25)
[2021-03-15] MEDS: ENOXAPARIN 40 MG/0.4 ML SYRINGE SQ SCH (07:43)
[2021-03-15] MEDS: ASCORBIC ACID 500 MG TAB PO SCH (07:44)
[2021-03-15] MEDS: PANTOPRAZOLE 40 MG/10 ML VIAL IVP SCH (07:44)
[2021-03-15] MEDS: DEXAMETHASONE SOD PHOSPHATE 10 MG/ML 1 ML VIAL IVP SCH (07:44)
[2021-03-15] MEDS: BENZONATATE 100 MG CAP PO SCH ×3 (07:44→20:43)
[2021-03-15] MEDS: ZINC SULFATE 220 MG CAP PO SCH (07:45)
[2021-03-15] MEDS: MEROPENEM 1 GM in SODIUM CHLORIDE 0.9% 100 ML IVPB SCH ×2 (07:45→16:14)
[2021-03-15] MEDS: DOCUSATE 100 MG CAP PO SCH (07:45)
[2021-03-15] MEDS: CHOLECALCIFEROL 125 MCG (5000 IU) TABLET PO SCH (07:45)
[2021-03-15] MEDS: SYMBICORT 80-4.5 MCG INHALER INHALATION SCH ×2 (08:14→20:44)
[2021-03-15] MEDS ORDERED: SODIUM PHOSPHATE 10 MMOL in SODIUM CHLORIDE 0.9% 100 ML IVPB ONE (09:00)
[2021-03-15 09:43] LABS: Basophils # (A) 0.02 X 10*3/uL (0.00-0.10); Basophils % (A) 0.1 %; Eosinophils # (A) 0.06 X 10*3/uL (0.04-0.35); Eosinophils % (A) 0.4 %; HCT 37.2 % (39.6-50.0); HGB 12.5 g/dL (13.0-17.0); Lymphocytes # (A) 1.46 X 10*3/uL (0.90-5.00); Lymphocytes % (A) 10.6 %; MCH 30.4 pg (27.0-32.0); MCHC 33.6 g/dL (32.0-37.0); MCV 90.5 fL (80.0-97.0); Mean Platelet Volume 9.7 fL (9.5-12.2); Monocytes # (A) 0.97 X 10*3/uL (0.20-1.00); Neutrophils # (A) 11.01 X 10*3/uL (1.80-7.70); Platelet Count 329 X 10*3/uL (140-440); RBC 4.11 X 10*6/uL (4.40-5.60); RDW 12.3 % (11.5-14.5); WBC 13.78 X 10*3/uL (4.50-10.00)
--- NOTE | 2021-03-15 11:40 | P.PN ---
Subjective Progress Note Date: 03/15/21 Patient feels okay tolerating diet no chest pain no shortness of breath Patient feels okay no chest pain no shortness of breath no vomiting Constitutional: No acute distress, conversant, pleasant Eyes: Anicteric sclerae, moist conjunctiva, no lid-lag PERRLA ENMT: NC/AT Oropharynx clear, no erythema, exudates Neck: Supple, FROM, no masses, or JVD No carotid bruits No thyromegaly Lungs: Clear to auscultation Clear to percussion Normal respiratory effort, no accessory muscle use Cardiovascular: Heart regular in rate and rhythm, No murmurs, gallops, or rubs No peripheral edema Abdominal: Soft Nontender, no guarding, rebound or rigidity Abdomen moving with respiration Normoactive bowel sounds No hepatomegaly, No splenomegaly No palpable mass No abdominal wall hernia noted Skin: Normal temperature, tone, texture, turgor No induration No subcutaneous nodules No rash, lesions No ulcers Extremities: No digital cyanosis No clubbing Pedal pulses intact and symmetrical Radial pulses intact and symmetrical Normal gait and station No calf tenderness Psychiatric:Alert and oriented to person, place and time Appropriate affect Intact judgement Neuro: Muscles Strength 5/5 in all 4 extremities Sensation to light touch grossly present throughout Cranial nerves II-XII grossly intact No focal sensory deficits Sepsis with abdominal abscess -Surgery consult, s/p OR washout on 03/09 -Clear liquid diet, advance per surgery recommendations -meropenem and fluconazole -Follow up cultures from operating room = E. coli with ESBL and enterococcus faecium sensitive to penicillin -Morphine when necessary for pain control -ID following Acute respiratory failure with hypoxia secondary to COVID 19 pneumonia -Oxygenation to be administered and titrated as needed to maintain SPO2 equal to or greater than 90% -Telemetry monitoring. -Continue trending inflammatory markers -Encourage Incentive Spirometry 10-15x hourly while awake -Steroids: Decadron 6 mg daily, day 10 of steroids. -Continue vitamin C, Vitamin D, and Zinc. -Pulmonology following, appreciate further recommendations. -DVT prophylaxis with Lovenox. -Strict Droplet plus Contact precautions -Patient received monoclonal antibodies. Out of window for Remdesivir, -Baricitinib dose 5 of 14, discontinued secondary to sepsis with abdominal abscess Overall improving surgery advancing diet and into monitor CODE STATUS: Full code DVT prophylaxis: Lovenox Discussed with: Patient, RN, and patient's daughter Tala Anticipated discharge date: Clinical course to determine Anticipated discharge place: Home Overall the condition of the patient is stable continue management as per surgery Objective - Vital Signs Vital signs: Vital Signs Temp 97.6 F 03/15/21 07:58 Pulse 62 03/15/21 08:00 Resp 16 03/15/21 08:00 BP 129/75 03/15/21 07:58 Pulse Ox 95 03/15/21 07:58 Intake & Output 03/14/21 03/15/21 03/15/21 18:59 06:59 18:59 Intake Total 600 Output Total 1300 Balance -700 Weight 76.2 kg Intake: Oral 600 Output: Urine 1300 Other: Voiding Method Urinal Urinal # Voids 2 2 # Bowel Movements 2 - Labs CBC & Chem 7: 03/15/21 06:18 03/15/21 06:18 Labs: Abnormal Lab Results - Last 24 Hours (Table) 03/14/21 03/14/21 03/14/21 Range/Units 11:44 17:05 20:47 WBC (4.50-10.00) X 10*3/uL RBC (4.40-5.60) X 10*6/uL Hgb (13.0-17.0) g/dL Hct (39.6-50.0) % Immature Gran # (0.00-0.04) X 10*3/uL Neutrophils # (1.80-7.70) X 10*3/uL Sodium (137-145) mmol/L Creatinine (0.66-1.25) mg/dL Glucose (74-99) mg/dL POC Glucose (mg/dL) 123 H 130 H 158 H (75-99) mg/dL Calcium (8.4-10.2) mg/dL Phosphorus (2.5-4.5) mg/dL AST (17-59) U/L ALT (4-49) U/L Total Protein (6.3-8.2) g/dL Albumin (3.5-5.0) g/dL 03/15/21 03/15/21 03/15/21 Range/Units 01:59 06:18 06:18 WBC 13.78 H (4.50-10.00) X 10*3/uL RBC 4.11 L (4.40-5.60) X 10*6/uL Hgb 12.5 L (13.0-17.0) g/dL Hct 37.2 L (39.6-50.0) % Immature Gran # 0.26 H (0.00-0.04) X 10*3/uL Neutrophils # 11.01 H (1.80-7.70) X 10*3/uL Sodium 132 L (137-145) mmol/L Creatinine 0.54 L (0.66-1.25) mg/dL Glucose 113 H (74-99) mg/dL POC Glucose (mg/dL) 119 H (75-99) mg/dL Calcium 7.5 L (8.4-10.2) mg/dL Phosphorus 2.4 L (2.5-4.5) mg/dL AST 83 H (17-59) U/L ALT 157 H (4-49) U/L Total Protein 5.0 L (6.3-8.2) g/dL Albumin 2.3 L (3.5-5.0) g/dL 03/15/21 Range/Units 07:18 WBC (4.50-10.00) X 10*3/uL RBC (4.40-5.60) X 10*6/uL Hgb (13.0-17.0) g/dL Hct (39.6-50.0) % Immature Gran # (0.00-0.04) X 10*3/uL Neutrophils # (1.80-7.70) X 10*3/uL Sodium (137-145) mmol/L Creatinine (0.66-1.25) mg/dL Glucose (74-99) mg/dL POC Glucose (mg/dL) 103 H (75-99) mg/dL Calcium (8.4-10.2) mg/dL Phosphorus (2.5-4.5) mg/dL AST (17-59) U/L ALT (4-49) U/L Total Protein (6.3-8.2) g/dL Albumin (3.5-5.0) g/dL
--- NOTE | 2021-03-15 12:01 | P.PN ---
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 Patient sitting up in bed. He is tolerating clear liquid diet. He is currently on TPN. He is having bowel movements and flatus. He reports abdominal pain only with coughing. Denies any nausea or vomiting. He reports feeling hungry. Afebrile. WBC 13.78 hemoglobin 12.[address] Sandoval and possibly will be discharged to inpatient rehab. PHYSICAL EXAM: VITAL SIGNS: Reviewed. GENERAL: Well-developed in no acute distress. HEENT: No sclera icterus. Extraocular movements grossly intact. Moist buccal mucosa. Head is atraumatic, normocephalic. ABDOMEN: Soft. Nondistended. Abdominal binder in place NEUROLOGIC: Awake and alert orientated x 3 ASSESSMENT: 1. 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 COVID-19 pneumonia PLAN: -Advance diet to full liquids -Continue with TPN for 1 more day -Change Aquacel incisional ngoc every 2 days -Increase activity level -Continue antibiotics -Continue supportive care -DVT prophylaxis Lovenox Physician Field Director note has been reviewed by physician. Signing provider agrees with the documented findings, assessment, and plan of care. Objective - Vital Signs Vital signs: Vital Signs Temp 97.6 F 03/15/21 07:58 Pulse 62 03/15/21 08:00 Resp 16 03/15/21 08:00 BP 129/75 03/15/21 07:58 Pulse Ox 95 03/15/21 07:58 Intake & Output 03/14/21 03/15/21 03/15/21 18:59 06:59 18:59 Intake Total 600 Output Total 1300 Balance -700 Weight 76.2 kg Intake: Oral 600 Output: Urine 1300 Other: Voiding Method Urinal Urinal # Voids 2 2 # Bowel Movements 2 - Labs CBC & Chem 7: 03/15/21 06:18 03/15/21 06:18 Labs: Abnormal Lab Results - Last 24 Hours (Table) 03/14/21 03/14/21 03/15/21 Range/Units 17:05 20:47 01:59 WBC (4.50-10.00) X 10*3/uL RBC (4.40-5.60) X 10*6/uL Hgb (13.0-17.0) g/dL Hct (39.6-50.0) % Immature Gran # (0.00-0.04) X 10*3/uL Neutrophils # (1.80-7.70) X 10*3/uL Sodium (137-145) mmol/L Creatinine (0.66-1.25) mg/dL Glucose (74-99) mg/dL POC Glucose (mg/dL) 130 H 158 H 119 H (75-99) mg/dL Calcium (8.4-10.2) mg/dL Phosphorus (2.5-4.5) mg/dL AST (17-59) U/L ALT (4-49) U/L Total Protein (6.3-8.2) g/dL Albumin (3.5-5.0) g/dL 03/15/21 03/15/21 03/15/21 Range/Units 06:18 06:18 07:18 WBC 13.78 H (4.50-10.00) X 10*3/uL RBC 4.11 L (4.40-5.60) X 10*6/uL Hgb 12.5 L (13.0-17.0) g/dL Hct 37.2 L (39.6-50.0) % Immature Gran # 0.26 H (0.00-0.04) X 10*3/uL Neutrophils # 11.01 H (1.80-7.70) X 10*3/uL Sodium 132 L (137-145) mmol/L Creatinine 0.54 L (0.66-1.25) mg/dL Glucose 113 H (74-99) mg/dL POC Glucose (mg/dL) 103 H (75-99) mg/dL Calcium 7.5 L (8.4-10.2) mg/dL Phosphorus 2.4 L (2.5-4.5) mg/dL AST 83 H (17-59) U/L ALT 157 H (4-49) U/L Total Protein 5.0 L (6.3-8.2) g/dL Albumin 2.3 L (3.5-5.0) g/dL <Andrew Vásquez - Last Filed: 03/15/21 12:44> Subjective As above. Patient doing better today. Tolerating liquids. We'll advance to full liquids at this time. Continue TPN. Continue local wound care. Objective - Vital Signs Vital signs: Vital Signs Temp 97.6 F 03/15/21 07:58 Pulse 62 03/15/21 08:00 Resp 16 03/15/21 08:00 BP 129/75 03/15/21 07:58 Pulse Ox 95 03/15/21 07:58 Intake & Output 03/14/21 03/15/21 03/15/21 18:59 06:59 18:59 Intake Total 600 Output Total 1300 Balance -700 Weight 76.2 kg Intake: Oral 600 Output: Urine 1300 Other: Voiding Method Urinal Urinal # Voids 2 2 # Bowel Movements 2 - Labs CBC & Chem 7: 03/15/21 06:18 03/15/21 06:18 Labs: Abnormal Lab Results - Last 24 Hours (Table) 03/14/21 03/14/21 03/15/21 Range/Units 17:05 20:47 01:59 WBC (4.50-10.00) X 10*3/uL RBC (4.40-5.60) X 10*6/uL Hgb (13.0-17.0) g/dL Hct (39.6-50.0) % Immature Gran # (0.00-0.04) X 10*3/uL Neutrophils # (1.80-7.70) X 10*3/uL Sodium (137-145) mmol/L Creatinine (0.66-1.25) mg/dL Glucose (74-99) mg/dL POC Glucose (mg/dL) 130 H 158 H 119 H (75-99) mg/dL Calcium (8.4-10.2) mg/dL Phosphorus (2.5-4.5) mg/dL AST (17-59) U/L ALT (4-49) U/L Total Protein (6.3-8.2) g/dL Albumin (3.5-5.0) g/dL 03/15/21 03/15/21 03/15/21 Range/Units 06:18 06:18 07:18 WBC 13.78 H (4.50-10.00) X 10*3/uL RBC 4.11 L (4.40-5.60) X 10*6/uL Hgb 12.5 L (13.0-17.0) g/dL Hct 37.2 L (39.6-50.0) % Immature Gran # 0.26 H (0.00-0.04) X 10*3/uL Neutrophils # 11.01 H (1.80-7.70) X 10*3/uL Sodium 132 L (137-145) mmol/L Creatinine 0.54 L (0.66-1.25) mg/dL Glucose 113 H (74-99) mg/dL POC Glucose (mg/dL) 103 H (75-99) mg/dL Calcium 7.5 L (8.4-10.2) mg/dL Phosphorus 2.4 L (2.5-4.5) mg/dL AST 83 H (17-59) U/L ALT 157 H (4-49) U/L Total Protein 5.0 L (6.3-8.2) g/dL Albumin 2.3 L (3.5-5.0) g/dL Assessment and Plan (1) Abdominal abscess Current Visit: Yes Status: Acute Code(s): [id number] - SNOMED Code(s): 47527761
[2021-03-15 12:53] LABS: Glucose,Whole Blood 123 mg/dL (75-99)
[2021-03-15] MEDS: FLUCONAZOLE IN NACL,ISO-OSM 100 MG in SALINE 1 50ML.BAG IVPB SCH (13:43)
--- NOTE | 2021-03-15 15:47 | PN ---
PROGRESS NOTE DATE OF SERVICE: 03/15/2021 REASON FOR FOLLOW UP: Intraabdominal abscess. INTERVAL HISTORY: Patient is afebrile. The patient is breathing comfortably. The patient denies having any chest pain or shortness of breath. Occasional cough. Abdominal pain is currently controlled. No diarrhea. PHYSICAL EXAMINATION: Blood pressure 110/66, pulse of 83, temperature 98. He is 94% on 5 L nasal cannula. General description is an elderly male up in the room in no distress. Respiratory system: Unlabored breathing. Heart S1-S2 regular rate and rhythm. Abdomen: Soft. Midline incision with 3 small openings. Wound base with no slough tissue. No surrounding redness or drainage. LABS: Hemoglobin is 12.5, white count 13.7, creatinine 0.5. DIAGNOSTIC IMPRESSION AND PLAN: Patient with abdominal abscess from perforated jejunal diverticulum status post drainage. Culture has been positive for ESBL E coli, Enterococcus. Patient is on meropenem that will be transitioned to Invanz 1 gram daily for another 7 to 10 days to finish a course of therapy and close outpatient followup. MMODL / IJN: [id number] /
--- NOTE | 2021-03-15 16:23 | P.PN ---
Subjective Progress Note Date: 03/15/21 Principal diagnosis: Shortness of breath. On 03/13/2021 patient seen in follow-up on the medical surgical floor. He was transferred out of intensive care unit yesterday on 03/12/2021 after successfully weaning and extubated from mechanical ventilator. He is currently on 4 L of oxygen, he is breathing comfortably, has not utilized BiPAP support. Remains on antibiotics, with fluconazole and Zosyn for intra-abdominal abscess. His abdominal wound cultures are showing E. coli, enterococcus CCM, and anaerobic gram-negative bacilli sputum cultures have been negative. No fever or chills, vitals have been stable. His chest x-ray still shows bilateral airspace disease, without significant change, but clinically his hypoxia has improved. Patient remains on Decadron 6 mg IV push daily, he is on COVID-19 vitamins, he is on Lovenox 40 mg twice daily, he will be started on TPN after the PICC line insertion. Patient is status post exploratory laparotomy, drainage of abdominal abscess and small bowel resection. His abdomen is soft, nondistended, abdominal binder is in place. His incisions have not been inspected as they are covered by sterile drape. He denies any acute distress, his passing flatus, no nausea or vomiting. His leukocytosis is improving. The patient is seen today 03/14/2021 in follow-up on the regular medical floor. He is awake and alert in no acute distress. He is down to 4 L high flow nasal cannula to maintain O2 saturations in the mid 90s. He's been afebrile. Hemodynamically stable. He is currently up ambulating with assistance 2. He did have a PICC line placed yesterday. Abdominal wound cultures were positive for E. coli and enterococcus faecium. White count 14.2. Hemoglobin 13.8. Sodium 130. Potassium 4.2. Creatinine 0.59. Glucose 125. He is being nourished with TPN and lipids. He is on antibiotics in the form of meropenem. Continued on fluconazole. He remains on Decadron, Lovenox, vitamin supplements. Continue on Symbicort and Tessalon Perles. Progress note dated 03/15/2021. The patient is again seen today, in room 626. He is doing well. He sitting up in a chair. He's been weaned on the 4 L nasal cannula. Saturations are between 94-95%. The rest of his vital signs are stable. He has no new complaints today. Abdominal wound cultures were positive for Escherichia coli, and enterococcus faecium. The patient remains on meropenem and fluconazole. The patient's also receiving Decadron, Lovenox, and vitamin supplementation. White count 13.78, hemoglobin 12.5, hematocrit 37.2, and platelet count 3 29,000. Sodium 132, potassium 4, chlorides 98, CO2 30, anion gap 4, BUN 12, creatinine 0.54. No recent chest x-ray to report. The patient has been seen by the physiatry us for possible inpatient rehab. Objective - Vital Signs Vital signs: Vital Signs Temp 98.0 F 03/15/21 14:00 Pulse 83 03/15/21 14:00 Resp 16 03/15/21 14:00 BP 110/66 03/15/21 14:00 Pulse Ox 94 L 03/15/21 14:00 Intake & Output 03/14/21 03/15/21 03/15/21 18:59 06:59 18:59 Intake Total 600 Output Total 1300 Balance -700 Weight 76.2 kg Intake: Oral 600 Output: Urine 1300 Other: Voiding Method Urinal Urinal # Voids 2 2 6 # Bowel Movements 2 5 - Exam No acute distress, oriented 3. Currently on nasal O2 at 3 L. HEENT examination is grossly unremarkable. Neck supple. Full range of motion. No adenopathy thyromegaly or neck vein distention. Cardiovascular examination reveals regular rhythm rate. S1-S2 normal. No S3 or S4. No discernible murmur noted. Heart rate 74 bpm. Lungs reveal clear breath sounds. Scattered rhonchi. No wheezes. Mild bibasilar crackles. Abdomen off, but normal-appearing bowel sounds. Extremities are intact. No cyanosis clubbing or edema. Skin is without rash or lesion. Neurologic examination is brief but nonfocal. - Labs CBC & Chem 7: 03/15/21 06:18 03/15/21 06:18 Labs: Abnormal Lab Results - Last 24 Hours (Table) 03/14/21 03/14/21 03/15/21 Range/Units 17:05 20:47 01:59 WBC (4.50-10.00) X 10*3/uL RBC (4.40-5.60) X 10*6/uL Hgb (13.0-17.0) g/dL Hct (39.6-50.0) % Immature Gran # (0.00-0.04) X 10*3/uL Neutrophils # (1.80-7.70) X 10*3/uL Sodium (137-145) mmol/L Creatinine (0.66-1.25) mg/dL Glucose (74-99) mg/dL POC Glucose (mg/dL) 130 H 158 H 119 H (75-99) mg/dL Calcium (8.4-10.2) mg/dL Phosphorus (2.5-4.5) mg/dL AST (17-59) U/L ALT (4-49) U/L Total Protein (6.3-8.2) g/dL Albumin (3.5-5.0) g/dL 03/15/21 03/15/21 03/15/21 Range/Units 06:18 06:18 07:18 WBC 13.78 H (4.50-10.00) X 10*3/uL RBC 4.11 L (4.40-5.60) X 10*6/uL Hgb 12.5 L (13.0-17.0) g/dL Hct 37.2 L (39.6-50.0) % Immature Gran # 0.26 H (0.00-0.04) X 10*3/uL Neutrophils # 11.01 H (1.80-7.70) X 10*3/uL Sodium 132 L (137-145) mmol/L Creatinine 0.54 L (0.66-1.25) mg/dL Glucose 113 H (74-99) mg/dL POC Glucose (mg/dL) 103 H (75-99) mg/dL Calcium 7.5 L (8.4-10.2) mg/dL Phosphorus 2.4 L (2.5-4.5) mg/dL AST 83 H (17-59) U/L ALT 157 H (4-49) U/L Total Protein 5.0 L (6.3-8.2) g/dL Albumin 2.3 L (3.5-5.0) g/dL 03/15/21 Range/Units 12:51 WBC (4.50-10.00) X 10*3/uL RBC (4.40-5.60) X 10*6/uL Hgb (13.0-17.0) g/dL Hct (39.6-50.0) % Immature Gran # (0.00-0.04) X 10*3/uL Neutrophils # (1.80-7.70) X 10*3/uL Sodium (137-145) mmol/L Creatinine (0.66-1.25) mg/dL Glucose (74-99) mg/dL POC Glucose (mg/dL) 123 H (75-99) mg/dL Calcium (8.4-10.2) mg/dL Phosphorus (2.5-4.5) mg/dL AST (17-59) U/L ALT (4-49) U/L Total Protein (6.3-8.2) g/dL Albumin (3.5-5.0) g/dL Assessment and Plan Assessment: 1 Acute COVID 19 related pneumonia with secondary shortness of breath. Patient tested positive for COVID 10 days prior to presentation to the emergency department. Patient is a non-vaccinated individual The patient received monoclonal antibodies on outpatient basis. The patient was also treated with steroids and antibiotics. Patient was intubated and placed on mechanical ventilator on 03/09/2021 related to exploratory laparotomy secondary to small bowel perforation and drainage of abdominal abscess and small bowel resection and subsequently extubated. Currently on 3 L nasal cannula. 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 3 Intra-abdominal abscess/peritonitis, patient is on a combination of Diflucan and Zosyn, with abdominal wound cultures positive for E. coli, enterococcus faecium, and anaerobic gram-negative bacilli. 4 Acute hypoxic respiratory failure secondary to above, currently down to 3 L nasal cannula. 5 Shortness of breath and cough secondary to above, much improved. 6 Elevated d-dimer, without evidence of pulmonary embolism/DVT. Plan: Plan dated 03/15/2021. The patient appears to be doing relatively well. He's been weaned down to 3 L nasal cannula. He continues on Decadron and Lovenox. He also continues on vitamins. Additional recommendations and suggestions are forthcoming. He remains on meropenem and Diflucan. Additional recommendations and suggestions are forthcoming. Prognosis is guarded. We'll continue to follow make recommendations where appropriate. Time with Patient: Less than 30
[2021-03-15 18:03] LABS: Glucose,Whole Blood 98 mg/dL (75-99)
[2021-03-15 20:21] LABS: Glucose,Whole Blood 106 mg/dL (75-99)
[2021-03-15] MEDS: HYDROmorphone 1 MG/ML 1 ML SYRINGE IVP PRN (22:16)
[2021-03-16] MEDS: MEROPENEM 1 GM in SODIUM CHLORIDE 0.9% 100 ML IVPB SCH ×4 (00:53→23:29)
[2021-03-16 01:58] LABS: Glucose,Whole Blood 113 mg/dL (75-99)
[2021-03-16] MEDS: SODIUM CHLORIDE 0.9% 1,000 ML IV SCH ×2 (03:39→15:15)
[2021-03-16] MEDS: guaiFENesin-Coden 100-10MG/5ML 10 ML CUP PO SCH ×4 (04:44→23:27)
[2021-03-16] MEDS: ASCORBIC ACID 500 MG TAB PO SCH (07:33)
[2021-03-16] MEDS: ZINC SULFATE 220 MG CAP PO SCH (07:33)
[2021-03-16] MEDS: CHOLECALCIFEROL 125 MCG (5000 IU) TABLET PO SCH (07:33)
[2021-03-16] MEDS: BENZONATATE 100 MG CAP PO SCH ×3 (07:34→23:28)
[2021-03-16] MEDS: DEXAMETHASONE SOD PHOSPHATE 10 MG/ML 1 ML VIAL IVP SCH (07:34)
[2021-03-16] MEDS: PANTOPRAZOLE 40 MG/10 ML VIAL IVP SCH (07:34)
[2021-03-16] MEDS: ENOXAPARIN 40 MG/0.4 ML SYRINGE SQ SCH (07:35)
[2021-03-16] MEDS: FLUCONAZOLE 100 MG TAB PO SCH (07:35)
[2021-03-16 07:38] LABS: Magnesium 2.3 mg/dL (1.6-2.3); Phosphorus 2.6 mg/dL (2.5-4.5)
[2021-03-16 07:41] LABS: Glucose,Whole Blood 94 mg/dL (75-99)
[2021-03-16] MEDS: INSULIN ASPART (NovoLOG) 100 UNIT/ML VIAL SQ SCH ×4 (07:42→22:50)
[2021-03-16 07:59] LABS: ALT 138 U/L (4-49); AST 53 U/L (17-59); African American GFR (CKD) >90 (>60 ml/min/1.73 sqM); Albumin 2.3 g/dL (3.5-5.0); Albumin/Globulin Ratio 0.9; Alkaline Phosphatase 61 U/L (38-126); Anion Gap 0 mmol/L; Blood Urea Nitrogen 14 mg/dL (9-20); Calcium 7.6 mg/dL (8.4-10.2); Carbon Dioxide 33 mmol/L (22-30); Chloride 99 mmol/L (98-107); Globulin 2.7 g/dL; Glucose 100 mg/dL (74-99); Non-African American GFR(CKD) >90 (>60 ml/min/1.73 sqM); Sodium 132 mmol/L (137-145); Total Bilirubin 0.6 mg/dL (0.2-1.3)
[2021-03-16] MEDS: SYMBICORT 80-4.5 MCG INHALER INHALATION SCH ×2 (09:13→21:31)
[2021-03-16] MEDS: 1: MVI, ADULT NO.4 WITH VIT K 10 ML, TRACE (CONC-1ML/DOSE) 1 ML in AMINO ACID 5%-D20W+LY IV SCH ×3 (09:49)
--- NOTE | 2021-03-16 10:23 | P.PN ---
Subjective Progress Note Date: 03/16/21 Principal diagnosis: Shortness of breath. On 03/13/2021 patient seen in follow-up on the medical surgical floor. He was transferred out of intensive care unit yesterday on 03/12/2021 after successfully weaning and extubated from mechanical ventilator. He is currently on 4 L of oxygen, he is breathing comfortably, has not utilized BiPAP support. Remains on antibiotics, with fluconazole and Zosyn for intra-abdominal abscess. His abdominal wound cultures are showing E. coli, enterococcus CCM, and anaerobic gram-negative bacilli sputum cultures have been negative. No fever or chills, vitals have been stable. His chest x-ray still shows bilateral airspace disease, without significant change, but clinically his hypoxia has improved. Patient remains on Decadron 6 mg IV push daily, he is on COVID-19 vitamins, he is on Lovenox 40 mg twice daily, he will be started on TPN after the PICC line insertion. Patient is status post exploratory laparotomy, drainage of abdominal abscess and small bowel resection. His abdomen is soft, nondistended, abdominal binder is in place. His incisions have not been inspected as they are covered by sterile drape. He denies any acute distress, his passing flatus, no nausea or vomiting. His leukocytosis is improving. The patient is seen today 03/14/2021 in follow-up on the regular medical floor. He is awake and alert in no acute distress. He is down to 4 L high flow nasal cannula to maintain O2 saturations in the mid 90s. He's been afebrile. Hemodynamically stable. He is currently up ambulating with assistance 2. He did have a PICC line placed yesterday. Abdominal wound cultures were positive for E. coli and enterococcus faecium. White count 14.2. Hemoglobin 13.8. Sodium 130. Potassium 4.2. Creatinine 0.59. Glucose 125. He is being nourished with TPN and lipids. He is on antibiotics in the form of meropenem. Continued on fluconazole. He remains on Decadron, Lovenox, vitamin supplements. Continue on Symbicort and Tessalon Perles. Progress note dated 03/15/2021. The patient is again seen today, in room 626. He is doing well. He sitting up in a chair. He's been weaned on the 4 L nasal cannula. Saturations are between 94-95%. The rest of his vital signs are stable. He has no new complaints today. Abdominal wound cultures were positive for Escherichia coli, and enterococcus faecium. The patient remains on meropenem and fluconazole. The patient's also receiving Decadron, Lovenox, and vitamin supplementation. White count 13.78, hemoglobin 12.5, hematocrit 37.2, and platelet count 3 29,000. Sodium 132, potassium 4, chlorides 98, CO2 30, anion gap 4, BUN 12, creatinine 0.54. No recent chest x-ray to report. The patient has been seen by the physiatry us for possible inpatient rehab. Progress note dated 03/16/2021. The patient is again seen in room 626. He sitting up in a chair next to the bed. He is resting comfortably. He's on 4 L nasal cannula. He is getting lucia ine at 30 mL an hour. He has no new complaints today. Abdominal positive for Escherichia coli, and enterococcus. The patient remains on meropenem, and fluconazole. Labs today include a sodium 132, potassium 4, chlorides 99, CO2 33, BUN 14, and creatinine 0.57. Objective - Vital Signs Vital signs: Vital Signs Temp 98.7 F 03/16/21 08:00 Pulse 94 03/16/21 08:00 Resp 16 03/16/21 08:00 BP 113/68 03/16/21 08:00 Pulse Ox 94 L 03/16/21 08:00 Intake & Output 03/15/21 03/16/21 03/16/21 18:59 06:59 18:59 Weight 78.7 kg Other: Voiding Method Urinal Toilet # Voids 8 3 # Bowel Movements 5 1 - Exam No acute distress, oriented 3. Currently on nasal O2 at 4 L. Saturations are 94%. HEENT examination is grossly unremarkable. Neck supple. Full range of motion. No adenopathy thyromegaly or neck vein distention. Cardiovascular examination reveals regular rhythm rate. S1-S2 normal. No S3 or S4. No discernible murmur noted. Heart rate 94 bpm. Lungs reveal clear breath sounds. Scattered rhonchi. No wheezes. Mild bibasilar crackles. Abdomen off, but normal-appearing bowel sounds. Extremities are intact. No cyanosis clubbing or edema. Skin is without rash or lesion. Neurologic examination is brief but nonfocal. - Labs CBC & Chem 7: 03/15/21 06:18 03/16/21 06:56 Labs: Abnormal Lab Results - Last 24 Hours (Table) 03/15/21 03/15/21 03/16/21 Range/Units 12:51 20:20 01:57 Sodium (137-145) mmol/L Carbon Dioxide (22-30) mmol/L Creatinine (0.66-1.25) mg/dL Glucose (74-99) mg/dL POC Glucose (mg/dL) 123 H 106 H 113 H (75-99) mg/dL Calcium (8.4-10.2) mg/dL ALT (4-49) U/L Total Protein (6.3-8.2) g/dL Albumin (3.5-5.0) g/dL 03/16/21 Range/Units 06:56 Sodium 132 L (137-145) mmol/L Carbon Dioxide 33 H (22-30) mmol/L Creatinine 0.57 L (0.66-1.25) mg/dL Glucose 100 H (74-99) mg/dL POC Glucose (mg/dL) (75-99) mg/dL Calcium 7.6 L (8.4-10.2) mg/dL ALT 138 H (4-49) U/L Total Protein 5.0 L (6.3-8.2) g/dL Albumin 2.3 L (3.5-5.0) g/dL Assessment and Plan Assessment: 1 Acute COVID-19 related pneumonia with secondary shortness of breath. Patient tested positive for COVID 10 days prior to presentation to the emergency department. Patient is a non-vaccinated individual The patient received monoclonal antibodies on outpatient basis. The patient was also treated with steroids and antibiotics. Patient was intubated and placed on mechanical ve ntilator on 03/09/2021 related to exploratory laparotomy secondary to small bowel perforation and drainage of abdominal abscess and small bowel resection and subsequently extubated. Currently on 4 L nasal cannula. 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 3 Intra-abdominal abscess/peritonitis, patient is on a combination of Diflucan and Zosyn, with abdominal wound cultures positive for E. coli, enterococcus faecium, and anaerobic gram-negative bacilli. 4 Acute hypoxic respiratory failure secondary to above, currently down to 4 L nasal cannula. 5 Shortness of breath and cough secondary to above, much improved. 6 Elevated d-dimer, without evidence of pulmonary embolism/DVT. Plan: Plan dated 03/15/2021. The patient appears to be doing relatively well. He's been weaned down to 3 L nasal cannula. He continues on Decadron and Lovenox. He also continues on vitamins. Additional recommendations and suggestions are forthcoming. He remains on meropenem and Diflucan. Additional recommendations and suggestions are forthcoming. Prognosis is guarded. We'll continue to follow make recommendations where appropriate. Plan dated 03/16/2021. The patient's currently on 4 L. The patient's getting saline at 30 mL an hour. He remains on antibiotics. Laboratory data is reviewed. Medications and x-rays are reviewed. Prognosis is guarded. We will continue to follow make recommendations where appropriate. Time with Patient: Less than 30
--- NOTE | 2021-03-16 10:56 | P.PN ---
Subjective Progress Note Date: 03/16/21 Principal diagnosis: No complaints of vomiting or chest pain today Patient feels okay tolerating diet no chest pain no shortness of breath Patient feels okay no chest pain no shortness of breath no vomiting Constitutional: No acute distress, conversant, pleasant Eyes: Anicteric sclerae, moist conjunctiva, no lid-lag PERRLA ENMT: NC/AT Oropharynx clear, no erythema, exudates Neck: Supple, FROM, no masses, or JVD No carotid bruits No thyromegaly Lungs: Clear to auscultation Clear to percussion Normal respiratory effort, no accessory muscle use Cardiovascular: Heart regular in rate and rhythm, No murmurs, gallops, or rubs No peripheral edema Abdominal: Soft Nontender, no guarding, rebound or rigidity Abdomen moving with respiration Normoactive bowel sounds No hepatomegaly, No splenomegaly No palpable mass No abdominal wall hernia noted Skin: Normal temperature, tone, texture, turgor No induration No subcutaneous nodules No rash, lesions No ulcers Extremities: No digital cyanosis No clubbing Pedal pulses intact and symmetrical Radial pulses intact and symmetrical Normal gait and station No calf tenderness Psychiatric:Alert and oriented to person, place and time Appropriate affect Intact judgement Neuro: Muscles Strength 5/5 in all 4 extremities Sensation to light touch grossly present throughout Cranial nerves II-XII grossly intact No focal sensory deficits Sepsis with abdominal abscess -Surgery consult, s/p OR washout on 03/09 -Clear liquid diet, advance per surgery recommendations -meropenem and fluconazole -Follow up cultures from operating room = E. coli with ESBL and enterococcus faecium sensitive to penicillin -Morphine when necessary for pain control -ID following Acute respiratory failure with hypoxia secondary to COVID 19 pneumonia -Oxygenation to be administered and titrated as needed to maintain SPO2 equal to or greater than 90% -Telemetry monitoring. -Continue trending inflammatory markers -Encourage Incentive Spirometry 10-15x hourly while awake -Steroids: Decadron 6 mg daily, day 10 of steroids. -Continue vitamin C, Vitamin D, and Zinc. -Pulmonology following, appreciate further recommendations. -DVT prophylaxis with Lovenox. -Strict Droplet plus Contact precautions -Patient received monoclonal antibodies. Out of window for Remdesivir, -Baricitinib dose 5 of 14, discontinued secondary to sepsis with abdominal abscess Overall improving surgery advancing diet and into monitor CODE STATUS: Full code DVT prophylaxis: Lovenox Discussed with: Patient, RN, and patient's daughter Alison Zendejas Anticipated discharge date: Clinical course to determine Anticipated discharge place: Home Overall the condition of the patient is stable continue management as per surgery Patient is still hypoxic but only 4 L we'll continue to monitor hopefully discharge in 1-2 days when okay with surgery 2 Objective - Vital Signs Vital signs: Vital Signs Temp 98.7 F 03/16/21 08:00 Pulse 94 03/16/21 08:00 Resp 16 03/16/21 08:00 BP 113/68 03/16/21 08:00 Pulse Ox 94 L 03/16/21 08:00 Intake & Output 03/15/21 03/16/21 03/16/21 18:59 06:59 18:59 Weight 78.7 kg Other: Voiding Method Urinal Toilet # Voids 8 3 # Bowel Movements 5 1 - Labs CBC & Chem 7: 03/15/21 06:18 03/16/21 06:56 Labs: Abnormal Lab Results - Last 24 Hours (Table) 03/15/21 03/15/21 03/16/21 Range/Units 12:51 20:20 01:57 Sodium (137-145) mmol/L Carbon Dioxide (22-30) mmol/L Creatinine (0.66-1.25) mg/dL Glucose (74-99) mg/dL POC Glucose (mg/dL) 123 H 106 H 113 H (75-99) mg/dL Calcium (8.4-10.2) mg/dL ALT (4-49) U/L Total Protein (6.3-8.2) g/dL Albumin (3.5-5.0) g/dL 03/16/21 Range/Units 06:56 Sodium 132 L (137-145) mmol/L Carbon Dioxide 33 H (22-30) mmol/L Creatinine 0.57 L (0.66-1.25) mg/dL Glucose 100 H (74-99) mg/dL POC Glucose (mg/dL) (75-99) mg/dL Calcium 7.6 L (8.4-10.2) mg/dL ALT 138 H (4-49) U/L Total Protein 5.0 L (6.3-8.2) g/dL Albumin 2.3 L (3.5-5.0) g/dL
[2021-03-16] MEDS: FAT EMULSION 20% 250 ML in EMPTY BAG 1 BAG IV SCH (11:16)
[2021-03-16] MEDS: 1: AMINO ACID 5%-D20W+LYTES*E* 1,000 ML 2: MVI, ADULT NO.4 WITH VIT K 10 ML, TRACE (CON IV SCH ×3 (11:16)
[2021-03-16 11:26] LABS: Basophils # (A) 0.02 X 10*3/uL (0.00-0.10); Basophils % (A) 0.2 %; Eosinophils # (A) 0.16 X 10*3/uL (0.04-0.35); Eosinophils % (A) 1.4 %; HCT 39.5 % (39.6-50.0); HGB 12.8 g/dL (13.0-17.0); Lymphocytes # (A) 1.87 X 10*3/uL (0.90-5.00); Lymphocytes % (A) 16.1 %; MCH 29.6 pg (27.0-32.0); MCHC 32.4 g/dL (32.0-37.0); MCV 91.4 fL (80.0-97.0); Mean Platelet Volume 9.4 fL (9.5-12.2); Monocytes # (A) 0.93 X 10*3/uL (0.20-1.00); Neutrophils # (A) 8.34 X 10*3/uL (1.80-7.70); Neutrophils % (A) 71.8 %; Platelet Count 320 X 10*3/uL (140-440); RBC 4.32 X 10*6/uL (4.40-5.60); RDW 12.3 % (11.5-14.5); WBC 11.61 X 10*3/uL (4.50-10.00)
--- NOTE | 2021-03-16 11:43 | P.PN ---
<Mariaa Wayne - Last Filed: 03/16/21 11:39> Subjective Progress Note Date: 03/16/21 CHIEF COMPLAINT: Small bowel perforation at site of jejunal diverticulum with adjacent abscess HISTORY OF PRESENT ILLNESS: Postop day #7 status post exploratory laparotomy, drainage abdominal abscess and small bowel resection. Patient is sitting up at bedside chair. He reports only pain with cough. He has been up ambulating. He is having small bowel movements. He is eating the complete full liquid tray. He's having flatus. Denies any nausea or vomiting. Afebrile. WBC 13.78 down to 11.61 hemoglobin 12.8 Discharge process in progress and home with IV antibiotics PHYSICAL EXAM: VITAL SIGNS: Reviewed. GENERAL: Well-developed in no acute distress. HEENT: No sclera icterus. Extraocular movements grossly intact. Moist buccal mucosa. Head is atraumatic, normocephalic. ABDOMEN: Soft. Nondistended. Incision site clean dry and intact with ngoc in place NEUROLOGIC: Awake and alert orientated x 3 ASSESSMENT: 1. 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 COVID-19 pneumonia PLAN: -Advance diet to full liquids -Begin weaning patient off of TPN -Continue local wound care -Increase activity level -Continue antibiotics per ID -Continue supportive care -DVT prophylaxis Lovenox Physician Guidance Consultant note has been reviewed by physician. Signing provider agrees with the documented findings, assessment, and plan of care. Objective - Vital Signs Vital signs: Vital Signs Temp 98.7 F 03/16/21 08:00 Pulse 94 03/16/21 08:00 Resp 16 03/16/21 08:00 BP 113/68 03/16/21 08:00 Pulse Ox 94 L 03/16/21 08:00 Intake & Output 03/15/21 03/16/21 03/16/21 18:59 06:59 18:59 Intake Total 44 Balance 44 Weight 78.7 kg Intake: Intake, IV Titration 44 Amount Mvi, Adult No.4 with Vit 44 K 10 ml Trace (Conc-1Ml/ Dose) 1 ml In Amino Acid 5%-D20w+Lytes*E* 1,000 ml @ 30 mls/hr IV .BY DURATION [facility] Rx#: [id number] Other: Voiding Method Urinal Toilet # Voids 8 3 # Bowel Movements 5 1 - Labs CBC & Chem 7: 03/16/21 06:56 03/16/21 06:56 Labs: Abnormal Lab Results - Last 24 Hours (Table) 03/15/21 03/15/21 03/16/21 Range/Units 12:51 20:20 01:57 WBC (4.50-10.00) X 10*3/uL RBC (4.40-5.60) X 10*6/uL Hgb (13.0-17.0) g/dL Hct (39.6-50.0) % MPV (9.5-12.2) fL Immature Gran # (0.00-0.04) X 10*3/uL Neutrophils # (1.80-7.70) X 10*3/uL Sodium (137-145) mmol/L Carbon Dioxide (22-30) mmol/L Creatinine (0.66-1.25) mg/dL Glucose (74-99) mg/dL POC Glucose (mg/dL) 123 H 106 H 113 H (75-99) mg/dL Calcium (8.4-10.2) mg/dL ALT (4-49) U/L Total Protein (6.3-8.2) g/dL Albumin (3.5-5.0) g/dL 03/16/21 03/16/21 Range/Units 06:56 06:56 WBC 11.61 H (4.50-10.00) X 10*3/uL RBC 4.32 L (4.40-5.60) X 10*6/uL Hgb 12.8 L (13.0-17.0) g/dL Hct 39.5 L (39.6-50.0) % MPV 9.4 L (9.5-12.2) fL Immature Gran # 0.29 H (0.00-0.04) X 10*3/uL Neutrophils # 8.34 H (1.80-7.70) X 10*3/uL Sodium 132 L (137-145) mmol/L Carbon Dioxide 33 H (22-30) mmol/L Creatinine 0.57 L (0.66-1.25) mg/dL Glucose 100 H (74-99) mg/dL POC Glucose (mg/dL) (75-99) mg/dL Calcium 7.6 L (8.4-10.2) mg/dL ALT 138 H (4-49) U/L Total Protein 5.0 L (6.3-8.2) g/dL Albumin 2.3 L (3.5-5.0) g/dL <PilochristianAndrew - Last Filed: 03/16/21 13:10> Subjective As above. Patient doing well today. Denies pain. Tolerating diet. Continue physical therapy. Anticipate discharge in next few days. Objective - Vital Signs Vital signs: Vital Signs Temp 98.7 F 03/16/21 08:00 Pulse 94 03/16/21 08:00 Resp 16 03/16/21 08:00 BP 113/68 03/16/21 08:00 Pulse Ox 94 L 03/16/21 08:00 Intake & Output 03/15/21 03/16/21 03/16/21 18:59 06:59 18:59 Intake Total 44 Balance 44 Weight 78.7 kg Intake: Intake, IV Titration 44 Amount Mvi, Adult No.4 with Vit 44 K 10 ml Trace (Conc-1Ml/ Dose) 1 ml In Amino Acid 5%-D20w+Lytes*E* 1,000 ml @ 30 mls/hr IV .BY DURATION [facility] Rx#: [id number] Other: Voiding Method Urinal Toilet # Voids 8 3 2 # Bowel Movements 5 1 2 - Labs CBC & Chem 7: 03/16/21 06:56 03/16/21 06:56 Labs: Abnormal Lab Results - Last 24 Hours (Table) 03/15/21 03/16/21 03/16/21 Range/Units 20:20 01:57 06:56 WBC 11.61 H (4.50-10.00) X 10*3/uL RBC 4.32 L (4.40-5.60) X 10*6/uL Hgb 12.8 L (13.0-17.0) g/dL Hct 39.5 L (39.6-50.0) % MPV 9.4 L (9.5-12.2) fL Immature Gran # 0.29 H (0.00-0.04) X 10*3/uL Neutrophils # 8.34 H (1.80-7.70) X 10*3/uL Sodium (137-145) mmol/L Carbon Dioxide (22-30) mmol/L Creatinine (0.66-1.25) mg/dL Glucose (74-99) mg/dL POC Glucose (mg/dL) 106 H 113 H (75-99) mg/dL Calcium (8.4-10.2) mg/dL ALT (4-49) U/L Total Protein (6.3-8.2) g/dL Albumin (3.5-5.0) g/dL 03/16/21 03/16/21 Range/Units 06:56 12:28 WBC (4.50-10.00) X 10*3/uL RBC (4.40-5.60) X 10*6/uL Hgb (13.0-17.0) g/dL Hct (39.6-50.0) % MPV (9.5-12.2) fL Immature Gran # (0.00-0.04) X 10*3/uL Neutrophils # (1.80-7.70) X 10*3/uL Sodium 132 L (137-145) mmol/L Carbon Dioxide 33 H (22-30) mmol/L Creatinine 0.57 L (0.66-1.25) mg/dL Glucose 100 H (74-99) mg/dL POC Glucose (mg/dL) 137 H (75-99) mg/dL Calcium 7.6 L (8.4-10.2) mg/dL ALT 138 H (4-49) U/L Total Protein 5.0 L (6.3-8.2) g/dL Albumin 2.3 L (3.5-5.0) g/dL Assessment and Plan (1) Abdominal abscess Current Visit: Yes Status: Acute Code(s): NLX2244 - SNOMED Code(s): 96605105
[2021-03-16 12:29] LABS: Glucose,Whole Blood 137 mg/dL (75-99)
[2021-03-16 17:39] LABS: Glucose,Whole Blood 113 mg/dL (75-99)
[2021-03-16 21:26] LABS: Glucose,Whole Blood 112 mg/dL (75-99)
--- NOTE | 2021-03-16 23:15 | PN ---
PROGRESS NOTE DATE OF SERVICE: 03/16/2021 REASON FOR FOLLOWUP: Intraabdominal abscess from perforated diverticulitis. INTERVAL HISTORY: Patient is afebrile. The patient is breathing comfortably. The patient did have occasional cough. No sputum production. No abdominal pain. No diarrhea. PHYSICAL EXAMINATION: Blood pressure 106/68 with a pulse of 95, temperature 97.6. He is 96% on 4 L nasal cannula. General description is an elderly male up in the chair in no distress. Respiratory system: Unlabored breathing. Decreased intensity in breath sounds in the base, no wheeze. Heart S1, S2. Regular rate and rhythm. Abdomen soft, no tenderness. LAB: Hemoglobin is 12.8, white count 11.61, creatinine 0.57. DIAGNOSTIC IMPRESSION AND PLAN: Patient with intraabdominal abscess from a rupture, culture with ESBL E coli, , anaerobes. Patient is on meropenem, will transition to Invanz for another ten days upon discharge and close outpatient followup. Continue supportive care. MMODL / IJN: [id number] /
[2021-03-16] MEDS: HYDROmorphone 1 MG/ML 1 ML SYRINGE IVP PRN (23:31)
[2021-03-17 01:52] LABS: Glucose,Whole Blood 113 mg/dL (75-99)
[2021-03-17] MEDS: guaiFENesin-Coden 100-10MG/5ML 10 ML CUP PO SCH ×4 (04:00→21:56)
[2021-03-17] MEDS: SODIUM CHLORIDE 0.9% 1,000 ML IV SCH ×2 (04:09→15:35)
[2021-03-17] MEDS: 1: AMINO ACID 5%-D20W+LYTES*E* 1,000 ML 2: MVI, ADULT NO.4 WITH VIT K 10 ML, TRACE (CON IV SCH ×6 (04:11→14:41)
[2021-03-17 06:55] LABS: ALT 137 U/L (4-49); AST 56 U/L (17-59); African American GFR (CKD) >90 (>60 ml/min/1.73 sqM); Albumin 2.4 g/dL (3.5-5.0); Albumin/Globulin Ratio 0.9; Alkaline Phosphatase 67 U/L (38-126); Anion Gap 1 mmol/L; Blood Urea Nitrogen 17 mg/dL (9-20); Calcium 7.9 mg/dL (8.4-10.2); Carbon Dioxide 32 mmol/L (22-30); Chloride 98 mmol/L (98-107); Globulin 2.8 g/dL; Glucose 110 mg/dL (74-99); Magnesium 2.1 mg/dL (1.6-2.3); Non-African American GFR(CKD) >90 (>60 ml/min/1.73 sqM); Phosphorus 2.5 mg/dL (2.5-4.5); Sodium 131 mmol/L (137-145); Total Bilirubin 0.7 mg/dL (0.2-1.3); Total Protein 5.2 g/dL (6.3-8.2)
[2021-03-17 07:03] LABS: Potassium 4.1 mmol/L (3.5-5.1)
[2021-03-17 07:29] LABS: Glucose,Whole Blood 121 mg/dL (75-99)
[2021-03-17] MEDS: SYMBICORT 80-4.5 MCG INHALER INHALATION SCH ×3 (07:43→23:47)
[2021-03-17] MEDS: INSULIN ASPART (NovoLOG) 100 UNIT/ML VIAL SQ SCH ×4 (08:04→21:56)
[2021-03-17] MEDS: BENZONATATE 100 MG CAP PO SCH ×3 (08:10→21:55)
[2021-03-17] MEDS: ASCORBIC ACID 500 MG TAB PO SCH (08:11)
[2021-03-17] MEDS: ZINC SULFATE 220 MG CAP PO SCH (08:11)
[2021-03-17] MEDS: CHOLECALCIFEROL 125 MCG (5000 IU) TABLET PO SCH (08:11)
[2021-03-17] MEDS: PANTOPRAZOLE 40 MG/10 ML VIAL IVP SCH (08:11)
[2021-03-17] MEDS: DEXAMETHASONE SOD PHOSPHATE 10 MG/ML 1 ML VIAL IVP SCH (08:11)
[2021-03-17] MEDS: ENOXAPARIN 40 MG/0.4 ML SYRINGE SQ SCH (08:12)
[2021-03-17] MEDS: MEROPENEM 1 GM in SODIUM CHLORIDE 0.9% 100 ML IVPB SCH ×2 (08:25→15:35)
[2021-03-17 08:53] LABS: HCT 39.6 % (39.6-50.0); HGB 12.8 g/dL (13.0-17.0); MCH 29.6 pg (27.0-32.0); MCHC 32.3 g/dL (32.0-37.0); MCV 91.5 fL (80.0-97.0); Mean Platelet Volume 9.4 fL (9.5-12.2); Platelet Count 249 X 10*3/uL (140-440); RBC 4.33 X 10*6/uL (4.40-5.60); RDW 12.2 % (11.5-14.5); WBC 11.84 X 10*3/uL (4.50-10.00)
[2021-03-17] MEDS: FLUCONAZOLE 100 MG TAB PO SCH (09:21)
[2021-03-17 10:23] VITALS: BMI 24.0
[2021-03-17 10:27] LABS: Basophils # (M) 0 X 10*3/uL (0.00-0.10); Eosinophils # (M) 0.12 X 10*3/uL (0.04-0.35); Lymphocytes # (M) 0.59 X 10*3/uL (0.90-5.00); Metamyelocytes % 1 % (0-0); Monocytes # (M) 0.24 X 10*3/uL (0.20-1.00); Neutrophils # (M) 10.77 X 10*3/uL (2.00-8.90); Neutrophils % (M) 91 %
--- NOTE | 2021-03-17 11:08 | P.PN ---
Subjective Progress Note Date: 03/17/21 Patient feels okay today tolerating diet No complaints of vomiting or chest pain today Patient feels okay tolerating diet no chest pain no shortness of breath Patient feels okay no chest pain no shortness of breath no vomiting Constitutional: No acute distress, conversant, pleasant Eyes: Anicteric sclerae, moist conjunctiva, no lid-lag PERRLA ENMT: NC/AT Oropharynx clear, no erythema, exudates Neck: Supple, FROM, no masses, or JVD No carotid bruits No thyromegaly Lungs: Clear to auscultation Clear to percussion Normal respiratory effort, no accessory muscle use Cardiovascular: Heart regular in rate and rhythm, No murmurs, gallops, or rubs No peripheral edema Abdominal: Soft Nontender, no guarding, rebound or rigidity Abdomen moving with respiration Normoactive bowel sounds No hepatomegaly, No splenomegaly No palpable mass No abdominal wall hernia noted Skin: Normal temperature, tone, texture, turgor No induration No subcutaneous nodules No rash, lesions No ulcers Extremities: No digital cyanosis No clubbing Pedal pulses intact and symmetrical Radial pulses intact and symmetrical Normal gait and station No calf tenderness Psychiatric:Alert and oriented to person, place and time Appropriate affect Intact judgement Neuro: Muscles Strength 5/5 in all 4 extremities Sensation to light touch grossly present throughout Cranial nerves II-XII grossly intact No focal sensory deficits Sepsis with abdominal abscess -Surgery consult, s/p OR washout on 03/09 -Clear liquid diet, advance per surgery recommendations -meropenem and fluconazole -Follow up cultures from operating room = E. coli with ESBL and enterococcus faecium sensitive to penicillin -Morphine when necessary for pain control -ID following Acute respiratory failure with hypoxia secondary to COVID 19 pneumonia -Oxygenation to be administered and titrated as needed to maintain SPO2 equal to or greater than 90% -Telemetry monitoring. -Continue trending inflammatory markers -Encourage Incentive Spirometry 10-15x hourly while awake -Steroids: Decadron 6 mg daily, day 10 of steroids. -Continue vitamin C, Vitamin D, and Zinc. -Pulmonology following, appreciate further recommendations. -DVT prophylaxis with Lovenox. -Strict Droplet plus Contact precautions -Patient received monoclonal antibodies. Out of window for Remdesivir, -Baricitinib dose 5 of 14, discontinued secondary to sepsis with abdominal abscess Overall improving surgery advancing diet and into monitor CODE STATUS: Full code DVT prophylaxis: Lovenox Discussed with: Patient, RN, and patient's daughter Alison Zendejas Anticipated discharge date: Clinical course to determine Anticipated discharge place: Home Overall the condition of the patient is stable continue management as per surgery Plan to discharge the patient soon when it's okay with surgery Objective - Vital Signs Vital signs: Vital Signs Temp 98.2 F 03/17/21 08:00 Pulse 79 03/17/21 08:00 Resp 18 03/17/21 08:00 BP 120/67 03/17/21 08:00 Pulse Ox 98 03/17/21 08:00 Intake & Output 03/16/21 03/17/21 03/17/21 18:59 06:59 18:59 Intake Total 44 Balance 44 Weight 78.7 kg 63.5 kg 63.5 kg Intake: Intake, IV Titration 44 Amount Mvi, Adult No.4 with Vit 44 K 10 ml Trace (Conc-1Ml/ Dose) 1 ml In Amino Acid 5%-D20w+Lytes*E* 1,000 ml @ 30 mls/hr IV .BY DURATION [facility] Rx#: [id number] Other: Voiding Method Toilet Toilet # Voids 2 3 # Bowel Movements 2 - Labs CBC & Chem 7: 03/17/21 06:23 03/17/21 06:23 Labs: Abnormal Lab Results - Last 24 Hours (Table) 03/16/21 03/16/21 03/16/21 Range/Units 06:56 12:28 17:38 WBC 11.61 H (4.50-10.00) X 10*3/uL RBC 4.32 L (4.40-5.60) X 10*6/uL Hgb 12.8 L (13.0-17.0) g/dL Hct 39.5 L (39.6-50.0) % MPV 9.4 L (9.5-12.2) fL Metamyelocytes % (0-0) % Immature Gran # 0.29 H (0.00-0.04) X 10*3/uL Neutrophils # 8.34 H (1.80-7.70) X 10*3/uL Neutrophils # (Manual) (2.00-8.90) X 10*3/uL Lymphocytes # (Manual) (0.90-5.00) X 10*3/uL Sodium (137-145) mmol/L Carbon Dioxide (22-30) mmol/L Creatinine (0.66-1.25) mg/dL Glucose (74-99) mg/dL POC Glucose (mg/dL) 137 H 113 H (75-99) mg/dL Calcium (8.4-10.2) mg/dL ALT (4-49) U/L Total Protein (6.3-8.2) g/dL Albumin (3.5-5.0) g/dL 03/16/21 03/17/21 03/17/21 Range/Units 21:25 01:49 06:23 WBC 11.84 H (4.50-10.00) X 10*3/uL RBC 4.33 L (4.40-5.60) X 10*6/uL Hgb 12.8 L (13.0-17.0) g/dL Hct (39.6-50.0) % MPV 9.4 L (9.5-12.2) fL Metamyelocytes % 1 H (0-0) % Immature Gran # (0.00-0.04) X 10*3/uL Neutrophils # (1.80-7.70) X 10*3/uL Neutrophils # (Manual) 10.77 H (2.00-8.90) X 10*3/uL Lymphocytes # (Manual) 0.59 L (0.90-5.00) X 10*3/uL Sodium (137-145) mmol/L Carbon Dioxide (22-30) mmol/L Creatinine (0.66-1.25) mg/dL Glucose (74-99) mg/dL POC Glucose (mg/dL) 112 H 113 H (75-99) mg/dL Calcium (8.4-10.2) mg/dL ALT (4-49) U/L Total Protein (6.3-8.2) g/dL Albumin (3.5-5.0) g/dL 03/17/21 03/17/21 Range/Units 06:23 07:28 WBC (4.50-10.00) X 10*3/uL RBC (4.40-5.60) X 10*6/uL Hgb (13.0-17.0) g/dL Hct (39.6-50.0) % MPV (9.5-12.2) fL Metamyelocytes % (0-0) % Immature Gran # (0.00-0.04) X 10*3/uL Neutrophils # (1.80-7.70) X 10*3/uL Neutrophils # (Manual) (2.00-8.90) X 10*3/uL Lymphocytes # (Manual) (0.90-5.00) X 10*3/uL Sodium 131 L (137-145) mmol/L Carbon Dioxide 32 H (22-30) mmol/L Creatinine 0.58 L (0.66-1.25) mg/dL Glucose 110 H (74-99) mg/dL POC Glucose (mg/dL) 121 H (75-99) mg/dL Calcium 7.9 L (8.4-10.2) mg/dL ALT 137 H (4-49) U/L Total Protein 5.2 L (6.3-8.2) g/dL Albumin 2.4 L (3.5-5.0) g/dL
--- NOTE | 2021-03-17 11:17 | P.PN ---
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 Patient sitting up in bed. Denies any abdominal pain. Denies any nausea vomiting. Tolerating the ground diet. Patient will be weaned off the TPN today. He is having bowel movements and flatus. He has been up and ambulating. Afebrile. WBC 11.8 for Hgb 12.8 platelets 249 Patient anticipating discharge possibly tomorrow PHYSICAL EXAM: VITAL SIGNS: Reviewed. GENERAL: Well-developed in no acute distress. HEENT: No sclera icterus. Extraocular movements grossly intact. Moist buccal mucosa. Head is atraumatic, normocephalic. ABDOMEN: Soft. Nondistended. Incision site clean dry and intact with ngoc in place NEUROLOGIC: Awake and alert orientated x 3 ASSESSMENT: 1. 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 COVID-19 pneumonia PLAN: -Advance diet to dysphagia ground -Continue to wean off TPN -Continue local wound care -Increase activity level -Continue antibiotics per ID -Continue supportive care -DVT prophylaxis Lovenox Physician Recruiting Operations Consultant note has been reviewed by physician. Signing provider agrees with the documented findings, assessment, and plan of care. Objective - Vital Signs Vital signs: Vital Signs Temp 98.2 F 03/17/21 08:00 Pulse 79 03/17/21 08:00 Resp 18 03/17/21 08:00 BP 120/67 03/17/21 08:00 Pulse Ox 98 03/17/21 08:00 Intake & Output 03/16/21 03/17/21 03/17/21 18:59 06:59 18:59 Intake Total 44 Balance 44 Weight 78.7 kg 63.5 kg 63.5 kg Intake: Intake, IV Titration 44 Amount Mvi, Adult No.4 with Vit 44 K 10 ml Trace (Conc-1Ml/ Dose) 1 ml In Amino Acid 5%-D20w+Lytes*E* 1,000 ml @ 30 mls/hr IV .BY DURATION [facility] Rx#: [id number] Other: Voiding Method Toilet Toilet # Voids 2 3 # Bowel Movements 2 - Labs CBC & Chem 7: 03/17/21 06:23 03/17/21 06:23 Labs: Abnormal Lab Results - Last 24 Hours (Table) 03/16/21 03/16/21 03/16/21 Range/Units 06:56 12:28 17:38 WBC 11.61 H (4.50-10.00) X 10*3/uL RBC 4.32 L (4.40-5.60) X 10*6/uL Hgb 12.8 L (13.0-17.0) g/dL Hct 39.5 L (39.6-50.0) % MPV 9.4 L (9.5-12.2) fL Metamyelocytes % (0-0) % Immature Gran # 0.29 H (0.00-0.04) X 10*3/uL Neutrophils # 8.34 H (1.80-7.70) X 10*3/uL Neutrophils # (Manual) (2.00-8.90) X 10*3/uL Lymphocytes # (Manual) (0.90-5.00) X 10*3/uL Sodium (137-145) mmol/L Carbon Dioxide (22-30) mmol/L Creatinine (0.66-1.25) mg/dL Glucose (74-99) mg/dL POC Glucose (mg/dL) 137 H 113 H (75-99) mg/dL Calcium (8.4-10.2) mg/dL ALT (4-49) U/L Total Protein (6.3-8.2) g/dL Albumin (3.5-5.0) g/dL 03/16/21 03/17/21 03/17/21 Range/Units 21:25 01:49 06:23 WBC 11.84 H (4.50-10.00) X 10*3/uL RBC 4.33 L (4.40-5.60) X 10*6/uL Hgb 12.8 L (13.0-17.0) g/dL Hct (39.6-50.0) % MPV 9.4 L (9.5-12.2) fL Metamyelocytes % 1 H (0-0) % Immature Gran # (0.00-0.04) X 10*3/uL Neutrophils # (1.80-7.70) X 10*3/uL Neutrophils # (Manual) 10.77 H (2.00-8.90) X 10*3/uL Lymphocytes # (Manual) 0.59 L (0.90-5.00) X 10*3/uL Sodium (137-145) mmol/L Carbon Dioxide (22-30) mmol/L Creatinine (0.66-1.25) mg/dL Glucose (74-99) mg/dL POC Glucose (mg/dL) 112 H 113 H (75-99) mg/dL Calcium (8.4-10.2) mg/dL ALT (4-49) U/L Total Protein (6.3-8.2) g/dL Albumin (3.5-5.0) g/dL 03/17/21 03/17/21 Range/Units 06:23 07:28 WBC (4.50-10.00) X 10*3/uL RBC (4.40-5.60) X 10*6/uL Hgb (13.0-17.0) g/dL Hct (39.6-50.0) % MPV (9.5-12.2) fL Metamyelocytes % (0-0) % Immature Gran # (0.00-0.04) X 10*3/uL Neutrophils # (1.80-7.70) X 10*3/uL Neutrophils # (Manual) (2.00-8.90) X 10*3/uL Lymphocytes # (Manual) (0.90-5.00) X 10*3/uL Sodium 131 L (137-145) mmol/L Carbon Dioxide 32 H (22-30) mmol/L Creatinine 0.58 L (0.66-1.25) mg/dL Glucose 110 H (74-99) mg/dL POC Glucose (mg/dL) 121 H (75-99) mg/dL Calcium 7.9 L (8.4-10.2) mg/dL ALT 137 H (4-49) U/L Total Protein 5.2 L (6.3-8.2) g/dL Albumin 2.4 L (3.5-5.0) g/dL <Andrew Vásquez - Last Filed: 03/17/21 13:31> Subjective As above. Patient doing well today. He is anxious to go home tomorrow. Oxygen was off and he denied shortness of breath. Tolerating diet. No pain. If discharge tomorrow follow-up one week. Objective - Vital Signs Vital signs: Vital Signs Temp 98.2 F 03/17/21 08:00 Pulse 79 03/17/21 08:00 Resp 18 03/17/21 08:00 BP 120/67 03/17/21 08:00 Pulse Ox 98 03/17/21 08:00 Intake & Output 03/16/21 03/17/21 03/17/21 18:59 06:59 18:59 Intake Total 44 Balance 44 Weight 78.7 kg 63.5 kg 63.5 kg Intake: Intake, IV Titration 44 Amount Mvi, Adult No.4 with Vit 44 K 10 ml Trace (Conc-1Ml/ Dose) 1 ml In Amino Acid 5%-D20w+Lytes*E* 1,000 ml @ 30 mls/hr IV .BY DURATION [facility] Rx#: [id number] Other: Voiding Method Toilet Toilet # Voids 2 3 # Bowel Movements 2 - Labs CBC & Chem 7: 03/17/21 06:23 03/17/21 06:23 Labs: Abnormal Lab Results - Last 24 Hours (Table) 03/16/21 03/16/21 03/17/21 Range/Units 17:38 21:25 01:49 WBC (4.50-10.00) X 10*3/uL RBC (4.40-5.60) X 10*6/uL Hgb (13.0-17.0) g/dL MPV (9.5-12.2) fL Metamyelocytes % (0-0) % Neutrophils # (Manual) (2.00-8.90) X 10*3/uL Lymphocytes # (Manual) (0.90-5.00) X 10*3/uL Sodium (137-145) mmol/L Carbon Dioxide (22-30) mmol/L Creatinine (0.66-1.25) mg/dL Glucose (74-99) mg/dL POC Glucose (mg/dL) 113 H 112 H 113 H (75-99) mg/dL Calcium (8.4-10.2) mg/dL ALT (4-49) U/L Total Protein (6.3-8.2) g/dL Albumin (3.5-5.0) g/dL 03/17/21 03/17/21 03/17/21 Range/Units 06:23 06:23 07:28 WBC 11.84 H (4.50-10.00) X 10*3/uL RBC 4.33 L (4.40-5.60) X 10*6/uL Hgb 12.8 L (13.0-17.0) g/dL MPV 9.4 L (9.5-12.2) fL Metamyelocytes % 1 H (0-0) % Neutrophils # (Manual) 10.77 H (2.00-8.90) X 10*3/uL Lymphocytes # (Manual) 0.59 L (0.90-5.00) X 10*3/uL Sodium 131 L (137-145) mmol/L Carbon Dioxide 32 H (22-30) mmol/L Creatinine 0.58 L (0.66-1.25) mg/dL Glucose 110 H (74-99) mg/dL POC Glucose (mg/dL) 121 H (75-99) mg/dL Calcium 7.9 L (8.4-10.2) mg/dL ALT 137 H (4-49) U/L Total Protein 5.2 L (6.3-8.2) g/dL Albumin 2.4 L (3.5-5.0) g/dL 03/17/21 Range/Units 12:25 WBC (4.50-10.00) X 10*3/uL RBC (4.40-5.60) X 10*6/uL Hgb (13.0-17.0) g/dL MPV (9.5-12.2) fL Metamyelocytes % (0-0) % Neutrophils # (Manual) (2.00-8.90) X 10*3/uL Lymphocytes # (Manual) (0.90-5.00) X 10*3/uL Sodium (137-145) mmol/L Carbon Dioxide (22-30) mmol/L Creatinine (0.66-1.25) mg/dL Glucose (74-99) mg/dL POC Glucose (mg/dL) 158 H (75-99) mg/dL Calcium (8.4-10.2) mg/dL ALT (4-49) U/L Total Protein (6.3-8.2) g/dL Albumin (3.5-5.0) g/dL Assessment and Plan (1) Abdominal abscess Current Visit: Yes Status: Acute Code(s): QPR7348 - SNOMED Code(s): 36496891
[2021-03-17 12:26] LABS: Glucose,Whole Blood 158 mg/dL (75-99)
--- NOTE | 2021-03-17 12:26 | P.PN ---
Subjective Progress Note Date: 03/17/21 On 03/13/2021 patient seen in follow-up on the medical surgical floor. He was transferred out of intensive care unit yesterday on 03/12/2021 after successfully weaning and extubated from mechanical ventilator. He is currently on 4 L of oxygen, he is breathing comfortably, has not utilized BiPAP support. Remains on antibiotics, with fluconazole and Zosyn for intra-abdominal abscess. His abdominal wound cultures are showing E. coli, enterococcus CCM, and anaerobic gram-negative bacilli sputum cultures have been negative. No fever or chills, vitals have been stable. His chest x-ray still shows bilateral airspace disease, without significant change, but clinically his hypoxia has improved. Patient remains on Decadron 6 mg IV push daily, he is on COVID-19 vitamins, he is on Lovenox 40 mg twice daily, he will be started on TPN after the PICC line insertion. Patient is status post exploratory laparotomy, drainage of abdominal abscess and small bowel resection. His abdomen is soft, nondistended, abdominal binder is in place. His incisions have not been inspected as they are covered by sterile drape. He denies any acute distress, his passing flatus, no nausea or vomiting. His leukocytosis is improving. The patient is seen today 03/14/2021 in follow-up on the regular medical floor. He is awake and alert in no acute distress. He is down to 4 L high flow nasal cannula to maintain O2 saturations in the mid 90s. He's been afebrile. Hemodynamically stable. He is currently up ambulating with assistance 2. He did have a PICC line placed yesterday. Abdominal wound cultures were positive for E. coli and enterococcus faecium. White count 14.2. Hemoglobin 13.8. Sodium 130. Potassium 4.2. Creatinine 0.59. Glucose 125. He is being nourished with TPN and lipids. He is on antibiotics in the form of meropenem. Continued on fluconazole. He remains on Decadron, Lovenox, vitamin supplements. Continue on Symbicort and Tessalon Perles. The patient is seen today 03/17/2021 in follow-up on the regular medical floor. He is awake and alert in no acute distress. He's O ambulating in the hallway with a walker and assistance times one. Doing quite well. He is maintaining good O2 saturations in the upper 90s on 4 L/m per nasal cannula. Afebrile. Hemodynamically stable. White count 11.8. Hemoglobin 12.8. Sodium 131 potassium 4.1. Creatinine 0.58. Glucose 110. AST 56. ALT 137. Alk phos 67. He is being nourished with TPN and lipids. Remains on Symbicort and albuterol. Tessalon Perles for his cough. He is on Decadron, Lovenox, vitamin supplements. Objective - Vital Signs Vital signs: Vital Signs Temp 98.2 F 03/17/21 08:00 Pulse 79 03/17/21 08:00 Resp 18 03/17/21 08:00 BP 120/67 03/17/21 08:00 Pulse Ox 98 03/17/21 08:00 Intake & Output 03/16/21 03/17/21 03/17/21 18:59 06:59 18:59 Intake Total 44 Balance 44 Weight 78.7 kg 63.5 kg 63.5 kg Intake: Intake, IV Titration 44 Amount Mvi, Adult No.4 with Vit 44 K 10 ml Trace (Conc-1Ml/ Dose) 1 ml In Amino Acid 5%-D20w+Lytes*E* 1,000 ml @ 30 mls/hr IV .BY DURATION [facility] Rx#: [id number] Other: Voiding Method Toilet Toilet # Voids 2 3 # Bowel Movements 2 - Exam GENERAL EXAM: Alert, pleasant, 80-year-old male patient, currently on 4 L with a pulse ox of 98%, up ambulating in the hallway with assistance HEAD: Normocephalic/atraumatic. EYES: Normal reaction of pupils, equal size. Conjunctiva pink, sclera white. NOSE: Clear with pink turbinates. THROAT: No erythema or exudates. NECK: No masses, no JVD, no thyroid enlargement, no adenopathy. CHEST: No chest wall deformity. Symmetrical expansion. LUNGS: Equal air entry with bibasilar crackles CVS: Regular rate and rhythm, normal S1 and S2, no gallops, no murmurs, no rubs ABDOMEN: Soft, tympanic, tender across lower quadrants. Abdominal binder in place. EXTREMITIES: No clubbing, no edema, no cyanosis, 2+ pulses and upper and lower extremities. MUSCULOSKELETAL: Muscle strength and tone normal. SPINE: No scoliosis or deformity SKIN: No rashes CENTRAL NERVOUS SYSTEM: No focal deficits, tone is normal in all 4 extremities. PSYCHIATRIC: Alert and oriented -3. Appropriate affect. Intact judgment and insight. - Labs CBC & Chem 7: 03/17/21 06:23 03/17/21 06:23 Labs: Abnormal Lab Results - Last 24 Hours (Table) 03/16/21 03/16/21 03/16/21 Range/Units 12:28 17:38 21:25 WBC (4.50-10.00) X 10*3/uL RBC (4.40-5.60) X 10*6/uL Hgb (13.0-17.0) g/dL MPV (9.5-12.2) fL Metamyelocytes % (0-0) % Neutrophils # (Manual) (2.00-8.90) X 10*3/uL Lymphocytes # (Manual) (0.90-5.00) X 10*3/uL Sodium (137-145) mmol/L Carbon Dioxide (22-30) mmol/L Creatinine (0.66-1.25) mg/dL Glucose (74-99) mg/dL POC Glucose (mg/dL) 137 H 113 H 112 H (75-99) mg/dL Calcium (8.4-10.2) mg/dL ALT (4-49) U/L Total Protein (6.3-8.2) g/dL Albumin (3.5-5.0) g/dL 03/17/21 03/17/21 03/17/21 Range/Units 01:49 06:23 06:23 WBC 11.84 H (4.50-10.00) X 10*3/uL RBC 4.33 L (4.40-5.60) X 10*6/uL Hgb 12.8 L (13.0-17.0) g/dL MPV 9.4 L (9.5-12.2) fL Metamyelocytes % 1 H (0-0) % Neutrophils # (Manual) 10.77 H (2.00-8.90) X 10*3/uL Lymphocytes # (Manual) 0.59 L (0.90-5.00) X 10*3/uL Sodium 131 L (137-145) mmol/L Carbon Dioxide 32 H (22-30) mmol/L Creatinine 0.58 L (0.66-1.25) mg/dL Glucose 110 H (74-99) mg/dL POC Glucose (mg/dL) 113 H (75-99) mg/dL Calcium 7.9 L (8.4-10.2) mg/dL ALT 137 H (4-49) U/L Total Protein 5.2 L (6.3-8.2) g/dL Albumin 2.4 L (3.5-5.0) g/dL 03/17/21 Range/Units 07:28 WBC (4.50-10.00) X 10*3/uL RBC (4.40-5.60) X 10*6/uL Hgb (13.0-17.0) g/dL MPV (9.5-12.2) fL Metamyelocytes % (0-0) % Neutrophils # (Manual) (2.00-8.90) X 10*3/uL Lymphocytes # (Manual) (0.90-5.00) X 10*3/uL Sodium (137-145) mmol/L Carbon Dioxide (22-30) mmol/L Creatinine (0.66-1.25) mg/dL Glucose (74-99) mg/dL POC Glucose (mg/dL) 121 H (75-99) mg/dL Calcium (8.4-10.2) mg/dL ALT (4-49) U/L Total Protein (6.3-8.2) g/dL Albumin (3.5-5.0) g/dL Assessment and Plan Assessment: 1 Acute COVID 19 related pneumonia with secondary shortness of breath. Patient tested positive for COVID 10 days prior to presentation to the emergency department. Patient is a non-vaccinated individual The patient received mon oclonal antibodies on outpatient basis. The patient was also treated with steroids and antibiotics. Patient was intubated and placed on mechanical ventilator on 03/09/2021 related to exploratory laparotomy secondary to small bowel perforation and drainage of abdominal abscess and small bowel resection and subsequently extubated. Currently on 4 L nasal cannula. 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 3 Intra-abdominal abscess/peritonitis, patient is on a combination of Diflucan and Zosyn, with abdominal wound cultures positive for E. coli, enterococcus ECM, and anaerobic gram-negative bacilli 4 Acute hypoxic respiratory failure secondary to above, currently down to 4 L nasal cannula 5 Shortness of breath and cough secondary to above. Improving 6 Elevated d-dimer, with no CTA evidence of pulmonary embolism, or DVT on lower extremity Dopplers currently on Lovenox 40 mg twice daily Plan: The patient was seen and evaluated Currently stable from the pulmonary standpoint Titrate the FiO2 as tolerated Discontinue Decadron Continue Lovenox, vitamin supplements Remains on TPN/lipids, diet per surgical services I, the cosigning physician, performed a history & physical examination of the patient. Lungs sounds bibasilar crackles. Maintaining good O2 saturations in the 90s on 4 L high flow nasal cannula. I discussed the assessment and plan of care with my nurse practitioner, Reyna Hall. I attest to the above note as dictated by her.
[2021-03-17] MEDS: DOCUSATE 100 MG CAP PO SCH ×2 (13:20→21:55)
[2021-03-17 17:34] LABS: Glucose,Whole Blood 111 mg/dL (75-99)
--- NOTE | 2021-03-17 19:30 | PN ---
PROGRESS NOTE DATE OF SERVICE: 03/17/2021 REASON FOR FOLLOWUP: Intraabdominal abscess from a perforated diverticulum. INTERVAL HISTORY: The patient is afebrile. The patient is breathing comfortably. The patient denies having any chest pain or shortness of breath or cough. No nausea, no vomiting, no abdominal pain or diarrhea. PHYSICAL EXAMINATION: Blood pressure 117/71 with a pulse of 66, temperature 97.8. He is 99% on 4 L nasal cannula. General description is an elderly male up in the chair in no distress. Respiratory system: Unlabored breathing, decreased intensity of breath sounds. No wheeze. Heart S1, S2. Regular rate and rhythm. Abdomen soft, no tenderness. LABS: Hemoglobin is 12.9, white count of 11.8, creatinine 0.58. DIAGNOSTIC IMPRESSION AND PLAN: Patient with intraabdominal abscess from ruptured jejunal diverticulum, status post drainage. Culture positive for ESBL E coli, Enterococcus faecium, anaerobes. On meropenem. That will be transitioned to Invanz 1 gram daily for 7-10 days on discharge and close outpatient followup. MMODL / IJN: [id number] /
[2021-03-17 21:00] LABS: Glucose,Whole Blood 131 mg/dL (75-99)
[2021-03-18] MEDS: guaiFENesin-Coden 100-10MG/5ML 10 ML CUP PO SCH ×3 (00:10→11:51)
[2021-03-18 01:57] LABS: Glucose,Whole Blood 121 mg/dL (75-99)
[2021-03-18] MEDS: 1: AMINO ACID 5%-D20W+LYTES*E* 1,000 ML 2: MVI, ADULT NO.4 WITH VIT K 10 ML, TRACE (CON IV SCH ×3 (05:35)
[2021-03-18] MEDS: SODIUM CHLORIDE 0.9% 1,000 ML IV SCH (05:37)
[2021-03-18] MEDS: SYMBICORT 80-4.5 MCG INHALER INHALATION SCH (07:38)
[2021-03-18 08:04] LABS: Glucose,Whole Blood 128 mg/dL (75-99)
[2021-03-18] MEDS: INSULIN ASPART (NovoLOG) 100 UNIT/ML VIAL SQ SCH (08:21)
[2021-03-18] MEDS: PANTOPRAZOLE 40 MG/10 ML VIAL IVP SCH (08:25)
[2021-03-18] MEDS: ENOXAPARIN 40 MG/0.4 ML SYRINGE SQ SCH (08:25)
[2021-03-18] MEDS: ASCORBIC ACID 500 MG TAB PO SCH (08:26)
[2021-03-18] MEDS: ZINC SULFATE 220 MG CAP PO SCH (08:26)
[2021-03-18] MEDS: CHOLECALCIFEROL 125 MCG (5000 IU) TABLET PO SCH (08:26)
[2021-03-18] MEDS: FLUCONAZOLE 100 MG TAB PO SCH (08:26)
[2021-03-18] MEDS: DOCUSATE 100 MG CAP PO SCH (08:26)
[2021-03-18] MEDS: BENZONATATE 100 MG CAP PO SCH (08:26)
[2021-03-18] MEDS ORDERED: ERTAPENEM 1 GM in SODIUM CHLORIDE 0.9% 50 ML IVPB SCH (09:00)
[2021-03-18] MEDS ORDERED: ERTAPENEM 1 GM VIAL IM SCH (09:00)
[2021-03-18 09:24] LABS: Basophils # (A) 0.03 X 10*3/uL (0.00-0.10); Basophils % (A) 0.3 %; Eosinophils # (A) 0.09 X 10*3/uL (0.04-0.35); Eosinophils % (A) 0.8 %; HCT 38.7 % (39.6-50.0); HGB 12.6 g/dL (13.0-17.0); Lymphocytes # (A) 1.23 X 10*3/uL (0.90-5.00); Lymphocytes % (A) 10.3 %; MCH 29.9 pg (27.0-32.0); MCHC 32.6 g/dL (32.0-37.0); MCV 91.9 fL (80.0-97.0); Mean Platelet Volume 9.6 fL (9.5-12.2); Monocytes # (A) 0.69 X 10*3/uL (0.20-1.00); Monocytes % (A) 5.8 %; Neutrophils % (A) 80.6 %; Platelet Count 234 X 10*3/uL (140-440); RBC 4.21 X 10*6/uL (4.40-5.60); RDW 12.7 % (11.5-14.5)
[2021-03-18] MEDS: MEROPENEM 1 GM in SODIUM CHLORIDE 0.9% 100 ML IVPB SCH ×3 (09:43)
--- NOTE | 2021-03-18 10:42 | P.DS ---
Providers Date of admission: 03/01/21 14:30 Expected date of discharge: 03/18/21 Attending physician: Octavia Skaggs MD Consults: 03/01/21 16:04 Consult Physician Routine Consulting Provider: Inés Griffin Consult Reason/Comments: COVID Do you want consulting provider notified?: Yes 03/09/21 12:46 Consult Physician Urgent Consulting Provider: Andrew Vásquez Consult Reason/Comments: Abdominal Abscess Do you want consulting provider notified?: Yes 03/10/21 09:20 Consult Physician Routine Consulting Provider: Cisco Gallego Consult Reason/Comments: s/p ex lap for abcess due to perforation Do you want consulting provider notified?: Yes 03/14/21 12:25 Consult Physician Routine Consulting Provider: Hakeem Sandoval Consult Reason/Comments: possible IPR Do you want consulting provider notified?: Yes Primary care physician: Bonita Pelletier [facility] Course: Admitting diagnosis: Shortness of breath Covid pneumonia Discharge diagnosis: Acute hypoxic respiratory failure improved on oxygen 4 L nasal cannula Covid pneumonia improved and treated Sepsis with abdominal abscess improved after intervention Status post drainage due to ESBL and E. coli discharged on IV antibiotics Patient is a very pleasant 80-year-old male with history of COPD and previous tobacco use with no other known reported past medical history, he follows with primary care provider, Dr. Pelletier. Patient reports diagnosis with Covid 19 virus infection at [facility] 10 days ago and received monoclonal antibodies at that time and was prescribed an inhaler, steroids, cough medicine, and an antibiotic. He presented to the ER today with a chief complaint of increased cough, shortness of breath, and fatigue. He was seen and fully evaluated in the emergency department. He was found to be hypoxic with SpO2 in the 80s requiring oxygen supplementation. Patient currently 89-91% on 4 L O2 via nasal cannula. Chest x-ray completed showing diffuse bilateral multifocal infiltrates correlating with multifocal pneumonia vs ARDS. EKG showing normal sinus rhythm 84 beats a minute with no noted T-wave or ST abnormalities showing no signs of acute ischemia. Covid PCR was positive. CBC unremarkable. Troponin normal findings at less than 0.012. Coags unremarkable. BMP revealing mild hyponatremia with sodium of 130 and slight prerenal azotemia with BUN of 25. Urinalysis negative for infection. Patient is being admitted under our services with consultation to pulmonology. He reports shortness of breath, fatigue, and decreased appetite accompanied by dry cough and significant dyspnea with exertion as well as orthopnea. Patient reports due to the increased shortness of breath he has been unable to sleep for the past 2 nights. Patient denies having any fevers, chills, diaphoresis, headache, lightheadedness, dizziness, chest pain, palpitations, abdominal pain or GI complaints, or experiencing any numbness/tingling/weakness/swelling in his extremities. Patient is not vaccinated against Covid. Pulmonary was consult and follow patient throughout hospital stay. Following Covid pneumonia patient had a prolonged complicated hospital stay. During hospital stay patient developed abdominal pain. CT revealed an abscess surgery was consulted to intervene. Cultures grew E. coli and ESBL. Infectious diseases consult that and place patient on IV antibiotics. Patient was placed on TPN. Patient's blood work improved patient's respiratory status improved. Patient will be going home on IV antibiotics and home oxygen with home care. Patient was seen and examined at bedside. Patient is ambulating and is very eager to go home. Patient denies chest pain shortness of breath has improved. Abdominal pain there but better. Patient denies fevers, chills, nausea, vomiting, diarrhea, or constipation. Vitals heart rate 57 respiratory 20 blood pressure 130/80 oxygen saturation 99% on 4 L nasal cannula General: [non toxic], [no distress], [appears at stated age] Derm: [warm], [dry] Head: [atraumatic], [normocephalic], [symmetric] Eyes: [EOMI], [no lid lag], [anicteric sclera] Mouth: [no lip lesion], [mucus membranes moist] Cardiovascular: [S1S2 reg], [no murmur], [positive posterior tibial pulse bilateral], Lungs: [CTA bilateral], [no rhonchi, no rales] , [no accessory muscle use] Abdominal: [soft], [ tender to palpation], [no guarding], [no appreciable organomegaly] Ext: [no gross muscle atrophy], [no edema], [no contractures] Neuro: [ CN II-XI grossly intact], [no focal neuro deficits] Psych: [Alert], [oriented], [appropriate affect] Follow-up with PCP in 2-7 days Follow-up with infectious disease IV infusion tomorrow and home care Diet advance as tolerated Activity as tolerated Patient Condition at Discharge: Fair Plan - Discharge Summary Discharge Rx Participant: Yes New Discharge Prescriptions: New Docusate [Colace] 100 mg PO BID 30 Days #60 cap Ertapenem [INVanz] 1 gm IVPB DAILY #0 each Ascorbic Acid [Vitamin C] 1,000 mg PO DAILY #30 tab Cholecalciferol [Vitamin D3 (125 Mcg = 5000 Iu)] 125 mcg PO DAILY #30 tablet Fluconazole [Diflucan] 100 mg PO DAILY #10 tab HYDROcodone/APAP 5-325MG [[place] 5-325] 1 each PO Q6HR PRN #12 tab PRN Reason: Moderate Pain Continue Budesonide/Formoterol Fumarate [Symbicort 80-4.5 Mcg Inhaler] 2 puff INHALATION RT-BID guaiFENesin-Coden 100-10MG/5ML [Robitussin AC] 10 ml PO Q6H PRN PRN Reason: Cough Discontinued Levofloxacin [Levaquin] 750 mg PO DAILY Discharge Medication List Budesonide/Formoterol Fumarate [Symbicort 80-4.5 Mcg Inhaler] 2 puff INHALATION RT-BID 03/01/21 [History] guaiFENesin-Coden 100-10MG/5ML [Robitussin AC] 10 ml PO Q6H PRN 03/01/21 [History] Ascorbic Acid [Vitamin C] 1,000 mg PO DAILY #30 tab 03/18/21 [Rx] Cholecalciferol [Vitamin D3 (125 Mcg = 5000 Iu)] 125 mcg PO DAILY #30 tablet 03/18/21 [Rx] Docusate [Colace] 100 mg PO BID 30 Days #60 cap 03/18/21 [Rx] Ertapenem [INVanz] 1 gm IVPB DAILY #0 each 03/18/21 [Rx] Fluconazole [Diflucan] 100 mg PO DAILY #10 tab 03/18/21 [Rx] HYDROcodone/APAP 5-325MG [[place] 5-325] 1 each PO Q6HR PRN #12 tab 03/18/21 [Rx] Follow up Appointment(s)/Referral(s): [facility],[place] [NON-STAFF] - 03/19/21 [facility] [NON-STAFF] - As Needed (Supplier of Home Oxygen) Bonita Smith, [facility] [STAFF PHYSICIAN] - 1-2 Days [facility]In[facility] [NON-STAFF] - Patient Instructions/Handouts: Coronavirus Disease 2019 (COVID-19), Using Oxygen at Home (DC) Discharge/Stand Alone Forms: Personal Last Repairer Discharge Disposition: HOME WITH HOME HEALTH SERVICES
[2021-03-18 10:58] LABS: African American GFR (CKD) 111.6 (60.0-200.0); Albumin 2.8 g/dL (3.8-4.9); Albumin/Globulin Ratio 1.27 (1.60-3.17); Anion Gap 9.1 mmol/L (10.00-18.00); BUN/Creat Ratio 28.33 Ratio (12.00-20.00); Carbon Dioxide 26.9 mmol/L (20.0-27.5); Globulin 2.2 g/dL (1.6-3.3); Non-African American GFR(CKD) 96.3 (60.0-200.0); Potassium 4.2 mmol/L (3.5-5.5); Total Bilirubin 0.5 mg/dL (0.30-1.20)
[2021-03-18 10:59] VITALS: BP 114/69; PULSE 60; RESP 17; TEMP 97.5
[2021-03-18 11:16] LABS: Glucose,Whole Blood 130 mg/dL (75-99)
--- NOTE | 2021-03-18 11:44 | P.PN ---
Subjective Progress Note Date: 03/18/21 Principal diagnosis: Shortness of breath. On 03/13/2021 patient seen in follow-up on the medical surgical floor. He was transferred out of intensive care unit yesterday on 03/12/2021 after successfully weaning and extubated from mechanical ventilator. He is currently on 4 L of oxygen, he is breathing comfortably, has not utilized BiPAP support. Remains on antibiotics, with fluconazole and Zosyn for intra-abdominal abscess. His abdominal wound cultures are showing E. coli, enterococcus CCM, and anaerobic gram-negative bacilli sputum cultures have been negative. No fever or chills, vitals have been stable. His chest x-ray still shows bilateral airspace disease, without significant change, but clinically his hypoxia has improved. Patient remains on Decadron 6 mg IV push daily, he is on COVID-19 vitamins, he is on Lovenox 40 mg twice daily, he will be started on TPN after the PICC line insertion. Patient is status post exploratory laparotomy, drainage of abdominal abscess and small bowel resection. His abdomen is soft, nondistended, abdominal binder is in place. His incisions have not been inspected as they are covered by sterile drape. He denies any acute distress, his passing flatus, no nausea or vomiting. His leukocytosis is improving. The patient is seen today 03/14/2021 in follow-up on the regular medical floor. He is awake and alert in no acute distress. He is down to 4 L high flow nasal cannula to maintain O2 saturations in the mid 90s. He's been afebrile. Hemodynamically stable. He is currently up ambulating with assistance 2. He did have a PICC line placed yesterday. Abdominal wound cultures were positive for E. coli and enterococcus faecium. White count 14.2. Hemoglobin 13.8. Sodium 130. Potassium 4.2. Creatinine 0.59. Glucose 125. He is being nourished with TPN and lipids. He is on antibiotics in the form of meropenem. Continued on fluconazole. He remains on Decadron, Lovenox, vitamin supplements. Continue on Symbicort and Tessalon Perles. Progress note dated 03/15/2021. The patient is again seen today, in room 626. He is doing well. He sitting up in a chair. He's been weaned on the 4 L nasal cannula. Saturations are between 94-95%. The rest of his vital signs are stable. He has no new complaints today. Abdominal wound cultures were positive for Escherichia coli, and enterococcus faecium. The patient remains on meropenem and fluconazole. The patient's also receiving Decadron, Lovenox, and vitamin supplementation. White count 13.78, hemoglobin 12.5, hematocrit 37.2, and platelet count 3 29,000. Sodium 132, potassium 4, chlorides 98, CO2 30, anion gap 4, BUN 12, creatinine 0.54. No recent chest x-ray to report. The patient has been seen by the physiatry us for possible inpatient rehab. Progress note dated 03/16/2021. The patient is again seen in room 626. He sitting up in a chair next to the bed. He is resting comfortably. He's on 4 L nasal cannula. He is getting lucia ine at 30 mL an hour. He has no new complaints today. Abdominal positive for Escherichia coli, and enterococcus. The patient remains on meropenem, and fluconazole. Labs today include a sodium 132, potassium 4, chlorides 99, CO2 33, BUN 14, and creatinine 0.57. Progress note dated 03/18/2021. The patient is again seen in room 626. Is actually walking the hallway. Currently, he's feeling much improved. His breathing is much improved. His room air saturations 98%. Blood pressure is 114/69. Heart rate 60 with a respiratory rate of 17. White count 12, hemoglobin 13, hematocrit 39, platelet count is 234,000. Sodium 136, potassium 4.2, chlorides 100, CO2 27, anion gap 9, BUN 17, creatinine 0.6. The patient remains on ertapenem, and also Diflucan. Objective - Vital Signs Vital signs: Vital Signs Temp 97.5 F L 03/18/21 08:00 Pulse 60 03/18/21 08:00 Resp 17 03/18/21 08:00 BP 114/69 03/18/21 08:00 Pulse Ox 98 03/18/21 08:00 Intake & Output 03/17/21 03/18/21 03/18/21 18:59 06:59 18:59 Intake Total 360 180 Output Total 250 Balance 360 -70 Weight 63.5 kg 75.1 kg Intake: Oral 360 180 Output: Urine 250 Other: Voiding Method Toilet # Voids 10 3 # Bowel Movements 2 - Exam No acute distress, oriented 3. Currently on room air with saturations of 98%. HEENT examination is grossly unremarkable. Neck supple. Full range of motion. No adenopathy thyromegaly or neck vein distention. Cardiovascular examination reveals regular rhythm rate. S1-S2 normal. No S3 or S4. No discernible murmur noted. Heart rate 60 bpm. Lungs reveal clear breath sounds. Scattered rhonchi. No wheezes. Mild bibasilar crackles. Abdomen off, but normal-appearing bowel sounds. Extremities are intact. No cyanosis clubbing or edema. Skin is without rash or lesion. Neurologic examination is brief but nonfocal. - Labs CBC & Chem 7: 03/18/21 04:39 03/18/21 04:39 Labs: Abnormal Lab Results - Last 24 Hours (Table) 03/17/21 03/17/21 03/17/21 Range/Units 12:25 17:33 20:58 WBC (4.50-10.00) X 10*3/uL RBC (4.40-5.60) X 10*6/uL Hgb (13.0-17.0) g/dL Hct (39.6-50.0) % Immature Gran # (0.00-0.04) X 10*3/uL Neutrophils # (1.80-7.70) X 10*3/uL Anion Gap (10.00-18.00) mmol/L BUN/Creatinine Ratio (12.00-20.00) Ratio POC Glucose (mg/dL) 158 H 111 H 131 H (75-99) mg/dL Calcium (8.7-10.3) mg/dL AST (14-35) U/L ALT (10-49) U/L Total Protein (6.2-8.2) g/dL Albumin (3.8-4.9) g/dL Albumin/Globulin Ratio (1.60-3.17) g/dL 03/18/21 03/18/21 03/18/21 Range/Units 01:55 04:39 04:39 WBC 11.90 H (4.50-10.00) X 10*3/uL RBC 4.21 L (4.40-5.60) X 10*6/uL Hgb 12.6 L (13.0-17.0) g/dL Hct 38.7 L (39.6-50.0) % Immature Gran # 0.26 H (0.00-0.04) X 10*3/uL Neutrophils # 9.60 H (1.80-7.70) X 10*3/uL Anion Gap 9.10 L (10.00-18.00) mmol/L BUN/Creatinine Ratio 28.33 H (12.00-20.00) Ratio POC Glucose (mg/dL) 121 H (75-99) mg/dL Calcium 8.0 L (8.7-10.3) mg/dL AST 52 H (14-35) U/L ALT 163 H (10-49) U/L Total Protein 5.0 L (6.2-8.2) g/dL Albumin 2.8 L (3.8-4.9) g/dL Albumin/Globulin Ratio 1.27 L (1.60-3.17) g/dL 03/18/21 03/18/21 03/18/21 Range/Units 08:02 11:12 11:12 WBC (4.50-10.00) X 10*3/uL RBC (4.40-5.60) X 10*6/uL Hgb (13.0-17.0) g/dL Hct (39.6-50.0) % Immature Gran # (0.00-0.04) X 10*3/uL Neutrophils # (1.80-7.70) X 10*3/uL Anion Gap (10.00-18.00) mmol/L BUN/Creatinine Ratio (12.00-20.00) Ratio POC Glucose (mg/dL) 128 H 130 H 130 H (75-99) mg/dL Calcium (8.7-10.3) mg/dL AST (14-35) U/L ALT (10-49) U/L Total Protein (6.2-8.2) g/dL Albumin (3.8-4.9) g/dL Albumin/Globulin Ratio (1.60-3.17) g/dL 03/18/21 03/18/21 Range/Units 11:12 11:12 WBC (4.50-10.00) X 10*3/uL RBC (4.40-5.60) X 10*6/uL Hgb (13.0-17.0) g/dL Hct (39.6-50.0) % Immature Gran # (0.00-0.04) X 10*3/uL Neutrophils # (1.80-7.70) X 10*3/uL Anion Gap (10.00-18.00) mmol/L BUN/Creatinine Ratio (12.00-20.00) Ratio POC Glucose (mg/dL) 130 H 130 H (75-99) mg/dL Calcium (8.7-10.3) mg/dL AST (14-35) U/L ALT (10-49) U/L Total Protein (6.2-8.2) g/dL Albumin (3.8-4.9) g/dL Albumin/Globulin Ratio (1.60-3.17) g/dL Assessment and Plan Assessment: 1 Acute COVID-19 related pneumonia with secondary shortness of breath. Patient tested positive for COVID 10 days prior to presentation to the emergency department. Patient is a non-vaccinated individual The patient received monoclonal antibodies on outpatient basis. The patient was also treated with steroids and antibiotics. Patient was intubated and placed on mechanical ventilator on 03/09/2021 related to exploratory laparotomy secondary to small bowel perforation and drainage of abdominal abscess and small bowel resection and subsequently extubated. Currently on 4 L nasal cannula. 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 3 Intra-abdominal abscess/peritonitis, patient is on a combination of Diflucan and Zosyn, with abdominal wound cultures positive for E. coli, enterococcus faecium, and anaerobic gram-negative bacilli. 4 Acute hypoxic respiratory failure secondary to above, currently down to 4 L nasal cannula. 5 Shortness of breath and cough secondary to above, much improved. 6 Elevated d-dimer, without evidence of pulmonary embolism/DVT. Plan: Plan dated 03/15/2021. The patient appears to be doing relatively well. He's been weaned down to 3 L nasal cannula. He continues on Decadron and Lovenox. He also continues on vitamins. Additional recommendations and suggestions are forthcoming. He remains on meropenem and Diflucan. Additional recommendations and suggestions are forthcoming. Prognosis is guarded. We'll continue to follow make recommendations where appropriate. Plan dated 03/16/2021. The patient's currently on 4 L. The patient's getting saline at 30 mL an hour. He remains on antibiotics. Laboratory data is reviewed. Medications and x-rays are reviewed. Prognosis is guarded. We will continue to follow make recommendations where appropriate. Plan dated 03/18/2021. The patient is now on room air. Saturations are 98%. The patient remains on ertapenem and Diflucan. The patient appears to be doing much better. When he went to see him today, he was up walking the hallway. He denies any shortness of breath. Additional recommendations and suggestions are forthcoming. Prognosis is guarded. We will continue to follow this patient make recommendations where appropriate. Time with Patient: Less than 30
[2021-03-18 11:50] LABS: Magnesium 2.3 mg/dL (1.6-2.3)
== END 2021-03-18 13:07 | disposition home health service (06) | DRG 981 ==
LOC: EC 11:48 → 4SSUR 14:30 → 2SICU 03-09 21:04 → 6NMEDSUR 03-13 04:15
PROVIDERS: ADMIT Internal Medicine; ATTEND Internal Medicine
DX: U07.1 COVID-19 (principal); A41.51 Sepsis due to Escherichia coli [E. coli]; K27.5 Chronic or unspecified peptic ulcer, site unspecified, with perforation; J96.01 Acute respiratory failure with hypoxia; K65.1 Peritoneal abscess; J12.82 Pneumonia due to coronavirus disease 2019; Z16.12 Extended spectrum beta lactamase (ESBL) resistance; K57.00 Diverticulitis of small intestine with perforation and abscess without bleeding; E87.1 Hypo-osmolality and hyponatremia; J44.0 Chronic obstructive pulmonary disease with (acute) lower respiratory infection; E86.0 Dehydration; R79.1 Abnormal coagulation profile; Z79.51 Long term (current) use of inhaled steroids; Z87.891 Personal history of nicotine dependence; Z79.899 Other long term (current) drug therapy
CPT/HCPCS: 36415; 36573; 36600; 71045; 71275; 74177; 80048; 80053; 80076; 80202; 81001; 82330; 82805; 83605; 83615; 83735; 84100; 84145; 84478; 84484; 85025; 85027; 85379; 85610; 85730; 86140; 86850; 86900; 86901; 87070; 87075; 87077; 87186; 87205; 87635; 88307; 93005; 93970; 94002; 94003; 94640; 94660; 94760; 96360; 99285

== ENCOUNTER → 2023-01-11 | Outpatient (CLI) | payer MEDICARE, BC ==
[2023-01-11 19:37] LABS: Basophils # (A) 0.06 X 10*3/uL (0.00-0.10); Basophils % (A) 0.7 %; Eosinophils # (A) 0.11 X 10*3/uL (0.04-0.35); Eosinophils % (A) 1.3 %; HCT 50.1 % (39.6-50.0); HGB 17.1 d/dL (13.0-17.0); Lymphocytes # (A) 2.89 X 10*3/uL (0.90-5.00); MCH 31.6 pg (27.0-32.0); MCHC 34.1 d/dL (32.0-37.0); MCV 92.6 FL (80.0-97.0); Mean Platelet Volume 10.5 FL (9.5-12.2); Monocytes # (A) 0.64 X 10*3/uL (0.20-1.00); Monocytes % (A) 7.3 %; NRBC Per 100 WBC 0 X 10*3/uL (0.00-0.01); Neutrophils # (A) 5.02 X 10*3/uL (1.80-7.70); Neutrophils % (A) 57.4 %; Platelet Count 210 X 10*3/uL (140-440); RBC 5.41 X 10*6/uL (4.40-5.60); RDW 12.7 % (11.5-14.5); WBC 8.75 X 10*3/uL (4.50-10.00)
[2023-01-12 03:14] LABS: Blood Urea Nitrogen 22.2 mg/dL (9.0-27.0); Calcium 9.6 mg/dL (8.7-10.3); Carbon Dioxide 26.4 mmol/L (21.6-31.8); Chloride 102 mmol/L (96-109); Glucose 100 mg/dL (70-110); Potassium 4.6 mmol/L (3.5-5.5); Sodium 142 mmol/L (135-145)
== END | disposition home or self-care (01) ==
LOC: LABPAT 11:08
PROVIDERS: ATTEND Family Medicine
DX: Z01.812 Encounter for preprocedural laboratory examination (principal); G56.01 Carpal tunnel syndrome, right upper limb
CPT/HCPCS: 80048; 85025

== ENCOUNTER 2023-01-23 11:16 | Day surgery (SDC) | payer MEDICARE, BC ==
--- NOTE | 2023-01-21 09:40 | P.HPOR ---
History of Present Illness H&P Date: 01/21/23 Subjective: This is a 82 year old male that presents today for initial evaluation regarding a several year history of progressively worsening right hand paresthesias in the thumb, index, middle and ring fingers. The patient has tried bracing at nighttime and during the day with little to no relief. He states the numbness is becoming constant in the middle and ring fingers. They deny any inciting event or neck pain. Physical Examination: RUE: AIN/PIN/Radial/Ulnar/Median motor intact. Radial/Ulnar/Median SILT. 2+/4 Radial/Ulnar pulses palpated. 5/5 APB, 5/5 FDI. Negative Finkelsteins, negative CMC grind, positive Durkan's compression. Impression: 1.) Right carpal tunnel syndrome Plan: Diagnosis and treatment options were discussed with the patient. The patient has failed conservative treatment and would like to pursue a right endoscopic vs open carpal tunnel release. Risks and benefits of surgery including bleeding, infection, damage to surrounding tissue, need for further surgery, possible need to convert to open procedure, residual numbness were discussed and the patient wished to go forward with surgery. CC: Bonita Smith NP -Ever Garcia DO Orthopedic Hand/Upper Extremity Surgeon Past Medical History Past Medical History: No Reported History History of Any Multi-Drug Resistant Organisms: None Reported Past Surgical History: Orthopedic Surgery Past Psychological History: No Psychological Hx Reported Smoking Status: Former smoker Past Alcohol Use History: Occasional Past Drug Use History: None Reported Medications and Allergies Home Medications Medication Instructions Recorded Confirmed Type Budesonide/Formoterol Fumarate 2 puff INHALATION RT-BID 03/01/21 03/01/21 History [Symbicort 80-4.5 Mcg Inhaler] guaiFENesin-Coden 100-10MG/5ML 10 ml PO Q6H PRN 03/01/21 03/01/21 History [Robitussin AC] Ascorbic Acid [Vitamin C] 1,000 mg PO DAILY #30 tab 03/18/21 Rx Cholecalciferol [Vitamin D3 (125 125 mcg PO DAILY #30 tablet 03/18/21 Rx Mcg = 5000 Iu)] Docusate [Colace] 100 mg PO BID 30 Days #60 cap 03/18/21 Rx Ertapenem [INVanz] 1 gm IVPB DAILY #0 each 03/18/21 Rx Fluconazole [Diflucan] 100 mg PO DAILY #10 tab 03/18/21 Rx HYDROcodone/APAP 5-325MG [[place] 1 each PO Q6HR PRN #12 tab 03/18/21 Rx 5-325] Allergies Allergy/AdvReac Type Severity Reaction Status Date / Time No Known Allergies Allergy Verified 03/01/21 12:50 Physical Examination Osteopathic Statement: *. No significant issues noted on an osteopathic structural exam other than those noted in the History and Physical/Consult.
[2023-01-21 10:45] VITALS: BMI 33.1
[~2023-01-23 11:16] MED LIST: LACTATED RINGERS 1,000 ML IV SCH; Pre Op ABX Message 1 EACH MISC MISCELLANE ONE
[2023-01-23] MEDS ORDERED: ONDANSETRON 4 MG/2 ML VIAL ONE (12:03)
[2023-01-23 12:05] VITALS: TEMP 97.9
[2023-01-23] MEDS ORDERED: LIDOCAINE 1% (10MG/ML) FOR IV START INTRADERMA ONE (12:11)
[2023-01-23] MEDS ORDERED: MIDAZOLAM 2 MG/2 ML VIAL ONE (12:23)
[2023-01-23] MEDS ORDERED: PROPOFOL 10 MG/ML 20 ML VIAL IV ONE (12:23)
[2023-01-23] MEDS ORDERED: fentaNYL (PF) 50 MCG/ML 2 ML AMP ONE (12:23)
[2023-01-23] MEDS ORDERED: LIDOCAINE 1% INJ 10MG/ML (20 ML MDV) SQ ONE (12:43)
[2023-01-23] MEDS ORDERED: BUPIVACAINE (PF) 0.5% 30 ML VIAL SQ ONE (12:43)
--- NOTE | 2023-01-23 13:25 | P.OP ---
Date of Procedure: 01/23/23 Preoperative Diagnosis: Right carpal tunnel syndrome Postoperative Diagnosis: Right carpal tunnel syndrome Procedure(s) Performed: Right open carpal tunnel release Anesthesia: MAC Surgeon: Ever Garcia Roll Sheeting Cutter #1: Nasim Humphrey Estimated Blood Loss (ml): 0 Pathology: none sent Condition: stable Disposition: PACU Description of Procedure: This is a 82 year old male who presents today for a right endoscopic vs open carpal tunnel release after having failed conservative treatment in the past. Risks and benefits of surgery were discussed with the patient including bleeding, damage to surrounding tissue, infection, need to convert to open procedure, need for further surgery as well as risks of anesthesia including pulmonary embolism and even and the patient wished to proceed with surgical intervention. The patients was seen in the pre-operative area by myself. Consent and H&P were completed and updated. The correct extremity was marked in the pre-operative area by myself and all other questions were answered. Operative Narrative: The patient was brought to the operating room by the department of anesthesia. They remained on the portable stretcher and a rolling hand table was brought to the side of the operative extremity. Pre-operative time out was performed indicating the correct patient, procedure and laterality. All in the room agreed. The patient was then drifted off to sleep by the department of an esthesia. MAC anesthesia was utilized and a 50:50 mixture of 1% Lidocaine and 0.5% bupivacaine was injected into the subcutaneous tissues of the palmar skin, 8ccs total. A nonsterile tourniquet was then applied to the operative extremity and the right upper extremity was then prepped and draped in normal sterile fashion. The operative extremity was the exsanguinated with an esmarch bandage and the tourniquet was inflated to 250mmHg. 15 blade scalpel was utilized to make a transverse incision on the palmar skin just ulnar to the palmaris longus tendon at the level of the distal wrist creas e. Ragnell retractor was then placed radially and blunt dissection was performed to reveal the distal forearm fascia. This was lifted with fine Jeronimo pick ups and Littler tenotomy scissors were then used to open the forearm fascia transversely and a double skin hook was then placed. Hamate finder was placed into the carpal tunnel and then sequential sized dilators were inserted followed by the synovial elevator to separate the flexor tenosynovium from the undersurface of the transverse carpal ligament and a washboard texture was felt. The Micro[employer]ire endoscopic carpal tunnel release system gun was the then inserted into the carpal tunnel hugging the deep portion of the transverse carpal ligament in line with the base of the ring finger. The patient was found to have an abundant amount of thickened flexor tenosynovium in the carpal tunnel and despite dilation several times the undersurface of the transverse carpal ligament was not able to be safely identified to endoscopically release the ligament therefore decision was made to convert to open carpal tunnel release. A longitudinal incision was made in the palm in line with the radial boarder of the 4th digit. Blunt dissection was taken down to rachel palmar fascia and this was divided with 15 blade scalpel. The transverse fibers of the carpal ligament were identified and sharpley incised with a scalpel. The ligament was then released under direct visualization from distal to proximal with scissors and the entire carpal ligament was now divded. Skin closure was performed with interrupted 4-0 nylon suture. Sterile dressing was applied consisting 4x4s, Webril, and an tiffanie bandage. Tourniquet was let down and the hand immediately was well perfused. The patient was then woken by the department of anesthesia and transferred to PACU in stable condition. Nasim DANIEL was present for the case in its entirety and assisted in major portions of the case and protection of vital neurovascular structures. Ever Garcia D.O. Orthopedic Hand/Upper Extremity Surgeon
[2023-01-23 13:30] VITALS: RESP 14
[2023-01-23 13:51] VITALS: BP 122/75; PULSE 55
== END 2023-01-23 14:10 | disposition home or self-care (01) ==
LOC: OR 11:16
PROVIDERS: ATTEND Orthopaedic Surgery Hand Surgery
DX: G56.01 Carpal tunnel syndrome, right upper limb (principal); F10.90 Alcohol use, unspecified, uncomplicated; Z87.891 Personal history of nicotine dependence; Z79.51 Long term (current) use of inhaled steroids; Z79.899 Other long term (current) drug therapy
CPT/HCPCS: 64721; J2250; J2405; J2001; J3010; J2704; J0665